=== PATIENT | male | born 1960 | race Caucasian/White ===

== ENCOUNTER 2023-10-08 21:48 | Emergency (ER) | payer OTHER, SELFPAY ==
--- NOTE | ~2023-10-08 | XR_ITS ---
Portable chest x-ray Comparison: None Clinical History: Tube placement Findings: Endotracheal tube and NG tube appear in satisfactory positions. Lungs are clear, without f ocal consolidation or pleural effusion. The costophrenic angles are partially excluded from the field -of-view. Cardiomediastinal silhouette is stable. Bones and soft tissues are unremarkable. Impression: Support tubes, as above. Visualized lungs are clear. Reviewed, dictated and finalized at location M. Impression: Support tubes, as above. Visualized lungs are clear.
--- NOTE | ~2023-10-08 | CT_ITS ---
EXAMINATION: CT BRAIN W/O DATE: 10/09/2023 01:03 INDICATION: Patient unresponsive TECHNIQUE: Computed tomography (CT) of the head was performed without intravenous contrast. The dose- length product was 681.00 mGy-cm. Automated exposure control and iterative reconstruction technique w ere employed. COMPARISON: No prior studies for comparison. FINDINGS: Normal brain parenchymal volume for age. Normal reynoso-white differentiation. No acute intrac ranial hemorrhage, infarction, mass or mass effect. No ventriculomegaly or midline shift. Midline sagittal images demonstrate a normal corpus callosum, c raniovertebral junction and sella turcica. Basilar cisterns are patent. Paranasal sinuses and mastoids are pneumatized. No depressed skull fractures. IMPRESSION: 1. No acute intracranial abnormality. Reviewed, dictated and finalized at location B.
--- NOTE | ~2023-10-08 | XR_ITS ---
Upright portable view of the abdomen Clinical history: NG tube placement Findings: NG tube in satisfactory position. Bowel gas pattern is nonspecific. No evidence for obstruc tion or free air. No abnormal mass lesion or calcification is seen. Osseous structures are intact. Impression: NG tube in satisfactory position. Reviewed, dictated and finalized at location . Impression: NG tube in satisfactory position.
[2023-10-08] MEDS: LORazepam INJ (*CRX) 2 MG/ML VIAL 1 MG IV PUSH ×4 (21:52→23:35)
--- NOTE | 2023-10-08 21:53 | ECG_ITS ---
SEE SCANNED COPY FOR CONFIRMED REPORT MTDD
[2023-10-08 22:00] VITALS: BP 148/110; PULSE 122; RESP 22; RESP 28; TEMP 37.8; O2SAT 95
[2023-10-08] MEDS: HALOPERIDOL LACTATE 5 MG/ML VIAL IV PUSH (22:06)
[2023-10-08] MEDS: HALOPERIDOL LACTATE 5 MG/ML VIAL IM (22:36)
[2023-10-08 22:42] LABS: Hematocrit 37.9 % (40.0-54.0); Hemoglobin 11.6 g/dL (14.0-18.0); Mean Corpuscular HGB Conc 30.6 g/dL (32-36); Mean Corpuscular Hemoglobin 29.5 pg (27.0-31.0); Mean Corpuscular Volume 96.4 fL (78.0-102.0); Mean Platelet Volume 12.7 fl (8.7-11.0); Red Blood Count 3.93 M/mm3 (4.70-6.10); Red Cell Distribution Width 15.3 % (11.6-14.4); White Blood Count 2.2 K/mm3 (4.8-10.8)
[2023-10-08 22:47] LABS: Platelet Count Result 35 K/mm3 (150-420)
[2023-10-08 22:57] LABS: Band Neutrophils Percent 0 % (0-6); Basophils Percent Manual 0 % (0-1); Eosinophils Absolute Manual 0.02 K/mm3 (0.02-0.50); Eosinophils Percent Manual 1 % (1-6); Lymphocytes Absolute Manual 1.14 K/mm3 (1.1-4.5); Lymphocytes Percent Manual 52 % (18-44); Monocytes Absolute Manual 0.26 K/mm3 (0.1-0.90); Monocytes Percent Manual 12 % (3-9); Neutrophils Absolute Manual 0.77 K/mm3 (1.3-6.7); Neutrophils Percent Manual 35 % (46-73); Platelet Clumps Present; Platelet Estimate Decreased (Adequate)
[2023-10-08 23:04] LABS: Alanine Aminotransferase 24 U/L (16-63); Albumin Level 3.2 g/dL (3.4-5.0); Alkaline Phosphatase 89 U/L (46-116); Anion Gap 15 mmol/L (4-12); Bilirubin,Total 0.3 mg/dL (0.00-1.00); Blood Urea Nitrogen 11 mg/dL (7-18); Calcium 7.9 mg/dL (8.5-10.1); Carbon Dioxide 20 mmol/L (21-32); Chloride 108 mmol/L (98-108); Estimated Glomerular Filt Rate > 60; Ethanol 178 mg/dL (0-6); Glucose 86 mg/dL (70-99); Osmolality Calculated 294 mOsm/kg (285-295); Salicylate 3.7 mg/dL (2.8-20.0); Sodium 143 mmol/L (136-145); Thyroid Stimulating Hormone 0.81 uIU/mL (0.36-3.74); Total Protein 7.7 g/dL (6.4-8.2)
[2023-10-08] MEDS: SODIUM CHLORIDE 0.9% IV 1,000 ML 999 ML IV CONT ×2 (23:10→23:47)
[2023-10-08 23:15] VITALS: BP 180/76; PULSE 108; RESP 22; O2SAT 95
[2023-10-08 23:16] LABS: Acetaminophen < 2 ug/mL (10-30); Ammonia 47 umol/L (11-32); Creatine Kinase 381 U/L (39-308); Potassium 6.4 mmol/L (3.5-5.1)
[2023-10-08 23:17] LABS: Aspartate Amino Transferase 63 U/L (15-37)
[2023-10-08 23:19] LABS: Appearance Urine Clear (Clear); Bilirubin Urine Negative (Negative); Blood Urine Negative (Negative); Color Urine Light Yellow (Yellow); Glucose Urine UA Negative (Negative); Ketones Urine Negative (Negative); Leukocyte Esterase Ur Negative LEU/UL (Negative); Nitrate Urine Negative (Negative); Protein Urine Negative (Negative); Urobilinogen Urine 0.2 mg/dL (0.2-1.0)
[2023-10-08 23:20] LABS: Add Urine Microscopic? NO
[2023-10-08 23:23] LABS: SARS-CoV-2 RNA PCR Negative (Negative)
[2023-10-08 23:23] LABS: Amphetamine Screen Urine Negative (Negative); Barbiturate Screen Urine Negative (Negative); Benzodiazepines Screen Urine Negative (Negative); Cannabinoid Screen Urine Positive (Negative); Cocaine Screen Urine Negative (Negative); Methadone Screen Urine Positive (Negative); Opiate Screen Urine Negative (Negative); Phencyclidine Screen Urine Negative (Negative)
--- NOTE | 2023-10-08 23:27 | PC.NURSE ---
Have attempted to medicate pt numerous times c Ativan as per order and pt is unable to relax, he still remains in restraints and is flaitling arms and attempting to kick and get out of restraints. Pt is on monitor showing Stach, he is unable to be redirected. Resp oncall notified to come for intubation setup. Pt is under close obs of nursing staff and he continues to be uncooperative c care and unable to relax, he is grinding his teeth, attempting to use calming therapy, but pt isn't able to comprehend.
[2023-10-08 23:54] VITALS: BP 136/61; PULSE 107; RESP 20; O2SAT 99
[2023-10-09] VITALS (19 sets, daily range): BP systolic 106–142; BP diastolic 70–88; PULSE 74–108; RESP 15–18; TEMP 36.6–37.8; O2SAT 95–100
[2023-10-09] MEDS: ETOMIDATE 20 MG/10 ML AMPUL IV PUSH (00:05)
[2023-10-09] MEDS: SUCCINYLCHOLINE CHLORIDE 20 MG/ML 10 ML VIAL 100 MG IV PUSH (00:07)
--- NOTE | 2023-10-09 00:11 | PC.NURSE ---
Pt intubated per ERP c 7.5 ETT and placed on vent per resp.
[2023-10-09] MEDS: CALCIUM GLUC 1,000 MG/NS 50 ML 1,000 MG/50 ML BAG 100 MG IVPB (00:14)
--- NOTE | 2023-10-09 00:16 | ED.OVERDOSE ---
HPI - Overdose General Chief Complaint: Overdose Stated Complaint: overdose Time Seen by Provider: 10/08/23 21:53 Source: patient and EMS Mode of arrival: EMS Limitations: altered mental status, physical limitation and intoxication History of Present Illness HPI Narrative: This is a 63-year-old male with no known medical history with tobacco abuse and chronic marijuana user apparently this evening smoked marijuana with possibility of it being laced with some some known drug. Spouse called EMS patient was given a dose of Narcan patient did not respond to the Narcan. The patient was agitated and combative with some heart rate initially 122 blood pressure 148/110. The patient had a low-grade fever with no nausea or vomiting. complaint: accidental overdose Onset (ago): hour(s) Timing confirmed by: spouse Intent: unknown How Overdose Was Discovered: called family/friend and called 911 Treatments Prior to Arrival: narcan and IV fluids Related Data Home Medications Medication Instructions Recorded Confirmed Unable to Obtain Home Medications 10/08/23 10/08/23 Allergies Allergy/AdvReac Type Severity Reaction Status Date / Time Unable to Assess Allergy Verified 10/08/23 22:27 Review of Systems Review of Systems: All systems reviewed & are unremarkable except as noted in HPI and below PMFSH Past Medical History Medical History Patient denies medical problems Social History Social History Substance use type: marijuana, amphetamines and methamphetamine Exam Const: General: confusion and ill appearing Nutritional Appearance: thin Limitations: altered mental status Eyes: Pupils: Equal, round and reactive pupils present Neck: Neck: normal visual inspection and no lymphadenopathy Chest: Chest palpation & inspection: normal inspection of the chest Resp: Effort & Inspection: normal respiratory effort Auscultation: clear to auscultation bilaterally Cardio: Rate: tachycardic Rhythm: regular rhythm GI: GI Palp: Yes Soft to palpation Auscultation: normal bowel sounds Skin: General skin exam: normal color Neuro: General: no focal motor deficits Cranial nerves: Yes Nystagmus not present Extrem: General: normal to inspection, no clubbing, cyanosis or edema and no pedal edema Other: right below-knee amputation Course Course Emergency Course: patient brought in by EMS with acute agitation and combative did receive IV Ativan and Haldol patient continued to be combative and was placed in restraints patient did have some relief of his agitation but was unresponsive and nonverbal and patient was prepped for intubation with RSI with succinylcholine and etomidate. Patient received IV fluids with 2L of normal saline boluses, potassium level increased at 6.4 and was given a dose of IV calcium gluconate. Spoke to kiln pusher stay at [facility] which accepted patient for transfer. Repeat a potassium level Vital Signs Vital signs: Vital Signs Temperature 37.8 C H 10/08/23 22:00 Pulse Rate 122 H 10/08/23 22:00 Respiratory Rate 28 H 10/08/23 22:00 Blood Pressure 148/110 H 10/08/23 22:00 Pulse Oximetry 95 10/08/23 22:00 Oxygen Delivery Room Air 10/08/23 22:00 Temperature 37.8 C H 10/08/23 22:00 Pulse Rate 107 H 10/08/23 23:54 Respiratory Rate 20 10/08/23 23:54 Blood Pressure 136/61 10/08/23 23:54 Pulse Oximetry 99 10/08/23 23:54 Oxygen Delivery Non-Rebreather Mask 10/08/23 23:54 Oxygen Flow Rate 15 10/08/23 23:54 Procedures Intubation Intubation #1: Intubation Date: 10/09/23 Intubation Time: 00:25 Time out performed: Yes sedative: Etomidate Mg Given: 20 paralytic: Succinylcholine Mg Given: 100 Laryngoscope: fiber optic video scope Tube Size (cm): 7.5 Method of Intubation:
[2023-10-09] MEDS: PROPOFOL IV EMULSION 100 ML 2.28 MG IV CONT (00:20)
[2023-10-09] MEDS: SODIUM CHLORIDE 0.9% IV 1,000 ML 120 ML IV CONT (00:30)
--- NOTE | 2023-10-09 00:40 | PC.NURSE ---
Pt being monitored, on propofol gtt and rate increased and co-signed c 2 RNs to sedate pt fully. Monitor shows NSR, IVF infusing as per order. Pt taken to CT for CT of head per order.
[2023-10-09 01:06] LABS: Base Excess ABG -5.3 mmol/L (0-2); HCO3 ABG 20.5 mmol/L (23-29); Oxygen Content ABG 16.1 %vol (16.0-22.0); Oxygen Saturation ABG 96.5 % (95-97); Oxyhemoglobin 94.9 % (94-100); PCO2 ABG 40.8 mmHg (35-45); PO2 ABG 101.1 mmHg (80-90); pH ABG 7.32 (7.35-7.45)
[2023-10-09 01:07] LABS: Device VENTILATOR; Modified Allen's Test Pass; Site Drawn RIGHT RADIAL
--- NOTE | 2023-10-09 01:11 | PC.NURSE ---
Pt remains sedated on propofol gtt per protocol. VSS, awaiting callback from appeals reviewer veteran at [facility]. Continuing to monitor.
[2023-10-09 01:49] LABS: Anion Gap 12 mmol/L (4-12); Blood Urea Nitrogen 9 mg/dL (7-18); Calcium 7.7 mg/dL (8.5-10.1); Carbon Dioxide 24 mmol/L (21-32); Chloride 112 mmol/L (98-108); Estimated CRCL calculation 77 ml/min; Estimated Glomerular Filt Rate > 60; Glucose 88 mg/dL (70-99); Osmolality Calculated 303 mOsm/kg (285-295); Potassium 4.1 mmol/L (3.5-5.1); Sodium 148 mmol/L (136-145)
--- NOTE | 2023-10-09 02:31 | PC.NURSE ---
Call back from Bonnie,, pt will go to ICU 5, # for report given.
--- NOTE | 2023-10-09 02:31 | PC.NURSE ---
Pt remains sedated on propofol gtt, VSS, continuing to monitor.
--- NOTE | 2023-10-09 02:41 | PC.NURSE ---
Report given to [facility] at [place], call placed to [facility] for transfer.
--- NOTE | 2023-10-09 03:28 | PC.NURSE ---
Pt transfered to EMS cot for transfer. New propofol hung for transfer as 1st vial is complete and empty. Report given to EMS.
== END 2023-10-09 03:45 | disposition short-term general hospital (02) ==
PROVIDERS: Emergency Provider Emergency Medicine
DX: E87.5 Hyperkalemia (principal); T50.904A Poisoning by unspecified drugs, medicaments and biological substances, undetermined, initial encounter; Z20.822 Contact with and (suspected) exposure to COVID-19
CPT/HCPCS: 31500; 36415; 36600; 51702; 70450; 80048; 80053; 80307; 81003; 82140; 82550; 82805; 84443; 85025; 85055; 87635; 93005; 96361; 96365; 96366; 96367; 96372; 96374; 96375; 96376; 99285; J0330; J0612; J1630; J2060; J2704; J7030

== ENCOUNTER 2023-10-09 04:13 | Inpatient (IN) | payer OTHER, SELFPAY ==
[2023-10-09] VITALS (32 sets, daily range): BP systolic 104–150; BP diastolic 50–79; PULSE 53–84; RESP 16–23; TEMP 36.2–38.5; O2SAT 95–100; BMI 23.0
--- NOTE | ~2023-10-09 | XR_ITS ---
XR chest 1V portable DATE: 10/10/2023 05:40 INDICATION: Intubation TECHNIQUE: Portable AP chest on October 10, 2023 at 0 x 12 hours COMPARISON: Portable AP chest on October 09, 2023 at 0543 hours FINDINGS: ET tube tip is 5.6 cm above calixto. NG tube in stomach. No central lines. The lungs are hyperinflated. Minimal discoid atelectasis or scarring in the left lower lobe. No pulmo nary consolidation or pleural effusion, pulmonary vascular congestion or pneumothorax is detected. Normal heart size. No hilar or mediastinal enlargement. IMPRESSION: Minimal discoid atelectasis or scarring, left lower lobe Moderate hyperinflation Reviewed, dictated and finalized at location A.
--- NOTE | ~2023-10-09 | XR_ITS ---
XR chest 1V portable DATE: 10/11/2023 05:59 INDICATION: Extubation TECHNIQUE: Portable upright AP views October 11, 2023 at 0524 hours COMPARISON: October 10, 2023 portable AP chest FINDINGS: Removal of ET and NG tubes since October 10, 2023. Bilateral hyperinflation consistent with obstructive airways disease. No pulmonary infiltrate or consolidation, pleural effusion or pulmonary vascular congestion or pneumo thorax is evident. No normal heart size. No hilar or mediastinal enlargement. IMPRESSION: Removal of ET and NG tubes Bilateral hyperinflation suggesting COPD; no active cardiopulmonary disease Reviewed, dictated and finalized at location A.
--- NOTE | ~2023-10-09 | XR_ITS ---
XR chest 1V portable 10/09/2023 05:47 Indication: Respiratory distress. Intubation. Procedure: AP portable chest Comparison: 10/09/2023 Findings: Heart size normal. Endotracheal tube tip 6.1 cm above the calixto. Subtle right basilar infi ltrates may represent atelectasis or developing pneumonia. No pleural effusion, edema or pneumothorax .. Impression: 1: Subtle developing right basilar infiltrates may represent atelectasis or developing pneumonia. Reviewed, dictated and finalized at location B. Impression: 1: Subtle developing right basilar infiltrates may represent atelectasis or dev eloping pneumonia.
--- NOTE | 2023-10-09 04:38 | ADMIMU ---
This patient, Mirza Hidalgo, was admitted to IMU status, and placed in Intensive Care Unit-5 from [facility] on a ventilator. Patient/family oriented to hospital policies and general routines including ID bracelet, bed and alarms, visiting hours, pain management, procedures, bathroom and other care routines, personal items, smoking policy, room service/diet, and visiting hours. Valuables list has been completed. Information on how to activate the Rapid Response Team has been discussed. Patient/Family are encouraged to report perceived risks to care and to ask questions if they do not understand what they are told or what they should do.
[2023-10-09] MEDS: PROPOFOL IV EMULSION 100 ML 19.75 MG IV CONT (04:40)
[2023-10-09 05:23] LABS: Alveolar/Arterial O2 Gradient 79.9 mmHg; Base Excess ABG -5.6 mEq/l (+/-2.0); Fractional Inspired Oxygen 30 %; HCO3 ABG 19.7 mEq/l (22.0-26.0); Methemoglobin ABG 0.1 %THb (0-1.5); Oxygen Content ABG 16.3 %vol (16.0-22.0); Oxygen Saturation ABG 96.4 % (95.0-100.0); Oxyhemoglobin 95.3 % THb (90.0-100.0); PCO2 ABG 37.8 mmHg (35.0-45.0); PO2 ABG 89.6 mmHg (80.0-100.0); PO2 FiO2 Ratio Arterial Blood 2.99 %; Reduced Hemoglobin 4.6 %THb (0-5.0); Total Hemoglobin 12.1 g/dL (12.0-18.0); pH ABG 7.334 (7.350-7.450)
[2023-10-09 05:24] LABS: Device VENTILATOR; Modified Allen's Test Pass; Site Drawn LEFT RADIAL
[2023-10-09 05:25] LABS: Arterial Blood Gas PEEP 5 cmH2O; Arterial Blood Gas Tidal Volume 450 ml; Arterial Blood Gas Vent Mode CMV; Arterial Blood Gas Ventilator rate 16 /MIN
--- NOTE | 2023-10-09 06:47 | ADMGEN ---
This patient, Mirza Hidalgo, was admitted to Intensive Care Unit-5. Patient/family oriented to hospital policies and general routines including ID bracelet, bed and alarms, visiting hours, pain management, procedures, bathroom and other care routines, personal items, smoking policy, room service/diet, and visiting hours. Information on how to activate the Rapid Response Team has been discussed. Patient/Family are encouraged to report perceived risks to care and to ask questions if they do not understand what they are told or what they should do. Received from [facility] via EMS on ventilator and Propofol at 0411.
[2023-10-09] MEDS: PROPOFOL IV EMULSION 100 ML 17.95 MG IV CONT ×2 (07:15→19:31)
[2023-10-09 07:33] LABS: MRSA (PCR) NOT DETECTED (NOT DETECTE)
--- NOTE | 2023-10-09 07:35 | PM.IMHP ---
H&P: HPI History of Present Illness Date/Time: 10/09/23 07:35 Chief Complaint: Drug overdose Narrative: patient is intubated, history taken from ER note 63 years old gentleman with history of tobacco use, marijuana use, was brought to ED by EMS because of possible overdose of unknown drugs. patient was found confused, agitated, combative. EMS gave the patient Narcan, patient did not respond. And patient was found have tachycardia heart rate about 122, elevated blood pressure 148/110. And patient was brought to ED for further evaluation treatment. Upon arrival in the ED, patient was afebrile, tachycardia, tachypnea, patient was intubated, labs showed leukopenia 2200, hemoglobin 11.6, platelets 35, hyperkalemia 6.4, metabolic acidosis bicarbonate 20, ethyl alcohol 178, positive marijuana and methadone on drug screening Review of Systems Review of Systems: patient is in the [facility] Past Medical History Medical History Patient denies medical problems Family History Family History Other Unknown family medical history Social History Social History Smoking status: Current every day smoker Alcohol intake: current Substance use: current Substance use type: marijuana Spiritual care concerns: No Meds Home Medications and Allergies Home Medications Medication Instructions Recorded Confirmed Type Unable to Obtain Home Medications 10/08/23 10/09/23 History Allergies Allergy/AdvReac Type Severity Reaction Status Date / Time Unable to Assess Allergy Verified 10/08/23 22:27 Vital Signs Vital Signs - 24 hr 10/09/23 04:36 10/09/23 05:00 10/09/23 04:30 Temperature Pulse Rate 60 62 Respiratory Rate 16 Blood Pressure Pulse Oximetry 99 100 Oxygen Delivery Mechanical Ventilation Mechanical Ventilation Mechanical Ventilation Fraction of Inspired Oxygen 30 30 10/09/23 06:00 10/09/23 06:00 10/09/23 04:40 Temperature 97.7 F Pulse Rate 66 66 60 Respiratory Rate 16 16 Blood Pressure 107/67 Pulse Oximetry 98 Oxygen Delivery Fraction of Inspired Oxygen 10/09/23 06:00 Temperature Pulse Rate 64 Respiratory Rate 16 Blood Pressure Pulse Oximetry Oxygen Delivery Fraction of Inspired Oxygen Exam Narrative: GENERAL: intubated, in no acute distress. Well-nourished. - EYES: EOMI. Anicteric. - HENT: Moist mucous membranes. - LUNGS: Clear to auscultation bilaterally, no wheezing, rhonchi, or rales. - CARDIOVASCULAR: Regular rate and rhythm. No murmur. No JVD. - ABDOMEN: Soft, non-tender and non-distended. No palpable masses. - EXTREMITIES: No edema. Peripheral pulses 2+. Non-tender. - NEUROLOGIC: No focal neurological deficits. CN II-XII grossly intact. - PSYCHIATRIC: on sedation, not oriented x 3. - SKIN: No rashes or lesions. Warm. - LYMPH: No cervical lymphadenopathy. Assessment and Plan Assessment and plan (1) Drug overdose: Qualifiers: Encounter type: initial encounter Injury intent: undetermined intent Qualified Code(s): T50.904A - Poisoning by unspecified drugs, medicaments and biological substances, undetermined, initial encounter Code(s): T50.901A - Poisoning by unspecified drugs, medicaments and biological substances, accidental (unintentional), initial encounter Status: Acute (2) Acute hyperkalemia: Code(s): E87.5 - Hyperkalemia Status: Acute (3) Alcohol intoxication: Code(s): F10.929 - Alcohol use, unspecified with intoxication, unspecified Status: Acute (4) Acute encephalopathy: Code(s): G93.40 - Encephalopathy, unspecified Status: Acute (5) Metabolic acidosis: Code(s): E87.20 - Acidosis, unspecified Status: Acute (6) Pancytopenia: Code(s): D61.818 - Other pancytopenia Statu
--- NOTE | 2023-10-09 08:18 | WPDCNINT ---
Assessment and Plan Assessment and plan (1) Acute respiratory failure: Code(s): J96.00 - Acute respiratory failure, unspecified whether with hypoxia or hypercapnia Status: Acute Assessment and Plan: Acute Respiratory failure secondary to encephalopathy Patient now intubated and on mechanical ventilation. Ventilator settings reviewed Continue full mechanical ventilation support to prevent hypoxemia/hypercarbia and end organ damage. ABG and PCXR reviewed and will repeat in am. Low tidal volume ventilation strategy to prevent volutrauma Will attempt SBT after 24 hours once the effect of drugs have worn off Start Bronchodilators (2) Acute encephalopathy: Code(s): G93.40 - Encephalopathy, unspecified Status: Acute Assessment and Plan: Likely secondary to drug abuse and alcohol intoxication Head CT negative Ammonia is mildly elevated and will be started on lactulose. Level with monitor Check TSH (3) Alcohol intoxication: Code(s): F10.929 - Alcohol use, unspecified with intoxication, unspecified Status: Acute Assessment and Plan: IV fluids Thiamine folic acid Supportive care (4) Acute hyperkalemia: Code(s): E87.5 - Hyperkalemia Status: Acute Assessment and Plan: Patient's potassium was 6.4 on presentation could be secondary to acidosis. Repeat potassium has normalized and his renal function is normal Monitor (5) Drug overdose: Qualifiers: Encounter type: initial encounter Injury intent: undetermined intent Qualified Code(s): T50.904A - Poisoning by unspecified drugs, medicaments and biological substances, undetermined, initial encounter Code(s): T50.901A - Poisoning by unspecified drugs, medicaments and biological substances, accidental (unintentional), initial encounter Status: Acute Assessment and Plan: Supportive care Alcohol intoxication on presentation UDS also positive for methadone and cannabinoids Patient appears to be smoking marijuana which was laced with some sort of drug (6) COPD (chronic obstructive pulmonary disease): Code(s): J44.9 - Chronic obstructive pulmonary disease, unspecified Status: Acute Assessment and Plan: Hyperinflated lungs on chest x-ray suggestive of COPD No official diagnosis and does not appear in exacerbation from exam Bronchodilators ordered (7) Rhabdomyolysis: Code(s): M62.82 - Rhabdomyolysis Status: Acute Assessment and Plan: CK elevated Continue IV fluids and monitor CK level Plan DVT prophylaxis -Lovenox Stress ulcer prophylaxis -PPI Nutrition -start Tube Feeds Code Status - Full Code Total Critical Care Time - 35 minutes Due to a high probability of clinically significant, life threatening deterioration, the patient required my highest level of preparedness to intervene emergently and I personally spent this critical care time directly and personally managing the patient. This critical care time included obtaining a history; examining the patient; pulse oximetry; ordering and review of studies; arranging urgent treatment with development of a management plan; evaluation of patient's response to treatment; frequent reassessment; and discussions with other providers. It was exclusive of separately billable procedures and treating other patients and teaching time. Please see Assessment and Plan section and the rest of the note for further information on patient assessment and treatment Curriculum Developer Consult Note Consult date: 10/09/23 Reason for consult: Acute respiratory failure HPI: Mirza Hidalgo is a 63 year old male with a known medical history except tobacco abuse marijuana abuse was brought to [place] ER due to agitation by EMS after his called EMS as she suspected the patient was smoking marijuana laced with some unknown drug. Patient was given Narcan without any response. In ER patient was agitated combative tachycardic and hypert
[2023-10-09] MEDS: IPRATROPIUM 0.5 MG/ALBUTEROL SULFATE 2.5 MG AMPUL.NEB 3 ML INHALATION ×3 (08:25→20:31)
[2023-10-09 08:42] LABS: Hepatitis B Surface Antigen Negative (Negative)
[2023-10-09] MEDS: PIPERACILLIN/TAZ 4.5G/NS 100ML 4.5 GM/100 ML BAG IVPB (08:55)
[2023-10-09] MEDS: SODIUM CHLORIDE 0.45% 1,000 ML 125 ML IV CONT ×2 (08:55→17:27)
[2023-10-09 08:59] LABS: HIV 1/2 Ab P24 Ag Result Negative (Negative); Hepatitis C Virus Antibody Negative (Negative)
[2023-10-09] MEDS: ENOXAPARIN 40 MG/0.4 ML SYRINGE SUB-Q (09:00)
[2023-10-09] MEDS: THIAMINE HCL 100 MG TABLET FEED TUBE (09:00)
[2023-10-09] MEDS: PANTOPRAZOLE SODIUM IV 40 MG VIAL IV PUSH (09:01)
[2023-10-09] MEDS: LACTULOSE 20 GM/30 ML UDC PO (09:01)
[2023-10-09] MEDS: FOLIC ACID 1 MG TABLET FEED TUBE (09:01)
[2023-10-09] MEDS: MINERAL OIL/WHITE PETROLATUM OINTMENT 1 APPLIC EACH EYE ×2 (09:02→20:13)
[2023-10-09] MEDS: THIAMINE HCL 200 MG/2 ML VIAL 100 MG IV PUSH (09:04)
[2023-10-09 09:24] LABS: Hematocrit 36.4 % (42.0-52.0); Hemoglobin 11.3 g/dL (14.0-18.0); Immature Reticulocyte Fraction 11.1 % (3.0-15.9); Mean Corpuscular Hemoglobin 30.2 pg (26-34); Mean Corpuscular Volume 97.3 fl (80-100); Mean Platelet Volume 10.7 fl (7.4-10.4); Platelet Count Result 155 k/mm3 (150-375); Red Blood Count 3.74 M/mm3 (4.6-6.20); Red Cell Distribution Width 15.8 % (11.5-14.5); Reticulocyte Hemoglobin Conten 32.8 pg (28.2-36.6); Reticulocyte Percent 1.25 % (0.7-4.3); Reticulocytes Absolute 0.05 10^6/uL (0.02-0.10); White Blood Count 4.1 K/mm3 (4.5-10.0)
[2023-10-09 09:47] LABS: Iron 54 ug/dL (49-181)
[2023-10-09 09:50] LABS: Alanine Aminotransferase 22 U/L (6-50); Albumin Level 3.4 g/dL (3.5-5.1); Alkaline Phosphatase 83 U/L (38-126); Anion Gap 4 mmol/L (4-12); Aspartate Amino Transferase 44 U/L (17-59); Bilirubin,Total 0.3 mg/dL (0.2-1.3); Blood Urea Nitrogen 11 mg/dL (9-20); Calcium 8.5 mg/dL (8.4-10.2); Carbon Dioxide 23 mmol/L (22-30); Chloride 116 mmol/L (98-107); Estimated CRCL calculation 100 ml/min; Estimated Glomerular Filt Rate > 60; Glucose 79 mg/dL (65-110); Magnesium 1.7 mg/dL (1.6-2.3); Sodium 143 mmol/L (137-145)
[2023-10-09 09:52] LABS: NT Pro B Type Natriuretic Pept 39 pg/mL (19.9-100)
[2023-10-09 09:56] LABS: Percent Iron Saturation 20 % (20-50)
[2023-10-09 10:05] LABS: Procalcitonin 0.1 ng/mL
[2023-10-09 10:13] LABS: Thyroid Stimulating Hormone Reflex 0.686 uIU/mL (0.465-4.68)
[2023-10-09 11:25] LABS: Lactic Acid Reflex 0.9 mmol/L (0.7-2.0)
[2023-10-09 11:34] LABS: Glucose Point of Care 82 mg/dl (65-105)
[2023-10-09] MEDS: PROPOFOL IV EMULSION 100 ML 15.71 MG IV CONT (13:34)
[2023-10-09 18:12] LABS: Appearance Urine Turbid (Clear); Bacteria Urine None Seen /hpf; Bilirubin Urine Negative (Negative); Blood Urine 2+ (Negative); Color Urine Yellow (Yellow); Glucose Urine UA Negative (Negative); Ketones Urine 1+ mg/dL (Negative); Leukocyte Esterase Ur 1+ LEU/UL (Negative); Nitrate Urine Negative (Negative); Non Pathogenic Casts 0-2; Protein Urine Trace mg/dL (Negative); RBC Urine 21-50 /hpf (0-2); Specific Grav Ur 1.027 (1.001-1.035); Squamous Epithelial Cell Urine Occasional /hpf (Few); pH Urine 5.5 (5.0-9.0)
[2023-10-09 18:19] LABS: Add Urine Microscopic? YES
[2023-10-09 18:46] LABS: Glucose Point of Care 80 mg/dl (65-105)
[2023-10-09] MEDS: ACETAMINOPHEN ELIXIR 325 MG/10.15 ML UDC 650 MG PO (23:41)
[2023-10-10] VITALS (47 sets, daily range): BP systolic 84–133; BP diastolic 49–79; PULSE 43–87; RESP 13–28; TEMP 37–38.5; O2SAT 95–100
[2023-10-10 00:01] LABS: Glucose Point of Care 84 mg/dl (65-105)
[2023-10-10] MEDS: PROPOFOL IV EMULSION 100 ML 22.44 MG IV CONT ×2 (01:00→04:25)
[2023-10-10] MEDS: SODIUM CHLORIDE 0.45% 1,000 ML 125 ML IV CONT (01:27)
[2023-10-10] MEDS: IPRATROPIUM 0.5 MG/ALBUTEROL SULFATE 2.5 MG AMPUL.NEB 3 ML INHALATION ×4 (02:54→20:02)
[2023-10-10 04:18] LABS: Hematocrit 34.9 % (42.0-52.0); Hemoglobin 11.2 g/dL (14.0-18.0); Mean Corpuscular HGB Conc 32.1 g/dl (32-36); Mean Corpuscular Hemoglobin 30.2 pg (26-34); Mean Corpuscular Volume 94.1 fl (80-100); Mean Platelet Volume 10.1 fl (7.4-10.4); Platelet Count Result 159 k/mm3 (150-375); Red Blood Count 3.71 M/mm3 (4.6-6.20); Red Cell Distribution Width 15.6 % (11.5-14.5); White Blood Count 4.2 K/mm3 (4.5-10.0)
[2023-10-10 04:28] LABS: Ammonia 21 umol/L (9-30); Creatine Kinase 636 U/L (55-170)
[2023-10-10 04:35] LABS: Alanine Aminotransferase 18 U/L (6-50); Albumin Level 3.1 g/dL (3.5-5.1); Alkaline Phosphatase 80 U/L (38-126); Anion Gap 3 mmol/L (4-12); Aspartate Amino Transferase 38 U/L (17-59); Bilirubin,Total 0.3 mg/dL (0.2-1.3); Blood Urea Nitrogen 9 mg/dL (9-20); Calcium 8.4 mg/dL (8.4-10.2); Carbon Dioxide 25 mmol/L (22-30); Chloride 111 mmol/L (98-107); Estimated CRCL calculation 100 ml/min; Estimated Glomerular Filt Rate > 60; Glucose 114 mg/dL (65-110); Magnesium 1.8 mg/dL (1.6-2.3); Potassium 3.2 mmol/L (3.4-5.0); Sodium 139 mmol/L (137-145)
[2023-10-10] MEDS: dexmedeTOMIDine 400 MCG/100 ML 400 MCG/100 ML BAG IV CONT (04:50)
[2023-10-10 05:54] LABS: Alveolar/Arterial O2 Gradient 85.1 mmHg; Base Excess ABG 1.4 mEq/l (+/-2.0); Carboxyhemoglobin 0.3 % THb (0-2.0); Fractional Inspired Oxygen 30 %; HCO3 ABG 25.9 mEq/l (22.0-26.0); Methemoglobin ABG 0.2 %THb (0-1.5); Oxygen Content ABG 16.5 %vol (16.0-22.0); Oxygen Saturation ABG 96.2 % (95.0-100.0); Oxyhemoglobin 95.1 % THb (90.0-100.0); PCO2 ABG 40.6 mmHg (35.0-45.0); PO2 ABG 81.1 mmHg (80.0-100.0); Reduced Hemoglobin 4.4 %THb (0-5.0); Total Hemoglobin 12.3 g/dL (12.0-18.0); pH ABG 7.423 (7.350-7.450)
[2023-10-10 05:57] LABS: Device VENTILATOR; Modified Allen's Test Pass; Site Drawn RIGHT RADIAL
[2023-10-10 05:58] LABS: Arterial Blood Gas PEEP 5 cmH2O; Arterial Blood Gas Tidal Volume 450 ml; Arterial Blood Gas Vent Mode CMV; Arterial Blood Gas Ventilator rate 16 /MIN
[2023-10-10 06:09] LABS: Glucose Point of Care 99 mg/dl (65-105)
--- NOTE | 2023-10-10 08:08 | WPDINTPN ---
Progress Note: A&P Assessment and Plan (1) Acute respiratory failure: Code(s): J96.00 - Acute respiratory failure, unspecified whether with hypoxia or hypercapnia Status: Acute Assessment and Plan: Acute Respiratory failure secondary to encephalopathy Patient now intubated and on mechanical ventilation. Ventilator settings reviewed Continue full mechanical ventilation support to prevent hypoxemia/hypercarbia and end organ damage. ABG and PCXR reviewed. Advance ET tube to 27 cm.. Low tidal volume ventilation strategy to prevent volutrauma Patient placed on sedation holiday and will try weaning trial and evaluate for extubation Continue Bronchodilators (2) Acute encephalopathy: Code(s): G93.40 - Encephalopathy, unspecified Status: Acute Assessment and Plan: Likely secondary to drug abuse and alcohol intoxication Head CT negative Ammonia is mildly elevated and patient was started on lactulose. Level now normal Normal TSH (3) Alcohol intoxication: Code(s): F10.929 - Alcohol use, unspecified with intoxication, unspecified Status: Acute Assessment and Plan: IV fluids Thiamine folic acid Supportive care (4) Acute hyperkalemia: Code(s): E87.5 - Hyperkalemia Status: Inactive Assessment and Plan: Patient's potassium was 6.4 on presentation could be secondary to acidosis. Repeat potassium has normalized and his renal function is normal Monitor (5) Drug overdose: Qualifiers: Encounter type: initial encounter Injury intent: undetermined intent Qualified Code(s): T50.904A - Poisoning by unspecified drugs, medicaments and biological substances, undetermined, initial encounter Code(s): T50.901A - Poisoning by unspecified drugs, medicaments and biological substances, accidental (unintentional), initial encounter Status: Inactive Assessment and Plan: Supportive care Alcohol intoxication on presentation UDS also positive for methadone and cannabinoids Patient appears to be smoking marijuana which was laced with some sort of drug (6) COPD (chronic obstructive pulmonary disease): Code(s): J44.9 - Chronic obstructive pulmonary disease, unspecified Status: Acute Assessment and Plan: Hyperinflated lungs on chest x-ray suggestive of COPD No official diagnosis and does not appear in exacerbation from exam Bronchodilators ordered (7) Rhabdomyolysis: Code(s): M62.82 - Rhabdomyolysis Status: Acute Assessment and Plan: CK elevated Continue IV fluids and monitor CK level (8) UTI (urinary tract infection): Code(s): N39.0 - Urinary tract infection, site not specified Status: Acute Assessment and Plan: UA suggestive of UTI. WBC normal but patient appears to be pancytopenic could be secondary to chronic alcohol abuse. Low-grade fever Urine blood and sputum cultures are sent and pending Start Rocephin Plan DVT prophylaxis -Lovenox Stress ulcer prophylaxis -PPI Nutrition -on Tube Feeds Code Status - Full Code Total Critical Care Time - 30 minutes Due to a high probability of clinically significant, life threatening deterioration, the patient required my highest level of preparedness to intervene emergently and I personally spent this critical care time directly and personally managing the patient. This critical care time included obtaining a history; examining the patient; pulse oximetry; ordering and review of studies; arranging urgent treatment with development of a management plan; evaluation of patient's response to treatment; frequent reassessment; and discussions with other providers. It was exclusive of separately billable procedures and treating other patients and teaching time. Please see Assessment and Plan section and the rest of the note for further information on patient assessment and treatment Subjective Date/time seen: 10/10/23 Overnight events reviewed. Low-grad
[2023-10-10] MEDS: POTASSIUM CHLORIDE 20 MEQ PACKET (FOR LIQUID) 40 MEQ FEED TUBE ×2 (08:15→13:38)
[2023-10-10] MEDS: LACTULOSE 20 GM/30 ML UDC PO (08:16)
[2023-10-10] MEDS: FOLIC ACID 1 MG TABLET FEED TUBE (08:16)
[2023-10-10] MEDS: PANTOPRAZOLE SODIUM IV 40 MG VIAL IV PUSH (08:17)
[2023-10-10] MEDS: KCL 20 MEQ/0.45% NS 1,000 ML 100 ML IV CONT ×2 (08:20→18:25)
[2023-10-10] MEDS: MINERAL OIL/WHITE PETROLATUM OINTMENT 1 APPLIC EACH EYE (08:21)
[2023-10-10] MEDS: ENOXAPARIN 40 MG/0.4 ML SYRINGE SUB-Q (08:21)
[2023-10-10] MEDS: MAGNESIUM SULF 2 GM/WATER 50ML 2 GM/50 ML BAG IVPB (08:21)
[2023-10-10] MEDS: THIAMINE HCL 100 MG TABLET FEED TUBE (08:30)
[2023-10-10 08:39] LABS: Alveolar/Arterial O2 Gradient 101.4 mmHg; Base Excess ABG -3.5 mEq/l (+/-2.0); Carboxyhemoglobin 0.3 % THb (0-2.0); Fractional Inspired Oxygen 30 %; HCO3 ABG 20.5 mEq/l (22.0-26.0); Methemoglobin ABG 0.2 %THb (0-1.5); Oxygen Content ABG 16.5 %vol (16.0-22.0); Oxyhemoglobin 93.6 % THb (90.0-100.0); PCO2 ABG 33.4 mmHg (35.0-45.0); PO2 ABG 73.3 mmHg (80.0-100.0); PO2 FiO2 Ratio Arterial Blood 2.44 %; Reduced Hemoglobin 5.9 %THb (0-5.0); Total Hemoglobin 12.5 g/dL (12.0-18.0); pH ABG 7.405 (7.350-7.450)
[2023-10-10 08:40] LABS: Device VENTILATOR; Site Drawn LEFT BRACHIAL
[2023-10-10 08:41] LABS: Arterial Blood Gas PEEP 5 cmH2O; Arterial Blood Gas Pressure Support 5 cmH2O; Arterial Blood Gas Vent Mode SPONTANEOUS
--- NOTE | 2023-10-10 08:42 | PC.NURSE ---
Dr. Napier to bedside. ABG drawn, patient able to follow simple command on Precedex gtt only.
--- NOTE | 2023-10-10 08:46 | PM.IMPN ---
Progress Note: A&P Assessment and Plan (1) UTI (urinary tract infection): Code(s): N39.0 - Urinary tract infection, site not specified Status: Acute (2) Rhabdomyolysis: Code(s): M62.82 - Rhabdomyolysis Status: Acute (3) COPD (chronic obstructive pulmonary disease): Code(s): J44.9 - Chronic obstructive pulmonary disease, unspecified Status: Acute (4) Acute respiratory failure: Code(s): J96.00 - Acute respiratory failure, unspecified whether with hypoxia or hypercapnia Status: Acute (5) Acute encephalopathy: Code(s): G93.40 - Encephalopathy, unspecified Status: Acute (6) Alcohol intoxication: Code(s): F10.929 - Alcohol use, unspecified with intoxication, unspecified Status: Acute (7) Pancytopenia: Code(s): D61.818 - Other pancytopenia Status: Acute Plan (1) Acute respiratory failure, possible COPD exacerbation ?Code(s): J96.00 - Acute respiratory failure, unspecified whether with hypoxia or hypercapnia ?Status:?Acute ?Assessment and Plan: Acute Respiratory failure secondary to encephalopathy Patient now intubated and on mechanical ventilation.? Ventilator settings reviewed Continue full mechanical ventilation support to prevent hypoxemia/hypercarbia and end organ damage. ABG and PCXR reviewed. Advance ET tube to 27 cm.. Low tidal volume ventilation strategy to prevent volutrauma Patient placed on sedation holiday and will try weaning trial and evaluate for extubation Continue Bronchodilators (2) Acute encephalopathy: ?Code(s): G93.40 - Encephalopathy, unspecified ?Status:?Acute ?Assessment and Plan: Likely secondary to drug abuse and alcohol intoxication Head CT negative Ammonia is mildly elevated and patient was started on lactulose.? Level now normal Normal TSH (3) Alcohol intoxication: ?Code(s): F10.929 - Alcohol use, unspecified with intoxication, unspecified ?Status:?Acute ?Assessment and Plan: IV fluids continue Thiamine folic acid Supportive care (4) Acute hyperkalemia: ?Code(s): E87.5 - Hyperkalemia ?Status:?Inactive ?Assessment and Plan: Patient's potassium was 6.4 on presentation could be secondary to acidosis. Repeat potassium has normalized and his renal function is normal Monitor resolved patient has mild hypokalemia, replete potassium chloride p.o. p.r.n. (5) Drug overdose: ?Qualifiers: ?Encounter type:?initial encounter??Injury intent:?undetermined intent? Qualified Code(s):?T50.904A - Poisoning by unspecified drugs, medicaments and biological substances, undetermined, initial encounter ?Code(s): T50.901A - Poisoning by unspecified drugs, medicaments and biological substances, accidental (unintentional), initial encounter ?Status:?Inactive ?Assessment and Plan: Supportive care Alcohol intoxication on presentation UDS also positive for methadone and cannabinoids Patient appears to be smoking marijuana which was laced with some sort of drug (6) COPD (chronic obstructive pulmonary disease): ?Code(s): J44.9 - Chronic obstructive pulmonary disease, unspecified ?Status:?Acute ?Assessment and Plan: Hyperinflated lungs on chest x-ray suggestive of COPD No official diagnosis and does not appear in exacerbation from exam Bronchodilators ordered (7) Rhabdomyolysis: ?Code(s): M62.82 - Rhabdomyolysis ?Status:?Acute ?Assessment and Plan: CK elevated Continue IV fluids and monitor CK level (8) UTI (urinary tract infection): ?Code(s): N39.0 - Urinary tract infection, site not specified ?Status:?Acute ?Assessment and Plan: UA suggestive of UTI.? Low-grade fever Urine culture pending,blood and sputum cultures no growth so far Start Rocephin pancytopenia neutropenia and thrombocytopenia has resolved, hemoglobin stable, likely secondary to alcohol intoxication Subject
--- NOTE | 2023-10-10 08:55 | PC.NURSE ---
Patient extubated to 2L NC without issue. Patient updated on plan of care and safety precautions post extubation. Patient verbalized understanding.
--- NOTE | 2023-10-10 10:49 | PC.NURSE ---
Updated spouse Génesis via telephone on patient condition and plan of care for the shift. Spouse verbalized understanding.
[2023-10-10 11:34] LABS: Glucose Point of Care 103 mg/dl (65-105)
[2023-10-10 17:02] LABS: Glucose Point of Care 100 mg/dl (65-105)
[2023-10-10 21:17] LABS: Glucose Point of Care 115 mg/dl (65-105)
[2023-10-11] VITALS (8 sets, daily range): BP systolic 119–146; BP diastolic 55–73; PULSE 44–69; RESP 16–21; TEMP 37–37.4; O2SAT 95–98
[2023-10-11 04:38] LABS: Ammonia 28 umol/L (9-30)
[2023-10-11] MEDS: KCL 20 MEQ/0.45% NS 1,000 ML 100 ML IV CONT (04:38)
[2023-10-11 05:31] LABS: Hematocrit 40.8 % (42.0-52.0); Hemoglobin 11.7 g/dL (14.0-18.0); Mean Corpuscular HGB Conc 28.7 g/dl (32-36); Mean Corpuscular Hemoglobin 29.8 pg (26-34); Mean Corpuscular Volume 103.8 fl (80-100); Mean Platelet Volume 11.1 fl (7.4-10.4); Platelet Count Result 167 k/mm3 (150-375); Red Blood Count 3.93 M/mm3 (4.6-6.20); Red Cell Distribution Width 15.7 % (11.5-14.5); White Blood Count 3.9 K/mm3 (4.5-10.0)
[2023-10-11 05:49] LABS: Alanine Aminotransferase 19 U/L (6-50); Albumin Level 3.4 g/dL (3.5-5.1); Alkaline Phosphatase 71 U/L (38-126); Anion Gap 4 mmol/L (4-12); Aspartate Amino Transferase 46 U/L (17-59); Bilirubin,Total 0.8 mg/dL (0.2-1.3); Blood Urea Nitrogen 4 mg/dL (9-20); Calcium 8.5 mg/dL (8.4-10.2); Carbon Dioxide 19 mmol/L (22-30); Chloride 116 mmol/L (98-107); Creatine Kinase 616 U/L (55-170); Estimated CRCL calculation 98 ml/min; Estimated Glomerular Filt Rate > 60; Glucose 103 mg/dL (65-110); Magnesium 1.7 mg/dL (1.6-2.3); Potassium 3.9 mmol/L (3.4-5.0); Sodium 139 mmol/L (137-145); Triglycerides 80 mg/dL (<150)
--- NOTE | 2023-10-11 07:49 | WPDINTPN ---
Progress Note: A&P Assessment and Plan (1) Acute respiratory failure: Code(s): J96.00 - Acute respiratory failure, unspecified whether with hypoxia or hypercapnia Status: Acute Assessment and Plan: Acute Respiratory failure secondary to encephalopathy 10/10 extubated yesterday after a successful weaning trial. Now on room air Will order incentive spirometry Bronchodilators (2) Acute encephalopathy: Code(s): G93.40 - Encephalopathy, unspecified Status: Acute Assessment and Plan: Likely secondary to drug abuse and alcohol intoxication Head CT negative Ammonia is mildly elevated and patient was started on lactulose. Level now normal Normal TSH Now alert oriented x3 and asymptomatic (3) Alcohol intoxication: Code(s): F10.929 - Alcohol use, unspecified with intoxication, unspecified Status: Acute Assessment and Plan: Has received IV fluids Thiamine folic acid Supportive care (4) Acute hyperkalemia: Code(s): E87.5 - Hyperkalemia Status: Inactive Assessment and Plan: Patient's potassium was 6.4 on presentation could be secondary to acidosis. Repeat potassium has normalized and his renal function is normal Monitor (5) Drug overdose: Qualifiers: Encounter type: initial encounter Injury intent: undetermined intent Qualified Code(s): T50.904A - Poisoning by unspecified drugs, medicaments and biological substances, undetermined, initial encounter Code(s): T50.901A - Poisoning by unspecified drugs, medicaments and biological substances, accidental (unintentional), initial encounter Status: Inactive Assessment and Plan: Supportive care Alcohol intoxication on presentation UDS also positive for methadone and cannabinoids Patient appears to be smoking marijuana which was laced with some sort of drug Patient counseled and encouraged to quit smoking (6) COPD (chronic obstructive pulmonary disease): Code(s): J44.9 - Chronic obstructive pulmonary disease, unspecified Status: Acute Assessment and Plan: Hyperinflated lungs on chest x-ray suggestive of COPD No official diagnosis and does not appear in exacerbation from exam Bronchodilators ordered (7) Rhabdomyolysis: Code(s): M62.82 - Rhabdomyolysis Status: Acute Assessment and Plan: CK mildly elevated DC further IV fluids has p.o. intake has improved monitor CK level (8) UTI (urinary tract infection): Code(s): N39.0 - Urinary tract infection, site not specified Status: Acute Assessment and Plan: UA suggestive of UTI. WBC normal but patient appears to be pancytopenic could be secondary to chronic alcohol abuse. Low-grade fever Urine blood and sputum cultures are sent and pending Continue Esequiel (9) Electrolyte abnormality: Code(s): E87.8 - Other disorders of electrolyte and fluid balance, not elsewhere classified Status: Acute Assessment and Plan: Magnesium replacement ordered Plan DVT prophylaxis -Lovenox Stress ulcer prophylaxis -PPI Nutrition -diet or Code Status - Full Code Incentive spirometry Transfer out of ICU today Subjective Date/time seen: 10/11/23 Overnight events reviewed. Afebrile Patient was extubated after a successful weaning trial This morning he states he is feeling good and would like to go home. He denies any complaints. He admits that he was smoking marijuana that was laced with different drug. Patient denies fever, chest pain, shortness of breath, cough, nausea vomiting, abdominal pain,, diarrhea, headache or constipation. All other systems were reviewed and were negative Good urine output Tolerating p.o. diet Other Vitals acceptable Review of Systems Review of Systems: All systems reviewed & are unremarkable except as noted in HPI and below (Subjective) Exam Narrative: General: Pt is alert awake and in NAD Lungs/Chest: Trachea central Clear BS B/L, No crack
[2023-10-11] MEDS: THIAMINE HCL 100 MG TABLET PO (08:02)
[2023-10-11] MEDS: FOLIC ACID 1 MG TABLET PO (08:02)
[2023-10-11] MEDS: MAGNESIUM OXIDE 400 MG TABLET PO (08:02)
[2023-10-11] MEDS: ENOXAPARIN 40 MG/0.4 ML SYRINGE SUB-Q (08:04)
[2023-10-11] MEDS: IPRATROPIUM 0.5 MG/ALBUTEROL SULFATE 2.5 MG AMPUL.NEB 3 ML INHALATION (09:14)
--- NOTE | 2023-10-11 10:34 | PM.IMPN ---
Progress Note: A&P Assessment and Plan (1) Electrolyte abnormality: Code(s): E87.8 - Other disorders of electrolyte and fluid balance, not elsewhere classified Status: Acute (2) UTI (urinary tract infection): Code(s): N39.0 - Urinary tract infection, site not specified Status: Acute (3) Rhabdomyolysis: Code(s): M62.82 - Rhabdomyolysis Status: Acute (4) COPD (chronic obstructive pulmonary disease): Code(s): J44.9 - Chronic obstructive pulmonary disease, unspecified Status: Acute (5) Acute respiratory failure: Code(s): J96.00 - Acute respiratory failure, unspecified whether with hypoxia or hypercapnia Status: Acute (6) Pancytopenia: Code(s): D61.818 - Other pancytopenia Status: Acute (7) Metabolic acidosis: Code(s): E87.20 - Acidosis, unspecified Status: Acute (8) Acute encephalopathy: Code(s): G93.40 - Encephalopathy, unspecified Status: Acute (9) Acute metabolic encephalopathy: Code(s): G93.41 - Metabolic encephalopathy Status: Acute (10) Alcohol intoxication: Code(s): F10.929 - Alcohol use, unspecified with intoxication, unspecified Status: Acute Plan (1) Acute respiratory failure, possible COPD exacerbation ?Code(s): J96.00 - Acute respiratory failure, unspecified whether with hypoxia or hypercapnia ?Status:?Acute ?Assessment and Plan: Acute Respiratory failure secondary to encephalopathy Patient was intubated initially, started low tidal volume ventilation strategy to prevent volutrauma Continue Bronchodilators Patient is extubated yesterday, tolerated extubation well, denies shortness of of breath, no O2 desaturation on room air now (2) Acute encephalopathy: ?Code(s): G93.40 - Encephalopathy, unspecified ?Status:?Acute ?Assessment and Plan: Likely secondary to drug abuse and alcohol intoxication Head CT negative Ammonia is mildly elevated and patient was started on lactulose.? Level now normal Normal TSH 10/10 patient is alert oriented x3 (3) Alcohol intoxication: ?Code(s): F10.929 - Alcohol use, unspecified with intoxication, unspecified ?Status:?Acute ?Assessment and Plan: Received IV fluids ?continue Thiamine folic acid p.o. at discharge Supportive care (4) Acute hyperkalemia: ?Code(s): E87.5 - Hyperkalemia ?Status:?Inactive ?Assessment and Plan: Patient's potassium was 6.4 on presentation could be secondary to acidosis. Repeat potassium has normalized and his renal function is normal Monitor ?resolved ?patient has mild? hypokalemia, ? replete potassium chloride p.o. p.r.n. Corrected (5) Drug overdose: ?Qualifiers: ?Encounter type:?initial encounter??Injury intent:?undetermined intent? Qualified Code(s):?T50.904A - Poisoning by unspecified drugs, medicaments and biological substances, undetermined, initial encounter ?Code(s): T50.901A - Poisoning by unspecified drugs, medicaments and biological substances, accidental (unintentional), initial encounter ?Status:?Inactive ?Assessment and Plan: Supportive care Alcohol intoxication on presentation UDS also positive for methadone and cannabinoids Patient appears to be smoking marijuana which was laced with some sort of drug Patient has no sign of alcohol withdrawal or opiate withdrawal syndrome (6) COPD (chronic obstructive pulmonary disease): ?Code(s): J44.9 - Chronic obstructive pulmonary disease, unspecified ?Status:?Acute ?Assessment and Plan: Hyperinflated lungs on chest x-ray suggestive of COPD No official diagnosis and does not appear in exacerbation from exam Bronchodilators ordered Now patient has no shortness of breath COPD has resolved (7) Rhabdomyolysis: ?Code(s): M62.82 - Rhabdomyolysis ?Status:?Acute ?Assessment and Plan: CK elevated upon arrival Continue IV fluids and monitor CK level [facility]
--- NOTE | 2023-10-11 10:38 | PM.DS ---
DS: Admitting Diagnosis Discharge Date 10/10 Admitting Diagnosis (1) Electrolyte abnormality: ?Code(s): E87.8 - Other disorders of electrolyte and fluid balance, not elsewhere classified ?Status:?Acute (2) UTI (urinary tract infection): ?Code(s): N39.0 - Urinary tract infection, site not specified ?Status:?Acute (3) Rhabdomyolysis: ?Code(s): M62.82 - Rhabdomyolysis ?Status:?Acute (4) COPD (chronic obstructive pulmonary disease): ?Code(s): J44.9 - Chronic obstructive pulmonary disease, unspecified ?Status:?Acute (5) Acute respiratory failure: ?Code(s): J96.00 - Acute respiratory failure, unspecified whether with hypoxia or hypercapnia ?Status:?Acute (6) Pancytopenia: ?Code(s): D61.818 - Other pancytopenia ?Status:?Acute (7) Metabolic acidosis: ?Code(s): E87.20 - Acidosis, unspecified ?Status:?Acute (8) Acute encephalopathy: ?Code(s): G93.40 - Encephalopathy, unspecified ?Status:?Acute (9) Acute metabolic encephalopathy: ?Code(s): G93.41 - Metabolic encephalopathy ?Status:?Acute (10) Alcohol intoxication: ?Code(s): F10.929 - Alcohol use, unspecified with intoxication, unspecified ?Status:?Acute DS: Discharge Diagnosis Discharge Diagnosis (1) Electrolyte abnormality: Code(s): E87.8 - Other disorders of electrolyte and fluid balance, not elsewhere classified Status: Acute (2) UTI (urinary tract infection): Code(s): N39.0 - Urinary tract infection, site not specified Status: Acute (3) Rhabdomyolysis: Code(s): M62.82 - Rhabdomyolysis Status: Acute (4) COPD (chronic obstructive pulmonary disease): Code(s): J44.9 - Chronic obstructive pulmonary disease, unspecified Status: Acute (5) Acute respiratory failure: Code(s): J96.00 - Acute respiratory failure, unspecified whether with hypoxia or hypercapnia Status: Acute (6) Pancytopenia: Code(s): D61.818 - Other pancytopenia Status: Acute (7) Metabolic acidosis: Code(s): E87.20 - Acidosis, unspecified Status: Acute (8) Acute encephalopathy: Code(s): G93.40 - Encephalopathy, unspecified Status: Acute (9) Acute metabolic encephalopathy: Code(s): G93.41 - Metabolic encephalopathy Status: Acute (10) Alcohol intoxication: Code(s): F10.929 - Alcohol use, unspecified with intoxication, unspecified Status: Acute DS: Summary Hospital Course Hospital Course: 63 years old gentleman with history of tobacco use, marijuana use, was brought to ED? by EMS because of possible overdose of? unknown drugs. ? patient was found? confused, agitated, combative. ? EMS gave the patient Narcan, patient did not respond.? And patient was found have? tachycardia heart rate about 122, elevated blood pressure 148/110.? And patient was brought to ED for further evaluation treatment.? Upon arrival in the ED, patient was afebrile, tachycardia, tachypnea, patient was intubated, labs showed leukopenia 2200, hemoglobin 11.6,? platelets 35, hyperkalemia 6.4, metabolic acidosis bicarbonate 20, ethyl alcohol 178, positive marijuana and methadone on drug screening The the following med issues have been addressed during hospitalization (1) Acute respiratory failure, possible COPD exacerbation ?Code(s): J96.00 - Acute respiratory failure, unspecified whether with hypoxia or hypercapnia ?Status:?Acute ?Assessment and Plan: Acute Respiratory failure secondary to encephalopathy Patient was intubated initially, started low tidal volume ventilation strategy to prevent volutrauma Continue Bronchodilators Patient is extubated yesterday, tolerated extubation well, denies shortness of of breath, no O2 desaturation on room air now (2) Acute encephalopathy: ?Code(s): G93.40 - Encephalopathy, unspecified ?Status:?Acute ?Assessment and Plan: Likely secondary to drug
== END 2023-10-11 12:31 | disposition home or self-care (01) | DRG 812 ==
PROVIDERS: Internal Medicine; Admitting Provider Internal Medicine; Visit Provider Hospitalist
DX: T50.904A Poisoning by unspecified drugs, medicaments and biological substances, undetermined, initial encounter (principal); J96.00 Acute respiratory failure, unspecified whether with hypoxia or hypercapnia; A41.9 Sepsis, unspecified organism; M62.82 Rhabdomyolysis; G92.8 Other toxic encephalopathy; D61.818 Other pancytopenia; E87.20 Acidosis, unspecified; N39.0 Urinary tract infection, site not specified; E87.5 Hyperkalemia; F10.929 Alcohol use, unspecified with intoxication, unspecified; Z72.0 Tobacco use
CPT/HCPCS: 36415; 36600; 71045; 80053; 81001; 82140; 82375; 82550; 82728; 82805; 82948; 83050; 83540; 83550; 83605; 83735; 83880; 84145; 84443; 84478; 85027; 85046; 86703; 86803; 87040; 87070; 87077; 87086; 87186; 87205; 87340; 87641; 94002; 94003; 94640; A9270; C9113; G0378; G0379; G0432; J0696; J1650; J2543; J2704; J3411; J3475

== ENCOUNTER 2024-05-31 00:19 | Emergency (ER) | payer SELFPAY ==
--- NOTE | 2024-05-31 00:29 | ED_ITS ---
HPI - Psych General Chief Complaint: Psychiatric Symptoms Stated Complaint: psychiatric eval Time Seen by Provider: 05/31/24 00:26 Source: patient Mode of arrival: ambulatory Limitations: no limitations History of Present Illness HPI Narrative: Patient is 63-year-old male with a significant past medical history presents today with psychiatric symptoms. Patient says he is seeing a little double lead is following him around his home around for last 5 days. Is on Onfi just today any illegal substances drug abuse or if he is drunk. He says he lives with his ex- and she is at home sick. He does not know if he takes any medications or anything. He says he does not take any medications if he is prescribed. He says the little toe has been following him around for 5 days so he is having visual and auditory hallucinations. MD complaint: altered mental status Onset (ago): day(s) Duration: constant History of same: Yes Relieving factors: medication Exacerbating factors: none Associated psychiatric symptoms: racing thoughts, auditory hallucinations, visual hallucinations and delusions Related Data Allergies Allergy/AdvReac Type Severity Reaction Status Date / Time No Known Allergies Allergy Verified 05/31/24 01:30 Review of Systems 2 Review of Systems: All systems reviewed & are unremarkable except as noted in HPI and below Constitutional: Constitutional: Reports as per HPI Eyes: Eyes: Reports no additional eye complaints ENT: Reports system reviewed and no additional complaints, except as documented Cardiovascular: Cardiovascular: Reports no additional cardiovascular complaints Respiratory: Respiratory: Reports no additional respiratory complaints Gastrointestinal: Gastrointestinal: Reports no additional gastrointestinal complaints Genitourinary: Genitourinary: Reports no additional male genitourinary complaints Musculoskeletal: Musculoskeletal: Reports no additional musculoskeletal complaints Integumentary/Breasts: Skin/Breast: Reports system reviewed and no additional complaints, except as docu Neurologic: Reports as per HPI Psychiatric: Psychiatric: Reports as per HPI Endocrine: Endocrine: Reports no additional endocrine complaints Hematologic/Lymphatic: Hematologic/Lymphatic: Reports no additional hematologic/lymphatic complaints Allergic/Immunologic: Allergic/Immunologic: Reports no additional allergic/immunologic complaints [facility] Past Medical History Medical History Chronic low back pain Amputated right leg COPD (chronic obstructive pulmonary disease) Family History Family History Other Unknown family medical history Social History Social History Smoking status: Current every day smoker Alcohol intake: current Substance use: current Substance use type: marijuana Spiritual care concerns: No Exam 2 Const: General: healthy appearing Nutritional Appearance: well nourished Orientation/consciousness: patient oriented x3 Limitations: no limitations HENMT: Head: normal to inspection Ears: external ears normal F meet/Nose/Sinus: Normal external nose present Face and sinus: normal facial exam Mouth: Yes Normal oral and palatal mucosa present Teeth and gingiva: dentition normal Throat: posterior oropharynx normal Eyes: Conjunctivae: conjunctivae normal Pupils: Equal, round and reactive pupils present EOM: EOMs intact bilaterally Direct Ophthalmoscopy: no photophobia Neck: Neck: normal visual inspection Chest: Chest palpation & inspection: normal inspection of the chest Resp: Effort & Inspection: normal respiratory effort Auscultation: clear to auscultation bilaterally Cardio: Rate: regular rate Rhythm: regular rhythm Heart sounds: Murmur heart sound present GI: GI Palp: Yes Soft to palpation Back/Spine/Pelvis: Back: no CVA tenderness Skin: General skin exam: normal color Rashes: no rashes Wounds: no wounds Neuro: General: moves all extremities, no meningeal signs, no focal motor deficits and CN's II-XI intact bilaterally Cranial nerves: Yes Nystagmus not present Speech: Abnormal speech present Gait exam (Neuro): Normal gait present Extrem: General: normal to inspection and no clubbing, cyanosis or edema Psych: Other: Abnormal affect, auditory and visual hallucinations. not very cooperative bad historian Course Vital Signs Vital signs: Vital Signs Temperature 99.4 F 05/31/24 00:56 Pulse Rate 74 05/31/24 00:56 Respiratory Rate 16 05/31/24 00:56 Blood Pressure 115/67 05/31/24 00:56 Pulse Oximetry 94 05/31/24 00:56 Oxygen Delivery Room Air 05/31/24 00:56 Temperature 99.3 F 05/31/24 06:30 Pulse Rate 80 05/31/24 06:30 Respiratory Rate 16 05/31/24 06:30 Blood Pressure 102/62 05/31/24 06:30 Pulse Oximetry 93 05/31/24 06:30 Oxygen Delivery Room Air 05/31/24 06:30 Transfer Transfered to: Other (Jesse prary) Transportation: BLS MDM - Psych MDM Narrative Medical decision making narrative: patient's medical history unknown, most likely schizoaffective or schizophrenic unknown what medications he takes or if he has been drinking or doing drugs. Will do a UA and drug screen and blood alcohol and full blood panel. Will do medical clearance for psychiatric evaluation as well. Once medically cleared will contact psych and have them come back to PACU a.m.. Differential Diagnosis Differential diagnosis: Likely chronic schizophrenia and drug-induced psychotic disorder Medical Records Attestation: I reviewed the patient's medical records. Lab Data Attestation: I reviewed the patient's lab results. 05/31/24 00:58 05/31/24 00:58 Labs: Lab Results 05/31/24 05/31/24 Range/Units 00:58 03:29 WBC 3.2 L (4.8-10.8) K/mm3 RBC 4.43 L (4.70-6.10) M/mm3 Hgb 13.3 L (14.0-18.0) g/dL Hct 39.9 L (40.0-54.0) % MCV 90.1 (78.0-102.0) fL MCH 30.0 (27.0-31.0) pg MCHC 33.3 (32-36) g/dL RDW 15.0 H (11.6-14.4) % Plt Count 296 (150-420) K/mm3 MPV 9.8 (8.7-11.0) fl Immature Gran % (Auto) Not Reportable Neut % (Auto) Not Reportable Lymph % (Auto) Not Reportable [place] % (Auto) Not Reportable Eos % (Auto) Not Reportable Baso % (Auto) Not Reportable Lymph # (Auto) Not Reportable [place] # (Auto) Not Reportable Eos # (Auto) Not Reportable Baso # (Auto) Not Reportable Abs Immat Gran (auto) Not Reportable Absolute Neuts (auto) Not Reportable Absolute Nucleated RBC Not Reportable Neutrophils % (Manual) 53 (46-73) % Band Neutrophils % 0 (0-6) % Lymphocytes % (Manual) 37 (18-44) % Monocytes % (Manual) 7 (3-9) % Eosinophils % (Manual) 3 (1-6) % Basophils % (Manual) 0 (0-1) % Nucleated RBC % Not Reportable Abs Neuts (Manual) 1.69 (1.3-6.7) K/mm3 Abs Lymphs (Manual) 1.18 (1.1-4.5) K/mm3 Abs Monocytes (Manual) 0.22 (0.1-0.90) K/mm3 Absolute Eos (Manual) 0.09 (0.02-0.50) K/mm3 Abs Basophils (Manual) 0.00 (0-0.1) K/mm3 Platelet Estimate Adequate (Adequate) Schistocytes Not Reportable Sodium 142 (136-145) mmol/L Potassium 4.0 (3.5-5.1) mmol/L Chloride 108 (98-108) mmol/L Carbon Dioxide 23 (21-32) mmol/L Anion Gap 11 (4-12) mmol/L BUN 9 (7-18) mg/dL Creatinine 0.92 (0.70-1.30) mg/dL Estim Creat Clear Calc Not Reportable Estimated GFR > 60 (59 - ) Glucose 92 (70-99) mg/dL Calculated Osmolality 292 (285-295) mOsm/kg Calcium 8.9 (8.5-10.1) mg/dL Total Bilirubin 0.2 (0.00-1.00) mg/dL AST 15 (15-37) U/L ALT 27 (16-63) U/L Alkaline Phosphatase 112 (46-116) U/L Total Protein 8.0 (6.4-8.2) g/dL Albumin 3.1 L (3.4-5.0) g/dL TSH 2.41 (0.36-3.74) uIU/mL Salicylates 4.4 (2.8-20.0) mg/dL Acetaminophen < 2 L (10-30) ug/mL Ethyl Alcohol 230 H* (0-6) mg/dL Influenza A (RT-PCR) Negative (Negative) Influenza B (RT-PCR) Negative (Negative) RSV (RT-PCR) Negative (Negative) SARS-CoV-2 RNA (RT-PCR) Negative (Negative) Discharge Plan Discharge Clinical Impression: Depression, Suicide attempt Patient Disposition: Psychiatric Hosp Condition: Stable Instructions: Help Prevent Suicide in Older Adults (ED) Patient Language: Armenian Prescriptions: No Action quetiapine [Seroquel] 50 mg tablet 50 mg PO QHS Qty: 30 1RF thiamine HCl (vitamin B1) [Vitamin B-1] 100 mg Tablet 100 mg PO QAM Qty: 30 0RF folic acid 1 mg Tablet 1 mg PO DAILY Qty: 3 0RF Follow-up/Referrals: UNKNOWN,DOCTOR [Primary Care Provider] - Time of Disposition: 06:49
--- NOTE | 2024-05-31 00:41 | PC.NURSE ---
patient awake, ambulatory to bathroom at this time, RN in another patient room, unable to stop patient before he urinated to get specimen. When RN knocked on door of bathroom patient shouted I'm [email or web address] . patient ambulatory back to ED 5.
--- NOTE | 2024-05-31 00:54 | PC.NURSE ---
assembly hand at bedside at this time for blood draw. RN monitoring. patient cooperative at this time.
[2024-05-31 00:56] VITALS: BP 115/67; PULSE 74; RESP 16; TEMP 37.4; O2SAT 94
--- NOTE | 2024-05-31 01:17 | PC.NURSE ---
patient up from bed in ED 5, shut lights off to room then closed door and laid back down on bed. RN monitoring.
[2024-05-31 01:35] LABS: Hematocrit 39.9 % (40.0-54.0); Hemoglobin 13.3 g/dL (14.0-18.0); Mean Corpuscular HGB Conc 33.3 g/dL (32-36); Mean Corpuscular Volume 90.1 fL (78.0-102.0); Mean Platelet Volume 9.8 fl (8.7-11.0); Platelet Count Result 296 K/mm3 (150-420); Red Blood Count 4.43 M/mm3 (4.70-6.10); White Blood Count 3.2 K/mm3 (4.8-10.8)
[2024-05-31 02:06] LABS: Band Neutrophils Percent 0 % (0-6); Basophils Percent Manual 0 % (0-1); Eosinophils Absolute Manual 0.09 K/mm3 (0.02-0.50); Eosinophils Percent Manual 3 % (1-6); Lymphocytes Absolute Manual 1.18 K/mm3 (1.1-4.5); Lymphocytes Percent Manual 37 % (18-44); Monocytes Absolute Manual 0.22 K/mm3 (0.1-0.90); Monocytes Percent Manual 7 % (3-9); Neutrophils Absolute Manual 1.69 K/mm3 (1.3-6.7); Neutrophils Percent Manual 53 % (46-73); Platelet Estimate Adequate (Adequate)
[2024-05-31 02:07] LABS: Acetaminophen < 2 ug/mL (10-30); Alanine Aminotransferase 27 U/L (16-63); Albumin Level 3.1 g/dL (3.4-5.0); Alkaline Phosphatase 112 U/L (46-116); Anion Gap 11 mmol/L (4-12); Aspartate Amino Transferase 15 U/L (15-37); Bilirubin,Total 0.2 mg/dL (0.00-1.00); Blood Urea Nitrogen 9 mg/dL (7-18); Calcium 8.9 mg/dL (8.5-10.1); Carbon Dioxide 23 mmol/L (21-32); Chloride 108 mmol/L (98-108); Estimated Glomerular Filt Rate > 60; Glucose 92 mg/dL (70-99); Osmolality Calculated 292 mOsm/kg (285-295); Salicylate 4.4 mg/dL (2.8-20.0); Sodium 142 mmol/L (136-145); Thyroid Stimulating Hormone 2.41 uIU/mL (0.36-3.74)
[2024-05-31 02:08] LABS: Ethanol 230 mg/dL (0-6)
--- NOTE | 2024-05-31 02:20 | PC.NURSE ---
patient resting on bed in ED 5 with lights off, RN monitoring. Patient awaiting ethanol level to be into a normal range before further psychosocial assessments.
[2024-05-31 03:15] VITALS: BP 99/60; PULSE 69; RESP 16; TEMP 36.9; O2SAT 93
--- NOTE | 2024-05-31 03:15 | PC.NURSE ---
patient given warm blankets, calm and cooperative with VSS. RN monitoring. patient offered food/drink. refused anything at this time. urinal provided and nasal swab sent to lab for analysis.
--- NOTE | 2024-05-31 04:21 | PC.NURSE ---
patient resting on bed in ED 5, RN monitoring.
[2024-05-31 05:24] LABS: Influenza A QL RT-PCR Negative (Negative); Influenza B QL RT-PCR Negative (Negative); RSV RNA, RT-PCR Negative (Negative); SARS-CoV-2 RNA PCR Negative (Negative)
--- NOTE | 2024-05-31 05:34 | PC.NURSE ---
patient resting on bed in ED 5, RN monitoring. awaiting EtOH levels to decrease.
[2024-05-31 06:30] VITALS: BP 102/62; PULSE 80; RESP 16; TEMP 37.4; O2SAT 93
--- NOTE | 2024-05-31 06:30 | PC.NURSE ---
Patient awake and resting on bed in ED 5. Patient calm, cooperative with ED staff at this time. VSS. patient updated on plan of care, aware of his critical EtOH level upon arrival by RN at this time. patient states he has been under increased stress lately, adding his (ex?) is sick and he has been trying to take care of her but also take care of himself with his prosthesis and he has been unable to get out as he has been so busy. Patient reports pmh of inpatient hospitalization for mental health he states around 15-20 years ago, states he wishes to get help for his mental health.
--- NOTE | 2024-05-31 07:07 | PC.NURSE ---
patient report given to CHRISTIN Mathew for continuation of care on day shift. power equipment mechanics instructor at bedside for repeat blood EtOH level.
[2024-05-31 07:19] LABS: Ethanol 88 mg/dL (0-6)
--- NOTE | 2024-05-31 07:36 | PC.NURSE ---
PT IS RESTING ON STRETCHER IN EXAM ROOM WITH LIGHTS OFF. BREAKFAST TRAY WAS ORDERED. REPORT WAS OBTAINED FROM CHRISTIN HOLGUIN. WILL CONTINUE TO MONITOR.
--- NOTE | 2024-05-31 08:06 | PC.NURSE ---
PT IS SITTING UP ON STRETCHER EATING BREAKFAST AT THIS TIME. DENIES ANY OTHER NEEDS OR COMPLAINTS. WILL CONTINUE TO MONITOR.
--- NOTE | 2024-05-31 08:51 | PC.NURSE ---
PT HAS EATEN HIS BREAKFAST, STATES HE IS FEELING BETTER, HOWEVER WOULD LIKE TO TALK WITH SOMEONE ABOUT HAVING SUICIDAL THOUGHTS WITH VARIOUS UNDEFINED PLANS, SUCH WALKING OUT IN FRONT OF A CAR. PT DENIES ANY SUICIDAL IDEATIONS AT THIS TIME. PT IS CALM AND COOPERATIVE. ERP IS AWARE, ALLY BECKER HAS BEEN NOTIFIED FOR NEED OF EVALUATION. PT IS AWARE OF PLAN OF CARE. PT HAS SPOKE WITH ON PHONE AND RETURNS TO ROOM WITHOUT INCIDENT. NAD NOTED. PT DENIES ANY OTHER NEEDS OR CONCERNS. WILL CONTINUE TO MONITOR.
--- NOTE | 2024-05-31 09:43 | PC.NURSE ---
ALLY MAO HAS ARRIVED TO EVALUATE PT AT THIS TIME.
--- NOTE | 2024-05-31 10:14 | PC.NURSE ---
PT IS LAUGHING AND COOPERATIVE. PT IS TO BE DC HOME AND TO FOLLOW UP WITH ALLY HALEY. PT IS AGREEABLE TO THIS PLAN OF CARE. ERP IS AWARE AND AGREEABLE. PT DENIES ANY SI OR HI AT THIS TIME. DENIES ANY VISUAL OR AUDITORY HALLUCINATIONS AT PRESENT. BELONGINGS ARE RETURNED TO PT.
[2024-05-31 10:16] VITALS: BP 118/60; PULSE 66; RESP 16; TEMP 36.8; O2SAT 98
== END 2024-05-31 10:45 | disposition home or self-care (01) ==
PROVIDERS: Family Medicine; Emergency Provider Emergency Medicine
DX: F32.A Depression, unspecified (principal); T14.91XA Suicide attempt, initial encounter; J44.9 Chronic obstructive pulmonary disease, unspecified; F17.200 Nicotine dependence, unspecified, uncomplicated; Z20.822 Contact with and (suspected) exposure to COVID-19; X83.8XXA Intentional self-harm by other specified means, initial encounter
CPT/HCPCS: 36415; 80053; 80143; 80179; 82077; 84443; 85025; 87637; 99284

== ENCOUNTER 2024-06-09 06:26 | Emergency (ER) | payer BC, SELFPAY ==
[2024-06-09] VITALS (21 sets, daily range): BP systolic 115–134; BP diastolic 66–84; PULSE 68–75; RESP 12–17; TEMP 37.1–37.2; O2SAT 90–98
--- NOTE | ~2024-06-09 | CT_ITS ---
CTA chest PE protocol Ordering provider: Bj Borja MD History: 63 years Male with . mid-sternal chest pain, Hx of positive D-dimer/blood clot . Comparison: Technique: CT angiogram chest was performed following timed intravenous injection of contrast. Thin s lice axial images and reformatted coronal images were obtained. Three dimensional reformatted images of the chest were also obtained using a [employer] workstation. . Automated exposure control and iterati ve reconstruction technique were employed. The dose-length product was 220.54 mGy-cm. 100 mL Omnipaqu e 350 was given IV. Findings: PULMONARY ARTERIES: No pulmonary embolus. VISUALIZED THORACIC INLET: Normal. MEDIASTINUM: Aorta/coronary arteries: Mild atheromatous disease. Heart/other: The heart is not enlarged. Lymph nodes: Right hilar lymph node is seen measuring 2.4 cm. Small lymph nodes seen anterior to the left pulmonary artery. LUNGS: Bibasilar atelectasis versus pneumonia more on the right side is seen. Clinical correlation advised. Underlying emphysematous changes. No pulmonary nodules or masses. No effusions. No pneumothorax. VISUALIZED UPPER ABDOMEN: the visualized upper abdomen is normal. MUSCULOSKELETAL: Soft tissues: The superficial soft tissues are normal. Bones: Normal spine. IMPRESSION: 1. No pulmonary embolism. 2. Right lower lobe atelectasis versus pneumonia. 3. Right hilar lymph node measuring 2.4 cm. Reviewed, dictated and finalized at location A. E LIAISON
--- NOTE | ~2024-06-09 | XR_ITS ---
EXAMINATION: XR chest 1V portable DATE: 06/09/2024 07:36 INDICATION: Chest pain. TECHNIQUE: A single frontal view of the chest was obtained. COMPARISON: Chest single view 10/11/2023 FINDINGS: There is no pneumonia, pleural effusion, or pneumothorax. The heart size is normal. IMPRESSION: 1. No acute cardiopulmonary disease. Reviewed, dictated and finalized at location A. DYNAMIC CONSULTANT
--- NOTE | 2024-06-09 06:34 | ED_ITS ---
HPI - General Adult General Chief complaint: Chest Pain Stated complaint: chest pain Time Seen by Provider: 06/09/24 06:33 Source: patient and EMS Mode of arrival: ambulatory Limitations: no limitations History of Present Illness HPI narrative: 63-year-old white male brought in by EMS is complains of chest pain for last 4 days. EMS admitted to the house for other unrelated episodes they picked him up today for chest pain is alert oriented been drinking all night his blood pressure is 122/66 complaining anterior chest pain heart rate was 82 respirations were 2693-96% on O2 he was given 2 nitros 4 baby aspirins complaining of history of clots has no known drug allergies patient reluctant answered questions. Poor historian. Denies any other compl Related Data Allergies Allergy/AdvReac Type Severity Reaction Status Date / Time No Known Allergies Allergy Verified 05/31/24 01:30 Review of Systems Review of Systems: All systems reviewed & are unremarkable except as noted in HPI and below PMFSH Past Medical History Medical History Chronic low back pain Amputated right leg COPD (chronic obstructive pulmonary disease) Family History Family History Other Unknown family medical history Social History Social History Smoking status: Current every day smoker Alcohol intake: current Substance use: current Substance use type: does not use Spiritual care concerns: No Exam Narrative: White male patient with no apparent distress eyes close complains of chest pain.? Head normocephalic, atraumatic.? Eyes conjunctiva pink sclera nonicteric.? Extraocular movements are intact.? Ears externally normal.? O ropharynx is clear with moist mucous membranes without exudates.? Neck is supple nontender no lymphadenopathy.? Back is nontender.? Lungs are clear.? Heart is regular rate and rhythm without murmurs gallops or rubs.? Chest wall nontender. Abdomen is soft and nontender no hepatosplenomegaly or masses no CVA tenderness no abdominal bruits.? Extremities right [id number] amputation? Skin is warm and dry without rashes or lesions.? Neurological patient is alert and oriented x4.? Motor and sensory grossly intact.? Gait is normal. Medical Decision Making MDM Narrative Medical decision making narrative: pt discussed with Dr. Del Castillo at change of shift will assume care of pt. Discharge Plan Discharge Patient Language: Sierra Leonean Prescriptions: No Action quetiapine [Seroquel] 50 mg tablet 50 mg PO QHS Qty: 30 1RF thiamine HCl (vitamin B1) [Vitamin B-1] 100 mg Tablet 100 mg PO QAM Qty: 30 0RF folic acid 1 mg Tablet 1 mg PO DAILY Qty: 3 0RF Follow-up/Referrals: UNKNOWN,DOCTOR [Non-Staff] -
--- NOTE | 2024-06-09 07:05 | ECG_ITS ---
Test Date: 2024-06-09 06:28:19 Measurements Intervals [place] Rate: 82 P: 146 [place]: 131 QRS: 38 QRSD: 90 T: 132 QT: 376 QTc: 441 Interpretive Statements ECTOPIC ATRIAL RHYTHM LEFT ATRIAL ENLARGEMENT [-0.15mV P-WAVE IN V1/V2] SEPTAL MYOCARDIAL INFARCTION , OF INDETERMINATE AGE [40+ ms Q WAVE IN V1/V2] ABNORMAL ECG Electronically Signed On 06-09-2024 12:09:04 WELDING MACHINE OPERATOR/TENDER by Bj Fry M.D.
--- NOTE | 2024-06-09 07:35 | PC.NURSE ---
REPORT TO CHRISTIN BURNS.
[2024-06-09 07:36] LABS: Hematocrit 39.1 % (40.0-54.0); Hemoglobin 12.9 g/dL (14.0-18.0); Mean Corpuscular Hemoglobin 28.9 pg (27.0-31.0); Mean Corpuscular Volume 87.7 fL (78.0-102.0); Mean Platelet Volume 9.3 fl (8.7-11.0); Platelet Count Result 240 K/mm3 (150-420); Red Blood Count 4.46 M/mm3 (4.70-6.10); Red Cell Distribution Width 15.3 % (11.6-14.4); White Blood Count 3.9 K/mm3 (4.8-10.8)
[2024-06-09 07:50] LABS: Band Neutrophils Percent 0 % (0-6); Basophils Absolute Manual 0.03 K/mm3 (0-0.1); Basophils Percent Manual 1 % (0-1); Eosinophils Absolute Manual 0.11 K/mm3 (0.02-0.50); Eosinophils Percent Manual 3 % (1-6); Lymphocytes Absolute Manual 1.56 K/mm3 (1.1-4.5); Lymphocytes Percent Manual 40 % (18-44); Monocytes Absolute Manual 0.19 K/mm3 (0.1-0.90); Monocytes Percent Manual 5 % (3-9); Neutrophils Absolute Manual 1.98 K/mm3 (1.3-6.7); Neutrophils Percent Manual 51 % (46-73); Total Cells Counted 100
[2024-06-09 07:51] LABS: Platelet Estimate Adequate (Adequate)
[2024-06-09 07:52] LABS: INR 0.9; Partial Thromboplastin Time 27.5 Sec (23.9-30.70); Prothrombin Time 10.4 Seconds (9.50-12.1)
[2024-06-09 07:54] LABS: D Dimer 1.53 mg/L (0.19-0.50)
[2024-06-09 07:58] LABS: Alanine Aminotransferase 15 U/L (16-63); Albumin Level 3.1 g/dL (3.4-5.0); Alkaline Phosphatase 106 U/L (46-116); Anion Gap 13 mmol/L (4-12); Aspartate Amino Transferase 16 U/L (15-37); Bilirubin,Total 0.1 mg/dL (0.00-1.00); Blood Urea Nitrogen 17 mg/dL (7-18); Calcium 8.5 mg/dL (8.5-10.1); Carbon Dioxide 26 mmol/L (21-32); Chloride 106 mmol/L (98-108); Estimated CRCL calculation 44 ml/min; Estimated Glomerular Filt Rate 56; Glucose 98 mg/dL (70-99); NT Pro B Type Natriuretic Pept 101 pg/mL (0-125); Osmolality Calculated 301 mOsm/kg (285-295); Sodium 145 mmol/L (136-145); Total Protein 7.4 g/dL (6.4-8.2); Troponin I 6.7 ng/L (0.00-60.4)
[2024-06-09 07:59] LABS: Ethanol 253 mg/dL (0-6)
--- NOTE | 2024-06-09 08:04 | PC.NURSE ---
covid swab sent to lab
[2024-06-09 08:43] LABS: SARS-CoV-2 RNA PCR Negative (Negative)
[2024-06-09 08:44] LABS: Influenza A QL RT-PCR Negative (Negative); Influenza B QL RT-PCR Negative (Negative); RSV RNA, RT-PCR Negative (Negative)
--- NOTE | 2024-06-09 09:00 | ED_ITS ---
HPI - Chest Pain General Chief Complaint: Chest Pain Stated Complaint: chest pain Time Seen by Provider: 06/09/24 06:33 Source: patient and EMS Mode of arrival: ambulatory Limitations: no limitations History of Present Illness HPI narrative: this is a 63-year-old male with history of pulmonary embolism has been off any anticoagulation because of medical noncompliance presents with chest tightness with inspiration with some currently not complaining of shortness of breath but is diaphoretic with no nausea vomiting no fever chills. complaint: chest discomfort Quality: aching Exacerbating factors: inspiration Related Data Allergies Allergy/AdvReac Type Severity Reaction Status Date / Time No Known Allergies Allergy Verified 06/09/24 08:21 Review of Systems 2 Review of Systems: All systems reviewed & are unremarkable except as noted in HPI and below PMFSH Past Medical History Medical History Chronic low back pain Amputated right leg COPD (chronic obstructive pulmonary disease) Family History Family History Other Unknown family medical history Social History Social History Smoking status: Current every day smoker Alcohol intake: current Substance use: current Substance use type: does not use Spiritual care concerns: No Exam 2 Const: General: cooperative, comfortable, no acute distress and well developed HENMT: Head: normal to inspection Face and sinus: normal facial exam Eyes: General: appearance normal, both eyes and all related structures V isual Haywood: normal visual haywood by confrontation Neck: Neck: normal visual inspection Chest: Chest palpation & inspection: normal inspection of the chest and normal palpation of entire chest wall Resp: Effort & Inspection: normal respiratory effort and able to speak in complete sentences Cardio: Jugular venous distension: no JVD Palpation: normal PMI Rate: r egular rate Rhythm: regular rhythm Heart sounds: S1 normal heart sound present and S2 normal heart sound present : General: Yes bimanual renal exam normal bilaterally Skin: General skin exam: normal color and no rashes or lesions noted Neuro: General: oriented to person, oriented to place, oriented to time and patient oriented x3 Extrem: General: normal to inspection, full ROM and capillary refill normal Right lower extremity: normal to inspection and full ROM Course Course Emergency Course: Patient presents with a chest discomfort with deep inspiration chest x-ray and CTA performed patient had an elevated D-dimer CTA shows no pulmonary embolism, there was consistent with pneumonia and white count of 3.9 the rest of his vitals are stable and patient is afebrile. Patient had a elevated alcohol level. . Vital Signs Vital signs: Vital Signs Pulse Oximetry 93 06/09/24 06:30 Oxygen Delivery Room Air 06/09/24 06:30 Temperature 37.2 C 06/09/24 06:39 Pulse Rate 74 06/09/24 07:45 Respiratory Rate 12 06/09/24 08:01 Blood Pressure 124/66 06/09/24 08:01 Pulse Oximetry 98 06/09/24 08:37 Oxygen Delivery Nasal Cannula 06/09/24 07:00 Oxygen Flow Rate 3 06/09/24 07:00 MDM - Chest Pain Lab Data 06/09/24 07:31 06/09/24 07:31 Labs: Lab Results 06/09/24 06/09/24 Range/Units 07:31 08:00 WBC 3.9 L (4.8-10.8) K/mm3 RBC 4.46 L (4.70-6.10) M/mm3 Hgb 12.9 L (14.0-18.0) g/dL Hct 39.1 L (40.0-54.0) % MCV 87.7 (78.0-102.0) fL MCH 28.9 (27.0-31.0) pg MCHC 33.0 (32-36) g/dL RDW 15.3 H (11.6-14.4) % Plt Count 240 (150-420) K/mm3 MPV 9.3 (8.7-11.0) fl Immature Gran % (Auto) Not Reportable Neut % (Auto) Not Reportable Lymph % (Auto) Not Reportable [place] % (Auto) Not Reportable Eos % (Auto) Not Reportable Baso % (Auto) Not Reportable Lymph # (Auto) Not Reportable [place] # (Auto) Not Reportable Eos # (Auto) Not Reportable Baso # (Auto) Not Reportable Abs Immat Gran (auto) Not Reportable Absolute Neuts (auto) Not Reportable Absolute Nucleated RBC Not Reportable Total Counted 100 Neutrophils % (Manual) 51 (46-73) % Band Neutrophils % 0 (0-6) % Lymphocytes % (Manual) 40 (18-44) % Monocytes % (Manual) 5 (3-9) % Eosinophils % (Manual) 3 (1-6) % Basophils % (Manual) 1 (0-1) % Nucleated RBC % Not Reportable Abs Neuts (Manual) 1.98 (1.3-6.7) K/mm3 Abs Lymphs (Manual) 1.56 (1.1-4.5) K/mm3 Abs Monocytes (Manual) 0.19 (0.1-0.90) K/mm3 Absolute Eos (Manual) 0.11 (0.02-0.50) K/mm3 Abs Basophils (Manual) 0.03 (0-0.1) K/mm3 Platelet Estimate Adequate (Adequate) Schistocytes Not Reportable PT 10.4 (9.50-12.1) Seconds INR 0.9 APTT 27.5 (23.9-30.70) Sec D-Dimer 1.53 H* (0.19-0.50) mg/L Sodium 145 (136-145) mmol/L Potassium 4.0 (3.5-5.1) mmol/L Chloride 106 (98-108) mmol/L Carbon Dioxide 26 (21-32) mmol/L Anion Gap 13 H (4-12) mmol/L BUN 17 (7-18) mg/dL Creatinine 1.29 (0.70-1.30) mg/dL Estim Creat Clear Calc 44 ml/min Estimated GFR 56 L (59 - ) Glucose 98 (70-99) mg/dL Calculated Osmolality 301 H (285-295) mOsm/kg Calcium 8.5 (8.5-10.1) mg/dL Total Bilirubin 0.1 (0.00-1.00) mg/dL AST 16 (15-37) U/L ALT 15 L (16-63) U/L Alkaline Phosphatase 106 (46-116) U/L Troponin I 6.7 (0.00-60.4) ng/L NT-Pro-B Natriuret Pep 101 (0-125) pg/mL Total Protein 7.4 (6.4-8.2) g/dL Albumin 3.1 L (3.4-5.0) g/dL Ethyl Alcohol 253 H* (0-6) mg/dL Influenza A (RT-PCR) Negative (Negative) Influenza B (RT-PCR) Negative (Negative) RSV (RT-PCR) Negative (Negative) SARS-CoV-2 RNA (RT-PCR) Negative (Negative) Critical Care Time Critical Care Time Critical Care Time: No Discharge Plan Discharge Clinical Impression: COPD (chronic obstructive pulmonary disease) Qualifiers: COPD type: unspecified COPD Qualified Code(s): J44.9 - Chronic obstructive pulmonary disease, unspecified Alcohol intoxication Qualifiers: Complication of substance-induced condition: uncomplicated Qualified Code(s): F 10920 - Alcohol use, unspecified with intoxication, uncomplicated Pneumonia Qualifiers: Pneumonia type: due to unspecified organism Laterality: left Lung location: l ower lobe of lung Qualified Code(s): J18.9 - Pneumonia, unspecified organism Patient Disposition: Home, Self-Care Condition: Stable Instructions: Antibiotic Form, Community Acquired Pneumonia (ED) Additional Instructions: advised patient to take medication as prescribed and follow with primary within 1 week for further evaluation treatment. Patient Language: Burmese Prescriptions: New levofloxacin 500 mg tablet 500 mg PO DAILY 6 Days Qty: 6 0RF No Action quetiapine [Seroquel] 50 mg tablet 50 mg PO QHS Qty: 30 1RF thiamine HCl (vitamin B1) [Vitamin B-1] 100 mg Tablet 100 mg PO QAM Qty: 30 0RF Follow-up/Referrals: UNKNOWN,DOCTOR [Non-Staff] - Time of Disposition: 09:20
[2024-06-09] MEDS: levoFLOXacin 500 MG TABLET PO (09:06)
--- OUTSIDE RECORDS SUMMARY | 2024-06-16 06:45 | XMS_ITS | Encounter Summary ---
Author Organization [facility] Address [facility]. 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 No / Unsure 10/28/2022 3:53 PM CDT documented as of this encounter Plan of Treatment Not on file documented as of this encounter Visit Diagnoses Not on filedocumented in this encounter Care Teams Belt Operator Relationship Specialty Start Date End Date None, Provider, PCP - General UNKNOWN PHYSICIAN SPECIALTY 10/28/22 1 07/01/23 documented as of this encounter
--- OUTSIDE RECORDS SUMMARY | 2024-06-16 06:45 | XMS_ITS | Encounter Summary ---
Author Organization [facility] Address [facility]. 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
--- OUTSIDE RECORDS SUMMARY | 2024-06-16 06:45 | XMS_ITS | Encounter Summary ---
Author Organization [facility] Address [address] [place] [address]. 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
--- OUTSIDE RECORDS SUMMARY | 2024-06-16 06:45 | XMS_ITS | Encounter Summary ---
Author Organization [facility] Address [address] [place] [address]. 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 Role Phone None, Provider MD Primary Care Provider Unavaila ble Reason for Referral * Imaging (Urgent) - New Request Specialty Diagnoses / Procedures Referred By Contac t Referred To Contact RADIOLOGY Procedures CT CHEST WO CON Cj Maxwell DO [address] [place] [address] Phone: tel: fax: Referral ID Status Reason Start Date Expiration Date V isits Requested Visits Authorized [id number] New Request 02/26/2024 02/25/2025 1 1 * Imaging (Emergency) - New Request Specialty Diagnoses / Procedures Referred By Contac t Referred To Contact RADIOLOGY Procedures CT CERV SPINE WO CON Cj Maxwell DO [address] [place] [address] Phone: tel: fax: Referral ID Status Reason Start Date Expiration Date V isits Requested Visits Authorized [id number] New Request 02/26/2024 02/25/2025 1 1 * Imaging (Emergency) - New Request Specialty Diagnoses / Procedures Referred By Contac t Referred To Contact RADIOLOGY Procedures CT HEAD WO CON Cj Maxwell DO [address] [place] [address] Phone: tel: fax: Referral ID Status Reason Start Date Expiration Date V isits Requested Visits Authorized [id number] New Request 02/26/2024 02/25/2025 1 1 Reason for Visit * Reason Comments Fall Encounter Details Date Type Department Care Team (Late st Contact Info) Description 02/26/2024 5:08 AM CDT - 02/26/2024 6:47 AM CDT Emergency 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 Gender Identity Not on file Sexual Orientation Not on file documented as of this encounter Last Filed Vital Signs Vital Sign Reading Time Taken Comments Blood Pressure 102/61 02/26/2024 6:20 AM CDT Pulse 79 02/26/2024 5:14 AM CDT Temperature 37.6 ??C (99.7 ??F) 02/26/2024 5:14 AM CD T Respiratory Rate 17 02/26/2024 5:14 AM CDT Oxygen Saturation 93% 02/26/2024 6:20 AM CDT Inhaled Oxygen Concentration - - Weight 54.4 kg (120 lb) 02/26/2024 5:14 AM CDT Height 175.3 cm (5' 9 ) 02/26/2024 5:14 AM CDT Body Mass Index 17.72 02/26/2024 5:14 AM CDT documented in this encounter Discharge Instructions * Discharge Instructions* Cj Maxwell DO - 02/26/2024 5:49 AM CDT PLEASE FOLLOW UP WITH YOUR PRIMARY CARE PHYSICIAN IN THE NEXT 2-3 DAYS You were examined and treated today on an emergency basis only. This emergency medical screening examination does not substitute for complete medical care. Please remember that medicine is an art as well as a science and not everything can be addressed during your emergency visit. We try very hard to rule out life- threatening problems here. As such, you may need to address additional problems with a primary care physician. Your visit here is not complete without an examination and follow-up by your primary care physician. It is your responsibility to contact your primary doctor for a follow-up visit as soon as possible. You may also have been given the name of a specialist to contact. It isyour responsibility to contact and make an appointment with the specialist as well. We have not made any appointments for you. Failure to see your doctor or the referring specialist as soon as possible may worsen your medical condition and cause terminal operations supervisor disabilities. Make the appointment today sothere is no delay! Please follow your discharge instructions from today in the meantime. You have been prescribed a muscle relaxant and nausea medication. Please use as directed. It can cause drowsiness. Do NOT operate heavy machinery or drive a car. Please no mental, physical, or emotional activity for the next 36 hours. Please use 800 mg of ibuprofen (Motrin, Advil) every 6 hours as needed for pain control. You may use qolc-gsj-euwxewa naproxen(Aleve) as directed instead of ibuprofen, but be aware that ibuprofen products are taken every 6 hours as needed, and naproxen products are taken every 12 hours as needed. You also may want to consider taking an pvoj-rse-sukbsve stomach medication while taking the ibuprofen or naproxen products, as they can be hard on your stomach. Examples of the stomach medications include ranitidine(Zantac), famotidine(Pepcid), omeprazole(Prilosec) or lansoprazole(Prevacid). If you develop any increased abdominal pain, or notice blood in your stools or start vomiting blood, stop the ibuprofen or naproxen and return to the ER for re-evaluation. You may also use 650 mg of acetaminophen (Tylenol) every 6 hours as needed for pain control. If you decide to take both medications forpain, please alternate them. Please make sure that if you are also taking other medications that contain acetaminophen (Tylenol), that your total acetaminophen dose does not exceed 3000 mg in 24 hours. RESPOND TO WARNING SIGNS If your symptoms do not improve within the timeline we discussed, or they become worse, either contact your primary care physician immediately or come back to the emergency department. In the event of an emergency, dial 9-1-1 for an ambulance. Medical emergencies include but are not limited to: sudden headache, fever, bleeding, dizziness, paralysis, chest pain, stomach pain, nausea and vomiting, worsening pain, unable to keep fluids down or any other symptoms that worry you. Remember that the emergency department is open 24 hours a day, every day, and we will be happy to see you at any time. You MUST follow up for further evaluation of all incidental abnormal radiographic and laboratory findings, Have your physician obtain records from this visit and address all the incidental abnormal findings. This may include final results of lab testing, cultures, final x-ray reports which may not have been available during the time of the visit. * Attachments The following attachments cannot be sent through Care Everywhere. * Concussion Discharge Instructions, Adult (Eritrean) * Head injury in adults (Eritrean) * Neck pain (Eritrean) documented in this encounter Medications at Time of Discharge methadone (DOLOPHINE) 10 MG tablet Take 1 tablet (10 mg total) by mouth every 6 (six) hours as needed for Pain. ondansetron (ZOFRAN) 4 MG tablet Take 1 tablet (4 mg total) by mouth every 8 (eight) hours as needed for Nausea. 10 tablet 02/26/2024 cyclobenzaprine (FLEXERIL) 10 MG tablet Take 1 tablet (10 mg total) by mouth 3 (three) times daily as needed for Muscle Spasms. 21 tablet 02/26/2024 03/04/2024 documented as of this encounter ED Notes * Cj Maxwell DO - 02/26/2024 5:21 AM CDT Emergency Department Note 02/26/24 6:40 AM Chief Complaint : Fall Patient presents to the ER with [facility] after falling off of an eight foot ladder at 1500 yesterday. The patient fell backwards off the ladder and hit the air conditioner. He is currently complaining of 10 out of 10 neck and back pain. The patient was given 30 mg of Toradol and 4 mg of Zofran ODT. HPI : Mirza Hidalgo is a 63-year-old male who presents for Fall. States that he fell off the ladderyesterday. He was power washing the siding and his right foot slipped and he fell backwards onto anair conditioning unit. He states he hit his head and he is unsure if he lost consciousness. He was dizzy at the time. This happened at 1500hrs yesterday. He has had nausea and vomited x 3, no blood. No diarrhea. No chest pain, SOB. Pain in the neck is constant and is steady pain. Worse with movement and bumps. Tried methadone at home and did not help. Tried some arthritis medicine and did not help. The EMS gave zofran and toradol and has not helped. Tried ice and has not helped. Headache is pain behind the eyes. Constant. Does not radiate. Nothing makes it worse or better. He also has back pain that is the top of the shoulders and up. He has chronic low back pain. His pain is more neck and shoulders. History Chief Complaint Patient presents with Fall HPI Past Medical History: Diagnosis Date Amputee (HHS/HCC) Back pain Low blood pressure Past Surgical History: Procedure Laterality Date AMPUTATION LOW LEG THRU TIB/FIB Right No family history on file. Social History Tobacco Use Smoking status: Every Day Current packs/day: 0.50 Types: Cigarettes, Cigars Smokeless tobacco: Never Substance Use Topics Alcohol use: Yes Comment: social Drug use: Yes Types: Marijuana Review of Systems Review of systems completed. Abnormals are noted above in HPI. Physical Exam Vital Signs: Filed Vitals: 02/26/24 0514 BP: (!) 157/89 Pulse: 79 Resp: 17 Temp: 99.7 ??F (37.6 ??C) TempSrc: Temporal SpO2: 93% Weight: 54.4 kg (120 lb) Height: 1.753 m (5' 9 ) GENERAL: Patient is conscious alert and oriented x3 and in no acute distress. HEENT: Head is normocephalic and atraumatic. Extraocular muscles are intact. Oral mucosa are moist and without lesion. NECK: Trachea is midline. No meningeal signs. C collar in place. tender around T2 and up. Unable topalpate his neck completely due to the C-collar. Will see what CT scan shows and re-eval. LUNGS: Lungs are clear to auscultation bilaterally. There is good respiratory effort. HEART: Regular rate and rhythm, no murmur. There is no gallop or rub. No pitting edema. ABDOMEN: Soft and nontender to palpation. MUSCULOSKELETAL: Moves all extremities x4. There is no obvious deformity. Distal pulses are intact.Right leg prosthesis is in place. SKIN: Exposed skin shows no obvious erythema. Skin is warm and dry. There is no rash. NEUROLOGIC: Patient is conscious, alert and oriented x3. No focal neurologic defect is noted. PSYCH: Normal affect No results found for this visit on 02/26/24. Labs Reviewed - No data to display CT HEAD WO CON Final Result by User, [id number] (02/25 617) [address] [place] [address] CT OF THE BRAIN WITHOUT CONTRAST INDICATION: fall off ladder with n/v and KENNEDY TECHNIQUE: CT of the brain was performed without contrast. A dose lowering technique was used for this procedure, which may include, but is not limited to, dose reduction techniques, automated exposure control, the use of a iterative reconstruction, and ALARA (as low as reasonably achievable)/image gently techniques. . COMPARISON: Noncontrast CT brain from 12/24/2022. FINDINGS: No evidence of an acute ischemic infarct or intracranial hemorrhage. There are no extra-axial fluid collections or midline shift. The ventricles and sulci are normal in configuration. The visualized orbits are unremarkable. The paranasal air sinuses are unremarkable. The osseous structures are unremarkable. IMPRESSION: NO ACUTE INTRACRANIAL ABNORMALITY. Referred By: Interpreted By: Konstantin Peña MD, 02/26/2024 6:[address] CERV SPINE WO CON Final Result by User, [id number] (02/25 622) [address] [place] [address] EXAMINATION: CT CERVICAL SPINE WITHOUT CONTRAST EXAM DATE/TIME:02/26/2024 6:04 AM HISTORY:fall off ladder with n/v and KENNEDY COMPARISON:None. TECHNIQUE: Axial noncontrast CT images of the cervical spine were obtained. Coronal and sagittal reformatted images were created and reviewed. A dose lowering technique was used for this procedure, which may include, but is not limited to, dose reduction techniques, automated exposure control, the use of a iterative reconstruction, and ALARA (as low as reasonably achievable)/image gently techniques. FINDINGS:There is positional straightening of cervical lordosis. Alignment is otherwise unremarkable. Age-appropriate spondylosis. No evidence of an acute traumatic cervical spine fracture, subluxation or dislocation. The lateral mass, facet atlantoodontoid relationships are normal. There is no prevertebral soft tissue swelling. The visualized skull base and lung apices are unremarkable. IMPRESSION: UNREMARKABLE CERVICAL SPINE WITH NO EVIDENCE OF ACUTE TRAUMATIC INJURY. MILD PROBABLE POSITIONAL OR SPASM RELATED STRAIGHTENING OF CERVICAL CURVATURE AND AGE-APPROPRIATE SPONDYLOSIS. Referred By: Interpreted By: Konstantin Peña MD, 02/26/2024 6:[address] CHEST WO CON Final Result by User, [id number] (02/26 636) [address] [place] [address] EXAM: CT CHEST WO CON INDICATION: Patient fell off an 8 foot ladder yesterday. Upper shoulder and back pain. TECHNIQUE: Axial noncontrast CT of the chest, from thoracic inlet to the upper abdomen, was performed multiplanar reformatted and MIPS image data sets were generated and reviewed. A radiation dose lowering technique was used for this procedure, which may include, but is not limited to, dose reduction technique, automated exposure control, the use of iterative reconstruction, ALARA (As Low As Reasonably Achievable) techniques, and Image Gently techniques. COMPARISON EXAM: CT chest from 10/28/2012. FINDINGS: There is chronic atelectatic and/or fibrotic change in lung bases. A few granulomatous calcifications. No pulmonary contusion, pneumothorax, consolidation or pleural fluid. Noncontrast right vascular and mediastinal structures are grossly intact. Borderline mediastinal lymph nodes. No pericardial effusion. The generalized upper abdominal structures are unremarkable. Skeletal structures. Are intact. IMPRESSION: NO TRAUMATIC, ACUTE OR ACTIVE PROCESSES CONTRAST CT OF THE CHEST. Referred By: Interpreted By: Konstantin Peña MD, 02/26/2024 6:23 AM ED Course Medical Decision Making Discussed results with patient. He is to f/u with PCP. No acute fracture at this time. He will be sore for the next few days. He states understanding and agrees. -Patient seen and evaluated, available studies reviewed -Prior available records reviewed, triage notes reviewed. Medications metoclopramide (REGLAN) injection 10 mg (10 mg Intravenous Given 02/26/24 0543) diazePAM (VALIUM) tablet 5 mg (5 mg Oral Given 02/26/24 0538) New Prescriptions CYCLOBENZAPRINE (FLEXERIL) 10 MG TABLET Take 1 tablet (10 mg total) by mouth 3 (three) times daily as needed for Muscle Spasms. ONDANSETRON (ZOFRAN) 4 MG TABLET Take 1 tablet (4 mg total) by mouth every 8 (eight) hours as needed for Nausea. Clinical impression: SNOMED CT(R) 1. Fall, initial encounter FALL 2. Injury of head, initial encounter INJURY OF HEAD 3. Concussion with unknown loss of consciousness status, initial encounter CONCUSSION INJURY OF BRAIN 4. 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 In an effort to expedite patient care, this report has not been adjusted for typographical, grammatical, and syntax by a trained territory sales manager medical. CJ MAXWELL DO 02/26/2024 Cj Maxwell DO 02/27/24 0241 * Cheyenne Mohr RN - 02/26/2024 5:15 AM CDT Patient presents to the ER with [facility] after falling off of an eight foot ladder at 1500 yesterday. The patient fell backwards off the ladder and hit the air conditioner. He is currently complaining of 10 out of 10 neck and back pain. The patient was given 30 mg of Toradol and 4 mg of Zofran ODT. documented in this encounter Plan of Treatment Not on file documented as of this encounter Procedures Procedure Name Priority Date/Time Associated Diagnosis Comments CT CHEST WO CON STAT 02/26/2024 6:[address] HEAD WO CON STAT 02/26/2024 6:[address] CERV SPINE WO CON STAT 02/26/2024 6:04 AM CDT documented in this encounter Results * CT CHEST WO CON (02/26/2024 6:04 AM CDT) Anatomical Region Laterality Modality Chest Computed Tomogra phy 02/26/2024 6:23 AM CDT Impressions 02/26/2024 6:35 AM CDT IMPRESSION: NO TRAUMATIC, ACUTE OR ACTIVE PROCESSES CONTRAST CT OF THE CHEST. Referred By: ?? Interpreted By: Konstantin Peña MD, 02/26/2024 6:23 AM Narrative 02/26/2024 6:35 AM CDT [address] [place] [address] EXAM: CT CHEST WO CON INDICATION: Patient fell off an 8 foot ladder yesterday. ??Upper shoulder and back pain. TECHNIQUE: Axial noncontrast CT of the chest, from thoracic inlet to the upper abdomen, was performed multiplanar reformatted and MIPS image data sets were generated and reviewed. A radiation dose lowering technique was used for this procedure, which may include, but is not limited to, dose reduction technique, automated exposure control, the use of iterative reconstruction, ALARA (As Low As Reasonably Achievable) techniques, and Image Gently techniques. COMPARISON EXAM: CT chest from 10/28/2012. FINDINGS: There is chronic atelectatic and/or fibrotic change in lung bases. ??A few granulomatous calcifications. ??No pulmonary contusion, pneumothorax, consolidation or pleural fluid. ??Noncontrast right vascular and mediastinal structures are grossly intact. ??Borderline mediastinal lymph nodes. ??No pericardial effusion. ??The generalized upper abdominal structures are unremarkable. ??Skeletal structures. ??Are intact. Procedure Note Konstantin Peña MD - 02/26/2024 [place] [id number] [facility] [place] [address] EXAM: CT CHEST WO CON INDICATION: Patient fell off an 8 foot ladder yesterday. Upper shoulderand back pain. TECHNIQUE: Axial noncontrast CT of the chest, from thoracic inlet to theupper abdomen, was performed multiplanar reformatted and MIPS image datasets were generated and reviewed. A radiation dose lowering technique was used for this procedure, which mayinclude, but is not limited to, dose reduction technique, automatedexposure control, the use of iterative reconstruction, ALARA (As Low AsReasonably Achievable) techniques, and Image Gently techniques. COMPARISON EXAM: CT chest from 10/28/2012. FINDINGS: There is chronic atelectatic and/or fibrotic change in lungbases. A few granulomatous calcifications. No pulmonary contusion,pneumothorax, consolidation or pleural fluid. Noncontrast right vascularand mediastinal structures are grossly intact. Borderline mediastinallymph nodes. No pericardial effusion. The generalized upper abdominalstructures are unremarkable. Skeletal structures. Are intact. IMPRESSION: NO TRAUMATIC, ACUTE OR ACTIVE PROCESSES CONTRAST CT OF THECHEST. Referred By: Interpreted By: Konstantin Peña MD, 02/26/2024 6:23 AM Cj Maxwell DO CT Final Result * CT CERV SPINE WO CON (02/26/2024 6:04 AM CDT) Anatomical Region Laterality Modality Spine Computed Tomogra phy 02/26/2024 6:17 AM CDT Impressions 02/26/2024 6:21 AM CDT IMPRESSION: UNREMARKABLE CERVICAL SPINE WITH NO EVIDENCE OF ACUTE TRAUMATIC INJURY. ??MILD PROBABLE POSITIONAL OR SPASM RELATED STRAIGHTENING OF CERVICAL CURVATURE AND AGE-APPROPRIATE SPONDYLOSIS. Referred By: ?? Interpreted By: Konstantin Peña MD, 02/26/2024 6:17 AM Narrative 02/26/2024 6:21 AM CDT [address] [place] [address] EXAMINATION: CT CERVICAL SPINE WITHOUT CONTRAST EXAM DATE/TIME:02/26/2024 6:04 AM HISTORY:fall off ladder with n/v and KENNEDY COMPARISON:None. TECHNIQUE: Axial noncontrast CT images of the cervical spine were obtained. ??Coronal and sagittal reformatted images were created and reviewed. A dose lowering technique was used for this procedure, which may include, but is not limited to, dose reduction techniques, automated exposure control, the use of a iterative reconstruction, and ALARA (as low as reasonably achievable)/image gently techniques. FINDINGS:There is positional straightening of cervical lordosis. ??Alignment is otherwise unremarkable. ??Age-appropriate spondylosis. ??No evidence of an acute traumatic cervical spine fracture, subluxation or dislocation. ??The lateral mass, facet atlantoodontoid relationships are normal. ??There is no prevertebral soft tissue swelling. ??The visualized skull base and lung apices are unremarkable. Procedure Note Konstantin Peña MD - 02/26/[address] [place] [address] EXAMINATION: CT CERVICAL SPINE WITHOUT CONTRAST EXAM DATE/TIME:02/26/2024 6:04 AM HISTORY:fall off ladder with n/v and KENNEDY COMPARISON:None. TECHNIQUE: Axial noncontrast CT images of the cervical spine wereobtained. Coronal and sagittal reformatted images were created andreviewed. A dose lowering technique was used for this procedure, which may include,but is not limited to, dose reduction techniques, automated exposurecontrol, the use of a iterative reconstruction, and ALARA (as low asreasonably achievable)/image gently techniques. FINDINGS:There is positional straightening of cervical lordosis.Alignment is otherwise unremarkable. Age-appropriate spondylosis. Noevidence of an acute traumatic cervical spine fracture, subluxation ordislocation. The lateral mass, facet atlantoodontoid relationships arenormal. There is no prevertebral soft tissue swelling. The visualizedskull base and lung apices are unremarkable. IMPRESSION: UNREMARKABLE CERVICAL SPINE WITH NO EVIDENCE OF ACUTETRAUMATIC INJURY. MILD PROBABLE POSITIONAL OR SPASM RELATED STRAIGHTENINGOF CERVICAL CURVATURE AND AGE-APPROPRIATE SPONDYLOSIS. Referred By: Interpreted By: Konstantin Peña MD, 02/26/2024 6:17 AM Cj Maxwell DO CT Final Result * CT HEAD WO CON (02/26/2024 6:04 AM CDT) Anatomical Region Laterality Modality Head Computed Tomogra phy 02/26/2024 6:13 AM CDT Impressions 02/26/2024 6:16 AM CDT IMPRESSION: NO ACUTE INTRACRANIAL ABNORMALITY. Referred By: ?? Interpreted By: Konstantin Peña MD, 02/26/2024 6:13 AM Narrative 02/26/2024 6:16 AM CDT [address] [place] [address] CT OF THE BRAIN WITHOUT CONTRAST INDICATION: fall off ladder with n/v and KENNEDY TECHNIQUE: CT of the brain was performed without contrast. ??A dose lowering technique was used for this procedure, which may include, but is not limited to, dose reduction techniques, automated exposure control, the use of a iterative reconstruction, and ALARA (as low as reasonably achievable)/image gently techniques. . COMPARISON: Noncontrast CT brain from 12/24/2022. FINDINGS: No evidence of an acute ischemic infarct or intracranial hemorrhage. ??There are no extra-axial fluid collections or midline shift. The ventricles and sulci are normal in configuration. The visualized orbits are unremarkable. The paranasal air sinuses are unremarkable. The osseous structures are unremarkable. Procedure Note Konstantin Peña MD - 02/26/[address] [place] [address] CT OF THE BRAIN WITHOUT CONTRAST INDICATION: fall off ladder with n/v and KENNEDY TECHNIQUE: CT of the brain was performed without contrast. A doselowering technique was used for this procedure, which may include, but isnot limited to, dose reduction techniques, automated exposure control, theuse of a iterative reconstruction, and ALARA (as low as reasonablyachievable)/image gently techniques. . COMPARISON: Noncontrast CT brain from 12/24/2022. FINDINGS: No evidence of an acute ischemic infarct or intracranial hemorrhage.There are no extra-axial fluid collections or midline shift. Theventricles and sulci are normal in configuration. The visualized orbits are unremarkable. The paranasal air sinuses areunremarkable. The osseous structures are unremarkable. IMPRESSION: NO ACUTE INTRACRANIAL ABNORMALITY. Referred By: Interpreted By: Konstantin Peña MD, 02/26/2024 6:[address] Final Result documented in this encounter Visit Diagnoses Diagnosis Fall, initial encounter- Primary Injury of head, initial encounter Concussion with unknown loss of consciousness status, initial encounter Neck pain, acute Cervicalgia documented in this encounter Administered Medications Inactive Administered Medications - up to 3 most recent administrations Medication Order MAR Action Action Date Dose Rate Site diazePAM (VALIUM) tablet 5 mg 5 mg, Oral, Once, 1 dose, On Thu02/26/24 at 0545 Given 02/26/2024 5:38 AM CDT 5 mg metoclopramide (REGLAN) injection 10 mg 10 mg, Intravenous, Once, 1 dose, On Thu02/26/24 at 0545, Administer IV over 1-2 minutes Given 02/26/2024 5:43 AM CDT 10 mg documented in this encounter Active and Recently Administered Medications Times are shown in CDT. Scheduled Medication Order 02/24/2024 02/25/2024 02/26/2024 diazePAM (VALIUM) tablet 5 mg (COMPLETED) 5 mg, Oral, Once, 1 dose, On Thu02/26/24 at 0545 0538 (Given - Provid er: Collette Reed RN) metoclopramide (REGLAN) injection 10 mg (COMPLETED) 10 mg, Intravenous, Once, 1 dose, On Thu02/26/24 at 0545, Administer IV over 1-2 minutes 0543 (Given - Provid er: Collette Reed RN) documented in this encounter Care Teams Polystyrene Bead Molder Relationship Specialty Start Date End Date None, Provider, PCP - General UNKNOWN PHYSICIAN SPECIALTY 5/16/23 1 07/01/23 documented as of this encounter
--- OUTSIDE RECORDS SUMMARY | 2024-06-16 06:45 | XMS_ITS | Encounter Summary ---
Author Organization [facility] Address [address] [place] [address]. [place], [place] [address] [place] [address] Care Team Providers Care Web Design Specialist Name Role Phone None, Provider MD Primary Care Provider Unavaila ble Reason for Visit * Reason Comments Ankle Pain Encounter Details Date Type Department Care Team (Late st Contact Info) Description 03/31/2023 12:05 AM CDT - 03/31/2023 12:42 AM CDT Emergency [facility] [address] [place] [address] Oscar Blank MD [address] [place] [address] [id number] Ankle Pain Discharge Disposition: Home or Self Care (Routine Discharge) Social History Tobacco Use Types Packs/Day Years Used Date Smoking Tobacco: Every Day Cigarettes Smokeless Tobacco: Never Tobacco Cessation:Ready to Q uit: Not Asked; Counseling Given: Not Answered Sex and Gender Information Value Date Recorded Sex Assigned at Not on file 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 Gender Identity Not on file Sexual Orientation Not on file documented as of this encounter Last Filed Vital Signs Vital Sign Reading Time Taken Comments Blood Pressure 156/93 03/31/2023 12:15 AM CDT Pulse 80 03/31/2023 12:13 AM CDT Temperature 36.7 ??C (98.1 ??F) 03/31/2023 12:13 AM C DT Respiratory Rate 19 03/31/2023 12:13 AM CDT Oxygen Saturation 99% 03/31/2023 12:30 AM CDT Inhaled Oxygen Concentration - - Weight 59 kg (130 lb) 03/31/2023 12:13 AM CDT Height 176.5 cm (5' 9.5 ) 03/31/2023 12:13 AM CD T Body Mass Index 18.92 03/31/2023 12:13 AM CDT documented in this encounter Discharge Instructions * Discharge Instructions* Oscar Blank MD - 03/31/2023 12:31 AM CDT Recommend trying to stay off your foot is much as possible for the next several days. * Attachments The following attachments cannot be sent through Care Everywhere. * Achilles Tendon Rupture Discharge Instructions (Sami) documented in this encounter Medications at Time of Discharge methadone (DOLOPHINE) 10 MG tablet Take 1 tablet (10 mg total) by mouth every 6 (six) hours as needed for Pain. HYDROcodone-acetamin ophen (NORCO) 5-325 MG tabletIndications:Ac salma Pain < 3 Day Supply Take 1-2 tablets by mouth every 6 (six) hours as needed. Indications: Acute Pain < 3 Day Supply 12 tablet 03/31/2023 4 ondansetron (ZOFRAN-ODT) 4 MG disintegrating tablet Take 1 tablet (4 mg total) by mouth every 8 (eight) hours as needed for Nausea. 20 tablet 12/24/2022 4 documented as of this encounter ED Notes * Collette Reed RN - 03/31/2023 12:15 AM CDT Pt in by POV with c/o left ankle pain. Pt states he was bent down looking for something under the bed and had sharp pain on the backside of the left ankle. Pt has a hx of blood clots and is worried that's what this is. Pt soaked ankle in warm water and epsom salt for 30 minutes with no relief. Pain8/10 upon arrival. 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 * Oscar Blank MD - 03/30/2023 11:56 PM CDT eMERGENCY dEPARTMENT eNCOUnter CHIEF COMPLAINT Chief Complaint Patient presents with Ankle Pain HPI HPI Rosita White is a 62-year-old male who presents to the ER with a complaint of left ankle injury. 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 He complains of severe pain. 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 He states the pain is over his Achilles tendon. No other injuries or complaints. ALLERGIES Review of patient's allergies indicates: No Known Allergies CURRENT MEDICATIONS Current Outpatient Medications Medication Sig HYDROcodone-acetaminophen (NORCO) 5-325 MG tablet Take 1-2 tablets by mouth every 6 (six) hours as needed. Indications: Acute Pain < 3 Day Supply methadone (DOLOPHINE) 10 MG tablet Take 1 tablet (10 mg total) by mouth every 6 (six) hours as needed for Pain. ondansetron (ZOFRAN-ODT) 4 MG disintegrating tablet Take 1 tablet (4 mg total) by mouth every 8 (eight) hours as needed for Nausea. PAST MEDICAL HISTORY History reviewed. No pertinent past medical history. SURGICAL HISTORY History reviewed. No pertinent surgical history. SOCIAL HISTORY Social History Socioeconomic History Marital status: Single Tobacco Use Smoking status: Every Day Packs/day: 0.50 Types: Cigarettes Smokeless tobacco: Never FAMILY HISTORY No family history on file. REVIEW OF SYSTEMS Review of Systems All other ROS negative unless noted above in HPI. PHYSICAL EXAM Physical Exam Filed Vitals: 03/31/23 0013 BP: (!) 156/93 Pulse: 80 Resp: 19 Temp: 98.1 ??F (36.7 ??C) TempSrc: Oral SpO2: 97% Weight: 59 kg (130 lb) Height: 1.765 m (5' 9.5 ) The patient is a well developed and well nourished adult male in moderate painful distress, alert and oriented. HEENT: PERRL, EOMI Throat without lesions, mucous membranes moist NECK: Supple without adenopathy or rigidity CHEST: Respirations are easy and unlabored EXT: No clubbing, cyanosis, edema, tenderness over the left Achilles tendon but no obvious defect and he does have flexion and extension of the ankle and intact although with pain NEURO: CN II-XII intact, no focal weakness SKIN: No rash or significant lesions EKG RADIOLOGY XR ANKLE LT M3V Final Result by User, [email or web address] (03/31 31) PATIENT NAME: ROSITA WHITE EXAM: Left ankle 3 view DATE OF EXAM: 03/31/2023 COMPARISON EXAM: None INDICATION: Trauma TECHNIQUE: AP, lateral and oblique left ankle FINDINGS: No acute soft tissue abnormality. No acute fracture or dislocation. Ankle mortise relationships are normal. IMPRESSION: 1. NO EVIDENCE OF ACUTE FRACTURE OR DISLOCATION. Signed: Marshall Watts MD Referred By: Interpreted By: Marshall Watts MD, 03/31/2023 12:28 AM LABS No results found for this visit on 03/31/23. ED MEDICATIONS Medications HYDROcodone-acetaminophen (NORCO) 5-325 MG tablet 2 tablet (has no administration in time range) PROCEDURES Procedures CONSULTS: ED COURSE & MEDICAL DECISION MAKING MDM Amount and/or Complexity of Data Reviewed Tests in the radiology section of CPT??: reviewed ED Course as of 03/31/2332Mar 31, 202331 X-ray report is noted. [WM] ED Course User Index [WM] Oscar Blank MD Clinically the patient appears to have strained his Achilles tendon. We will obtain an x-ray to ensure no bony abnormality. This is a challenging situation as the patient has a right leg below-knee amputation. Normally I would place him in a short leg splint on the left for concern of the Achilles tendon injury but we cannot do this because of his disability on the right leg. He states he thinks he can stay off the leg.We will put him in a bulky Mayito bandage recommend minimal to no weightbearing on the left leg until he can follow-up with her orthopedist I will start him on pain medication in the meantime. FINAL IMPRESSION SNOMED CT(R) 1. Strain of left Achilles tendon STRAIN OF LEFT ACHILLES TENDON Haresh Brandt MD [address] [place] [id number] Schedule an appointment as soon as possible for a visit New Prescriptions HYDROCODONE-ACETAMINOPHEN (NORCO) 5-325 MG TABLET Take 1-2 tablets by mouth every 6 (six) hours as needed. Indications: Acute Pain < 3 Day Supply Oscar Blank MD 03/31/2332 documented in this encounter Plan of Treatment Not on file documented as of this encounter Procedures Procedure Name Priority Date/Time Associated Diagnosis Comments XR ANKLE LT M3V STAT 03/31/2023 12:26 AM CDT documented in this encounter Results * XR ANKLE LT M3V (03/31/2023 12:26 AM CDT) Anatomical Region Laterality Modality Ankle Radiographic Corinna ging 03/31/2023 12:2 8 AM CDT Impressions 03/31/2023 12:29 AM CDT IMPRESSION: 1. ??NO EVIDENCE OF ACUTE FRACTURE OR DISLOCATION. Signed: Marshall Watts MD Referred By: ?? Interpreted By: Marshall Watts MD, 03/31/2023 12:28 AM Narrative 03/31/2023 12:29 AM CDT PATIENT NAME: ROSITA WHITE EXAM: Left ankle 3 view DATE OF EXAM: 03/31/2023 COMPARISON EXAM: None INDICATION: Trauma TECHNIQUE: AP, lateral and oblique left ankle FINDINGS: No acute soft tissue abnormality. ??No acute fracture or dislocation. ??Ankle mortise relationships are normal. Procedure Note Marshall Watts MD - 03/31/2023 PATIENT NAME: ROSITA WHITE EXAM: Left ankle 3 view DATE OF EXAM: 03/31/2023 COMPARISON EXAM: None INDICATION: Trauma TECHNIQUE: AP, lateral and oblique left ankle FINDINGS: No acute soft tissue abnormality. No acute fracture ordislocation. Ankle mortise relationships are normal. IMPRESSION: 1. NO EVIDENCE OF ACUTE FRACTURE OR DISLOCATION. Signed: Marshall Watts MD Referred By: Interpreted By: Marshall Watts MD, 03/31/2023 12:28 AM Oscar Blank MD GENERAL IMAGING Final Result documented in this encounter Visit Diagnoses Diagnosis Strain of left Achilles tendon- Primary Other ankle sprain and strain documented in this encounter Administered Medications Inactive Administered Medications - up to 3 most recent administrations Medication Order MAR Action Action Date Dose Rate Site HYDROcodone-acetaminophen (NORCO) 5-325 MG tablet 2 tablet 2 tablet, Oral, Once, 1 dose, On Thu03/31/23 at 0030, Maximum dose of acetaminophen is 4000 mg from all sources in 24 hours. Given 03/31/2023 12:36 AM CDT 2 tablets documented in this encounter Active and Recently Administered Medications Times are shown in CDT. Scheduled Medication Order 03/29/2023 03/30/2023 03/31/2023 HYDROcodone-acetaminophen (NORCO) 5-325 MG tablet 2 tablet (COMPLETED) 2 tablet, Oral, Once, 1 dose, On Thu03/31/23 at 0030, Maximum dose of acetaminophen is 4000 mg from all sources in 24 hours. 0036 (Given - Provid er: Collette Reed RN - Comment: Given to pt to take home per Dr. Blank.) documented in this encounter Care Teams Web Design Specialist Relationship Specialty Start Date End Date None, Provider, PCP - General UNKNOWN PHYSICIAN SPECIALTY 10/28/22 1 07/01/23 documented as of this encounter
--- OUTSIDE RECORDS SUMMARY | 2024-06-16 06:45 | XMS_ITS | Encounter Summary ---
Author Organization [facility] Address [address] [place] [address]. 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 Gender Identity Not on file Sexual Orientation Not on file documented as of this encounter Plan of Treatment Not on file documented as of this encounter Visit Diagnoses Not on filedocumented in this encounter Additional Health Concerns Infection Onset Date Last Indicated Resolved Time COVID-19 Rule Out 05/05/2024 05/05/2024 05/05/2024 4:51 PM 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
--- OUTSIDE RECORDS SUMMARY | 2024-06-16 06:45 | XMS_ITS | Encounter Summary ---
Author Organization [facility] Address [facility]. 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
--- OUTSIDE RECORDS SUMMARY | 2024-06-16 06:45 | XMS_ITS | Encounter Summary ---
Author Organization [facility] Address [address] [place] [address]. [place], [place] [id number] [place] [id number] Care Team Providers Care Power Engineer Name Role Phone None, Provider Primary Care Provider Unavaila ble Reason for Referral * Imaging (Emergency) - Closed Specialty Diagnoses / Procedures Referred By Romina martinez Referred To Contact RADIOLOGY Procedures CT ABD+PEL W IV CON ONLY Benny Hoyos DO Phone: tel: fax: Referral ID Status Reason Start Date Expiration Date Visits Re quested Visits Authorized [id number] Closed 12/24/2022 12/25/2023 1 1 * Imaging (Emergency) - Closed Specialty Diagnoses / Procedures Referred By Romina martinez Referred To Contact RADIOLOGY Procedures CT HEAD WO CON Benny Hoyos DO Phone: tel: fax: Referral ID Status Reason Start Date Expiration Date Visits Re quested Visits Authorized [id number] Closed 12/24/2022 12/25/2023 1 1 Reason for Visit * Reason Comments Medical Problem Encounter Details Date Type Department Care Team (Late st Contact Info) Description 12/24/2022 3:41 AM CDT - 12/24/2022 9:00 AM CDT Emergency [facility] [address] [place] [address] [place] [address] Benny Hoyos DO [address] [place] [address] [id number] Medical Problem Discharge Disposition: Home or Self Care (Routine Discharge) Social History Tobacco Use Types Packs/Day Years Used Date Smoking Tobacco: Never Assessed Sex and Gender Information Value Date Recorded Sex Assigned at Not on file 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 Gender Identity Not on file Sexual Orientation Not on file documented as of this encounter Last Filed Vital Signs Vital Sign Reading Time Taken Comments Blood Pressure 136/81 12/24/2022 3:45 AM CDT Pulse 74 12/24/2022 3:45 AM CDT Temperature 37.2 ??C (99 ??F) 12/24/2022 3:45 AM CDT Respiratory Rate 16 12/24/2022 3:45 AM CDT Oxygen Saturation 97% 12/24/2022 3:45 AM CDT Inhaled Oxygen Concentration - - Weight 59 kg (130 lb) 12/24/2022 3:54 AM CDT Height 170.2 cm (5' 7 ) 12/24/2022 3:54 AM CDT Body Mass Index 20.36 12/24/2022 3:54 AM CDT documented in this encounter Discharge Instructions * Discharge Instructions* Benny Hoyos DO - 12/24/2022 6:18 AM CDT Please refer to the attached discharge instructions regarding your diagnosis and treatment recommendations. Please consider reducing your daily alcohol use in order to help improve you nausea and abdominal discomfort. You have been prescribed zofran for nausea today Please take all your home medications as directed. Please follow up with your primary doctor regarding your ED visit today Please return to the emergency department if: Unable to tolerate anything by mouth due to nausea/vomiting Blood in your vomit or stool Lightheadedness or fainting New worsening chest pain or pressure Fevers (greater than 100.4 F) that are not controlled with over the counter fever medications You know yourself better than anyone. If you become concerned about your progress or believe your condition is worsening please return to the emergency department or call the nurses hotline at for further recommendations. * Attachments The following attachments cannot be sent through Care Everywhere. * Chronic Pancreatitis Discharge Instructions ([place]) * Alcohol Use Disorder Discharge Instructions ([place]) documented in this encounter Medications at Time of Discharge ondansetron (ZOFRAN-ODT) 4 MG disintegrating tablet Take 1 tablet (4 mg total) by mouth every 8 (eight) hours as needed for Nausea. 20 tablet 12/24/2022 4 documented as of this encounter ED Notes * Adrienne Ferro RN - 12/24/2022 8:55 AM CDT Pt ambulates to waiting room and meets his ride. * Adrienne Ferro RN - 12/24/2022 8:35 AM CDT Pt remians in room, waiting for ride home. Discharge instructions were given by prior shift. * Adrienne Ferro RN - 12/24/2022 7:38 AM CDT Pt's calls to check condition and states she britta be here to pick him up around 0830. * Adrienne Ferro RN - 12/24/2022 7:08 AM CDT Report rec'd from CHRISTIN Quinn. Pt has been discharged and is waiting for transportation home. * Benny Hoyos DO - 12/24/2022 3:52 AM CDT Chief Complaint Chief Complaint Patient presents with Medical Problem History of Present Illness 62 year old male with a history of alcohol and opiate abuse on methadone presenting via EMS for slurred speech, nausea and vomiting x2 days. Per EMS called due to 2 days of slurred speech. Was found on arrival to have some left sided facial droop so was declared a possible stroke. On arrival here has no slurred speech or facial droop. According the the patient he has been passing out, having nausea and headaches for 2mths. Unclear last known well. Per EMS patient does at admit to etoh use tonight which patient confirms was about half a pint. He has no acute complaints. He feels he is being evaluated for multiple episodes of passing out. Other than headaches which he states is the same headache he has had for some time due to sinus issues he denies any other pain. Does have associated nausea but no vomiting today. Has had some recent fevers and chills though cannot remember when. No chest pain, abdominal pain or shortness of breath Medical History ALLERGIES: Review of patient's allergies indicates: No Known Allergies MEDICATIONS: Prior to Admission medications Medication Sig Start Date End Date Taking? Authorizing Provider ondansetron (ZOFRAN-ODT) 4 MG disintegrating tablet Take 1 tablet (4 mg total) by mouth every 8 (eight) hours as needed for Nausea. 12/24/22 Yes Benny Hoyos, PAST MEDICAL HISTORY: History reviewed. No pertinent past medical history. PAST SURGICAL HISTORY: History reviewed. No pertinent surgical history. FAMILY HISTORY: No family history on file. SOCIAL HISTORY: Review of Systems Review of Systems Constitutional: Positive for chills and fever. HENT: Negative for congestion, rhinorrhea and sore throat. Eyes: Negative for redness, itching and visual disturbance. Respiratory: Negative for shortness of breath. Cardiovascular: Negative for chest pain and palpitations. Gastrointestinal: Positive for nausea. Negative for abdominal pain, constipation, diarrhea and vomiting. Genitourinary: Negative for dysuria and hematuria. Musculoskeletal: Negative for arthralgias and back pain. Skin: Negative for color change and rash. Neurological: Positive for dizziness, speech difficulty and headaches. Negative for numbness. Physical Exam Filed Vitals: 12/24/22 0345 12/24/22 0354 BP: 136/81 Pulse: 74 Resp: 16 Temp: 99 ??F (37.2 ??C) TempSrc: Temporal SpO2: 97% Weight: 59 kg (130 lb) Height: 5' 7 (1.702 m) Physical Exam Vitals and nursing note reviewed. Constitutional: General: He is not in acute distress. Appearance: He is not toxic-appearing. HENT: Head: Normocephalic and atraumatic. Nose: Nose normal. Mouth/Throat: Mouth: Mucous membranes are dry. Pharynx: No posterior oropharyngeal erythema. Eyes: Extraocular Movements: Extraocular movements intact. Conjunctiva/sclera: Conjunctivae normal. Pupils: Pupils are equal, round, and reactive to light. Cardiovascular: Rate and Rhythm: Normal rate. Pulses: Normal pulses. Pulmonary: Effort: Pulmonary effort is normal. Breath sounds: No wheezing. Abdominal: General: Abdomen is flat. Palpations: Abdomen is soft. Tenderness: There is no abdominal tenderness. There is no guarding. Musculoskeletal: Cervical back: Normal range of motion and neck supple. No tenderness. Comments: Right AKA Neurological: Mental Status: He is alert. Motor: No weakness. Comments: Oriented to person and place only. No facial droop. Subjective differences in sensation on left side of face and arm and right leg compared to opposite side, patient states this is not new and has been this way for months. No focal weakness. Equal strength in bilateral upper and lower extremities. Diagnostic Studies / Procedures ELECTROCARDIOGRAMS: Results for orders placed or performed during the hospital encounter of 12/24/22 ECG 12 lead Narrative [address] [place] [address] Test Date: 2022-12-24 Pat Name: ROSITA WHITE Department: 3 Room: [place] [address] Gender: Male Electronic Communications Technician: EDSFL : 1960 Requested By: BENNY HOYOS Order Number: [id number] Reading MD: Measurements Intervals [place] Rate: 67 P: 75 MT: 132 QRS: 41 QRSD: 91 T: 71 QT: 418 QTc: 442 Interpretive Statements SINUS RHYTHM SEPTAL MYOCARDIAL INFARCTION , PROBABLY OLD LABORATORY STUDIES: Results for orders placed or performed during the hospital encounter of 12/24/22 CBC W/DIFF AUTOMATED Result Value Ref Range WBC 3.34 (L) 4.00 - 10.80 x10'3/uL RBC 4.81 4.50 - 6.10 x10'6/uL HGB 13.7 13.0 - 18.0 G/DL HCT 42.1 37.0 - 52.0 % MCV 87.5 78.0 - 100.0 FL MCH 28.5 27.0 - 31.0 PG MCHC 32.5 (L) 33.0 - 36.0 G/DL RDW 15.4 (H) 11.5 - 14.5 % PLT 229 150 - 350 x10'3/uL MPV 9.6 7.4 - 10.4 FL CBC COMMENT NORMAL REFERENCE RANGE NOT ESTABLISHED FOR THE PROPORTIONAL LEUKOCYTE DIFFERENTIAL. NEUTROPHILS 37.4 % LYMPHOCYTES 47.9 % MONOCYTES 12.3 % EOSINOPHILS 1.5 % BASOPHILS 0.9 % IMMATURE GRANS 0.0 % NRBC 0.0 % ABS. NEUTROPHILS 1.25 (L) 1.60 - 8.30 x10'3/uL ABS. LYMPHOCYTES 1.60 0.80 - 4.70 x10'3/uL ABS. MONOCYTES 0.41 0.00 - 1.50 x10'3/uL ABS. EOSINOPHILS 0.05 0.00 - 0.40 x10'3/uL ABS. BASOPHILS 0.03 0.00 - 0.20 x10'3/uL ABS. IMMATURE GRANULOCYTES 0.00 0.00 - 0.03 x10'3/uL ABS. NUCLEATED RBC'S 0.00 0.00 x10'3/uL COMPREHENSIVE METABOLIC PANEL Result Value Ref Range SODIUM S/P/B 146 (H) 136 - 145 MMOL/L POTASSIUM S/P/B 3.7 3.5 - 5.1 MMOL/L CHLORIDE S/P/B 109 (H) 98 - 107 MMOL/L CO2 28.2 21.0 - 32.0 MMOL/L GLUCOSE 95 70 - 99 MG/DL BUN 9 6 - 24 MG/DL CREATININE S/P/B 0.85 0.70 - 1.30 MG/DL CALCIUM S/P/B 8.6 8.4 - 10.5 MG/DL BILIRUBIN TOTAL S/P/B 0.3 0.2 - 1.0 MG/DL ALKALINE PHOSPHATASE S/P/B 124 (H) 45 - 115 U/L AST 22 15 - 37 U/L ALT 19 16 - 63 U/L TOTAL PROTEIN S/P/B 8.6 (H) 6.4 - 8.2 G/DL ALBUMIN S/P/B 3.6 3.4 - 5.0 G/DL ANION GAP 8.8 5.0 - 15.0 MMOL/L OSMOLALITY (CALC) 300 MOSM/KG GFR ESTIMATE >90 >89 ML/MIN/1.73 M2 GFR NOTES GFR REFERENCES: TROPONIN, QUANT Result Value Ref Range TROPONIN I HIGH SENSITIVITY 7 0 - 76 ng/L LIPASE Result Value Ref Range LIPASE 429 (H) 16 - 77 UNITS/L ETHANOL Result Value Ref Range ALCOHOL S/P/B 0.245 (H) <0.003 G/DL URINALYSIS Result Value Ref Range COLOR (U) YELLOW TRANSPARENCY CLEAR SPECIFIC GRAVITY (U) 1.010 1.000 - 1.025 U PH 5.5 5.0 - 8.0 LEUKOCYTES (U) NEGATIVE NEGATIVE NITRITES NEGATIVE NEGATIVE PROTEIN (U) NEGATIVE NEGATIVE GLUCOSE (U) NEGATIVE NEGATIVE KETONES (U) NEGATIVE NEGATIVE UROBILINOGEN 0.2 <1.0 EU/DL BILIRUBIN (U) NEGATIVE NEGATIVE BLOOD (U) NEGATIVE NEGATIVE WBC/HPF NONE SEEN (A) 0 - 5 /HPF RBC/HPF NONE SEEN (A) 0 - 5 /HPF EPI/LPF NONE SEEN /LPF BACTERIA (U) TRACE /HPF REFLEX URINE CULTURE: NOT INDICATED LACTIC ACID Result Value Ref Range LACTIC ACID 1.3 0.4 - 2.0 MMOL/L IMAGING STUDIES CT ABD+PEL W IV CON ONLY Final Result by User, [id number] (12/24 516) HISTORY: Nausea and vomiting. Acute pancreatitis suspected. COMPARISON: 10/28/2022 TECHNIQUE: CT abdomen and pelvis performed utilizing thin-slice axial technique following IV administration of contrast. A dose-lowering technique was used for this procedure, which may include, but is not limited to, dose-reduction technique, automated exposure control, the use of iterative reconstruction, and ALARA (As Low As Reasonably Achievable) / Image Gently techniques. FINDINGS: Liver, gallbladder, biliary tracts, spleen, kidneys, adrenal glands unremarkable. No inflammatory changes are seen about or involving the pancreas. Pancreatic duct caliber is upper limits normal. Bladder demonstrates smooth wall thickening out of proportion to degree of distention but similar to prior study of 10/28/2022. No inflammatory fat changes about the bladder. Prostate unremarkable. GI tract shows no obstruction or other acute or significant pathology. Appendix is normal. No abdominal or pelvic lymphadenopathy. There is diffuse irregular atheromatous plaque throughout the abdominal aorta with mild narrowing noted in the infrarenal abdominal aorta. This extends into the common iliac arteries which show no clinically significant stenosis. Abdominal wall and inguinal regions unremarkable. Included lung bases show posterior medial lower lobe linear scarring. Visible bones reveal no suspicious lytic or blastic lesions. IMPRESSION: 1. Mild diffuse bladder wall thickening that is out of proportion to degree of bladder distention. Doubt this represents cystitis unless there is a positive UA. This may represent bladder wall hypertrophy though prostate is not especially enlarged. 2. No evidence of acute pancreatitis. 3. Similar-appearing diffuse atherosclerotic disease of the abdominal aorta with mild associated narrowing in the infrarenal abdominal aorta. PQRS ABDOMINAL: [id number] Referred By: Interpreted By: Karlos Lawson, 12/24/2022 5:10 AM XR CHEST PORTABLE Final Result by User, [id number] (12/24 0270) CLINICAL HISTORY: Syncope COMPARISON: 02/14/2012 TECHNIQUE: AP Portable View, 2 images submitted FINDINGS: Lungs are clear. No pneumothorax or pleural effusions evident. The cardiac silhouette, mediastinal contours, and pulmonary vessels appear within normal limits. No acute osseous abnormality. IMPRESSION: No acute findings. Referred By: Interpreted By: Karlos Lawson, 12/24/2022 4:[address] HEAD WO CON Final Result by User, [id number] (12/24 8005) CLINICAL HISTORY: Syncope, altered mental status of unknown cause COMPARISON: 02/14/2012 DOSE OPTIMIZATION: This facility uses dose optimization techniques as appropriate to perform exams, including at least one of the following techniques: 1. Automated exposure control. 2. Adjustment of the mA and/or kV according to patient size (this includes techniques or standardized protocols for targeted exams where dose is matched to the indication/reason for exam, i.e. extremities or head). 3. Use of iterative reconstructive technique. FINDINGS: There is no evidence of acute intracranial hemorrhage, abnormal extraaxial collections, intracranial mass effect, or midline shift. Ventricles, sulci, and subarachnoid cisterns are of normal size and configuration for patient's age. There is mild periventricular and deep white matter hypoattenuation most compatible with chronic small vessel disease. There is no definite CT evidence to suggest acute territorial infarction. Atherosclerotic calcifications of the intracranial arterial vasculature are evident. The calvaria and orbits are unremarkable. The paranasal sinuses and mastoid air cells are clear. IMPRESSION: 1. No definite CT evidence of acute intracranial abnormality. 2. Mild chronic small vessel disease. Referred By: Interpreted By: Karlos Lawson, 12/24/2022 4:28 AM ED Course / Medical Decision Making Medical Decision Making 62-year-old male presenting with 2 days of slurred speech and left sided weakness per EMS - multiple episodes of passing out, headaches, and nausea per patient. Unremarkable vitals. Temp 99. Oriented to person and place only. No facial droop. Subjective differences in sensation on left side of face and arm and right leg compared to opposite sides - patient states this is not new and has been this way for months. No focal weakness, equal strength in bilateral upper and lower extremities. AKA on the right with an otherwise unremarkable physical exam. Ddx including but not limited to: ACS, infection, TIA/stroke, intoxication Orders: cbc, cmp, lipase, etoh, troponin, ecg, lactic, CXR, CT head, zofran, tylenol Workup as above discussed with the patient who is agreeable with this plan. ED Course as of 12/24/22 0656 ThuDec 24, 2022 0420 WBC(!): 3.34 [RT] 0420 HGB: 13.7 [RT] 0420 PLT: 229 [RT] 0428 ECG 12 lead Rate 67. MT 132. QRS 91. QTc 433. Normal sinus rhythm. [RT] 0430 URINALYSIS(!) Negative UA [RT] 0431 CT HEAD WO CON IMPRESSION: 1. No definite CT evidence of acute intracranial abnormality. 2. Mild chronic small vessel disease [RT] 0435 XR CHEST PORTABLE IMPRESSION: No acute findings. [RT] 0438 LACTIC ACID: 1.3 [RT] 0443 TROPONIN I HIGH SENSITIVITY: 7 [RT] 0444 LIPASE(!): 429 Elevated lipase - was 15 back in October. [RT] 0444 AST: 22 [RT] 0444 ALT: 19 Normal LFTs [RT] 0444 SODIUM S/P/B(!): 146 Mild hypernatremia [RT] 0444 CREATININE S/P/B: 0.85 [RT] 0445 ALCOHOL S/P/B(!): 0.245 Acute alcohol intoxication [RT] 0504 Nursing staff was able to get a hold of his who states that - 2 days of vomiting. Passed out twice before she called EMS. [RT] 0549 CT ABD+PEL W IV CON ONLY IMPRESSION: 1. Mild diffuse bladder wall thickening that is out of proportion to degree of bladder distention. Doubt this represents cystitis unless there is a positive UA. This may represent bladder wall hypertrophy though prostate is not especially enlarged. 2. No evidence of acute pancreatitis. 3. Similar-appearing diffuse atherosclerotic disease of the abdominal aorta with mild associated narrowing in the infrarenal abdominal aorta [RT] 0550 Resting comfortably - given elevated lipase without CT evidence of pancreatitis likely has a component of chronic alcoholic pancreatitis. Will PO challenge and if tolerating PO and pain controlled will plan for discharge home. [RT] 0614 Resting comfortably in bed. Tolerated PO without issue. Discussed elevated lipase with no CT evidence of pancreatitis and likely relation of his nausea and lipase elevation with his ongoing alcohol use. He does not feel these are related but is willing to try zofran for home as needed. Red flag symptoms and return precautions provided. Comfortable with discharge home [RT] ED Course User Index [RT] Benny Hoyos DO Clinical Impression Nausea Elevated lipase Alcohol intoxication (CMS/HCC) (Primary) Headache Disposition: Discharge Benny Hoyos DO 12/24/22 0656 * Cheyenne Mohr RN - 12/24/2022 3:51 AM CDT Patient presents to the ER via [facility] with complaints of generalized weakness, dizziness, nausea, vomiting, and syncopal episodes. The patient states that these issues have been going on for at least two months. The patient is ANOx3. The patient states that he has drank a half pint of Vodka. documented in this encounter Plan of Treatment Not on file documented as of this encounter Procedures Procedure Name Priority Date/Time Associated Diagnosis Comments CT ABD+PEL W CON STAT 12/24/2022 5:06 AM CDT ECG 12-LEAD Routine 12/24/2022 4:26 AM CDT XR CHEST PORTABLE STAT 12/24/2022 4:[address] HEAD WO CON STAT 12/24/2022 4:25 AM CDT COMPREHENSIVE METABOLIC PANEL STAT 12/24/2022 4:10 AM CDT LACTIC ACID STAT 12/24/2022 4:10 AM CDT CBC W/DIFF AUTOMATED STAT 12/24/2022 4:10 AM CDT TROPONIN, QUANT STAT 12/24/2022 4:10 AM CDT LIPASE STAT 12/24/2022 4:10 AM CDT ETHANOL STAT 12/24/2022 4:10 AM CDT HC URINALYSIS AUTO W/MICRO STAT 12/24/2022 3:54 AM CDT documented in this encounter Results * CT ABD+PEL W IV CON ONLY (12/24/2022 5:06 AM CDT) Anatomical Region Laterality Modality Abdomen Computed Tomogra phy 12/24/2022 5:10 AM CDT Impressions 12/24/2022 5:16 AM CDT IMPRESSION: 1. ??Mild diffuse bladder wall thickening that is out of proportion to degree of bladder distention. ??Doubt this represents cystitis unless there is a positive UA. ??This may represent bladder wall hypertrophy though prostate is not especially enlarged. 2. ??No evidence of acute pancreatitis. 3. ??Similar-appearing diffuse atherosclerotic disease of the abdominal aorta with mild associated narrowing in the infrarenal abdominal aorta. PQRS ABDOMINAL: [id number] Referred By: ?? Interpreted By: Karlos Lawson, 12/24/2022 5:10 AM Narrative 12/24/2022 5:16 AM CDT HISTORY: Nausea and vomiting. ??Acute pancreatitis suspected. COMPARISON: 10/28/2022 TECHNIQUE: CT abdomen and pelvis performed utilizing thin-slice axial technique following IV administration of contrast. A dose-lowering technique was used for this procedure, which may include, but is not limited to, dose-reduction technique, automated exposure control, the use of iterative reconstruction, and ALARA (As Low As Reasonably Achievable) / Image Gently techniques. FINDINGS: Liver, gallbladder, biliary tracts, spleen, kidneys, adrenal glands unremarkable. ??No inflammatory changes are seen about or involving the pancreas. ??Pancreatic duct caliber is upper limits normal. ??Bladder demonstrates smooth wall thickening out of proportion to degree of distention but similar to prior study of 10/28/2022. ??No inflammatory fat changes about the bladder. ??Prostate unremarkable. GI tract shows no obstruction or other acute or significant pathology. ??Appendix is normal. No abdominal or pelvic lymphadenopathy. ??There is diffuse irregular atheromatous plaque throughout the abdominal aorta with mild narrowing noted in the infrarenal abdominal aorta. ??This extends into the common iliac arteries which show no clinically significant stenosis. ??Abdominal wall and inguinal regions unremarkable. Included lung bases show posterior medial lower lobe linear scarring. ??Visible bones reveal no suspicious lytic or blastic lesions. Procedure Note Karlos Lawson MD - 12/24/2022 HISTORY: Nausea and vomiting. Acute pancreatitis suspected. COMPARISON: 10/28/2022 TECHNIQUE: CT abdomen and pelvis performed utilizing thin-slice axialtechnique following IV administration of contrast. A dose-loweringtechnique was used for this procedure, which may include, but is notlimited to, dose-reduction technique, automated exposure control, the useof iterative reconstruction, and ALARA (As Low As Reasonably Achievable) /Image Gently techniques. FINDINGS: Liver, gallbladder, biliary tracts, spleen, kidneys, adrenal glandsunremarkable. No inflammatory changes are seen about or involving thepancreas. Pancreatic duct caliber is upper limits normal. Bladderdemonstrates smooth wall thickening out of proportion to degree ofdistention but similar to prior study of 10/28/2022. No inflammatory fatchanges about the bladder. Prostate unremarkable. GI tract shows no obstruction or other acute or significant pathology.Appendix is normal. No abdominal or pelvic lymphadenopathy. There is diffuse irregularatheromatous plaque throughout the abdominal aorta with mild narrowingnoted in the infrarenal abdominal aorta. This extends into the commoniliac arteries which show no clinically significant stenosis. Abdominalwall and inguinal regions unremarkable. Included lung bases show posterior medial lower lobe linear scarring.Visible bones reveal no suspicious lytic or blastic lesions. IMPRESSION: 1. Mild diffuse bladder wall thickening that is out of proportion todegree of bladder distention. Doubt this represents cystitis unless thereis a positive UA. This may represent bladder wall hypertrophy thoughprostate is not especially enlarged. 2. No evidence of acute pancreatitis. 3. Similar-appearing diffuse atherosclerotic disease of the abdominalaorta with mild associated narrowing in the infrarenal abdominal aorta. PQRS ABDOMINAL: [id number] Referred By: Interpreted By: Karlos Lawson, 12/24/2022 5:10 AM us Benny Hoyos DO CT Final Re sult * ECG 12 lead (12/24/2022 4:26 AM CDT) 12/24/2022 4:26 AM CDT Narrative [facility] - 12/24/2022 11:46 AM CDT ? [facility] ?[address] [place] ? Test Date: ?2022-12-24 Pat Name: ? ROSITA WHITE ?Department: ?? 3 ? Room: ? EXAM 505 Gender: ? Male ? Electronic Communications Technician: ?? EDSFL : ?1960 ? Requested By: BENNY HOYOS Order Number: [id number] ? Reading : ?? Flavio Howard ? Measurements Intervals ?[place] ? Rate: ? 67 ? P: ?75 MT: ? 132 ?QRS: ?41 QRSD: ? 91 ? T: ?71 QT: ? 418 ? QTc: ?442 ? Interpretive Statements SINUS RHYTHM SEPTAL MYOCARDIAL INFARCTION , PROBABLY OLD Procedure Note Flavio Howard MD - 12/24/2022 [facility] [address] [place] [address] Test Date: 2022-12-24 Pat Name: ROSITA WHITE Department: 3 Room: EXAM 505 Gender: Male Electronic Communications Technician: EDSFL : 1960 Requested By: BENNY HOYOS Order Number: [id number] Reading MD: Flavio Howard Measurements Intervals [place] Rate: 67 P: 75 MT: 132 QRS: 41 QRSD: 91 T: 71 QT: 418 QTc: 442 Interpretive Statements SINUS RHYTHM SEPTAL MYOCARDIAL INFARCTION , PROBABLY OLD us Benny Hoyos DO ECG ORDERABLES Final Re sult [facility] RAD * XR CHEST PORTABLE (12/24/2022 4:26 AM CDT) Anatomical Region Laterality Modality Chest Radiographic Corinna ging 12/24/2022 4:33 AM CDT Impressions 12/24/2022 4:34 AM CDT IMPRESSION: No acute findings. Referred By: ?? Interpreted By: Karlos Lawson, 12/24/2022 4:33 AM Narrative 12/24/2022 4:34 AM CDT CLINICAL HISTORY: Syncope COMPARISON: 02/14/2012 TECHNIQUE: AP Portable View, 2 images submitted FINDINGS: Lungs are clear. No pneumothorax or pleural effusions evident. The cardiac silhouette, mediastinal contours, and pulmonary vessels appear within normal limits. No acute osseous abnormality. Procedure Note Karlos Lawson MD - 12/24/2022 CLINICAL HISTORY: Syncope COMPARISON: 02/14/2012 TECHNIQUE: AP Portable View, 2 images submitted FINDINGS: Lungs are clear. No pneumothorax or pleural effusions evident. The cardiacsilhouette, mediastinal contours, and pulmonary vessels appear withinnormal limits. No acute osseous abnormality. IMPRESSION: No acute findings. Referred By: Interpreted By: Karlos Lawson, 12/24/2022 4:33 AM us Benny Hoyos DO GENERAL IMAGING Final Re sult * CT HEAD WO CON (12/24/2022 4:25 AM CDT) Anatomical Region Laterality Modality Head Computed Tomogra phy 12/24/2022 4:28 AM CDT Impressions 12/24/2022 4:29 AM CDT IMPRESSION: 1. No definite CT evidence of acute intracranial abnormality. 2. Mild chronic small vessel disease. Referred By: ?? Interpreted By: Karlos Lawson, 12/24/2022 4:28 AM Narrative 12/24/2022 4:29 AM CDT CLINICAL HISTORY: Syncope, altered mental status of unknown cause COMPARISON: 02/14/2012 DOSE OPTIMIZATION: This facility uses dose optimization techniques as appropriate to perform exams, including at least one of the following techniques: 1. Automated exposure control. 2. Adjustment of the mA and/or kV according to patient size (this includes techniques or standardized protocols for targeted exams where dose is matched to the indication/reason for exam, i.e. extremities or head). 3. Use of iterative reconstructive technique. FINDINGS: There is no evidence of acute intracranial hemorrhage, abnormal extraaxial collections, intracranial mass effect, or midline shift. ??Ventricles, sulci, and subarachnoid cisterns are of normal size and configuration for patient's age. There is mild ??periventricular and deep white matter hypoattenuation most compatible with chronic small vessel disease. There is no definite CT evidence to suggest acute territorial infarction. Atherosclerotic calcifications of the intracranial arterial vasculature are evident. The calvaria and orbits are unremarkable. The paranasal sinuses and mastoid air cells are clear. Procedure Note Karlos Lawson MD - 12/24/2022 CLINICAL HISTORY: Syncope, altered mental status of unknown cause COMPARISON: 02/14/2012 DOSE OPTIMIZATION: This facility uses dose optimization techniques asappropriate to perform exams, including at least one of the followingtechniques: 1. Automated exposure control. 2. Adjustment of the mA and/or kV according to patient size (this includestechniques or standardized protocols for targeted exams where dose ismatched to the indication/reason for exam, i.e. extremities or head). 3. Use of iterative reconstructive technique. FINDINGS: There is no evidence of acute intracranial hemorrhage, abnormal extraaxialcollections, intracranial mass effect, or midline shift. Ventricles,sulci, and subarachnoid cisterns are of normal size and configuration forpatient's age. There is mild periventricular and deep white matterhypoattenuation most compatible with chronic small vessel disease. Thereis no definite CT evidence to suggest acute territorial infarction. Atherosclerotic calcifications of the intracranial arterial vasculatureare evident. The calvaria and orbits are unremarkable. The paranasalsinuses and mastoid air cells are clear. IMPRESSION: 1. No definite CT evidence of acute intracranial abnormality. 2. Mild chronic small vessel disease. Referred By: Interpreted By: Karlos Lawson, 12/24/2022 4:28 AM us Bennykb Hoyos DO CT Final Re sult * LACTIC ACID (12/24/2022 4:10 AM CDT) LACTIC ACID VENOUS 1.3 0.4 - 2.0 MMOL/L 12/24/2022 4:37 AM CDT [facility] 12/24/2022 4:10 AM CDT us Bennykb Hoyos DO LABORATORY Final Re sult [facility] [address] [place] [address], * (ABNORMAL) ETHANOL (12/24/2022 4:10 AM CDT) ALCOHOL S/P/B 0.245(H) <0.003 G/DL 12/24/2022 4:41 AM CDT [facility] 12/24/2022 4:10 AM CDT Benny Hoyos DO LABORATORY Final Re sult Performing Organization Address [facility] Co de Phone Number [facility] [address] [place] [address], [place] [phone] * (ABNORMAL) LIPASE (12/24/2022 4:10 AM CDT) LIPASE 429(H) 16 - 77 UNITS/L 12/24/2022 4:41 AM CDT [facility] 12/24/2022 4:10 AM CDT Benny Hoyos DO LABORATORY Final Re sult Performing Organization Address [facility] Co de Phone Number [facility] [address] [place] [address], [place] [phone] * TROPONIN, QUANT (12/24/2022 4:10 AM CDT) TROPONIN I HIGH SENSITIVITY 7 0 - 76 ng/L 12/24/2022 4:41 AM CDT [facility] 12/24/2022 4:10 AM CDT Benny Yasmine Hoyos DO LABORATORY Final Re sult Performing Organization Address [facility] Co de Phone Number [facility] [address] [place] [address], [place] [phone] * (ABNORMAL) COMPREHENSIVE METABOLIC PANEL (12/24/2022 4:10 AM CDT) SODIUM S/P/B 146(H) 136 - 145 MMOL/L 12/24/2022 4:41 AM CDT [facility] POTASSIUM S/P/B 3.7 3.5 - 5.1 MMOL/L 12/24/2022 4:41 AM CDT [facility] CHLORIDE S/P/B 109(H) 98 - 107 MMOL/L 12/24/2022 4:41 AM [facility] CO2 28.2 21.0 - 32.0 MMOL/L 12/24/2022 4:41 AM [facility] GLUCOSE 95 70 - 99 MG/DL 12/24/2022 4:41 AM [facility] Comment: MILD LIPEMIA. RESULT MAY BE AFFECTED. FASTING GLUCOSE 100 TO 125 MG/DL IS CONSISTENT WITH IMPAIRED FASTING GLUCOSE. FASTING GLUCOSE >125 MG/DL IS CONSISTENT WITH DIABETES. RANDOM GLUCOSE >200 MG/DL WITH HYPERGLYCEMIC SYMPTOMS IS CONSISTENT WITH DIABETES. PER ADA GUIDELINES BUN 9 6 - 24 MG/DL 12/24/2022 4:41 AM [facility] CREATININE S/P/B 0.85 0.70 - 1.30 MG/DL 12/24/2022 4:41 AM [facility] CALCIUM S/P/B 8.6 8.4 - 10.5 MG/DL 12/24/2022 4:41 AM [facility] BILIRUBIN TOTAL S/P/B 0.3 0.2 - 1.0 MG/DL 12/24/2022 4:41 AM [facility] Comment: THIS ASSAY IS NOT RECOMMENDED FOR PATIENTS UNDERGOING TREATMENT WITH ELTROMBOPAG DUE TO THE POTENTIAL FOR FALSELY ELEVATED RESULTS. ALKALINE PHOSPHATASE S/P/B 124(H) 45 - 115 U/L 12/24/2022 4:41 AM [facility] AST 22 15 - 37 U/L 12/24/2022 4:41 AM [facility] ALT 19 16 - 63 U/L 12/24/2022 4:41 AM [facility] TOTAL PROTEIN S/P/B 8.6(H) 6.4 - 8.2 G/DL 12/24/2022 4:41 AM [facility] ALBUMIN S/P/B 3.6 3.4 - 5.0 G/DL 12/24/2022 4:41 AM [facility] ANION GAP 8.8 5.0 - 15.0 MMOL/L 12/24/2022 4:41 AM CDT [facility] OSMOLALITY (CALC) 300 MOSM/KG 023 4:41 AM CDT [facility] Comment:REFERENCE RANGE NOT ESTABLISHED GFR ESTIMATE >90 >89 ML/MIN/1. 73 M2 12/24/2022 4:41 AM CDT [facility] GFR NOTES GFR REFERENCE S: 12/24/2022 4:41 AM CDT [facility] Comment: THE ESTIMATED GFR IS CALCULATED USING THE 2020 CKD-EPI EQUATION. THE FOLLOWING CATEGORIES FOR GRADING RENAL FUNCTION ARE RECOMMENDED BY THE INTERNATIONAL SOCIETY OF NEPHROLOGY (KDIGO 2012 CLINICAL PRACTICE GUIDELINE). G1,NORMAL OR HIGH: >89 ml/min/1.73 m2 G2,MILDLY DECREASED: 60-89 ml/min/1.73 m2 G3A,MILDLY TO MODERATELY DECREASED: 45-59 ml/min/1.73 m2 G3B,MODERATELY TO SEVERELY DECREASED: 30-44 ml/min/1.73 m2 G4,SEVERELY DECREASED: 15-29 ml/min/1.73 m2 G5,KIDNEY FAILURE: <15 ml/min/1.73 m2 12/24/2022 4:10 AM CDT us Benny Hoyos DO LABORATORY Final Re sult [facility] [address] [place] [address], * (ABNORMAL) CBC W/DIFF AUTOMATED (12/24/2022 4:10 AM CDT) WBC 3.34(L) 4.00 - 10.80 x10'3/uL 12/24/2022 4:18 AM CDT [facility] RBC 4.81 4.50 - 6.10 x10'6/uL 12/24/2022 4:18 AM CDT [facility] HGB 13.7 13.0 - 18.0 G/DL 12/24/2022 4:18 AM CDT [facility] HCT 42.1 37.0 - 52.0 % 12/24/2022 4:18 AM CDT [facility] MCV 87.5 78.0 - 100.0 FL 12/24/2022 4:18 AM CDT [facility] MCH 28.5 27.0 - 31.0 PG 12/24/2022 4:18 AM CDT [facility] MCHC 32.5(L) 33.0 - 36.0 G/DL 12/24/2022 4:18 AM CDT [facility] RDW 15.4(H) 11.5 - 14.5 % 12/24/2022 4:18 AM CDT [facility] PLT 229 150 - 350 x10'3/uL 12/24/2022 4:18 AM CDT [facility] MPV 9.6 7.4 - 10.4 FL 12/24/2022 4:18 AM CDT [facility] CBC COMMENT NORMAL REFERENCE RANGE NOT ESTABLISHED FOR THE PROPORTIONAL LEUKOCYTE DIFFERENTIAL. 12/24/2022 4:18 AM CDT [facility] NEUTROPHILS % 37.4 % 12/24/2022 4:18 AM CDT [facility] LYMPHOCYTES % 47.9 % 12/24/2022 4:18 AM CDT [facility] MONOCYTES % 12.3 % 12/24/2022 4:18 AM CDT [facility] EOSINOPHILS % 1.5 % 12/24/2022 4:18 AM CDT [facility] BASOPHILS % 0.9 % 12/24/2022 4:18 AM CDT [facility] IMMATURE GRANS % 0.0 % 12/25/19 4:18 AM CDT [facility] NRBC 0.0 % 12/24/2022 4:18 AM CDT [facility] ABS. NEUTROPHILS 1.25(L) 1.60 - 8.30 x10'3/uL 12/24/2022 4:18 AM CDT [facility] ABS. LYMPHOCYTES 1.60 0.80 - 4.70 x10'3/uL 12/24/2022 4:18 AM CDT [facility] ABS. MONOCYTES 0.41 0.00 - 1.50 x10'3/uL 12/24/2022 4:18 AM CDT [facility] ABS. EOSINOPHILS 0.05 0.00 - 0.40 x10'3/uL 12/24/2022 4:18 AM CDT [facility] ABS. BASOPHILS 0.03 0.00 - 0.20 x10'3/uL 12/24/2022 4:18 AM CDT [facility] ABS. IMMATURE GRANULOCYTES 0.00 0.00 - 0.03 x10'3/uL 12/24/2022 4:18 AM CDT [facility] ABS. NUCLEATED RBC'S 0.00 0.00 x10'3/uL 12/24/2022 4:18 AM CDT [facility] 12/24/2022 4:10 AM CDT us Benny Hoyos DO LABORATORY Final Re sult [facility] [address] [place] [address], * (ABNORMAL) URINALYSIS (12/24/2022 3:54 AM CDT) COLOR (U) YELLOW 12/24/2022 4:28 AM CDT [facility] TRANSPARENCY CLEAR 12/24/2022 4:28 AM CDT [facility] SPECIFIC GRAVITY (U) 1.010 1.000 - 1.025 12/24/2022 4:28 AM CDT [facility] U PH 5.5 5.0 - 8.0 12/24/2022 4:28 AM CDT [facility] LEUKOCYTES (U) NEGATIVE NEGATIVE 12/24/2022 4:28 AM CDT [facility] NITRITES NEGATIVE NEGATIVE 12/24/2022 4:28 AM CDT [facility] PROTEIN (U) NEGATIVE NEGATIVE 12/24/2022 4:28 AM CDT [facility] GLUCOSE (U) NEGATIVE NEGATIVE 12/24/2022 4:28 AM CDT [facility] KETONES MG/DL (U) NEGATIVE NEGATIVE 12/24/2022 4:28 AM CDT [facility] UROBILINOGEN 0.2 <1.0 EU/DL 12/24/2022 4:28 AM CDT [facility] BILIRUBIN (U) NEGATIVE NEGATIVE 12/24/2022 4:28 AM CDT [facility] BLOOD (U) NEGATIVE NEGATIVE 12/24/2022 4:28 AM CDT [facility] WBC/HPF NONE SEEN(A) 0 - 5 /HPF 12/24/2022 4:28 AM CDT [facility] RBC/HPF NONE SEEN(A) 0 - 5 /HPF 12/24/2022 4:28 AM CDT [facility] EPI/LPF NONE SEEN /LPF 12/24/2022 4:28 AM CDT [facility] BACTERIA (U) TRACE /HPF 12/24/2022 4:28 AM CDT [facility] REFLEX URINE CULTURE: NOT INDICATED 12/24/2022 4:28 AM CDT [facility] URINE SPECIMEN OBTAINED BY CLEAN CATCH PROCEDURE / Unknown 12/24/2022 3:54 AM CDT us Benny Hoyos DO URINE ORDERABLES Final R esult [facility] [address] [place] [address], documented in this encounter Visit Diagnoses Diagnosis Alcohol intoxication (CMS/HCC)- Primary Alcohol abuse, unspecified Nausea Nausea alone Elevated lipase Other nonspecific abnormal serum enzyme levels Headache documented in this encounter Administered Medications Inactive Administered Medications - up to 3 most recent administrations Medication Order MAR Action Action Date Dose Rate Site acetaminophen (TYLENOL) tablet 650 mg 650 mg, Oral, Once, 1 dose, On Thu12/24/22 at 0400, Maximum dose of acetaminophen is 4000 mg from all sources in 24 hours. Given 12/24/2022 4:42 AM CDT 650 mg iopamidol (ISOVUE-370) 76 % injection 93 mL 93 mL, Intravenous, IMG once as needed, Contrast, 1 dose, Starting on Thu12/24/22 at 0506, Until Thu12/24/22 at 0506 Given 12/24/2022 5:06 AM CDT 93 mLs lactated ringers bolus infusion 1,000 mL 1,000 mL, Intravenous, Administer over 15 Minutes, Once, 1 dose, On Thu12/24/22 at 0500 New Bag 12/24/2022 5:30 AM CDT 1,000 mLs ondansetron (ZOFRAN) injection 4 mg 4 mg, Intravenous, Once, 1 dose, On Thu12/24/22 at 0445, IV push over 2-5 minutes. Given 12/24/2022 4:43 AM CDT 4 mg documented in this encounter Active and Recently Administered Medications Times are shown in CDT. Scheduled Medication Order 12/22/2022 12/23/2022 12/24/2022 acetaminophen (TYLENOL) tablet 650 mg (COMPLETED) 650 mg, Oral, Once, 1 dose, On Thu12/24/22 at 0400, Maximum dose of acetaminophen is 4000 mg from all sources in 24 hours. 0442 (Given - Provid er: Cheyenne Mohr RN) lactated ringers bolus infusion 1,000 mL (COMPLETED) 1,000 mL, Intravenous, Administer over 15 Minutes, Once, 1 dose, On Thu12/24/22 at 0500 0530 (New Bag - Prov ider: Cheyenne Mohr RN)0630 (Infusion Stop Time - Provider: Cheyenne Mohr RN) ondansetron (ZOFRAN) injection 4 mg (COMPLETED) 4 mg, Intravenous, Once, 1 dose, On Thu12/24/22 at 0445, IV push over 2-5 minutes. 0443 (Given - Provid er: Cheyenne Mohr RN) PRN Medication Order 12/22/2022 12/23/2022 12/24/2022 iopamidol (ISOVUE-370) 76 % injection 93 mL (COMPLETED) 93 mL, Intravenous, IMG once as needed, Contrast, 1 dose, Starting on Thu12/24/22 at 0506, Until Thu12/24/22 at 0506 0506 (Given - Provid er: Jenna M Toni, RTR) documented in this encounter Care Teams Power Engineer Relationship Specialty Start Date End Date None, Provider, PCP - General UNKNOWN PHYSICIAN SPECIALTY 10/28/22 1 07/01/23 documented as of this encounter
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
--- OUTSIDE RECORDS SUMMARY | 2024-06-16 06:45 | XMS_ITS | Clinical Summary ---
Author Organization [facility] Address [address] [place] [address]. [place] [address] [place] [address] Care Team Providers Care Insurance Claims Specialist Name Role Phone Audrey Flowers MD Primary Care Provider [phone] Allergies No known active allergies Medications methadone (DOLOPHINE) 10 MG tablet Take 1 tablet (10 mg total) by mouth every 6 (six) hours as needed for Pain. Active ondansetron (ZOFRAN) 4 MG tablet Take 1 tablet (4 mg total) by mouth every 8 (eight) hours as needed for Nausea. 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 Gender Identity Not on file Sexual Orientation Not on file Last Filed Vital Signs Vital Sign Reading Time Taken Comments Blood Pressure 155/89 05/05/2024 4:08 PM RECEIVER/LABORER Pulse 76 05/05/2024 4:08 PM RECEIVER/LABORER Temperature 36.6 ??C (97.8 ??F) 05/05/2024 4:08 PM CS T Respiratory Rate 18 05/05/2024 4:08 PM RECEIVER/LABORER Oxygen Saturation 90% 05/05/2024 4:30 PM RECEIVER/LABORER Inhaled Oxygen Concentration - - Weight 65.4 kg (144 lb 4 oz) 05/05/2024 4:08 PM RECEIVER/LABORER Height 175.3 cm (5' 9 ) 05/05/2024 4:08 PM RECEIVER/LABORER Body Mass Index 21.3 05/05/2024 4:08 PM RECEIVER/LABORER Plan of Treatment Health Maintenance Due Date Last Done Comments Colorectal Cancer Screening Colonoscopy (10 Years) 1961 Annual Physical 1964 Pneumococcal Vaccine: Pediat rics (0 to 5 Years) and At-Risk Patients (6 to 64 Years) (1 of 2 - PCV) 08/17/1967 Hepatitis C 08/17/1979 Zoster Vaccines (1 of 2) 08/17/2011 DTaP, Tdap and Td Vaccines ( 2 - Td or Tdap) 02/13/2022 02/14/2012 COVID-19 Vaccine ( - 2023-2 5 season) 2024 Influenza Adult (#1) 2024 03/29/2014 RSV Immunization or 60+ Years (1 - 1-dose 75+ series) 2036 Meningococcal Vaccine Aged Out No brooke jeanne eligible based on patient's age to complete this topic RSV Immunizations Under 20 Months Aged Out No longer eligible based on patient's age to complete this topic Procedures Procedure Name Priority Date/Time Associated Diagnosis Comments CORONAVIRUS (COVID-19) ANTIGEN STAT 05/05/2024 4:26 PM RECEIVER/LABORER from Last 3 Months Results * CORONAVIRUS (COVID-19) ANTIGEN (05/05/2024 4:26 PM RECEIVER/LABORER) CORONAVIRUS ANTIGEN IA NEGATIVE NEGATIVE 05/05/2024 4:51 PM RECEIVER/LABORER [facility] Comment: NEGATIVE RESULTS DO NOT RULE OUT SARS-COV-2 INFECTION AND SHOULD NOT BE USED THE SOLE BASIS FOR TREATMENT OR PATIENT MANAGEMENT DECISIONS, INCLUDING INFECTION CONTROL DECISIONS. NEGATIVE RESULTS SHOULD BE CONSIDERED IN THE CONTEXT OF A PATIENT'S RECENT EXPOSURES, HISTORY AND THE PRESENCE OF CLINICAL SIGNS AND SYMPTOMS CONSISTENT WITH COVID 19. THIS TEST HAS BEEN AUTHORIZED BY THE FDA UNDER AN EMERGENCY USE AUTHORIZATION (EUA) FOR USE BY AUTHORIZED LABORATORIES. SPECIMEN TYPE NASAL 05/05/2024 4:26 PM RECEIVER/LABORER [facility] NASAL NASAL STRUCTURE / Unknown 05/05/2024 4:26 PM RECEIVER/LABORER us Raissa Pacheco MD MICROBIOLOGY - GENERAL TANG HOFF Final Result [facility] [address] [place] [address], from Last [address] [place] [address] [address] C/O PROVIDER SERVICES DAMIAN CHÁVEZ [id number] Care Teams Insurance Claims Specialist Relationship Specialty Start Date End Date Audrey Flowers MD [address] [place] [phone] PCP - General FAMILY PRACTICE 05/02/24
--- OUTSIDE RECORDS SUMMARY | 2024-06-16 06:45 | XMS_ITS | Encounter Summary ---
Author Organization [facility] Address [address] [place] [address]. [place], [place] [id number] [place] [id number] Care Team Providers Care Lap Winding Machine Operator Name Role Phone Audrey Flowers MD Primary Care Provider [phone] Reason for Visit * Reason Comments Flu Like Symptoms Covid positive Encounter Details Date Type Department Care Team (Late st Contact Info) Description 05/05/2024 4:05 PM KITCHEN HELP HANDYMAN - 05/05/2024 5:02 PM KITCHEN HELP HANDYMAN Emergency [facility], [id number] [facility] [place] [address] Raissa Pacheco MD [address] [place] [id number] Flu Like Symptoms (Covid positive ) Discharge [...] on file Legal Sex Male 5:46 PM KITCHEN HELP HANDYMAN Gender Identity Not on file Sexual Orientation Not on file documented as of this encounter Last Filed Vital Signs Vital Sign Reading Time Taken Comments Blood Pressure 155/89 05/05/2024 4:08 PM KITCHEN HELP HANDYMAN Pulse 76 05/05/2024 4:08 PM KITCHEN HELP HANDYMAN Temperature 36.6 ??C (97.8 ??F) 05/05/2024 4:08 PM CS T Respiratory Rate 18 05/05/2024 4:08 PM KITCHEN HELP HANDYMAN Oxygen Saturation 90% 05/05/2024 4:30 PM KITCHEN HELP HANDYMAN Inhaled Oxygen Concentration - - Weight 65.4 kg (144 lb 4 oz) 05/05/2024 4:08 PM KITCHEN HELP HANDYMAN Height 175.3 cm (5' 9 ) 05/05/2024 4:08 PM KITCHEN HELP HANDYMAN Body Mass Index 21.3 05/05/2024 4:08 PM KITCHEN HELP HANDYMAN documented in this encounter Discharge Instructions * Discharge Instructions* Raissa Pacheco MD - 05/05/2024 4:58 PM KITCHEN HELP HANDYMAN Upper respiratory infection, viral syndrome Take medications as previously prescribed for you today Tylenol or ibuprofen for fever Return to emergency room for worsening cough, difficulty breathing, uncontrolled fever, vomiting orother concerns. HEN HELP HANDYMAN * Attachments The following attachments cannot be sent through Care Everywhere. * Viral Upper Respiratory Infection Discharge Instructions, Adult (Pashto) documented in this encounter Medications at Time of Discharge methadone (DOLOPHINE) 10 MG tablet Take 1 tablet (10 mg total) by mouth every 6 (six) hours as needed for Pain. ondansetron (ZOFRAN) 4 MG tablet Take 1 tablet (4 mg total) by mouth every 8 (eight) hours as needed for Nausea. 10 tablet 02/26/2024 documented as of this encounter ED Notes * Talon Qureshi RN - 05/05/2024 5:00 PM CST P.t's covid test came back negative. MD speaking to P.t. stating that with just having taken a testand getting a positive result at the doctor's office, P.t. should treat it as they have the virus. P.t. verbalized understanding and denied any questions or concerns at this time. HEN HELP HANDYMAN * Raissa Pacheco MD - 05/05/2024 4:38 PM CST Chief Complaint Chief Complaint Patient presents with ??? Flu Like Symptoms Covid positive History of Present Illness History obtained from patient and medical records Patient is a 63-year-old male who presents to the emergency room with wanting confirmation of having COVID. Patient states that 6 days ago he started with a sore throat and runny nose followed by cough. Patient states that his then became sick with similar. Patient denies any significant fevers. No difficulty breathing. He states he used his inhaler last night. Patient went to another physician's office and tested positive for COVID today. He is here stating that he wants to verify that he has COVID. Patient appears to have been prescribed prednisone and Paxlovid today by his primary care physician. Medical History ALLERGIES: Review of patient's allergies indicates: No Known Allergies MEDICATIONS: Prior to Admission medications Medication Sig Start Date End Date Taking? Authorizing Provider methadone (DOLOPHINE) 10 MG tablet Take 1 tablet (10 mg total) by mouth every 6 (six) hours as needed for Pain. Default History Genericprovider ondansetron (ZOFRAN) 4 MG tablet Take 1 tablet (4 mg total) by mouth every 8 (eight) hours as needed for Nausea. 02/26/24 Karon Barker, DO PAST MEDICAL HISTORY: Past Medical History: Diagnosis Date ??? Amputee ([facility]) ??? Back pain ??? Low blood pressure PAST SURGICAL HISTORY: Past Surgical History: Procedure Laterality Date ??? AMPUTATION LOW LEG THRU TIB/FIB Right FAMILY HISTORY: No family history on file. SOCIAL HISTORY: Social History Tobacco Use ??? Smoking status: Every Day Current packs/day: 0.50 Types: Cigarettes, Cigars ??? Smokeless tobacco: Never Substance Use Topics ??? Alcohol use: Yes Comment: social ??? Drug use: Yes Types: Marijuana Review of Systems Review of Systems Constitutional: Positive for fatigue. HENT: Positive for congestion, rhinorrhea and sore throat. Eyes: Negative. Respiratory: Positive for cough and wheezing. Cardiovascular: Negative. Gastrointestinal: Negative. Endocrine: Negative. Genitourinary: Negative. Musculoskeletal: Negative. Skin: Negative. Allergic/Immunologic: Negative. Neurological: Negative. Hematological: Negative. Psychiatric/Behavioral: Negative. Physical Exam Filed Vitals: 05/05/24 1608 BP: (!) 155/89 Pulse: 76 Resp: 18 Temp: 97.8 ??F (36.6 ??C) TempSrc: Temporal SpO2: 94% Weight: 65.4 kg (144 lb 4 oz) Height: 1.753 m (5' 9 ) Vss except for slightly elevated bp Physical Exam Vitals and nursing note reviewed. Constitutional: General: He is not in acute distress. Appearance: Normal appearance. He is not ill-appearing. HENT: Head: Normocephalic and atraumatic. Cardiovascular: Rate and Rhythm: Normal rate and regular rhythm. Pulses: Normal pulses. Heart sounds: Normal heart sounds. No murmur heard. Pulmonary: Effort: Pulmonary effort is normal. No respiratory distress. Breath sounds: Normal breath sounds. No wheezing or rales. Chest: Chest wall: No tenderness. Abdominal: General: Bowel sounds are normal. There is no distension. Palpations: Abdomen is soft. Tenderness: There is no abdominal tenderness. There is no guarding or rebound. Musculoskeletal: General: No swelling or tenderness. Normal range of motion. Cervical back: Normal range of motion and neck supple. No rigidity or tenderness. Skin: General: Skin is warm and dry. Capillary Refill: Capillary refill takes less than 2 seconds. Neurological: General: No focal deficit present. Mental Status: He is alert and oriented to person, place, and time. Psychiatric: Mood and Affect: Mood normal. Behavior: Behavior normal. Diagnostic Studies / Procedures ELECTROCARDIOGRAMS: No results found for this visit on 05/05/24. LABORATORY STUDIES: No results found for this visit on 05/05/24. IMAGING STUDIES No orders to display ED Course / Medical Decision Making Medical Decision Making ED Course as of 05/05/24 1657 [place] May 05, 2024 1639 Differential diagnosis of acute viral syndrome, bronchitis, COPD exacerbation. Patient is clear to auscultation bilaterally right now. Vital signs are stable. Patient would like to have a COVID antigen resent after discussion. This has been resent. [facility] and previous ER visits have been reviewed. [MA] 1655 Covid antigen is negative here. Discussed with patient at length that he should still considerhimself positive since he had a positive test prior to arrival. Patient is in no distress here. He was already prescribed Paxlovid and prednisone. Will discharge patient home with supportive management and close follow-up with primary care physician. Return instructions discussed with patient. Patient agrees with plan. [MA] ED Course User Index [MA] Raissa Pacheco MD Clinical Impression None Disposition: Data Unavailable Raissa Pacheco MD 05/05/24 1641 HEN HELP HANDYMAN documented in this encounter Plan of Treatment Not on file documented as of this encounter Procedures Procedure Name Priority Date/Time Associated Diagnosis Comments CORONAVIRUS (COVID-19) ANTIGEN STAT 05/05/2024 4:26 PM KITCHEN HELP HANDYMAN documented in this encounter Results * CORONAVIRUS (COVID-19) ANTIGEN (05/05/2024 4:26 PM KITCHEN HELP HANDYMAN) CORONAVIRUS ANTIGEN IA NEGATIVE NEGATIVE 05/05/2024 4:51 PM KITCHEN HELP HANDYMAN [facility] Comment: NEGATIVE RESULTS DO NOT RULE [...] LABORATORIES. SPECIMEN TYPE NASAL 05/05/2024 4:26 PM KITCHEN HELP HANDYMAN [facility] NASAL NASAL STRUCTURE / Unknown 05/05/2024 4:26 PM KITCHEN HELP HANDYMAN Raissa Pacheco MD MICROBIOLOGY - [facility] Final Result [facility] Formerly [facility], [id number] [place] [address], documented in this encounter Visit Diagnoses Diagnosis Upper respiratory infection- Primary Acute upper respiratory infections of unspecified site Viral syndrome Unspecified viral infection, in conditions classified elsewhere and of unspecified site documented in this encounter Additional Health Concerns Infection Onset Date Last Indicated Resolved Time COVID-19 Rule Out 05/05/2024 05/05/2024 05/05/2024 4:51 PM KITCHEN HELP HANDYMAN documented as of this encounter Care Teams Lap Winding Machine Operator Relationship Specialty Start Date End Date Audrey Flowers MD [address] [place], [place] [id number] PCP - General FAMILY PRACTICE 05/02/24 documented as of this encounter
--- OUTSIDE RECORDS SUMMARY | 2024-06-16 06:45 | XMS_ITS | Encounter Summary ---
Author Organization [facility] Address [address] [place] [address]. 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
--- OUTSIDE RECORDS SUMMARY | 2024-06-16 06:46 | XMS_ITS | Encounter Summary ---
Author Organization [facility] Address [address] [place] [address]. [place] [address] [place] [address] Care Team Providers Care Nutrition Club Ambassador Name Role Phone Radha Reyes [facility] Primary Care Provider + -[phone] Encounter Details Date Type Department Care Team (Latest Contact Info) Description 12/24/2018 2:55 PM CDT - 12/24/2018 11:59 PM CDT Hospital Encounter [facility] [address] [place] [address] Radha [facility]yes [facility] [address] [place] [address] Discharge Disposition: Home or Self Care (Routine Discharge) Social History Tobacco Use Types Packs/Day Years Used Date Smoking Tobacco: Never Assessed Sex and Gender Information Value Date Recorded Sex Assigned at Not on file 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 Sex 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 Gender Identity Not on file Sexual Orientation Not on file documented as of this encounter Plan of Treatment Not on file documented as of this encounter Procedures Procedure Name Priority Date/Time Associated Diagnosis Comments COMPREHENSIVE METABOLIC PANEL Routine 12/24/2018 3:10 PM CDT Abdominal pain, right upper quadrant Stomach ache Nausea LIPID PANEL Routine 12/24/2018 3:10 PM CDT Abdominal pain, right upper quadrant Stomach ache Nausea CBC W/DIFF AUTOMATED Routine 12/24/2018 3:10 PM CDT Abdominal pain, right upper quadrant Stomach ache Nausea AMYLASE Routine 12/24/2018 3:10 PM CDT Abdominal pain, right upper quadrant Stomach ache Nausea LIPASE Routine 12/24/2018 3:10 PM CDT Abdominal pain, right upper quadrant Stomach ache Nausea documented in this encounter Results * (ABNORMAL) LIPID PANEL (12/24/2018 3:10 PM CDT) CHOLESTEROL 175 <200 MG/DL 12/24/2018 3:43 PM CDT [facility] Comment: THE NATIONAL LIPID ASSOCIATION AND THE NATIONAL CHOLESTEROL EDUCATION PROGRAM (NCEP) HAVE SET THE FOLLOWING GUIDELINES FOR TOTAL CHOLESTEROL IN ADULTS AGES 18 AND UP. DESIRABLE: <200 BORDERLINE HIGH: 200-239 HIGH: > OR = 240 TRIGLYCERIDES 64 <150 MG/DL 12/24/2018 3:43 PM CDT [facility] Comment: THE NATIONAL LIPID ASSOCIATION AND THE NATIONAL CHOLESTEROL EDUCATION PROGAM (NCEP) HAVE SET THE FOLLOWING GUIDELINES FOR TRIGLYCERIDES IN ADULTS AGES 18 AND UP. NORMAL: <150 BORDERLINE HIGH: 150 TO 199 HIGH: 200 TO 499 VERY HIGH: >499 HDL 34(L) >39 MG/DL 12/24/2018 3:43 PM CDT [facility] Comment: THE NATIONAL LIPID ASSOCIATION AND THE NATIONAL CHOLESTEROL EDUCATION PROGAM (NCEP) HAVE SET THE FOLLOWING GUIDELINES FOR HDL CHOLESTEROL IN ADULTS AGES 18 AND UP. MALES: >39 FEMALES: >49 LDL (CALCULATED) 128(H) <100 MG/DL 12/25/19 19 3:43 PM CDT [facility] Comment: THE NATIONAL LIPID ASSOCIATION AND THE NATIONAL CHOLESTEROL EDUCATION PROGAM (NCEP) HAVE SET THE FOLLOWING GUIDELINES FOR LDL CHOLESTEROL IN ADULTS AGES 18 AND UP. DESIRABLE: <100 ABOVE DESIRABLE: 100 TO 129 BORDERLINE HIGH: 130 TO 159 HIGH: 160 TO 189 VERY HIGH: >189 VLDL CALCULATION 13 MG/DL 12/25/19 19 3:43 PM CDT [facility] Comment:REFERENCE RANGE NOT ESTABLISHED CHOL/HDL RATIO 5.1 12/24/2018 3:43 PM T [facility] Comment:REFERENCE RANGE NOT ESTABLISHED LDL/HDL 3.8 12/24/2018 3:43 PM CDT [facility] Comment:REFERENCE RANGE NOT ESTABLISHED NON HDL CHOLESTEROL 141 MG/DL 12/24/2018 3:43 PM CDT [facility] Comment:REFERENCE RANGE NOT ESTABLISHED 12/24/2018 3:10 PM CDT [facility] Final Res ult Performing Organization Address City/[facility]/ZIP Co de Phone Number [facility] [address] [place] [address], * LIPASE (12/24/2018 3:10 PM CDT) LIPASE 87 73 - 393 UNITS/L 12/24/2018 3:43 PM CDT [facility] 12/24/2018 3:10 PM CDT [facility] Final Res ult Performing Organization Address [facility] Co de Phone Number [facility] [address] [place] [address], * (ABNORMAL) COMPREHENSIVE METABOLIC PANEL (12/24/2018 3:10 PM CDT) SODIUM S/P/B 138 136 - 145 MMOL/L 12/24/2018 3:43 PM CDT [facility] POTASSIUM S/P/B 4.2 3.5 - 5.1 MMOL/L 12/24/2018 3:43 PM CDT [facility] CHLORIDE S/P/B 100 98 - 107 MMOL/L 12/24/2018 3:43 PM CDT [facility] CO2 26.4 21.0 - 32.0 MMOL/L 12/24/2018 3:43 PM CDT [facility] GLUCOSE 80 70 - 140 MG/DL 12/24/2018 3:43 PM CDT [facility] BUN 12 6 - 24 MG/DL 12/24/2018 3:43 PM CDT [facility] CREATININE S/P/B 1.23 0.70 - 1.30 MG/DL 12/24/2018 3:43 PM CDT [facility] CALCIUM S/P/B 9.5 8.4 - 10.5 MG/DL 12/24/2018 3:43 PM T [facility] BILIRUBIN TOTAL S/P/B 0.3 0.2 - 1.0 MG/DL 12/24/2018 3:[address] [facility] ALKALINE PHOSPHATASE S/P/B 113 45 - 115 U/L 12/24/2018 3:[address] [facility] AST 16 15 - 37 U/L 12/24/2018 3:[address] [facility] ALT 19 16 - 63 U/L 12/24/2018 3:[address] [facility] TOTAL PROTEIN S/P/B 8.9(H) 6.4 - 8.2 G/DL 12/24/2018 3:[address] [facility] ALBUMIN S/P/B 3.8 3.4 - 5.0 G/DL 12/24/2018 3:[address] [facility] ANION GAP 11.6 5.0 - 15.0 MMOL/L 12/24/2018 3:[address] [facility] OSMOLALITY (CALC) 285 MOSM/KG 12/24/2018 3:[address] [facility] Comment:REFERENCE RANGE NOT ESTABLISHED EGFR NON-AFR. AMER. 65(L) >89 ML/MIN/1 .73 M2 12/24/2018 3:[address] [facility] EGFR AFR. AMER. 75(L) >89 ML/MIN/1 .73 M2 12/24/2018 3:[address] [facility] GFR NOTES THE ESTIMATED GFR IS CALCULATED USING THE 2009 CKD-EPI EQUATION. THE FOLLOWING CATEGORIES FOR GRADING RENAL FUNCTION ARE RECOMMENDED BY THE INTERNATIONAL SOCIETY OF NEPHROLOGY (KDIGO 2012 CLINICAL PRACTICE GUIDELINE). 12/24/2018 3:[address] [facility] Comment: G1,NORMAL OR HIGH: >89 ml/min/1.73 m2 G2,MILDLY DECREASED: 60-89 ml/min/1.73 m2 G3A,MILDLY TO MODERATELY DECREASED: 45-59 ml/min/1.73 m2 G3B,MODERATELY TO SEVERELY DECREASED: 30-44 ml/min/1.73 m2 G4,SEVERELY DECREASED: 15-29 ml/min/1.73 m2 G5,KIDNEY FAILURE: <15 ml/min/1.73 m2 12/24/2018 3:10 PM CDT Radha Reyes [facility]ORAT[facility] Final Res ult [facility] [address] [place] [address], * (ABNORMAL) CBC W/DIFF AUTOMATED (12/24/2018 3:10 PM CDT) WBC 4.3(L) 4.5 - 10.8 x10'3/uL 12/24/2018 3:27 PM CDT [facility] RBC 4.97 4.50 - 6.10 x10'6/uL 12/24/2018 3:27 PM CDT [facility] HGB 14.0 13.0 - 18.0 G/DL 12/24/2018 3:27 PM CDT [facility] HCT 43.7 37.0 - 52.0 % 12/24/2018 3:27 PM CDT [facility] MCV 87.9 78.0 - 100.0 FL 12/24/2018 3:27 PM CDT [facility] MCH 28.2 27.0 - 31.0 PG 12/24/2018 3:27 PM CDT [facility] MCHC 32.0(L) 33.0 - 36.0 G/DL 12/24/2018 3:27 PM CDT [facility] RDW 13.9 11.5 - 14.5 % 12/24/2018 3:27 PM CDT [facility] PLT 224 150 - 350 x10'3/uL 12/24/2018 3:27 PM CDT [facility] MPV 10.1 7.4 - 10.4 FL 12/24/2018 3:27 PM CDT [facility] DIFFERENTIAL COMMENT NORMAL REFERENCE RANGE NOT ESTABLISHED FOR THE PROPORTIONAL LEUKOCYTE DIFFERENTIAL. 12/24/2018 3:27 PM CDT [facility] SEG NEUTROPHILS 53.6 % 9 3:27 PM CDT [facility] LYMPHOCYTES 30.6 % 12/24/2018 3:27 PM CDT [facility] MONOCYTES 12.5 % 12/24/2018 3:27 PM CDT [facility] EOSINOPHILS 2.6 % 12/24/2018 3:27 PM CDT [facility] BASOPHILS 0.7 % 12/24/2018 3:27 PM CDT [facility] IMMATURE GRANS % 0.0 % 12/25/19 19 3:27 PM CDT [facility] NRBC 0.0 % 12/24/2018 3:27 PM CDT [facility] ABS. NEUTROPHILS 2.31 1.60 - 8.30 x10'3/uL 12/24/2018 3:27 PM CDT [facility] ABS. LYMPHOCYTES 1.32 0.80 - 4.70 x10'3/uL 12/24/2018 3:27 PM CDT [facility] ABS. MONOCYTES 0.54 0.00 - 1.50 x10'3/uL 12/24/2018 3:27 PM CDT [facility] ABS. EOSINOPHILS 0.11 0.00 - 0.40 x10'3/uL 12/24/2018 3:27 PM CDT [facility] ABS. BASOPHILS 0.03 0.00 - 0.20 x10'3/uL 12/24/2018 3:27 PM CDT [facility] ABS. IMMATURE GRANULOCYTES 0.00 0.00 - 0.03 x10'3/uL 12/24/2018 3:27 PM CDT [facility] ABS. NUCLEATED RBC'S 0.00 0.00 x10'3/uL 12/24/2018 3:27 PM CDT [facility] 12/24/2018 3:10 PM CDT Radha Reyes [facility]- LAB[facility]ATORY Final Res ult [facility] [address] [place] [address], * AMYLASE (12/24/2018 3:10 PM CDT) AMYLASE S/P/B 67 25 - 115 UNITS/L 12/24/2018 3:43 PM CDT [facility] 12/24/2018 3:10 PM CDT us Radha Reyes [facility] Final Res ult Performing Organization Address [facility] Co de Phone Number [facility] [place] [address], documented in this encounter Visit Diagnoses Diagnosis Abdominal pain, right upper quadrant Stomach ache Dyspepsia and other specified disorders of function of stomach Nausea Nausea alone documented in this encounter Care Teams Nutrition Club Ambassador Relationship Specialty Start Date End Date [facility] [address] [place] [address] PCP - General NURSE PRACTITIONER 12/24/18 10/27/22 documented as of this encounter
--- OUTSIDE RECORDS SUMMARY | 2024-06-16 06:46 | XMS_ITS | Encounter Summary ---
Author Organization [facility] Address [address] [place] [address]. 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
--- OUTSIDE RECORDS SUMMARY | 2024-06-16 06:46 | XMS_ITS | Encounter Summary ---
Author Organization [facility] Address [address] [place] [address]. 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 DESIRABLE: <200 BORDERLINE HIGH: 200-239 HIGH: > OR = 240 TRIGLYCERIDES 64 <150 MG/DL 12/24/2018 3:43 PM CDT [facility] Comment: THE NATIONAL LIPID ASSOCIATION AND THE NATIONAL CHOLESTEROL EDUCATION PROGAM (NCEP) HAVE SET THE FOLLOWING GUIDELINES FOR TRIGLYCERIDES IN ADULTS AGES 18 AND UP. NORMAL: <150 BORDERLINE HIGH: 150 TO 199 HIGH: 200 TO 499 VERY HIGH: >499 HDL 34(L) >39 MG/DL 12/24/2018 3:43 PM CDT [facility] Comment: THE NATIONAL LIPID ASSOCIATION AND THE NATIONAL CHOLESTEROL EDUCATION PROGAM (NCEP) HAVE SET THE FOLLOWING GUIDELINES FOR HDL CHOLESTEROL IN ADULTS AGES 18 AND UP. MALES: >39 FEMALES: >49 LDL (CALCULATED) 128(H) <100 MG/DL 12/25/19 3:43 PM CDT [facility] Comment: THE NATIONAL LIPID ASSOCIATION AND THE NATIONAL CHOLESTEROL EDUCATION PROGAM (NCEP) HAVE SET THE FOLLOWING GUIDELINES FOR LDL CHOLESTEROL IN ADULTS AGES 18 AND UP. DESIRABLE: <100 ABOVE DESIRABLE: 100 TO 129 BORDERLINE HIGH: 130 TO 159 HIGH: 160 TO 189 VERY HIGH: >189 VLDL CALCULATION 13 MG/DL 12/25/19 3:43 PM CDT [facility] Comment:REFERENCE RANGE NOT ESTABLISHED CHOL/HDL RATIO 5.1 12/24/2018 3:43 PM CDT [facility] Comment:REFERENCE RANGE NOT ESTABLISHED LDL/HDL 3.8 12/24/2018 3:43 PM CDT [facility] Comment:REFERENCE RANGE NOT ESTABLISHED NON HDL CHOLESTEROL 141 MG/DL 12/24/2018 3:43 PM CDT [facility] Comment:REFERENCE RANGE NOT ESTABLISHED 12/24/2018 3:10 PM CDT Radha Reyes [facility] Final Res ult Performing Organization Address City/[facility]/ZIP Co de Phone Number [facility] [address] [place] [address] * LIPASE (12/24/2018 3:10 PM CDT) LIPASE 87 73 - 393 UNITS/L 12/24/2018 3:43 PM CDT [facility] 12/24/2018 3:10 PM CDT [facility] Final Res ult [facility] [address] [id number], * (ABNORMAL) COMPREHENSIVE METABOLIC PANEL (12/24/2018 3:10 PM CDT) SODIUM S/P/B 138 136 - 145 MMOL/L 12/24/2018 3:43 PM CDT [facility] POTASSIUM S/P/B 4.2 3.5 - 5.1 MMOL/L 12/24/2018 3:43 PM CDT [facility] CHLORIDE S/P/B 100 98 - 107 MMOL/L 12/24/2018 3:43 PM CDT [facility] CO2 26.4 21.0 - 32.0 MMOL/L 12/24/2018 3:43 PM CDT [facility] GLUCOSE 80 70 - 140 MG/DL 12/24/2018 3:43 PM CDT [facility] BUN 12 6 - 24 MG/DL 12/24/2018 3:43 PM CDT [facility] CREATININE S/P/B 1.23 0.70 - 1.30 MG/DL 12/24/2018 3:43 PM CDT [facility] CALCIUM S/P/B 9.5 8.4 - 10.5 MG/DL 12/24/2018 3:43 PM CDT [facility] BILIRUBIN TOTAL S/P/B 0.3 0.2 - 1.0 MG/DL 12/24/2018 3:43 PM CDT [facility] ALKALINE PHOSPHATASE S/P/B 113 45 - 115 U/L 12/24/2018 3:43 PM CDT [facility] AST 16 15 - 37 U/L 12/24/2018 3:43 PM CDT [facility] ALT 19 16 - 63 U/L 12/24/2018 3:43 PM CDT [facility] TOTAL PROTEIN S/P/B 8.9(H) 6.4 - 8.2 G/DL 12/24/2018 3:43 PM CDT [facility] ALBUMIN S/P/B 3.8 3.4 - 5.0 G/DL 12/24/2018 3:43 PM CDT [facility] ANION GAP 11.6 5.0 - 15.0 MMOL/L 12/24/2018 3:43 PM CDT [facility] OSMOLALITY (CALC) 285 MOSM/KG 12/24/2018 3:43 PM CDT [facility] Comment:REFERENCE RANGE NOT ESTABLISHED EGFR NON-AFR. AMER. 65(L) >89 ML/MIN/1 .73 M2 12/24/2018 3:43 PM CDT [facility] EGFR AFR. AMER. 75(L) >89 ML/MIN/1 .73 M2 12/24/2018 3:43 PM CDT [facility] GFR NOTES THE ESTIMATED GFR IS CALCULATED USING THE 2009 CKD-EPI EQUATION. THE FOLLOWING CATEGORIES FOR GRADING RENAL FUNCTION ARE RECOMMENDED BY THE INTERNATIONAL SOCIETY OF NEPHROLOGY (KDIGO 2012 CLINICAL PRACTICE GUIDELINE). 12/24/2018 3:43 PM CDT [facility] Comment: G1,NORMAL OR HIGH: >89 ml/min/1.73 m2 G2,MILDLY DECREASED: 60-89 ml/min/1.73 m2 G3A,MILDLY TO MODERATELY DECREASED: 45-59 ml/min/1.73 m2 G3B,MODERATELY TO SEVERELY DECREASED: 30-44 ml/min/1.73 m2 G4,SEVERELY DECREASED: 15-29 ml/min/1.73 m2 G5,KIDNEY FAILURE: <15 ml/min/1.73 m2 12/24/2018 3:10 PM CDT Radha Reyes [facility] Final Res ult [facility] [address] [place] [address], * (ABNORMAL) CBC W/DIFF AUTOMATED (12/24/2018 3:10 PM CDT) WBC 4.3(L) 4.5 - 10.8 x10'3/uL 12/24/2018 3:27 PM CDT [facility] RBC 4.97 4.50 - 6.10 x10'6/uL 12/24/2018 3:27 PM CDT [facility] HGB 14.0 13.0 - 18.0 G/DL 12/24/2018 3:27 PM CDT [facility] HCT 43.7 37.0 - 52.0 % 12/24/2018 3:27 PM CDT [facility] MCV 87.9 78.0 - 100.0 FL 12/24/2018 3:27 PM CDT [facility] MCH 28.2 27.0 - 31.0 PG 12/24/2018 3:27 PM CDT [facility] MCHC 32.0(L) 33.0 - 36.0 G/DL 12/24/2018 3:27 PM CDT [facility] RDW 13.9 11.5 - 14.5 % 12/24/2018 3:27 PM CDT [facility] PLT 224 150 - 350 x10'3/uL 12/24/2018 3:27 PM CDT [facility] MPV 10.1 7.4 - 10.4 FL 12/24/2018 3:27 PM CDT [facility] DIFFERENTIAL COMMENT NORMAL REFERENCE RANGE NOT ESTABLISHED FOR THE PROPORTIONAL LEUKOCYTE DIFFERENTIAL. 12/24/2018 3:27 PM CDT [facility] SEG NEUTROPHILS 53.6 % 9 3:27 PM CDT [facility] LYMPHOCYTES 30.6 % 12/24/2018 3:27 PM CDT [facility] MONOCYTES 12.5 % 12/24/2018 3:27 PM CDT [facility] EOSINOPHILS 2.6 % 12/24/2018 3:27 PM CDT [facility] BASOPHILS 0.7 % 12/24/2018 3:27 PM CDT [facility] IMMATURE GRANS % 0.0 % 12/25/19 19 3:27 PM CDT [facility] NRBC 0.0 % 12/24/2018 3:27 PM CDT [facility] ABS. NEUTROPHILS 2.31 1.60 - 8.30 x10'3/uL 12/24/2018 3:27 PM CDT [facility] ABS. LYMPHOCYTES 1.32 0.80 - 4.70 x10'3/uL 12/24/2018 3:27 PM CDT [facility] ABS. MONOCYTES 0.54 0.00 - 1.50 x10'3/uL 12/24/2018 3:27 PM CDT [facility] ABS. EOSINOPHILS 0.11 0.00 - 0.40 x10'3/uL 12/24/2018 3:27 PM CDT [facility] ABS. BASOPHILS 0.03 0.00 - 0.20 x10'3/uL 12/24/2018 3:27 PM CDT [facility] ABS. IMMATURE GRANULOCYTES 0.00 0.00 - 0.03 x10'3/uL 12/24/2018 3:27 PM CDT [facility] ABS. NUCLEATED RBC'S 0.00 0.00 x10'3/uL 12/24/2018 3:27 PM CDT [facility] 12/24/2018 3:10 PM CDT Radha Reyes [facility] Final Res ult Performing Organization Address City/[facility]/[place] [address], * AMYLASE (12/24/2018 3:10 PM CDT) AMYLASE S/P/B 67 25 - 115 UNITS/L 12/24/2018 3:43 PM CDT [facility] 12/24/2018 3:10 PM CDT Radha Reyes [facility] Final Res ult Performing Organization Address City/[facility]/[place] [address], [place] [phone] documented in this encounter Visit Diagnoses Diagnosis Abdominal pain, right upper quadrant- Primary Stomach ache Dyspepsia and other specified disorders of function of stomach Nausea Nausea alone documented in this encounter Care Teams Solution Manager Relationship Specialty Start Date End Date Radha Reyes FNP- [address] [place] [address] PCP - General NURSE PRACTITIONER 12/24/18 10/27/22 documented as of this encounter
--- OUTSIDE RECORDS SUMMARY | 2024-06-16 06:46 | XMS_ITS | Encounter Summary ---
Author Organization [facility] Address [address] [place] [address]. [place] [address] [place] [address] Care Team Providers Care Sales Representative Wire Rope Name Role Phone Unavailable Primary Care Provider Unavailabl e Encounter Details Date Type Department Care Team (Late st Contact Info) Description 06/02/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
--- OUTSIDE RECORDS SUMMARY | 2024-06-16 06:46 | XMS_ITS | Encounter Summary ---
Author Organization [facility] Address [address] [place] [address]. [place] [address] [place] [address] Care Team Providers Care Grades 7 And 8 Teacher Name Role Phone Unavailable Primary Care Provider Unavailabl e Encounter Details Date Type Department Care Team (Late st Contact Info) Description 04/13/[address] 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
--- OUTSIDE RECORDS SUMMARY | 2024-06-16 06:46 | XMS_ITS | Encounter Summary ---
Author Organization [facility] Address [address] [place] [address]. 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 Name Role Phone None, Provider MD Primary Care Provider Unavaila ble Reason for Referral * Imaging (Urgent) - Closed Specialty Diagnoses / Procedures Referred By Romina martinez Referred To Contact RADIOLOGY Procedures CT CHEST+ABD+PEL W CON CTA CHEST+ABD+PEL Raissa Pacheco MD Phone: tel: fax: Referral ID Status Reason Start Date Expiration Date Visits Re quested Visits Authorized [id number] Closed 10/28/2022 10/29/2023 1 1 Reason for Visit * Reason Comments Weakness Encounter Details Date Type Department Care Team (Late st Contact Info) Description 10/28/2022 3:54 PM CDT - 10/28/2022 7:45 PM CDT Emergency [facility] [address] [place] [address] [place] [address] Raissa Pacheco MD [address] [place], [place] [id number] Weakness Discharge Disposition: Home or Self Care (Routine Discharge) Social History Tobacco Use Types Packs/Day Years Used Date Smoking Tobacco: Never Assessed Sex and Gender Information Value Date Recorded Sex Assigned at Not on file 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 No / Unsure 10/28/2022 3:53 PM CDT documented as of this encounter Last Filed Vital Signs Vital Sign Reading Time Taken Comments Blood Pressure 132/72 10/28/2022 7:00 PM CDT Pulse 56 10/28/2022 4:32 PM CDT Temperature 36.3 ??C (97.4 ??F) 10/28/2022 4:32 PM CD T Respiratory Rate 14 10/28/2022 4:32 PM CDT Oxygen Saturation 96% 10/28/2022 7:00 PM CDT Inhaled Oxygen Concentration - - Weight 61.7 kg (136 lb) 10/28/2022 4:32 PM CDT Height 172.7 cm (5' 8 ) 10/28/2022 4:32 PM CDT Body Mass Index 20.68 10/28/2022 4:32 PM CDT documented in this encounter Discharge Instructions * Discharge Instructions* Raissa Pacheco MD - 10/28/2022 6:50 PM CDT Vomiting, generalized weakness, pancreatic calcifications Take medications as prescribed Rest and drink plenty of fluids Follow up with Dr. Galan or [facility]. Call tomorrow to schedule appointment. Need follow-up for pancreatic calcifications seen on CT. Please let them know that you are an ER follow-up appointment. Return to emergency room for worsening pain, vomiting, dizziness, fever or other concerns. * Attachments The following attachments cannot be sent through Care Everywhere. * Generalized Weakness (Niuean) documented in this encounter ED Notes * Raissa Pacheco MD - 10/28/2022 4:23 PM CDT Chief Complaint Chief Complaint Patient presents with Weakness History of Present Illness Patient is a 62-year-old male who presents to the ER by EMS for generalized weakness, weight loss and vomiting. Patient states that his symptoms started 3 to 6 months ago. Patient states that he has increased phlegm production which then gags him and he vomits. Patient states that this has continued and has worsened over the past 1 month. Patient states he has significantly increased phlegm production and is vomiting regularly. Patient has had a 25 pound weight loss in the past 3 months withouttrying. No fevers. No dysuria or hematuria. No difficulty breathing. No known history of cancer. Patient has had a decreased appetite. Patient does take methadone and he states he has not missed any doses. Patient is a former alcoholic but has not drank in over 5 years. Medical History ALLERGIES: Review of patient's allergies indicates: No Known Allergies MEDICATIONS: Prior to Admission medications Not on File PAST MEDICAL HISTORY: No past medical history on file. Back pain, methadone use PAST SURGICAL HISTORY: No past surgical history on file. FAMILY HISTORY: No family history on file. SOCIAL HISTORY: 1/2 pack/day smoker, former alcohol, former drug use, patient is on methadone Review of Systems Review of Systems Constitutional: Positive for activity change, appetite change and fatigue. Negative for chills and fever. HENT: Negative. Eyes: Negative. Respiratory: Negative for cough, chest tightness and shortness of breath. Increased Phlegm production Cardiovascular: Negative. Gastrointestinal: Positive for nausea and vomiting. Negative for abdominal pain. Endocrine: Negative. Genitourinary: Negative. Negative for decreased urine volume, dysuria and hematuria. Musculoskeletal: Positive for myalgias. Skin: Negative. Allergic/Immunologic: Negative. Neurological: Positive for weakness (generalized). Hematological: Negative. Psychiatric/Behavioral: Negative. Physical Exam Filed Vitals: 10/28/22 1632 10/28/22 1720 BP: (!) 144/76 115/54 Pulse: (!) 56 Resp: 14 Temp: 97.4 ??F (36.3 ??C) TempSrc: Skin SpO2: 94% 93% Weight: 61.7 kg (136 lb) Height: 5' 8 (1.727 m) Vital signs are stable Physical Exam Vitals and nursing note reviewed. Constitutional: General: He is not in acute distress. Appearance: He is not ill-appearing. HENT: Head: Normocephalic and atraumatic. Mouth/Throat: Mouth: Mucous membranes are dry. Cardiovascular: Rate and Rhythm: Normal rate and regular rhythm. Pulses: Normal pulses. Heart sounds: Normal heart sounds. No murmur heard. Pulmonary: Effort: Pulmonary effort is normal. Breath sounds: Wheezing (coarse expiratory right only) present. Abdominal: General: Bowel sounds are normal. There [...] No results found for this visit on 10/28/22. LABORATORY STUDIES: Results for orders placed or performed during the hospital encounter of 10/28/22 CBC W/DIFF AUTOMATED Result Value Ref Range WBC 3.47 (L) 4.00 - 10.80 x10'3/uL RBC 4.91 4.50 - 6.10 x10'6/uL HGB 14.0 13.0 - 18.0 G/DL HCT 43.0 37.0 - 52.0 % MCV 87.6 78.0 - 100.0 FL MCH 28.5 27.0 - 31.0 PG MCHC 32.6 (L) 33.0 - 36.0 G/DL RDW 14.3 11.5 - 14.5 % PLT 275 150 - 350 x10'3/uL MPV 10.9 (H) 7.4 - 10.4 FL CBC COMMENT NORMAL REFERENCE RANGE NOT ESTABLISHED FOR THE PROPORTIONAL LEUKOCYTE DIFFERENTIAL. NEUTROPHILS 64.8 % LYMPHOCYTES 23.3 % MONOCYTES 9.8 % EOSINOPHILS 1.2 % BASOPHILS 0.6 % IMMATURE GRANS 0.3 % NRBC 0.0 % ABS. NEUTROPHILS 2.25 1.60 - 8.30 x10'3/uL ABS. LYMPHOCYTES 0.81 0.80 - 4.70 x10'3/uL ABS. MONOCYTES 0.34 0.00 - 1.50 x10'3/uL ABS. EOSINOPHILS 0.04 0.00 - 0.40 x10'3/uL ABS. BASOPHILS 0.02 0.00 - 0.20 x10'3/uL ABS. IMMATURE GRANULOCYTES 0.01 0.00 - 0.03 x10'3/uL ABS. NUCLEATED RBC'S 0.00 0.00 x10'3/uL COMPREHENSIVE METABOLIC PANEL Result Value Ref Range SODIUM S/P/B 138 136 - 145 MMOL/L POTASSIUM S/P/B 4.0 3.5 - 5.1 MMOL/L CHLORIDE S/P/B 103 98 - 107 MMOL/L CO2 28.8 21.0 - 32.0 MMOL/L GLUCOSE 96 70 - 99 MG/DL BUN 10 6 - 24 MG/DL CREATININE S/P/B 1.00 0.70 - 1.30 MG/DL CALCIUM 9.3 8.4 - 10.5 MG/DL BILIRUBIN TOTAL S/P/B 0.4 0.2 - 1.0 MG/DL ALKALINE PHOSPHATASE S/P/B 128 (H) 45 - 115 U/L AST 18 15 - 37 U/L ALT 21 16 - 63 U/L TOTAL PROTEIN S/P/B 8.3 (H) 6.4 - 8.2 G/DL ALBUMIN S/P/B 3.6 3.4 - 5.0 G/DL ANION GAP 6.2 5.0 - 15.0 MMOL/L OSMOLALITY (CALC) 285 MOSM/KG GFR ESTIMATE 86 (L) >89 ML/MIN/1.73 M2 GFR NOTES GFR REFERENCES: LIPASE Result Value Ref Range LIPASE 15 (L) 16 - 77 UNITS/L MAGNESIUM Result Value Ref Range MAGNESIUM 1.7 (L) 1.8 - 2.4 MG/DL URINALYSIS Result Value Ref Range COLOR (U) YELLOW TRANSPARENCY CLEAR SPECIFIC GRAVITY (U) 1.010 1.000 - 1.025 U PH 6.5 5.0 - 8.0 LEUKOCYTES (U) NEGATIVE NEGATIVE NITRITES NEGATIVE NEGATIVE PROTEIN (U) NEGATIVE NEGATIVE URINE GLUCOSE NEGATIVE NEGATIVE KETONES (U) NEGATIVE NEGATIVE UROBILINOGEN 0.2 <1.0 EU/DL BILIRUBIN (U) NEGATIVE NEGATIVE BLOOD (U) NEGATIVE NEGATIVE WBC/HPF 0-5 0 - 5 /HPF RBC/HPF 0-5 0 - 5 /HPF EPI/LPF RARE /LPF BACTERIA (U) TRACE /HPF IMAGING STUDIES CT CHEST+ABD+PEL W CON Final Result by User, [id number] (10/28 1801) EXAMINATION: CT Chest, Abdomen and Pelvis with contrast CLINICAL HISTORY: Nausea, vomiting, and weight loss. COMPARISON: None TECHNIQUE: Computed tomography of the chest, abdomen, and pelvis was performed after the administration of 95 mL Isovue-370 contrast according to routine protocol without immediate complication. A dose lowering technique was used for this procedure, which may include, but is not limited to, dose reduction technique, automated exposure control, the use of iterative reconstruction, and ALARA (As Low As Reasonably Achievable) / Image Gently techniques. FINDINGS: CHEST: Normal heart size. Aortic atherosclerosis. Coronary artery calcifications. No pleural or pericardial effusions. Mildly prominent mediastinal and right hilar lymph nodes measuring up to 1 cm in short axis. No axillary lymphadenopathy. Trachea and proximal airways patent. Emphysema. Central is bronchial wall thickening. Bibasilar subsegmental atelectasis and/or linear scarring. Dependent atelectasis. Granulomatous calcifications. No suspicious lung mass. No pneumothorax. ABDOMEN/PELVIS: Liver, gallbladder, spleen, adrenal glands, and kidneys appear unremarkable. Mildly prominent main pancreatic duct. Indeterminate ovoid hypodensity in the pancreatic head. Atheromatous plaque and calcification seen along the abdominal aorta. Infrarenal abdominal aortic aneurysm measuring up to 3.2 cm. No bulky mesenteric or retroperitoneal lymphadenopathy. Circumferential wall thickening involving the distal stomach. Stomach and small bowel loops are nondilated. Normal appendix. Scattered solid feces in the colon. No findings of bowel obstruction. No free fluid or free air in the abdomen. Moderate solid feces in the sigmoid colon and rectum. Sigmoid diverticulosis. Prostatomegaly. Circumferential bladder wall thickening. No pelvic ascites. No bulky pelvic or inguinal lymphadenopathy. BONES: Osseous structures reveal degenerative changes in the spine. IMPRESSION: 1. Mildly prominent mediastinal and right hilar lymph nodes measuring up to 1 cm in short axis, nonspecific. 2. Emphysema. 3. Atherosclerosis. Coronary artery calcifications. Abdominal aortic aneurysm, 3.2 cm. 4. Indeterminate ovoid hypodensity within the pancreatic head with mild prominence of the main pancreatic duct. Advise further characterization with pancreatic protocol MRI/MRCP. 5. Circumferential wall thickening involving the distal stomach. Could correlate for gastritis or peptic ulcer disease. 6. Circumferential bladder wall thickening. Could correlate with urinalysis for possibility of superimposed cystitis. 7. Please see above for additional chronic and nonemergent findings elsewhere. Referred By: Interpreted By: Chad Higuera MD, 10/28/2022 5:54 PM ED Course / Medical Decision Making Medical Decision Making ED Course as of 10/28/22 1850 Tue October 28, 2022 1634 Patient will be given IV fluids and Zofran. Concern for undiagnosed cancer with patient's history. We will also check electrolytes. Differential diagnosis of dehydration, undiagnosed cancer, electrolyte abnormality, urinary tract infection, pancreatitis, pneumonia [MA] 1719 CBC is normal. [MA] 1732 Chemistry is unremarkable. LFTs are normal. Lipase is normal. Magnesium is mildly decreased. [MA] 1806 Ct noted with pancreatitic findings and bladder findings. Awaiting ua. [MA] 1847 Urinalysis is unremarkable. Discussed with patient CT findings. He is resting comfortably at this time. Will discharge patient with Zofran and [facility] with [facility] his pancreas and further evaluation. Patient understands plan at this time. [MA] ED Course User Index [MA] Raissa Pacheco MD Clinical Impression Vomiting (Primary) Generalized weakness Pancreatic calcification Disposition: Discharge Raissa Pacheco MD 10/28/221849 * Betty Stone RN - 10/28/2022 3:52 PM CDT Patient BIBEMS for weakness over the last week. Patient has been nauseated for last 6-7 months and has lost over 25 lbs unintentionally. documented in this encounter Plan of Treatment Not on file documented as of this encounter Procedures Procedure Name Priority Date/Time Associated Diagnosis Comments CT CHEST+ABD+PEL W CON STAT 3 5:39 PM CDT HC URINALYSIS AUTO W/MICRO STAT 10/28/2022 5:19 PM CDT URINE BACTERIA CULTURE STAT 3 5:19 PM CDT COMPREHENSIVE METABOLIC PANEL STAT 10/28/2022 4:39 PM CDT CBC W/DIFF AUTOMATED STAT 10/28/2022 4:39 PM CDT MAGNESIUM STAT 10/28/2022 4:39 PM CDT LIPASE STAT 10/28/2022 4:39 PM CDT documented in this encounter Results * CT CHEST+ABD+PEL W CON (10/28/2022 5:39 PM CDT) Anatomical Region Laterality Modality Chest, Abdomen, Pelvis Computed Tomography 10/28/2022 5:54 PM CDT Impressions 10/28/2022 6:00 PM CDT IMPRESSION: 1. Mildly prominent mediastinal and right hilar lymph nodes measuring up to 1 cm in short axis, nonspecific. 2. Emphysema. 3. Atherosclerosis. Coronary artery calcifications. Abdominal aortic aneurysm, 3.2 cm. 4. Indeterminate ovoid hypodensity within the pancreatic head with mild prominence of the main pancreatic duct. Advise further characterization with pancreatic protocol MRI/MRCP. 5. Circumferential wall thickening involving the distal stomach. Could correlate for gastritis or peptic ulcer disease. 6. Circumferential bladder wall thickening. Could correlate with urinalysis for possibility of superimposed cystitis. 7. Please see above for additional chronic and nonemergent findings elsewhere. Referred By: ?? Interpreted By: Chad Higuera MD, 10/28/2022 5:54 PM Narrative 10/28/2022 6:00 PM CDT EXAMINATION: CT Chest, Abdomen and Pelvis with contrast CLINICAL HISTORY: Nausea, vomiting, and weight loss. COMPARISON: None TECHNIQUE: Computed tomography of the chest, abdomen, and pelvis was performed after the administration of 95 mL Isovue-370 contrast according to routine protocol without immediate complication. A dose lowering technique was used for this procedure, which may include, but is not limited to, dose reduction technique, automated exposure control, the use of iterative reconstruction, and ALARA (As Low As Reasonably Achievable) / Image Gently techniques. FINDINGS: CHEST: Normal heart size. Aortic atherosclerosis. Coronary artery calcifications. No pleural or pericardial effusions. Mildly prominent mediastinal and right hilar lymph nodes measuring up to 1 cm in short axis. No axillary lymphadenopathy. Trachea and proximal airways patent. Emphysema. Central is bronchial wall thickening. Bibasilar subsegmental atelectasis and/or linear scarring. Dependent atelectasis. Granulomatous calcifications. No suspicious lung mass. No pneumothorax. ABDOMEN/PELVIS: Liver, gallbladder, spleen, adrenal glands, and kidneys appear unremarkable. Mildly prominent main pancreatic duct. Indeterminate ovoid hypodensity in the pancreatic head. Atheromatous plaque and calcification seen along the abdominal aorta. Infrarenal abdominal aortic aneurysm measuring up to 3.2 cm. No bulky mesenteric or retroperitoneal lymphadenopathy. Circumferential wall thickening involving the distal stomach. Stomach and small bowel loops are nondilated. Normal appendix. Scattered solid feces in the colon. No findings of bowel obstruction. No free fluid or free air in the abdomen. Moderate solid feces in the sigmoid colon and rectum. Sigmoid diverticulosis. Prostatomegaly. Circumferential bladder wall thickening. No pelvic ascites. No bulky pelvic or inguinal lymphadenopathy. BONES: Osseous structures reveal degenerative changes in the spine. Procedure Note Chad Higuera MD - 10/28/2022 EXAMINATION: CT Chest, Abdomen and Pelvis with contrast CLINICAL HISTORY: Nausea, vomiting, and weight loss. COMPARISON: None TECHNIQUE: Computed tomography of the chest, abdomen, and pelvis wasperformed after the administration of 95 mL Isovue-370 contrast accordingto routine protocol without immediate complication. A dose lowering technique was used for this procedure, which may include,but is not limited to, dose reduction technique, automated exposurecontrol, the use of iterative reconstruction, and ALARA (As Low AsReasonably Achievable) / Image Gently techniques. FINDINGS: CHEST: Normal heart size. Aortic atherosclerosis. Coronary artery calcifications.No pleural or pericardial effusions. Mildly prominent mediastinal andright hilar lymph nodes measuring up to 1 cm in short axis. No axillarylymphadenopathy. Trachea and proximal airways patent. Emphysema. Centralis bronchial wall thickening. Bibasilar subsegmental atelectasis and/orlinear scarring. Dependent atelectasis. Granulomatous calcifications. Nosuspicious lung mass. No pneumothorax. ABDOMEN/PELVIS: Liver, gallbladder, spleen, adrenal glands, and kidneys appearunremarkable. Mildly prominent main pancreatic duct. Indeterminate ovoidhypodensity in the pancreatic head. Atheromatous plaque and calcificationseen along the abdominal aorta. Infrarenal abdominal aortic aneurysmmeasuring up to 3.2 cm. No bulky mesenteric or retroperitoneallymphadenopathy. Circumferential wall thickening involving the distal stomach. Stomach andsmall bowel loops are nondilated. Normal appendix. Scattered solid fecesin the colon. No findings of bowel obstruction. No free fluid or free airin the abdomen. Moderate solid feces in the sigmoid colon and rectum. Sigmoiddiverticulosis. Prostatomegaly. Circumferential bladder wall thickening.No pelvic ascites. No bulky pelvic or inguinal lymphadenopathy. BONES: Osseous structures reveal degenerative changes in the spine. IMPRESSION: 1. Mildly prominent mediastinal and right hilar lymph nodes measuring upto 1 cm in short axis, nonspecific. 2. Emphysema. 3. Atherosclerosis. Coronary artery calcifications. Abdominal aorticaneurysm, 3.2 cm. 4. Indeterminate ovoid hypodensity within the pancreatic head with mildprominence of the main pancreatic duct. Advise further characterizationwith pancreatic protocol MRI/MRCP. 5. Circumferential wall thickening involving the distal stomach. Couldcorrelate for gastritis or peptic ulcer disease. 6. Circumferential bladder wall thickening. Could correlate withurinalysis for possibility of superimposed cystitis. 7. Please see above for additional chronic and nonemergent findingselsewhere. Referred By: Interpreted By: Chad Higuera MD, 10/28/2022 5:54 PM Raissa Pacheco MD CT Final Resul t * CULTURE URINE (10/28/2022 5:19 PM CDT) SPEC DESCRIPTION URINE CLEAN CATCH 10/28/2022 5:23 PM CDT [facility] SPECIAL REQUESTS NO SPECIAL REQUEST 10/28/2022 5:23 PM CDT [facility] CULTURE RESULT NO GROWTH (< OR = 1,000 CFU/ML) 10/30/2022 9:35 AM CDT [facility] URINE SPECIMEN OBTAINED BY CLEAN CATCH PROCEDURE / Unknown 10/28/2022 5:19 PM CDT 10/28/2022 5:27 PM CDT Raissa Pacheco MD MICROBIOLOGY - GENERAL TANG HOFF Final Result [facility] [address] [place] [address], [place] [phone] [phone] [facility] [address] [place] [address], [place] [phone] * URINALYSIS (10/28/2022 5:19 PM CDT) COLOR (U) YELLOW 10/28/2022 6:30 PM CDT [facility] TRANSPARENCY CLEAR 10/28/2022 6:30 PM CDT [facility] SPECIFIC GRAVITY (U) 1.010 1.000 - 1.025 10/28/2022 6:30 PM CDT [facility] U PH 6.5 5.0 - 8.0 10/28/2022 6:30 PM CDT [facility] LEUKOCYTES (U) NEGATIVE NEGATIVE 10/28/2022 6:30 PM CDT [facility] NITRITES NEGATIVE NEGATIVE 10/28/2022 6:30 PM CDT [facility] PROTEIN (U) NEGATIVE NEGATIVE 10/28/2022 6:30 PM CDT [facility] URINE GLUCOSE NEGATIVE NEGATIVE 10/28/2022 6:30 PM CDT [facility] KETONES MG/DL (U) NEGATIVE NEGATIVE 10/28/2022 6:30 PM CDT [facility] UROBILINOGEN 0.2 <1.0 EU/DL 10/28/2022 6:30 PM CDT [facility] BILIRUBIN (U) NEGATIVE NEGATIVE 10/28/2022 6:30 PM CDT [facility] BLOOD (U) NEGATIVE NEGATIVE 10/28/2022 6:30 PM CDT [facility] WBC/HPF 0-5 0 - 5 /HPF 10/28/2022 6:30 PM CDT [facility] RBC/HPF 0-5 0 - 5 /HPF 10/28/2022 6:30 PM CDT [facility] EPI/LPF RARE /LPF 10/28/2022 6:30 PM CDT [facility] BACTERIA (U) TRACE /HPF 10/28/2022 6:30 PM CDT [facility] URINE SPECIMEN OBTAINED BY CLEAN CATCH PROCEDURE / Unknown 10/28/2022 5:19 PM CDT us Raissa Pacheco MD URINE ORDERABLES Final Resu lt Performing Organization Address [facility]/ZIP Co de Phone Number [facility] [address] [place] [address], * (ABNORMAL) MAGNESIUM (10/28/2022 4:39 PM CDT) MAGNESIUM 1.7(L) 1.8 - 2.4 MG/DL 10/28/2022 5:27 PM CDT [facility] 10/28/2022 4:39 PM CDT us Raissa Pacheco MD LABORATORY Final Resul t Performing Organization Address [facility] de Phone Number [facility] [address] [place] [address], * (ABNORMAL) LIPASE (10/28/2022 4:39 PM CDT) LIPASE 15(L) 16 - 77 UNITS/L 10/28/2022 5:27 PM CDT [facility] 10/28/2022 4:39 PM CDT us Raissa Pacheco MD LABORATORY Final Resul t Performing Organization Address [facility] de Phone Number [facility] [address] [place] [address], * (ABNORMAL) COMPREHENSIVE METABOLIC PANEL (10/28/2022 4:39 PM CDT) SODIUM S/P/B 138 136 - 145 MMOL/L 10/28/2022 5:27 PM CDT [facility] POTASSIUM S/P/B 4.0 3.5 - 5.1 MMOL/L 10/28/2022 5:27 PM CDT [facility] CHLORIDE S/P/B 103 98 - 107 MMOL/L 10/28/2022 5:27 PM CDT [facility] CO2 28.8 21.0 - 32.0 MMOL/L 10/28/2022 5:27 PM CDT [facility] GLUCOSE 96 70 - 99 MG/DL 10/28/2022 5:27 PM CDT [facility] Comment: MILD LIPEMIA. RESULT MAY BE AFFECTED. FASTING GLUCOSE 100 TO 125 MG/DL IS CONSISTENT WITH IMPAIRED FASTING GLUCOSE. FASTING GLUCOSE >125 MG/DL IS CONSISTENT WITH DIABETES. RANDOM GLUCOSE >200 MG/DL WITH HYPERGLYCEMIC SYMPTOMS IS CONSISTENT WITH DIABETES. PER ADA GUIDELINES BUN 10 6 - 24 MG/DL 10/28/2022 5:27 PM CDT [facility] CREATININE S/P/B 1.00 0.70 - 1.30 MG/DL 10/28/2022 5:27 PM CDT [facility] CALCIUM S/P/B 9.3 8.4 - 10.5 MG/DL 10/28/2022 5:27 PM CDT [facility] BILIRUBIN TOTAL S/P/B 0.4 0.2 - 1.0 MG/DL 10/28/2022 5:27 PM CDT [facility] Comment: THIS ASSAY IS NOT RECOMMENDED FOR PATIENTS UNDERGOING TREATMENT WITH ELTROMBOPAG DUE TO THE POTENTIAL FOR FALSELY ELEVATED RESULTS. ALKALINE PHOSPHATASE S/P/B 128(H) 45 - 115 U/L 10/28/2022 5:27 PM CDT [facility] AST 18 15 - 37 U/L 10/28/2022 5:27 PM CDT [facility] ALT 21 16 - 63 U/L 10/28/2022 5:27 PM CDT [facility] TOTAL PROTEIN S/P/B 8.3(H) 6.4 - 8.2 G/DL 10/28/2022 5:27 PM CDT [facility] ALBUMIN S/P/B 3.6 3.4 - 5.0 G/DL 10/28/2022 5:27 PM CDT [facility] ANION GAP 6.2 5.0 - 15.0 MMOL/L 10/28/2022 5:27 PM CDT [facility] OSMOLALITY (CALC) 285 MOSM/KG 023 5:27 PM CDT [facility] Comment:REFERENCE RANGE NOT ESTABLISHED GFR ESTIMATE 86(L) >89 ML/MIN/1. 73 M2 10/28/2022 5:27 PM CDT [facility] GFR NOTES GFR REFERENCE S: 10/28/2022 5:27 PM CDT [facility] Comment: THE ESTIMATED GFR IS CALCULATED [...] ml/min/1.73 m2 G5,KIDNEY FAILURE: <15 ml/min/1.73 m2 10/28/2022 4:39 PM CDT Raissa Pacheco MD LABORATORY Final Resul t [facility] [address] [email or web address] [address], * (ABNORMAL) CBC W/DIFF AUTOMATED (10/28/2022 4:39 PM CDT) WBC 3.47(L) 4.00 - 10.80 x10'3/uL 10/28/2022 4:50 PM CDT [facility] RBC 4.91 4.50 - 6.10 x10'6/uL 10/28/2022 4:50 PM CDT [facility] HGB 14.0 13.0 - 18.0 G/DL 10/28/2022 4:50 PM CDT [facility] HCT 43.0 37.0 - 52.0 % 10/28/2022 4:50 PM CDT [facility] MCV 87.6 78.0 - 100.0 FL 10/28/2022 4:50 PM CDT [facility] MCH 28.5 27.0 - 31.0 PG 10/28/2022 4:50 PM CDT [facility] MCHC 32.6(L) 33.0 - 36.0 G/DL 10/28/2022 4:50 PM CDT [facility] RDW 14.3 11.5 - 14.5 % 10/28/2022 4:50 PM CDT [facility] PLT 275 150 - 350 x10'3/uL 10/28/2022 4:50 PM CDT [facility] MPV 10.9(H) 7.4 - 10.4 FL 10/28/2022 4:50 PM CDT [facility] CBC COMMENT NORMAL REFERENCE RANGE NOT ESTABLISHED FOR THE PROPORTIONAL LEUKOCYTE DIFFERENTIAL. 10/28/2022 4:50 PM CDT [facility] NEUTROPHILS % 64.8 % 10/28/2022 4:50 PM CDT [facility] LYMPHOCYTES % 23.3 % 10/28/2022 4:50 PM CDT [facility] MONOCYTES % 9.8 % 10/28/2022 4:50 PM CDT [facility] EOSINOPHILS % 1.2 % 10/28/2022 4:50 PM CDT [facility] BASOPHILS % 0.6 % 10/28/2022 4:50 PM CDT [facility] IMMATURE GRANS % 0.3 % 10/29/19 4:50 PM CDT [facility] NRBC 0.0 % 10/28/2022 4:50 PM CDT [facility] ABS. NEUTROPHILS 2.25 1.60 - 8.30 x10'3/uL 10/28/2022 4:50 PM CDT [facility] ABS. LYMPHOCYTES 0.81 0.80 - 4.70 x10'3/uL 10/28/2022 4:50 PM CDT [facility] ABS. MONOCYTES 0.34 0.00 - 1.50 x10'3/uL 10/28/2022 4:50 PM CDT [facility] ABS. EOSINOPHILS 0.04 0.00 - 0.40 x10'3/uL 10/28/2022 4:50 PM CDT [facility] ABS. BASOPHILS 0.02 0.00 - 0.20 x10'3/uL 10/28/2022 4:50 PM CDT [facility] ABS. IMMATURE GRANULOCYTES 0.01 0.00 - 0.03 x10'3/uL 10/28/2022 4:50 PM CDT [facility] ABS. NUCLEATED RBC'S 0.00 0.00 x10'3/uL 10/28/2022 4:50 PM CDT [facility] 10/28/2022 4:39 PM CDT us Raissa Pacheco MD LABORATORY Final Resul t [facility] [email or web address] [place] [id number], documented in this encounter Visit Diagnoses Diagnosis Vomiting- Primary Vomiting alone Generalized weakness Other malaise and fatigue Pancreatic calcification (HHS/HCC) Other specified disease of pancreas documented in this encounter Administered Medications Inactive Administered Medications - up to 3 most recent administrations Medication Order MAR Action Action Date Dose Rate Site iopamidol (ISOVUE-370) 76 % injection 95 mL 95 mL, Intravenous, IMG once as needed, Contrast, 1 dose, Starting on Thu10/28/22 at 1730, Until Thu10/28/22 at 1730 Given 10/28/2022 5:30 PM CDT 95 mLs ondansetron (ZOFRAN) injection 4 mg 4 mg, Intravenous, Once, 1 dose, On Thu10/28/22 at 1615, IV push over 2-5 minutes. Given 10/28/2022 5:09 PM CDT 4 mg sodium chloride 0.9% bolus infusion 1,000 mL 1,000 mL, Intravenous, Administer over 60 Minutes, Once, 1 dose, On 10/28/22 at 1615 New Bag 10/28/2022 5:08 PM CDT 1,000 mLs documented in this encounter Active and Recently Administered Medications Times are shown in CDT. Scheduled Medication Order 10/26/2022 10/27/2022 10/28/2022 ondansetron (ZOFRAN) injection 4 mg (COMPLETED) 4 mg, Intravenous, Once, 1 dose, On e 10/28/22 at 1615, IV push over 2-5 minutes. 1709 (Given - Provid er: Alejandra Waldron RN) sodium chloride 0.9% bolus infusion 1,000 mL (COMPLETED) 1,000 mL, Intravenous, Administer over 60 Minutes, Once, 1 dose, On Thu10/28/22 at 1615 1708 (New Bag - Prov ider: Alejandra Waldron RN)1855 (Infusion Stop Time - Provider: Alejandra Waldron RN) PRN Medication Order 10/26/2022 10/27/2022 10/28/2022 iopamidol (ISOVUE-370) 76 % injection 95 mL (COMPLETED) 95 mL, Intravenous, IMG once as needed, Contrast, 1 dose, Starting on e 10/28/22 at 1730, Until e 10/28/22 at 1730 1730 (Given - Provid er: Titus Mendez RTR) documented in this encounter Care Teams Linux Programmer Relationship Specialty Start Date End Date None, Provider, PCP - General UNKNOWN PHYSICIAN SPECIALTY 10/28/22 1 07/01/23 documented as of this encounter
--- OUTSIDE RECORDS SUMMARY | 2024-06-16 06:46 | XMS_ITS | Encounter Summary ---
Author Organization [facility] Address [address] [place] [address]. [place] [address] [place] [address] Care Team Providers Care Field Reporter Name Role Phone Unavailable Primary Care Provider Unavailabl e Encounter Details Date Type Department Care Team (Late st Contact Info) Description 07/29/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
--- OUTSIDE RECORDS SUMMARY | 2024-06-16 06:46 | XMS_ITS | Encounter Summary ---
Author Organization [facility] Address [address] [place] [address]. 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
--- OUTSIDE RECORDS SUMMARY | 2024-06-16 06:46 | XMS_ITS | Encounter Summary ---
Author Organization [facility] Address [address] [place] [address]. 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
--- OUTSIDE RECORDS SUMMARY | 2024-06-16 06:46 | XMS_ITS | Encounter Summary ---
Author Organization [facility] Address [address] [place] [address]. 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
--- OUTSIDE RECORDS SUMMARY | 2024-06-16 06:46 | XMS_ITS | Encounter Summary ---
Author Organization [facility] Address [address] [place] [address]. [place] [address] [place] [address] Care Team Providers Care Transit Planning Manager Name Role Phone Unavailable Primary Care Provider Unavailabl e Encounter Details Date Type Department Care Team (Late st Contact Info) Description 02/14/2012 Abstract [facility] [address] 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
--- OUTSIDE RECORDS SUMMARY | 2024-06-16 07:39 | XMS_ITS | Encounter Summary ---
Author Organization [facility] Address [address] [place] [address]. [place], [place] [address] [place] [address] Care Team Providers Care Speech Correction Assistant Name Role Phone None, Provider MD Primary Care Provider Unavaila ble Reason for Referral * Imaging (Urgent) - New Request Specialty Diagnoses / Procedures Referred By Contac t Referred To Contact RADIOLOGY Procedures CT CHEST WO CON Cj Maxwell DO [address] [place] [address] Phone: tel: fax: Referral ID Status Reason Start Date Expiration Date V isits Requested Visits Authorized [id number] New Request 02/26/2024 02/25/2025 1 1 * Imaging (Emergency) - New Request Specialty Diagnoses / Procedures Referred By Contac t Referred To Contact RADIOLOGY Procedures CT CERV SPINE WO CON Cj Maxwell DO [address] [place] [address] Phone: tel: fax: Referral ID Status Reason Start Date Expiration Date V isits Requested Visits Authorized [id number] New Request 02/26/2024 02/25/2025 1 1 * Imaging (Emergency) - New Request Specialty Diagnoses / Procedures Referred By Contac t Referred To Contact RADIOLOGY Procedures CT HEAD WO CON Cj Maxwell DO [address] [place] [address] Phone: tel: fax: Referral ID Status Reason Start Date Expiration Date V isits Requested Visits Authorized [id number] New Request 02/26/2024 02/25/2025 1 1 Reason for Visit * Reason Comments Fall Encounter Details Date Type Department Care Team (Late st Contact Info) Description 02/26/2024 5:08 AM CDT - 02/26/2024 6:47 AM CDT Emergency [place] [facility] [place] [address] Cj Maxwell DO [address] [place], [place] [id number] Fall Discharge Disposition: Home or Self Care [...] on file 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 Make the appointment today sothere is [...] needed for pain control. You may use zrdb-ksv-mtyyiqv naproxen(Aleve) as directed instead of ibuprofen, but be aware that ibuprofen products are taken every 6 hours as needed, and naproxen products are taken every 12 hours as needed. You also may want to consider taking an mpie-wve-pzjfyhi stomach medication while taking the ibuprofen or [...] Care Everywhere. * Concussion Discharge Instructions, Adult (Canadian) * Head injury in adults (Canadian) * Neck pain (Canadian) documented in this encounter Medications at Time [...] HEAD WO CON Final Result by User, [id number] (02/25 617) [address] [place] [id number] CT OF THE BRAIN WITHOUT CONTRAST INDICATION: [...] SPINE WO CON Final Result by User, [email or web address] (02/25 622) [address] [place] [id number] EXAMINATION: CT CERVICAL SPINE WITHOUT CONTRAST EXAM [...] CHEST WO CON Final Result by User, [id number] (02/26 636) [address] [place] [id number] EXAM: CT CHEST WO CON INDICATION: Patient [...] Neck pain, acute NECK PAIN Disposition: Discharge SEAMAN This examination was transcribed using the computerized voice recognition system without human methods engineer. In an effort to expedite patient care, this report has not been adjusted for typographical, grammatical, and syntax by a trained medical clinic manager. CJ MAXWELL DO 02/26/2024 Cj Maxwell DO [...] 6:23 AM Narrative 02/26/2024 6:35 AM CDT [address] [place] [address] EXAM: CT CHEST WO CON INDICATION: Patient [...] Procedure Note Konstantin Peña MD - 02/26/2024 [place] [id number] [facility] [place] [id number] EXAM: CT CHEST WO CON INDICATION: Patient [...] OF THECHEST. Referred By: Interpreted By: Konstantin Peañ MD, 02/26/2024 6:23 AM Cj Maxwell DO [...] 6:17 AM Narrative 02/26/2024 6:21 AM CDT [address] [place] [id number] EXAMINATION: CT CERVICAL SPINE WITHOUT CONTRAST EXAM [...] Procedure Note Konstantin Peña MD - 02/26/[address] [place] [id number] EXAMINATION: CT CERVICAL SPINE WITHOUT CONTRAST EXAM [...] 6:13 AM Narrative 02/26/2024 6:16 AM CDT [address] [place] [address] CT OF THE BRAIN WITHOUT CONTRAST INDICATION: [...] Procedure Note Konstantin Peña MD - 02/26/[address] [place] [address] CT OF THE BRAIN WITHOUT CONTRAST INDICATION: [...] RN) documented in this encounter Care Teams Speech Correction Assistant Relationship Specialty Start Date End Date None, Provider, PCP - General UNKNOWN PHYSICIAN SPECIALTY 5/16/23 1 07/01/23 documented as of this encounter
--- OUTSIDE RECORDS SUMMARY | 2024-06-16 07:39 | XMS_ITS | Clinical Summary ---
Author Organization [facility] Address [address] [place] [address]. [place] [address] [place] [address] Care Team Providers Care Insurance Solicitor Name Role Phone Audrey Flowers MD Primary Care Provider +1- [phone] Allergies No known active allergies Medications methadone (DOLOPHINE) 10 MG tablet Take 1 tablet (10 mg total) by mouth every 6 (six) hours as needed for Pain. Active ondansetron (ZOFRAN) 4 MG tablet Take 1 tablet (4 mg total) by mouth every 8 (eight) hours as needed for Nausea. 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 FOREMAN Gender Identity Not on file Sexual Orientation Not on file Last Filed Vital Signs Vital Sign Reading Time Taken Comments Blood Pressure 155/89 05/05/2024 4:08 PM DRYWALL FOREMAN Pulse 76 05/05/2024 4:08 PM DRYWALL FOREMAN Temperature 36.6 ??C (97.8 ??F) 05/05/2024 4:08 PM CS T Respiratory Rate 18 05/05/2024 4:08 PM DRYWALL FOREMAN Oxygen Saturation 90% 05/05/2024 4:30 PM DRYWALL FOREMAN Inhaled Oxygen Concentration - - Weight 65.4 kg (144 lb 4 oz) 05/05/2024 4:08 PM DRYWALL FOREMAN Height 175.3 cm (5' 9 ) 05/05/2024 4:08 PM DRYWALL FOREMAN Body Mass Index 21.3 05/05/2024 4:08 PM DRYWALL FOREMAN Plan of Treatment Health Maintenance Due Date [...] CORONAVIRUS (COVID-19) ANTIGEN STAT 05/05/2024 4:26 PM DRYWALL FOREMAN from Last 3 Months Results * CORONAVIRUS (COVID-19) ANTIGEN (05/05/2024 4:26 PM DRYWALL FOREMAN) CORONAVIRUS ANTIGEN IA NEGATIVE NEGATIVE 05/05/2024 4:51 PM DRYWALL FOREMAN [facility] Comment: NEGATIVE RESULTS DO NOT RULE [...] LABORATORIES. SPECIMEN TYPE NASAL 05/05/2024 4:26 PM DRYWALL FOREMAN [facility] NASAL NASAL STRUCTURE / Unknown 05/05/2024 4:26 PM DRYWALL FOREMAN us Raissa Pacheco MD MICROBIOLOGY - GENERAL TANG HOFF Final Result [facility] [address] [place] [address], from Last [address] [place] [address] [place] [address] C/O PROVIDER SERVICES DAMIAN CHÁVEZ [id number] Care Teams Insurance Solicitor Relationship Specialty Start Date End Date Audrey Flowers MD [address] [place] [phone] PCP - General FAMILY PRACTICE 05/02/24
--- OUTSIDE RECORDS SUMMARY | 2024-06-16 07:39 | XMS_ITS | Encounter Summary ---
Author Organization [facility] Address [address] [place] [address]. [place], [place] [address] [place] [address] Care Team Providers Care Forming Process Worker Name Role Phone Audrey Flowers MD Primary Care Provider +1- [phone] Reason for Visit * Reason Comments Flu Like Symptoms Covid positive Encounter Details Date Type Department Care Team (Late st Contact Info) Description 05/05/2024 4:05 PM COMPANY MANAGER - 05/05/2024 5:02 PM COMPANY MANAGER Emergency [place] [facility] [facility] [place] [address] Raissa Pacheco MD [address] [place] [id number] Flu Like Symptoms (Covid positive ) Discharge [...] on file Legal Sex Male 5:46 PM COMPANY MANAGER Gender Identity Not on file Sexual Orientation Not on file documented as of this encounter Last Filed Vital Signs Vital Sign Reading Time Taken Comments Blood Pressure 155/89 05/05/2024 4:08 PM COMPANY MANAGER Pulse 76 05/05/2024 4:08 PM COMPANY MANAGER Temperature 36.6 ??C (97.8 ??F) 05/05/2024 4:08 PM CS T Respiratory Rate 18 05/05/2024 4:08 PM COMPANY MANAGER Oxygen Saturation 90% 05/05/2024 4:30 PM COMPANY MANAGER Inhaled Oxygen Concentration - - Weight 65.4 kg (144 lb 4 oz) 05/05/2024 4:08 PM COMPANY MANAGER Height 175.3 cm (5' 9 ) 05/05/2024 4:08 PM COMPANY MANAGER Body Mass Index 21.3 05/05/2024 4:08 PM COMPANY MANAGER documented in this encounter Discharge Instructions * Discharge Instructions* Raissa Pacheco MD - 05/05/2024 4:58 PM COMPANY MANAGER Upper respiratory infection, viral syndrome Take medications as previously prescribed for you today Tylenol or ibuprofen for fever Return to emergency room for worsening cough, difficulty breathing, uncontrolled fever, vomiting orother concerns. ANY MANAGER * Attachments The following attachments cannot be sent through Care Everywhere. * Viral Upper Respiratory Infection Discharge Instructions, Adult (Romanian) documented in this encounter Medications at Time [...] any questions or concerns at this time. ANY MANAGER * Raissa Pacheco MD - 05/05/2024 4:38 [...] Past Medical History: Diagnosis Date ??? 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 Back pain ??? Low blood pressure [...] resent after discussion. This has been resent. [facility] and previous ER visits have been reviewed. [...] Data Unavailable Raissa Pacheco MD 05/05/24 1641 ANY MANAGER documented in this encounter Plan of Treatment Not on file documented as of this encounter Procedures Procedure Name Priority Date/Time Associated Diagnosis Comments CORONAVIRUS (COVID-19) ANTIGEN STAT 05/05/2024 4:26 PM COMPANY MANAGER documented in this encounter Results * CORONAVIRUS (COVID-19) ANTIGEN (05/05/2024 4:26 PM COMPANY MANAGER) CORONAVIRUS ANTIGEN IA NEGATIVE NEGATIVE 05/05/2024 4:51 PM COMPANY MANAGER [facility] Comment: NEGATIVE RESULTS DO [...] LABORATORIES. SPECIMEN TYPE NASAL 05/05/2024 4:26 PM COMPANY MANAGER [facility] NASAL NASAL STRUCTURE / Unknown 05/05/2024 4:26 PM COMPANY MANAGER Raissa Pacheco MD MICROBIOLOGY - [facility] Final Result [facility] [place] [address], documented in this encounter Visit Diagnoses Diagnosis Upper respiratory infection- Primary Acute upper respiratory infections of unspecified site Viral syndrome Unspecified viral infection, in conditions classified elsewhere and of unspecified site documented in this encounter Additional Health Concerns Infection Onset Date Last Indicated Resolved Time COVID-19 Rule Out 05/05/2024 05/05/2024 05/05/2024 4:51 PM COMPANY MANAGER documented as of this encounter Care Teams Forming Process Worker Relationship Specialty Start Date End Date Adurey Flowers MD [address] [place], [place] [phone] PCP - General FAMILY PRACTICE 05/02/24 documented as of this encounter
--- OUTSIDE RECORDS SUMMARY | 2024-06-16 07:39 | XMS_ITS | Encounter Summary ---
Author Organization [facility] Address [address] [place] [address]. 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
--- OUTSIDE RECORDS SUMMARY | 2024-06-16 07:39 | XMS_ITS | Encounter Summary ---
Author Organization [facility] Address [address] [place] [address]. 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 Gender Identity Not on file Sexual Orientation Not on file documented as of this encounter Plan of Treatment Not on file documented as of this encounter Visit Diagnoses Not on filedocumented in this encounter Additional Health Concerns Infection Onset Date Last Indicated Resolved Time COVID-19 Rule Out 05/05/2024 05/05/2024 05/05/2024 4:51 PM YARN WRAPPER documented as of this encounter Care Teams Oil Prospecting Observer Relationship Specialty Start Date End Date Audrey Flowers MD [address] [place] [phone] PCP - General FAMILY PRACTICE 05/02/24 documented as of this encounter
--- OUTSIDE RECORDS SUMMARY | 2024-06-16 07:40 | XMS_ITS | Encounter Summary ---
Author Organization [facility] Address [address] [place] [address]. [place], [place] [address] [place] [address] Care Team Providers Care Supervisor Hardboard Name Role Phone None, Provider Primary Care Provider Unavaila ble Reason for Referral * Imaging (Emergency) - Closed Specialty Diagnoses / Procedures Referred By Romina martinez Referred To Contact RADIOLOGY Procedures CT ABD+PEL W IV CON ONLY Benny Hoyos DO Phone: tel: fax: Referral ID Status Reason Start Date Expiration Date Visits Re quested Visits Authorized [id number] Closed 12/24/2022 12/25/2023 1 1 * Imaging (Emergency) - Closed Specialty Diagnoses / Procedures Referred By Romina martinez Referred To Contact RADIOLOGY Procedures CT HEAD WO CON Benny Hoyos DO Phone: tel: fax: Referral ID Status Reason Start Date Expiration Date Visits Re quested Visits Authorized [id number] Closed 12/24/2022 12/25/2023 1 1 Reason for Visit * Reason Comments Medical Problem Encounter Details Date Type Department Care Team (Late st Contact Info) Description 12/24/2022 3:41 AM CDT - 12/24/2022 9:00 AM CDT [facility] [address] [place] [address] [place] [address] Benny Hoyos DO [address] [place] [id number] Medical Problem Discharge Disposition: Home or Self Care (Routine Discharge) Social History Tobacco Use Types Packs/Day Years Used Date Smoking Tobacco: Never Assessed Sex and Gender Information Value Date Recorded Sex Assigned at Not on file 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 * Chronic Pancreatitis Discharge Instructions (Cymro) * Alcohol Use Disorder Discharge Instructions (Cymro) documented in this encounter Medications at Time [...] encounter of 12/24/22 ECG 12 lead Narrative [address] [place] [address] Test Date: 2022-12-24 Pat Name: ROSITA WHITE Department: 3 Room: [place] [address] Gender: Male Label Folder: EDSFL : 1960 Requested By: BENNY HOYOS Order Number: [id number] Reading MD: Measurements Intervals [place] Rate: 67 P: 75 AR: 132 QRS: 41 QRSD: 91 T: 71 [...] IV CON ONLY Final Result by User, [email or web address] (12/24 516) HISTORY: Nausea and vomiting. Acute [...] XR CHEST PORTABLE Final Result by User, [id number] (12/24 7220) CLINICAL HISTORY: Syncope COMPARISON: 02/14/2012 TECHNIQUE: AP Portable View, 2 images submitted FINDINGS: Lungs are clear. No pneumothorax or pleural effusions evident. The cardiac silhouette, mediastinal contours, and pulmonary vessels appear within normal limits. No acute osseous abnormality. IMPRESSION: No acute findings. Referred By: Interpreted By: Karlos Lawson, 12/24/2022 4:[address] HEAD WO CON Final Result by User, [email or web address] (12/24 8747) CLINICAL HISTORY: Syncope, altered mental status of [...] [RT] 0428 ECG 12 lead Rate 67. AR 132. QRS 91. QTc 433. Normal sinus [...] CDT Patient presents to the ER via [facility] with complaints of generalized weakness, [...] AM CDT) 12/24/2022 4:26 AM CDT Narrative [facility] - 12/24/2022 11:46 AM CDT ? [facility] ?[address] [place], [place] ??[address] ? Test Date: ?2022-12-24 Pat Name: ? ROSITA WHITE ?Department: ?? 3 ? Room: ? EXAM 505 Gender: ? Male ? Label Folder: ?? EDSFL : ?1960 ? Requested By: BENNY HOYOS Order Number: [id number] ? Reading : ?? Flavio Howard ? Measurements Intervals ?[place] ? Rate: ? 67 ? P: ?75 AR: ? 132 ?QRS: ?41 QRSD: ? 91 ? T: ?71 QT: ? 418 ? QTc: ?442 ? Interpretive Statements SINUS RHYTHM SEPTAL MYOCARDIAL INFARCTION , PROBABLY OLD Procedure Note Flavio Howard MD - 12/24/2022 [facility] [address] [place] [address] Test Date: 2022-12-24 Pat Name: ROSITA WHITE Department: 3 Room: EXAM 505 Gender: Male Label Folder: EDSFL : 1960 Requested By: BENNY HOYOS Order Number: [id number] Reading MD: Flavio Howard Measurements Intervals [place] Rate: 67 P: 75 AR: 132 QRS: 41 QRSD: 91 T: 71 QT: 418 QTc: 442 Interpretive Statements SINUS RHYTHM SEPTAL MYOCARDIAL INFARCTION , PROBABLY OLD us Benny Hoyos DO ECG ORDERABLES Final Re sult [facility] * XR CHEST PORTABLE [...] acute findings. Referred By: Interpreted By: Karlos Laswon, 12/24/2022 4:33 AM us Benny Hoyos DO [...] - 2.0 MMOL/L 12/24/2022 4:37 AM CDT [facility] 12/24/2022 4:10 AM CDT us Bennykb Hoyos DO LABORATORY Final Re sult [facility] [address] [place] [address], * (ABNORMAL) ETHANOL (12/24/2022 4:10 AM CDT) ALCOHOL S/P/B 0.245(H) <0.003 G/DL 12/24/2022 4:41 AM CDT [facility] 12/24/2022 4:10 AM CDT Benny Hoyos DO LABORATORY Final Re sult Performing Organization Address [facility] Co de Phone Number [facility] [address] [place] [address], [place] [phone] * (ABNORMAL) LIPASE (12/24/2022 4:10 AM CDT) LIPASE 429(H) 16 - 77 UNITS/L 12/24/2022 4:41 AM CDT [facility] 12/24/2022 4:10 AM CDT Benny Hoyos DO LABORATORY Final Re sult Performing Organization Address [facility] Co de Phone Number [facility] [address] [place] [address], [place] [phone] * TROPONIN, QUANT (12/24/2022 4:10 AM CDT) TROPONIN I HIGH SENSITIVITY 7 0 - 76 ng/L 12/24/2022 4:41 AM CDT [facility] 12/24/2022 4:10 AM CDT Benny Yasmine Hoyos DO LABORATORY Final Re sult Performing Organization Address [facility] Co de Phone Number [facility] [address] [place] [address], [place] [phone] * (ABNORMAL) COMPREHENSIVE METABOLIC PANEL (12/24/2022 4:10 AM CDT) SODIUM S/P/B 146(H) 136 - 145 MMOL/L 12/24/2022 4:41 AM CDT [facility] POTASSIUM S/P/B 3.7 3.5 - 5.1 MMOL/L 12/24/2022 4:41 AM CDT [facility] CHLORIDE S/P/B 109(H) 98 - 107 MMOL/L 12/24/2022 4:41 AM [facility] CO2 28.2 21.0 - 32.0 MMOL/L 12/24/2022 4:41 AM [facility] GLUCOSE 95 70 - 99 MG/DL 12/24/2022 4:41 AM [facility] Comment: MILD LIPEMIA. RESULT MAY BE AFFECTED. FASTING GLUCOSE 100 TO 125 MG/DL IS CONSISTENT WITH IMPAIRED FASTING GLUCOSE. FASTING GLUCOSE >125 MG/DL IS CONSISTENT WITH DIABETES. RANDOM GLUCOSE >200 MG/DL WITH HYPERGLYCEMIC SYMPTOMS IS CONSISTENT WITH DIABETES. PER ADA GUIDELINES BUN 9 6 - 24 MG/DL 12/24/2022 4:41 AM [facility] CREATININE S/P/B 0.85 0.70 - 1.30 MG/DL 12/24/2022 4:41 AM [facility] CALCIUM S/P/B 8.6 8.4 - 10.5 MG/DL 12/24/2022 4:41 AM [facility] BILIRUBIN TOTAL S/P/B 0.3 0.2 - 1.0 MG/DL 12/24/2022 4:41 AM [facility] Comment: THIS ASSAY IS NOT RECOMMENDED FOR PATIENTS UNDERGOING TREATMENT WITH ELTROMBOPAG DUE TO THE POTENTIAL FOR FALSELY ELEVATED RESULTS. ALKALINE PHOSPHATASE S/P/B 124(H) 45 - 115 U/L 12/24/2022 4:41 AM [facility] AST 22 15 - 37 U/L 12/24/2022 4:41 AM [facility] ALT 19 16 - 63 U/L 12/24/2022 4:41 AM [facility] TOTAL PROTEIN S/P/B 8.6(H) 6.4 - 8.2 G/DL 12/24/2022 4:41 AM [facility] ALBUMIN S/P/B 3.6 3.4 - 5.0 G/DL 12/24/2022 4:41 AM [facility] ANION GAP 8.8 5.0 - 15.0 MMOL/L 12/24/2022 4:41 AM CDT [facility] OSMOLALITY (CALC) 300 MOSM/KG 023 4:41 AM CDT [facility] Comment:REFERENCE RANGE NOT ESTABLISHED GFR ESTIMATE >90 >89 ML/MIN/1. 73 M2 12/24/2022 4:41 AM CDT [facility] GFR NOTES GFR REFERENCE S: 12/24/2022 4:41 AM CDT [facility] Comment: THE ESTIMATED GFR IS CALCULATED [...] Benny Hoyos DO LABORATORY Final Re sult [facility] [address] [place] [address], * (ABNORMAL) CBC W/DIFF AUTOMATED (12/24/2022 4:10 AM CDT) WBC 3.34(L) 4.00 - 10.80 x10'3/uL 12/24/2022 4:18 AM CDT [facility] RBC 4.81 4.50 - 6.10 x10'6/uL 12/24/2022 4:18 AM CDT [facility] HGB 13.7 13.0 - 18.0 G/DL 12/24/2022 4:18 AM CDT [facility] HCT 42.1 37.0 - 52.0 % 12/24/2022 4:18 AM CDT [facility] MCV 87.5 78.0 - 100.0 FL 12/24/2022 4:18 AM CDT [facility] MCH 28.5 27.0 - 31.0 PG 12/24/2022 4:18 AM CDT [facility] MCHC 32.5(L) 33.0 - 36.0 G/DL 12/24/2022 4:18 AM CDT [facility] RDW 15.4(H) 11.5 - 14.5 % 12/24/2022 4:18 AM CDT [facility] PLT 229 150 - 350 x10'3/uL 12/24/2022 4:18 AM CDT [facility] MPV 9.6 7.4 - 10.4 FL 12/24/2022 4:18 AM CDT [facility] CBC COMMENT NORMAL REFERENCE RANGE NOT ESTABLISHED FOR THE PROPORTIONAL LEUKOCYTE DIFFERENTIAL. 12/24/2022 4:18 AM CDT [facility] NEUTROPHILS % 37.4 % 12/24/2022 4:18 AM CDT [facility] LYMPHOCYTES % 47.9 % 12/24/2022 4:18 AM CDT [facility] MONOCYTES % 12.3 % 12/24/2022 4:18 AM CDT [facility] EOSINOPHILS % 1.5 % 12/24/2022 4:18 AM CDT [facility] BASOPHILS % 0.9 % 12/24/2022 4:18 AM CDT [facility] IMMATURE GRANS % 0.0 % 12/25/19 4:18 AM CDT [facility] NRBC 0.0 % 12/24/2022 4:18 AM CDT [facility] ABS. NEUTROPHILS 1.25(L) 1.60 - 8.30 x10'3/uL 12/24/2022 4:18 AM CDT [facility] ABS. LYMPHOCYTES 1.60 0.80 - 4.70 x10'3/uL 12/24/2022 4:18 AM CDT [facility] ABS. MONOCYTES 0.41 0.00 - 1.50 x10'3/uL 12/24/2022 4:18 AM CDT [facility] ABS. EOSINOPHILS 0.05 0.00 - 0.40 x10'3/uL 12/24/2022 4:18 AM CDT [facility] ABS. BASOPHILS 0.03 0.00 - 0.20 x10'3/uL 12/24/2022 4:18 AM CDT [facility] ABS. IMMATURE GRANULOCYTES 0.00 0.00 - 0.03 x10'3/uL 12/24/2022 4:18 AM CDT [facility] ABS. NUCLEATED RBC'S 0.00 0.00 x10'3/uL 12/24/2022 4:18 AM CDT [facility] 12/24/2022 4:10 AM CDT us Benny Hoyos DO LABORATORY Final Re sult [facility] [address] [place] [address], * (ABNORMAL) URINALYSIS (12/24/2022 3:54 AM CDT) COLOR (U) YELLOW 12/24/2022 4:28 AM CDT [facility] TRANSPARENCY CLEAR 12/24/2022 4:28 AM CDT [facility] SPECIFIC GRAVITY (U) 1.010 1.000 - 1.025 12/24/2022 4:28 AM CDT [facility] U PH 5.5 5.0 - 8.0 12/24/2022 4:28 AM CDT [facility] LEUKOCYTES (U) NEGATIVE NEGATIVE 12/24/2022 4:28 AM CDT [facility] NITRITES NEGATIVE NEGATIVE 12/24/2022 4:28 AM CDT [facility] PROTEIN (U) NEGATIVE NEGATIVE 12/24/2022 4:28 AM CDT [facility] GLUCOSE (U) NEGATIVE NEGATIVE 12/24/2022 4:28 AM CDT [facility] KETONES MG/DL (U) NEGATIVE NEGATIVE 12/24/2022 4:28 AM CDT [facility] UROBILINOGEN 0.2 <1.0 EU/DL 12/24/2022 4:28 AM CDT [facility] BILIRUBIN (U) NEGATIVE NEGATIVE 12/24/2022 4:28 AM CDT [facility] BLOOD (U) NEGATIVE NEGATIVE 12/24/2022 4:28 AM CDT [facility] WBC/HPF NONE SEEN(A) 0 - 5 /HPF 12/24/2022 4:28 AM CDT [facility] RBC/HPF NONE SEEN(A) 0 - 5 /HPF 12/24/2022 4:28 AM CDT [facility] EPI/LPF NONE SEEN /LPF 12/24/2022 4:28 AM CDT [facility] BACTERIA (U) TRACE /HPF 12/24/2022 4:28 AM CDT [facility] REFLEX URINE CULTURE: NOT INDICATED 12/24/2022 4:28 AM CDT [facility] URINE SPECIMEN OBTAINED BY CLEAN CATCH PROCEDURE / Unknown 12/24/2022 3:54 AM CDT us Benny Hoyos DO URINE ORDERABLES Final R esult [facility] [address] [place] [address], documented in this encounter Visit Diagnoses Diagnosis [...] RTR) documented in this encounter Care Teams Supervisor Hardboard Relationship Specialty Start Date End Date None, Provider, PCP - General UNKNOWN PHYSICIAN SPECIALTY 10/28/22 1 07/01/23 documented as of this encounter
--- OUTSIDE RECORDS SUMMARY | 2024-06-16 07:40 | XMS_ITS | Encounter Summary ---
Author Organization [facility] Address [address] [place] [address]. 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 * Alcohol Use Disorder ED (Moroccan) documented in this encounter Medications at Time [...] of Diagnoses or Management Options Alcohol intoxication ([facility]): new and requires workup Personality disorder ([facility]): new and requires workup Polysubstance abuse ([facility]): new and requires workup Diagnosis management comments: [...] to display SNOMED CT(R) 1. Polysubstance abuse ([facility] HHS/[facility]) POLYSUBSTANCE ABUSE 2. Alcohol intoxication ([facility]) ALCOHOL INTOXICATION 3. Personality disorder ([facility]) PERSONALITY DISORDER Current Discharge Medication List START taking these medications Details diphenhydrAMINE (BENADRYL) 25 MG tablet Take 2 tablets (50 mg total) by mouth nightly as needed forItching. Qty: 15 tablet, Refills: 0 Class: Eprescribe Pharmacy: [id number] - [facility] [address] [facility] [address] (Ph #: [phone]) Disposition: Discharge Follow-Up: [facility] [address] [facility] [address] [place] [address] If symptoms worsen Dodie Ferris MD 10/16/2023 [...] neighbor, he states he was seen at [facility] where he was kicked out due [...] (U) NEGATIVE NEGATIVE 10/16/2023 12:17 AM CDT [facility] PHENCYCLIDINE PCP (U) NEGATIVE NEGATIVE 10/16/2023 12:17 AM CDT [facility] COCAINE METABOLITES (U) NEGATIVE NEGATIVE 10/16/2023 12:17 AM CDT [facility] METHAMPHETAMINE SCREEN (U) NEGATIVE NEGATIVE 10/16/2023 12:17 AM CDT [facility] OPIATE SCREEN (U) POSITIVE(A) NEGATIVE 2023 12:17 AM CDT [facility] AMPHETAMINE SCREEN (U) NEGATIVE NEGATIVE 10/16/2023 12:17 AM CDT [facility] BENZODIAZEPINES SCREEN (U) NEGATIVE NEGATIVE 10/16/2023 12:17 AM CDT [facility] TRICYCLIC ANTIDEPRESSANT SCREEN (U) NEGATIVE NEGATIVE 10/16/2023 12:17 AM CDT [facility] METHADONE (U) POSITIVE(A) NEGATIVE 10/16/2023 12:17 AM CDT [facility] BARBITURATES SCREEN (U) NEGATIVE NEGATIVE 10/16/2023 12:17 AM CDT [facility] OXYCODONE SCREEN (U) NEGATIVE NEGATIVE 10/16/2023 12:17 AM CDT [facility] URINE TOX COMMENT THIS TEST METHODOLOGY IS DESIGNED AND OFFERED A RAPID TURNAROUND, QUALITATIVE SCREENING PROCEDURE TO AID IN THE IMMEDIATE MEDICAL ASSESSMENT OF PATIENTS SUSPECTED OF SUBSTANCE ABUSE. 10/15/2023 11:53 PM CDT [facility] Comment: CLINICAL CONSIDERATION AND PROFESSIONAL JUDGMENT MUST BE APPLIED TO ANY DRUG OF ABUSE TEST RESULT, BOTH POSITIVE AND NEGATIVE. CONFIRMATORY QUANTITATIVE RESULTS ARE AVAILABLE THROUGH OUR [facility]. URINE SPECIMEN / Unknown 10/15/2023 11:00 PM CDT us Dodie Ferris MD URINE ORDERABLES Final Result [facility] [address] [place] [address], documented in this encounter Visit Diagnoses Diagnosis Polysubstance abuse ([facility])- Primary Other, mixed, or unspecified nondependent drug abuse, unspecified Alcohol intoxication ([facility]) Alcohol abuse, unspecified Personality disorder ([facility]) Unspecified personality disorder documented in this encounter Care Teams Utilization Management Manager Relationship Specialty Start Date End Date None, Provider, PCP - General UNKNOWN PHYSICIAN SPECIALTY 10/28/22 1 07/01/23 documented as of this encounter
--- OUTSIDE RECORDS SUMMARY | 2024-06-16 07:40 | XMS_ITS | Encounter Summary ---
Author Organization [facility] Address [facility] 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
--- OUTSIDE RECORDS SUMMARY | 2024-06-16 07:40 | XMS_ITS | Encounter Summary ---
Author Organization [facility] Address [address] [place] [address]. 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
--- OUTSIDE RECORDS SUMMARY | 2024-06-16 07:40 | XMS_ITS | Encounter Summary ---
Author Organization [facility] Address [address] [place] [address]. [place] [address] [place] [address] Care Team Providers Care Master Cook Name Role Phone Unavailable Primary Care Provider Unavailabl e Encounter Details Date Type Department Care Team (Late st Contact Info) Description 07/29/[address] 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
--- OUTSIDE RECORDS SUMMARY | 2024-06-16 07:40 | XMS_ITS | Encounter Summary ---
Author Organization [facility] Address [address] [place] [address]. [place] [address] [place] [address] Care Team Providers Care Supervisor Of Instruction Name Role Phone Unavailable Primary Care Provider Unavailabl e Encounter Details Date Type Department Care Team (Late st Contact Info) Description 04/13/[address] 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
--- OUTSIDE RECORDS SUMMARY | 2024-06-16 07:40 | XMS_ITS | Encounter Summary ---
Author Organization [facility] Address [address] [place] [address]. 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
--- OUTSIDE RECORDS SUMMARY | 2024-06-16 07:40 | XMS_ITS | Encounter Summary ---
Author Organization [facility] Address [address] [place] [address]. 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
--- OUTSIDE RECORDS SUMMARY | 2024-06-16 07:40 | XMS_ITS | Encounter Summary ---
Author Organization [facility] Address [address] [place] [address]. 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
--- OUTSIDE RECORDS SUMMARY | 2024-06-16 07:40 | XMS_ITS | Encounter Summary ---
Author Organization [facility] Address [address] [place] [address]. [place] [address] [place] [address] Care Team Providers Care Housekeeper Child Care Name Role Phone None, Provider MD Primary Care Provider Unavaila ble Reason for Referral * Imaging (Urgent) - Closed Specialty Diagnoses / Procedures Referred By Romina martinez Referred To Contact RADIOLOGY Procedures CT CHEST+ABD+PEL W CON CTA CHEST+ABD+PEL Raissa Pacheco MD Phone: tel: fax: Referral ID Status Reason Start Date Expiration Date Visits Re quested Visits Authorized [id number] Closed 10/28/2022 10/29/2023 1 1 Reason for Visit * Reason Comments Weakness Encounter Details Date Type Department Care Team (Late st Contact Info) Description 10/28/2022 3:54 PM CDT - 10/28/2022 7:45 PM CDT Emergency [facility] [address] [place] [address] [place] [address] Raissa Pacheco MD [address] [place], [place] [id number] Weakness Discharge Disposition: Home or Self Care (Routine Discharge) Social History Tobacco Use Types Packs/Day Years Used Date Smoking Tobacco: Never Assessed Sex and Gender Information Value Date Recorded Sex Assigned at Not on file 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 Galan or [facility]. Call tomorrow to schedule appointment. Need follow-up for pancreatic calcifications seen on CT. Please let them know that you are an ER follow-up appointment. Return to emergency room for worsening pain, vomiting, dizziness, fever or other concerns. * Attachments The following attachments cannot be sent through Care Everywhere. * Generalized Weakness (Belarusian) documented in this encounter ED Notes * [...] CHEST+ABD+PEL W CON Final Result by User, [id number] (10/28 1801) EXAMINATION: CT Chest, Abdomen and [...] discussed with him [facility] his [...] URINE CLEAN CATCH 10/28/2022 5:23 PM CDT [facility] SPECIAL REQUESTS NO SPECIAL REQUEST 10/28/2022 5:23 PM CDT [facility] CULTURE RESULT NO GROWTH (< OR = 1,000 CFU/ML) 10/30/2022 9:35 AM CDT [facility] URINE SPECIMEN OBTAINED BY CLEAN CATCH PROCEDURE / Unknown 10/28/2022 5:19 PM CDT 10/28/2022 5:27 PM CDT Raissa Pacheco MD MICROBIOLOGY - GENERAL TANG OHFF Final Result [facility] [address] [place] [address], [place] [phone] [id number] [facility] [address] [place] [address], [place] [phone] * URINALYSIS (10/28/2022 5:19 PM CDT) COLOR (U) YELLOW 10/28/2022 6:30 PM CDT [facility] TRANSPARENCY CLEAR 10/28/2022 6:30 PM CDT [facility] SPECIFIC GRAVITY (U) 1.010 1.000 - 1.025 10/28/2022 6:30 PM CDT [facility] U PH 6.5 5.0 - 8.0 10/28/2022 6:30 PM CDT [facility] LEUKOCYTES (U) NEGATIVE NEGATIVE 10/28/2022 6:30 PM CDT [facility] NITRITES NEGATIVE NEGATIVE 10/28/2022 6:30 PM CDT [facility] PROTEIN (U) NEGATIVE NEGATIVE 10/28/2022 6:30 PM CDT [facility] URINE GLUCOSE NEGATIVE NEGATIVE 10/28/2022 6:30 PM CDT [facility] KETONES MG/DL (U) NEGATIVE NEGATIVE 10/28/2022 6:30 PM CDT [facility] UROBILINOGEN 0.2 <1.0 EU/DL 10/28/2022 6:30 PM CDT [facility] BILIRUBIN (U) NEGATIVE NEGATIVE 10/28/2022 6:30 PM CDT [facility] BLOOD (U) NEGATIVE NEGATIVE 10/28/2022 6:30 PM CDT [facility] WBC/HPF 0-5 0 - 5 /HPF 10/28/2022 6:30 PM CDT [facility] RBC/HPF 0-5 0 - 5 /HPF 10/28/2022 6:30 PM CDT [facility] EPI/LPF RARE /LPF 10/28/2022 6:30 PM CDT [facility] BACTERIA (U) TRACE /HPF 10/28/2022 6:30 PM CDT [facility] URINE SPECIMEN OBTAINED BY CLEAN CATCH PROCEDURE / Unknown 10/28/2022 5:19 PM CDT us Raissa Pacheco MD URINE ORDERABLES Final Resu lt Performing Organization Address [facility]/ZIP Co de Phone Number [facility] [address] [place] [address], * (ABNORMAL) MAGNESIUM (10/28/2022 4:39 PM CDT) MAGNESIUM 1.7(L) 1.8 - 2.4 MG/DL 10/28/2022 5:27 PM CDT [facility] 10/28/2022 4:39 PM CDT us Raisas Pacheco MD LABORATORY Final Resul t Performing Organization Address [facility] de Phone Number [facility] [address] [place] [address], * (ABNORMAL) LIPASE (10/28/2022 4:39 PM CDT) LIPASE 15(L) 16 - 77 UNITS/L 10/28/2022 5:27 PM CDT [facility] 10/28/2022 4:39 PM CDT us Raissa Pacheco MD LABORATORY Final Resul t Performing Organization Address [facility] de Phone Number [facility] [address] [place] [place] [address], * (ABNORMAL) COMPREHENSIVE METABOLIC PANEL (10/28/2022 4:39 PM CDT) SODIUM S/P/B 138 136 - 145 MMOL/L 10/28/2022 5:27 PM CDT [facility] POTASSIUM S/P/B 4.0 3.5 - 5.1 MMOL/L 10/28/2022 5:27 PM CDT [facility] CHLORIDE S/P/B 103 98 - 107 MMOL/L 10/28/2022 5:27 PM CDT [facility] CO2 28.8 21.0 - 32.0 MMOL/L 10/28/2022 5:27 PM CDT [facility] GLUCOSE 96 70 - 99 MG/DL 10/28/2022 5:27 PM CDT [facility] Comment: MILD LIPEMIA. RESULT MAY BE AFFECTED. FASTING GLUCOSE 100 TO 125 MG/DL IS CONSISTENT WITH IMPAIRED FASTING GLUCOSE. FASTING GLUCOSE >125 MG/DL IS CONSISTENT WITH DIABETES. RANDOM GLUCOSE >200 MG/DL WITH HYPERGLYCEMIC SYMPTOMS IS CONSISTENT WITH DIABETES. PER ADA GUIDELINES BUN 10 6 - 24 MG/DL 10/28/2022 5:27 PM CDT [facility] CREATININE S/P/B 1.00 0.70 - 1.30 MG/DL 10/28/2022 5:27 PM CDT [facility] CALCIUM S/P/B 9.3 8.4 - 10.5 MG/DL 10/28/2022 5:27 PM CDT [facility] BILIRUBIN TOTAL S/P/B 0.4 0.2 - 1.0 MG/DL 10/28/2022 5:27 PM CDT [facility] Comment: THIS ASSAY IS NOT RECOMMENDED FOR PATIENTS UNDERGOING TREATMENT WITH ELTROMBOPAG DUE TO THE POTENTIAL FOR FALSELY ELEVATED RESULTS. ALKALINE PHOSPHATASE S/P/B 128(H) 45 - 115 U/L 10/28/2022 5:27 PM CDT [facility] AST 18 15 - 37 U/L 10/28/2022 5:27 PM CDT [facility] ALT 21 16 - 63 U/L 10/28/2022 5:27 PM CDT [facility] TOTAL PROTEIN S/P/B 8.3(H) 6.4 - 8.2 G/DL 10/28/2022 5:27 PM CDT [facility] ALBUMIN S/P/B 3.6 3.4 - 5.0 G/DL 10/28/2022 5:27 PM CDT [facility] ANION GAP 6.2 5.0 - 15.0 MMOL/L 10/28/2022 5:27 PM CDT [facility] OSMOLALITY (CALC) 285 MOSM/KG 023 5:27 PM CDT [facility] Comment:REFERENCE RANGE NOT ESTABLISHED GFR ESTIMATE 86(L) >89 ML/MIN/1. 73 M2 10/28/2022 5:27 PM CDT [facility] GFR NOTES GFR REFERENCE S: 10/28/2022 5:27 PM CDT [facility] Comment: THE ESTIMATED GFR [...] Raissa Pacheco MD LABORATORY Final Resul t [facility] [address] [address], * (ABNORMAL) CBC W/DIFF AUTOMATED (10/28/2022 4:39 PM CDT) WBC 3.47(L) 4.00 - 10.80 x10'3/uL 10/28/2022 4:50 PM CDT [facility] RBC 4.91 4.50 - 6.10 x10'6/uL 10/28/2022 4:50 PM CDT [facility] HGB 14.0 13.0 - 18.0 G/DL 10/28/2022 4:50 PM CDT [facility] HCT 43.0 37.0 - 52.0 % 10/28/2022 4:50 PM CDT [facility] MCV 87.6 78.0 - 100.0 FL 10/28/2022 4:50 PM CDT [facility] MCH 28.5 27.0 - 31.0 PG 10/28/2022 4:50 PM CDT [facility] MCHC 32.6(L) 33.0 - 36.0 G/DL 10/28/2022 4:50 PM CDT [facility] RDW 14.3 11.5 - 14.5 % 10/28/2022 4:50 PM CDT [facility] PLT 275 150 - 350 x10'3/uL 10/28/2022 4:50 PM CDT [facility] MPV 10.9(H) 7.4 - 10.4 FL 10/28/2022 4:50 PM CDT [facility] CBC COMMENT NORMAL REFERENCE RANGE NOT ESTABLISHED FOR THE PROPORTIONAL LEUKOCYTE DIFFERENTIAL. 10/28/2022 4:50 PM CDT [facility] NEUTROPHILS % 64.8 % 10/28/2022 4:50 PM CDT [facility] LYMPHOCYTES % 23.3 % 10/28/2022 4:50 PM CDT [facility] MONOCYTES % 9.8 % 10/28/2022 4:50 PM CDT [facility] EOSINOPHILS % 1.2 % 10/28/2022 4:50 PM CDT [facility] BASOPHILS % 0.6 % 10/28/2022 4:50 PM CDT [facility] IMMATURE GRANS % 0.3 % 10/29/19 4:50 PM CDT [facility] NRBC 0.0 % 10/28/2022 4:50 PM CDT [facility] ABS. NEUTROPHILS 2.25 1.60 - 8.30 x10'3/uL 10/28/2022 4:50 PM CDT [facility] ABS. LYMPHOCYTES 0.81 0.80 - 4.70 x10'3/uL 10/28/2022 4:50 PM CDT [facility] ABS. MONOCYTES 0.34 0.00 - 1.50 x10'3/uL 10/28/2022 4:50 PM CDT [facility] ABS. EOSINOPHILS 0.04 0.00 - 0.40 x10'3/uL 10/28/2022 4:50 PM CDT [facility] ABS. BASOPHILS 0.02 0.00 - 0.20 x10'3/uL 10/28/2022 4:50 PM CDT [facility] ABS. IMMATURE GRANULOCYTES 0.01 0.00 - 0.03 x10'3/uL 10/28/2022 4:50 PM CDT [facility] ABS. NUCLEATED RBC'S 0.00 0.00 x10'3/uL 10/28/2022 4:50 PM CDT [facility] 10/28/2022 4:39 PM CDT us Raissa Pacheco MD LABORATORY Final Resul t [facility] [address] [place] [id number], documented in this encounter Visit Diagnoses Diagnosis [...] RTR) documented in this encounter Care Teams Housekeeper Child Care Relationship Specialty Start Date End Date None, Provider, PCP - General UNKNOWN PHYSICIAN SPECIALTY 10/28/22 1 07/01/23 documented as of this encounter
--- OUTSIDE RECORDS SUMMARY | 2024-06-16 07:40 | XMS_ITS | Encounter Summary ---
Author Organization [facility] Address [facility]. 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
--- OUTSIDE RECORDS SUMMARY | 2024-06-16 07:40 | XMS_ITS | Encounter Summary ---
Author Organization [facility] Address [facility]. 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
--- OUTSIDE RECORDS SUMMARY | 2024-06-16 07:40 | XMS_ITS | Encounter Summary ---
Author Organization [facility] Address [address] [place] [address]. 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 DESIRABLE: <200 BORDERLINE HIGH: 200-239 HIGH: > OR = 240 TRIGLYCERIDES 64 <150 MG/DL 12/24/2018 3:43 PM CDT [facility] Comment: THE NATIONAL LIPID ASSOCIATION AND THE NATIONAL CHOLESTEROL EDUCATION PROGAM (NCEP) HAVE SET THE FOLLOWING GUIDELINES FOR TRIGLYCERIDES IN ADULTS AGES 18 AND UP. NORMAL: <150 BORDERLINE HIGH: 150 TO 199 HIGH: 200 TO 499 VERY HIGH: >499 HDL 34(L) >39 MG/DL 12/24/2018 3:43 PM CDT [facility] Comment: THE NATIONAL LIPID ASSOCIATION AND THE NATIONAL CHOLESTEROL EDUCATION PROGAM (NCEP) HAVE SET THE FOLLOWING GUIDELINES FOR HDL CHOLESTEROL IN ADULTS AGES 18 AND UP. MALES: >39 FEMALES: >49 LDL (CALCULATED) 128(H) <100 MG/DL 12/25/19 3:43 PM CDT [facility] Comment: THE NATIONAL LIPID ASSOCIATION AND THE NATIONAL CHOLESTEROL EDUCATION PROGAM (NCEP) HAVE SET THE FOLLOWING GUIDELINES FOR LDL CHOLESTEROL IN ADULTS AGES 18 AND UP. DESIRABLE: <100 ABOVE DESIRABLE: 100 TO 129 BORDERLINE HIGH: 130 TO 159 HIGH: 160 TO 189 VERY HIGH: >189 VLDL CALCULATION 13 MG/DL 12/25/19 3:43 PM CDT [facility] Comment:REFERENCE RANGE NOT ESTABLISHED CHOL/HDL RATIO 5.1 12/24/2018 3:43 PM CDT [facility] Comment:REFERENCE RANGE NOT ESTABLISHED LDL/HDL 3.8 12/24/2018 3:43 PM CDT [facility] Comment:REFERENCE RANGE NOT ESTABLISHED NON HDL CHOLESTEROL 141 MG/DL 12/24/2018 3:43 PM CDT [facility] Comment:REFERENCE RANGE NOT ESTABLISHED 12/24/2018 3:10 PM CDT Radha Reyes [facility] Final Res ult Performing Organization Address City/[facility]/ZIP Co de Phone Number [facility] [address] [place] [address] * LIPASE (12/24/2018 3:10 PM CDT) LIPASE 87 73 - 393 UNITS/L 12/24/2018 3:43 PM CDT [facility] 12/24/2018 3:10 PM CDT [facility] Final Res ult [facility] [address] [place] [id number], * (ABNORMAL) COMPREHENSIVE METABOLIC PANEL (12/24/2018 3:10 PM CDT) SODIUM S/P/B 138 136 - 145 MMOL/L 12/24/2018 3:43 PM CDT [facility] POTASSIUM S/P/B 4.2 3.5 - 5.1 MMOL/L 12/24/2018 3:43 PM CDT [facility] CHLORIDE S/P/B 100 98 - 107 MMOL/L 12/24/2018 3:43 PM CDT [facility] CO2 26.4 21.0 - 32.0 MMOL/L 12/24/2018 3:43 PM CDT [facility] GLUCOSE 80 70 - 140 MG/DL 12/24/2018 3:43 PM CDT [facility] BUN 12 6 - 24 MG/DL 12/24/2018 3:43 PM CDT [facility] CREATININE S/P/B 1.23 0.70 - 1.30 MG/DL 12/24/2018 3:43 PM CDT [facility] CALCIUM S/P/B 9.5 8.4 - 10.5 MG/DL 12/24/2018 3:43 PM CDT [facility] BILIRUBIN TOTAL S/P/B 0.3 0.2 - 1.0 MG/DL 12/24/2018 3:43 PM CDT [facility] ALKALINE PHOSPHATASE S/P/B 113 45 - 115 U/L 12/24/2018 3:43 PM CDT [facility] AST 16 15 - 37 U/L 12/24/2018 3:43 PM CDT [facility] ALT 19 16 - 63 U/L 12/24/2018 3:43 PM CDT [facility] TOTAL PROTEIN S/P/B 8.9(H) 6.4 - 8.2 G/DL 12/24/2018 3:43 PM CDT [facility] ALBUMIN S/P/B 3.8 3.4 - 5.0 G/DL 12/24/2018 3:43 PM CDT [facility] ANION GAP 11.6 5.0 - 15.0 MMOL/L 12/24/2018 3:43 PM CDT [facility] OSMOLALITY (CALC) 285 MOSM/KG 12/24/2018 3:43 PM CDT [facility] Comment:REFERENCE RANGE NOT ESTABLISHED EGFR NON-AFR. AMER. 65(L) >89 ML/MIN/1 .73 M2 12/24/2018 3:43 PM CDT [facility] EGFR AFR. AMER. 75(L) >89 ML/MIN/1 .73 M2 12/24/2018 3:43 PM CDT [facility] GFR NOTES THE ESTIMATED GFR IS CALCULATED USING THE 2009 CKD-EPI EQUATION. THE FOLLOWING CATEGORIES FOR GRADING RENAL FUNCTION ARE RECOMMENDED BY THE INTERNATIONAL SOCIETY OF NEPHROLOGY (KDIGO 2012 CLINICAL PRACTICE GUIDELINE). 12/24/2018 3:43 PM CDT [facility] Comment: G1,NORMAL OR HIGH: >89 ml/min/1.73 m2 G2,MILDLY DECREASED: 60-89 ml/min/1.73 m2 G3A,MILDLY TO MODERATELY DECREASED: 45-59 ml/min/1.73 m2 G3B,MODERATELY TO SEVERELY DECREASED: 30-44 ml/min/1.73 m2 G4,SEVERELY DECREASED: 15-29 ml/min/1.73 m2 G5,KIDNEY FAILURE: <15 ml/min/1.73 m2 12/24/2018 3:10 PM CDT Radha Reyes [facility] Final Res ult [facility] [address] [place] [address], * (ABNORMAL) CBC W/DIFF AUTOMATED (12/24/2018 3:10 PM CDT) WBC 4.3(L) 4.5 - 10.8 x10'3/uL 12/24/2018 3:27 PM CDT [facility] RBC 4.97 4.50 - 6.10 x10'6/uL 12/24/2018 3:27 PM CDT [facility] HGB 14.0 13.0 - 18.0 G/DL 12/24/2018 3:27 PM CDT [facility] HCT 43.7 37.0 - 52.0 % 12/24/2018 3:27 PM CDT [facility] MCV 87.9 78.0 - 100.0 FL 12/24/2018 3:27 PM CDT [facility] MCH 28.2 27.0 - 31.0 PG 12/24/2018 3:27 PM CDT [facility] MCHC 32.0(L) 33.0 - 36.0 G/DL 12/24/2018 3:27 PM CDT [facility] RDW 13.9 11.5 - 14.5 % 12/24/2018 3:27 PM CDT [facility] PLT 224 150 - 350 x10'3/uL 12/24/2018 3:27 PM CDT [facility] MPV 10.1 7.4 - 10.4 FL 12/24/2018 3:27 PM CDT [facility] DIFFERENTIAL COMMENT NORMAL REFERENCE RANGE NOT ESTABLISHED FOR THE PROPORTIONAL LEUKOCYTE DIFFERENTIAL. 12/24/2018 3:27 PM CDT [facility] SEG NEUTROPHILS 53.6 % 9 3:27 PM CDT [facility] LYMPHOCYTES 30.6 % 12/24/2018 3:27 PM CDT [facility] MONOCYTES 12.5 % 12/24/2018 3:27 PM CDT [facility] EOSINOPHILS 2.6 % 12/24/2018 3:27 PM CDT [facility] BASOPHILS 0.7 % 12/24/2018 3:27 PM CDT [facility] IMMATURE GRANS % 0.0 % 12/25/19 19 3:27 PM CDT [facility] NRBC 0.0 % 12/24/2018 3:27 PM CDT [facility] ABS. NEUTROPHILS 2.31 1.60 - 8.30 x10'3/uL 12/24/2018 3:27 PM CDT [facility] ABS. LYMPHOCYTES 1.32 0.80 - 4.70 x10'3/uL 12/24/2018 3:27 PM CDT [facility] ABS. MONOCYTES 0.54 0.00 - 1.50 x10'3/uL 12/24/2018 3:27 PM CDT [facility] ABS. EOSINOPHILS 0.11 0.00 - 0.40 x10'3/uL 12/24/2018 3:27 PM CDT [facility] ABS. BASOPHILS 0.03 0.00 - 0.20 x10'3/uL 12/24/2018 3:27 PM CDT [facility] ABS. IMMATURE GRANULOCYTES 0.00 0.00 - 0.03 x10'3/uL 12/24/2018 3:27 PM CDT [facility]. NUCLEATED RBC'S 0.00 0.00 x10'3/uL 12/24/2018 3:27 PM CDT [facility] 12/24/2018 3:10 PM CDT Radha Reyes [facility] Final Res ult Performing Organization Address City/[facility]/[place] [address], * AMYLASE (12/24/2018 3:10 PM CDT) AMYLASE S/P/B 67 25 - 115 UNITS/L 12/24/2018 3:43 PM CDT [facility] 12/24/2018 3:10 PM CDT Radha Reyes [facility] Final Res ult Performing Organization Address City/[facility]/[place] [address], [place] [phone] documented in this encounter Visit Diagnoses Diagnosis Abdominal pain, right upper quadrant- Primary Stomach ache Dyspepsia and other specified disorders of function of stomach Nausea Nausea alone documented in this encounter Care Teams Television Writer Relationship Specialty Start Date End Date Radha Reyes FNP- [address] [place] [address] PCP - General NURSE PRACTITIONER 12/24/18 10/27/22 documented as of this encounter
--- OUTSIDE RECORDS SUMMARY | 2024-06-16 07:40 | XMS_ITS | Encounter Summary ---
Author Organization [facility] Address [address] [place] [address]. [place], [place] [id number] [place] [address] Care Team Providers Care Ed Case Manager Name Role Phone None, Provider MD Primary Care Provider Unavaila ble Reason for Visit * Reason Comments Ankle Pain Encounter Details Date Type Department Care Team (Late st Contact Info) Description 03/31/2023 12:05 AM CDT - 03/31/2023 12:42 AM CDT Emergency [facility] [address] [facility] [place] [address] Oscar Blank MD [address] [place] [id number] Ankle Pain Discharge Disposition: Home or Self Care (Routine Discharge) Social History Tobacco Use Types Packs/Day Years Used Date Smoking Tobacco: Every Day Cigarettes Smokeless Tobacco: Never Tobacco Cessation:Ready to Q uit: Not Asked; Counseling Given: Not Answered Sex and Gender Information Value Date Recorded Sex Assigned at Not on file 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 * Achilles Tendon Rupture Discharge Instructions (Kiswahili) documented in this encounter Medications at Time [...] relief. Pain8/10 upon arrival. 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 * Oscar Blank MD - 03/30/2023 11:56 PM CDT eMERGENCY dEPARTMENT eNCOUnter CHIEF COMPLAINT Chief Complaint Patient presents with Ankle Pain HPI HPI Rosita White is a 62-year-old male who presents to the ER with a complaint of left ankle injury. 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 Interpreted By: aMrshall Watts MD, 03/31/2023 12:28 AM Narrative 03/31/2023 [...] Blank.) documented in this encounter Care Teams Ed Case Manager Relationship Specialty Start Date End Date None, Provider, PCP - General UNKNOWN PHYSICIAN SPECIALTY 10/28/22 1 07/01/23 documented as of this encounter
--- OUTSIDE RECORDS SUMMARY | 2024-06-16 07:40 | XMS_ITS | Encounter Summary ---
Author Organization [facility] Address [address] [place] [address]. 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
--- OUTSIDE RECORDS SUMMARY | 2024-06-16 07:40 | XMS_ITS | Encounter Summary ---
Author Organization [facility] Address [address] [place] [address]. [place] [address] [place] [address] Care Team Providers Care Manager Mental Health Name Role Phone Radha Reyes [facility] Primary Care Provider + [phone] Encounter Details Date Type Department Care Team (Latest Contact Info) Description 12/24/2018 2:55 PM CDT - 12/24/2018 11:59 PM CDT Hospital Encounter [facility] [address] [facility] [place] [address] Radha Reyes INSTRUCTIONAL TECHNOLOGY IN[facility] [address] [place] [address] Discharge Disposition: Home or Self Care (Routine Discharge) Social History Tobacco Use Types Packs/Day Years Used Date Smoking Tobacco: Never Assessed Sex and Gender Information Value Date Recorded Sex Assigned at Not on file Legal Sex Male 5:46 PM SECTION HAND Gender Identity Not on file Sexual Orientation [...] 175 <200 MG/DL 12/24/2018 3:43 PM CDT [facility] Comment: THE NATIONAL LIPID ASSOCIATION AND THE NATIONAL CHOLESTEROL EDUCATION PROGRAM (NCEP) HAVE SET THE FOLLOWING GUIDELINES FOR TOTAL CHOLESTEROL IN ADULTS AGES 18 AND UP. DESIRABLE: <200 BORDERLINE HIGH: 200-239 HIGH: > OR = 240 TRIGLYCERIDES 64 <150 MG/DL 12/24/2018 3:43 PM CDT [facility] Comment: THE NATIONAL LIPID ASSOCIATION AND THE NATIONAL CHOLESTEROL EDUCATION PROGAM (NCEP) HAVE SET THE FOLLOWING GUIDELINES FOR TRIGLYCERIDES IN ADULTS AGES 18 AND UP. NORMAL: <150 BORDERLINE HIGH: 150 TO 199 HIGH: 200 TO 499 VERY HIGH: >499 HDL 34(L) >39 MG/DL 12/24/2018 3:43 PM CDT [facility] Comment: THE NATIONAL LIPID ASSOCIATION AND THE NATIONAL CHOLESTEROL EDUCATION PROGAM (NCEP) HAVE SET THE FOLLOWING GUIDELINES FOR HDL CHOLESTEROL IN ADULTS AGES 18 AND UP. MALES: >39 FEMALES: >49 LDL (CALCULATED) 128(H) <100 MG/DL 12/25/19 19 3:43 PM CDT [facility] Comment: THE NATIONAL LIPID ASSOCIATION AND THE NATIONAL CHOLESTEROL EDUCATION PROGAM (NCEP) HAVE SET THE FOLLOWING GUIDELINES FOR LDL CHOLESTEROL IN ADULTS AGES 18 AND UP. DESIRABLE: <100 ABOVE DESIRABLE: 100 TO 129 BORDERLINE HIGH: 130 TO 159 HIGH: 160 TO 189 VERY HIGH: >189 VLDL CALCULATION 13 MG/DL 12/25/19 19 3:43 PM CDT [facility] Comment:REFERENCE RANGE NOT ESTABLISHED CHOL/HDL RATIO 5.1 12/24/2018 3:43 PM T [facility] Comment:REFERENCE RANGE NOT ESTABLISHED LDL/HDL 3.8 12/24/2018 3:43 PM CDT [facility] Comment:REFERENCE RANGE NOT ESTABLISHED NON HDL CHOLESTEROL 141 MG/DL 12/24/2018 3:43 PM CDT [facility] Comment:REFERENCE RANGE NOT ESTABLISHED 12/24/2018 3:10 PM [facility] Final Res ult Performing Organization Address City/[facility]/ZIP Co de Phone Number [facility] [address] [place] [address], * LIPASE (12/24/2018 3:10 PM CDT) LIPASE 87 73 - 393 UNITS/L 12/24/2018 3:43 PM CDT [facility] 12/24/2018 3:10 PM CDT [facility] Final Res ult Performing Organization Address [facility] Co de Phone Number [facility] [address] [place] [address], * (ABNORMAL) COMPREHENSIVE METABOLIC PANEL (12/24/2018 3:10 PM CDT) SODIUM S/P/B 138 136 - 145 MMOL/L 12/24/2018 3:43 PM CDT [facility] POTASSIUM S/P/B 4.2 3.5 - 5.1 MMOL/L 12/24/2018 3:43 PM CDT [facility] CHLORIDE S/P/B 100 98 - 107 MMOL/L 12/24/2018 3:43 PM CDT [facility] CO2 26.4 21.0 - 32.0 MMOL/L 12/24/2018 3:43 PM CDT [facility] GLUCOSE 80 70 - 140 MG/DL 12/24/2018 3:43 PM CDT [facility] BUN 12 6 - 24 MG/DL 12/24/2018 3:43 PM CDT [facility] CREATININE S/P/B 1.23 0.70 - 1.30 MG/DL 12/24/2018 3:43 PM CDT [facility] CALCIUM S/P/B 9.5 8.4 - 10.5 MG/DL 12/24/2018 3:43 PM T [facility] BILIRUBIN TOTAL S/P/B 0.3 0.2 - 1.0 MG/DL 12/24/2018 3:43 PM [facility] ALKALINE PHOSPHATASE S/P/B 113 45 - 115 U/L 12/24/2018 3:43 PM [facility] AST 16 15 - 37 U/L 12/24/2018 3:43 PM [facility] ALT 19 16 - 63 U/L 12/24/2018 3:43 PM [facility] TOTAL PROTEIN S/P/B 8.9(H) 6.4 - 8.2 G/DL 12/24/2018 3:43 PM [facility] ALBUMIN S/P/B 3.8 3.4 - 5.0 G/DL 12/24/2018 3:43 PM [facility] ANION GAP 11.6 5.0 - 15.0 MMOL/L 12/24/2018 3:43 PM [facility] OSMOLALITY (CALC) 285 MOSM/KG 12/24/2018 3:43 PM [facility] Comment:REFERENCE RANGE NOT ESTABLISHED EGFR NON-AFR. AMER. 65(L) >89 ML/MIN/1 .73 M2 12/24/2018 3:43 PM [facility] EGFR AFR. AMER. 75(L) >89 ML/MIN/1 .73 M2 12/24/2018 3:43 PM [facility] GFR NOTES THE ESTIMATED GFR IS CALCULATED USING THE 2009 CKD-EPI EQUATION. THE FOLLOWING CATEGORIES FOR GRADING RENAL FUNCTION ARE RECOMMENDED BY THE INTERNATIONAL SOCIETY OF NEPHROLOGY (KDIGO 2012 CLINICAL PRACTICE GUIDELINE). 12/24/2018 3:43 PM [facility] Comment: G1,NORMAL OR HIGH: >89 ml/min/1.73 m2 G2,MILDLY DECREASED: 60-89 ml/min/1.73 m2 G3A,MILDLY TO MODERATELY DECREASED: 45-59 ml/min/1.73 m2 G3B,MODERATELY TO SEVERELY DECREASED: 30-44 ml/min/1.73 m2 G4,SEVERELY DECREASED: 15-29 ml/min/1.73 m2 G5,KIDNEY FAILURE: <15 ml/min/1.73 m2 12/24/2018 3:10 PM CDT Radha Reyes [facility] LABORATORY Final Res ult [facility] [address] [place] [address], * (ABNORMAL) CBC W/DIFF AUTOMATED (12/24/2018 3:10 PM CDT) WBC 4.3(L) 4.5 - 10.8 x10'3/uL 12/24/2018 3:27 PM CDT [facility] RBC 4.97 4.50 - 6.10 x10'6/uL 12/24/2018 3:27 PM CDT [facility] HGB 14.0 13.0 - 18.0 G/DL 12/24/2018 3:27 PM CDT [facility] HCT 43.7 37.0 - 52.0 % 12/24/2018 3:27 PM CDT [facility] MCV 87.9 78.0 - 100.0 FL 12/24/2018 3:27 PM CDT [facility] MCH 28.2 27.0 - 31.0 PG 12/24/2018 3:27 PM CDT [facility] MCHC 32.0(L) 33.0 - 36.0 G/DL 12/24/2018 3:27 PM CDT [facility] RDW 13.9 11.5 - 14.5 % 12/24/2018 3:27 PM CDT [facility] PLT 224 150 - 350 x10'3/uL 12/24/2018 3:27 PM CDT [facility] MPV 10.1 7.4 - 10.4 FL 12/24/2018 3:27 PM CDT [facility] DIFFERENTIAL COMMENT NORMAL REFERENCE RANGE NOT ESTABLISHED FOR THE PROPORTIONAL LEUKOCYTE DIFFERENTIAL. 12/24/2018 3:27 PM CDT [facility] SEG NEUTROPHILS 53.6 % 9 3:27 PM CDT [facility] LYMPHOCYTES 30.6 % 12/24/2018 3:27 PM CDT [facility] MONOCYTES 12.5 % 12/24/2018 3:27 PM CDT [facility] EOSINOPHILS 2.6 % 12/24/2018 3:27 PM CDT [facility] BASOPHILS 0.7 % 12/24/2018 3:27 PM CDT [facility] IMMATURE GRANS % 0.0 % 12/25/19 19 3:27 PM CDT [facility] NRBC 0.0 % 12/24/2018 3:27 PM CDT [facility] ABS. NEUTROPHILS 2.31 1.60 - 8.30 x10'3/uL 12/24/2018 3:27 PM CDT [facility] ABS. LYMPHOCYTES 1.32 0.80 - 4.70 x10'3/uL 12/24/2018 3:27 PM CDT [facility] ABS. MONOCYTES 0.54 0.00 - 1.50 x10'3/uL 12/24/2018 3:27 PM CDT [facility] ABS. EOSINOPHILS 0.11 0.00 - 0.40 x10'3/uL 12/24/2018 3:27 PM CDT [facility] ABS. BASOPHILS 0.03 0.00 - 0.20 x10'3/uL 12/24/2018 3:27 PM CDT [facility] ABS. IMMATURE GRANULOCYTES 0.00 0.00 - 0.03 x10'3/uL 12/24/2018 3:27 PM CDT [facility] ABS. NUCLEATED RBC'S 0.00 0.00 x10'3/uL 12/24/2018 3:27 PM CDT [facility] 12/24/2018 3:10 PM CDT Radha Reyes [facility] LABORATORY Final Res ult [facility] [address] [place] [address], * AMYLASE (12/24/2018 3:10 PM CDT) AMYLASE S/P/B 67 25 - 115 UNITS/L 12/24/2018 3:43 PM CDT [facility] 12/24/2018 3:10 PM CDT us Radha Reyes [facility] LABORATORY Final Res ult Performing Organization Address [facility] Co de Phone Number [facility] [place] [address], documented in this encounter Visit Diagnoses Diagnosis Abdominal pain, right upper quadrant Stomach ache Dyspepsia and other specified disorders of function of stomach Nausea Nausea alone documented in this encounter Care Teams Manager Mental Health Relationship Specialty Start Date End Date [facility] [address] [place] [address] PCP - General NURSE PRACTITIONER 12/24/18 10/27/22 documented as of this encounter
--- OUTSIDE RECORDS SUMMARY | 2024-06-16 07:40 | XMS_ITS | Encounter Summary ---
Author Organization [facility] Address [address] [place] [address]. 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
--- OUTSIDE RECORDS SUMMARY | 2024-06-16 07:40 | XMS_ITS | Encounter Summary ---
Author Organization [facility] Address [address] [place] [address]. [place] [address] [place] [address] Care Team Providers Care Youth Accommodation Support Worker Name Role Phone Unavailable Primary Care Provider Unavailabl e Encounter Details Date Type Department Care Team (Late st Contact Info) Description 06/02/[address] [place] [place] [address] [facility] 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
== END 2024-06-09 09:34 | disposition home or self-care (01) ==
PROVIDERS: Emergency Medicine; Emergency Provider Emergency Medicine; PCP Family Medicine
DX: J18.9 Pneumonia, unspecified organism (principal); J44.0 Chronic obstructive pulmonary disease with (acute) lower respiratory infection; R07.9 Chest pain, unspecified; F10.920 Alcohol use, unspecified with intoxication, uncomplicated; Z89.611 Acquired absence of right leg above knee; F17.200 Nicotine dependence, unspecified, uncomplicated; Z86.711 Personal history of pulmonary embolism; Z91.148 Patient's other noncompliance with medication regimen for other reason; Z20.822 Contact with and (suspected) exposure to COVID-19
CPT/HCPCS: 36415; 71045; 71275; 80053; 82077; 83880; 84484; 85025; 85380; 85610; 85730; 87637; 93005; 99284; A9270; Q9967

== ENCOUNTER 2025-01-01 15:58 | Emergency (ER) | payer OTHER, SELFPAY ==
--- NOTE | ~2025-01-01 | XR_ITS ---
EXAMINATION: XR chest 1V portable Exam Date/Time: 01/01/2025 17:35 CDT HISTORY: PSYCH EVALUATION Comparison: 06/09/2024. RESULT: Lines, tubes, and devices: None. Lungs and pleura: Clear. Cardiomediastinal silhouette: Stable. Other: No acute osseous or upper abdominal finding. IMPRESSION: No acute cardiopulmonary process. Reviewed, dictated and finalized at location K.
--- OUTSIDE RECORDS SUMMARY | 2025-01-01 16:00 | XMS_ITS | Clinical Summary ---
Author Organization [facility] Address [address] [place] [address] Care Team Providers Care Custody Officer Name Role Phone Audrey Flowers MD Primary Care Provider [phone] Allergies No known active allergies Medications methadone (DOLOPHINE) 10 MG tablet Take 1 tablet (10 mg total) by mouth every 6 (six) hours as needed for Pain. Active ondansetron (ZOFRAN) 4 MG tablet Take 1 tablet (4 mg total) by mouth every 8 (eight) hours as needed for Nausea. 10 tablet 02/26/2024 Active Encounters Date Type Department Care Team Description 10/18/2024 Telephone [address] [address] [place] [address] Mar Cobos, SHIRT TURNER- Referral (LEFT carpal tunnel syndrome, Dr Flowers) from Last 3 Months Social History Tobacco [...] on file Legal Sex Male 5:46 PM BAG PATCHER Gender Identity Not on file Sexual Orientation Not on file Last Filed Vital Signs Vital Sign Reading Time Taken Comments Blood Pressure 155/89 05/05/2024 4:08 PM BAG PATCHER Pulse 76 05/05/2024 4:08 PM BAG PATCHER Temperature 36.6 C (97.8 F) 05/05/2024 4:08 PM BAG PATCHER Respiratory Rate 18 05/05/2024 4:08 PM BAG PATCHER Oxygen Saturation 90% 05/05/2024 4:30 PM BAG PATCHER Inhaled Oxygen Concentration - - Weight 65.4 kg (144 lb 4 oz) 05/05/2024 4:08 PM BAG PATCHER Height 175.3 cm (5' 9) 05/05/2024 4:08 PM BAG PATCHER Body Mass Index 21.3 05/05/2024 4:08 PM BAG PATCHER Plan of Treatment Health Maintenance Due Date Last Done Comments Colorectal Cancer Screening Colonoscopy (10 Years) 1961 Annual Physical 1964 Hepatitis C 08/17/1979 Pneumococcal Vaccine: 50+ Ye ars (1 of 2 - PCV) 1980 Zoster Vaccines (1 of 2) 08/17/2011 DTaP, Tdap and Td Vaccines ( 2 - Td or Tdap) 02/13/2022 02/14/2012 COVID-19 Vaccine (1 - 2023-2 5 season) 2024 RSV Immunization or 60+ Years (1 - 1-dose 75+ series) 2036 Meningococcal B Vaccine Aged Out No l onger eligible based on patient's age to complete this topic Meningococcal Vaccine Aged Out No brooke jeanne eligible based on patient's age to complete this topic RSV Immunizations Under 20 Months Aged Out No longer eligible based on patient's age to complete this topic Insurance [address] [address] C/O PROVIDER SERVICES DAMIAN CHÁVEZ [id number] Care Teams Custody Officer Relationship Specialty Start Date End Date Audrey Flowers MD [address] [place] [phone] PCP - General FAMILY PRACTICE 05/02/24
--- OUTSIDE RECORDS SUMMARY | 2025-01-01 16:00 | XMS_ITS ---
Author Organization Unknown Plan of Treatment Description Planned Activity Planned Timing [facility] is a provider organization who partners directly with Health Plans and provides integrated primary care, behavioral health, and health social work professor for an attributed population Letter encounter to patientTelephone encounter Dec 08, 2024Jul 2024 Patient Care team information Name Category Status Period Participants - - Proposed period not known -
--- NOTE | 2025-01-01 16:01 | ED_ITS ---
HPI - Psych General Chief Complaint: Psychiatric Symptoms <Faby Levine MD - Last Filed: 01/01/25 18:29> Stated Complaint: altered mental status <Faby Levine MD - Last Filed: 01/01/25 18:29> Time Seen by Provider: 01/01/25 16:01 <Faby Levine MD - Last Filed: 01/01/25 18:29> Source: patient and EMS <Faby Levine MD - Last Filed: 01/01/25 18:29> Mode of arrival: EMS <Faby Levine MD - Last Filed: 01/01/25 18:29> Limitations: no limitations <Faby Levine MD - Last Filed: 01/01/25 18:29> History of Present Illness HPI Narrative: 64 years old white male came from home by ambulance because anxious and worried about his . Patient is telling me been seeing clutters at the front yd all day today which make him stressed and anxious about something bad is going to happen. 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 patient is telling me seeing clutters today probably is a sign that his is going to soon. patient wants to , does not have a specific plan, history of hospitalization for psych /suicide disorders. History depression, psych disorder, patient supposed to be on anti depression medication and Seroquel which he does not take for quite a bit of time. Patient smokes cigarette, drink alcohol daily, uses marijuana daily. Denies other drug use. patient does not remember with the last time he ate. He denies any fever, chills, nausea, vomiting, chest pain, shortness of breath, headache, back pain or abdominal pain. <Faby Levine MD - Last Filed: 01/01/25 18:29> Related Data Allergies/Adverse Reactions: Allergies Allergy/AdvReac Type Severity Reaction Status Date / Time No Known Allergies Allergy Verified 01/01/25 16:08 <Faby Levine MD - Last Filed: 01/01/25 18:29> Review of Systems 2 Review of Systems: All systems reviewed & are unremarkable except as noted in HPI and below <Faby Levine MD - Last Filed: 01/01/25 18:29> [facility] Past Medical History Medical History: Medical History Chronic low back pain Amputated right leg COPD (chronic obstructive pulmonary disease) <Faby Levine MD - Last Filed: 01/01/25 18:29> Family History Family History: Family History Other Unknown family medical history <Faby Levine MD - Last Filed: 01/01/25 18:29> Social History Social History: Social History Smoking status: Current every day smoker Alcohol intake: current Substance use: current Substance use type: marijuana and painkillers Spiritual care concerns: No <Faby Levine MD - Last Filed: 01/01/25 18:29> Exam 2 Narrative: General appearance: Well-developed, well-nourished , crying Skin: Normal color Head: Normocephalic, nontraumatic Eyes: Clear conjunctiva ENT: Oropharynx normal, ears normal, nose normal Neck: Supple, nontender Chest and respiratory: Airway patent, no respiratory distress, no accessory muscle use Heart: Regular rate/rhythm Abdomen: Soft, nontender, no organomegaly, quiet bowel sounds Vascular: Normal peripheral pulses, normal capillary refill. Musculoskeletal: right below-knee amputation Neurologic: Alert and oriented ?3, DIRECTOR OF REGULATORY AFFAIRS is normal as tested, no gross motor deficit <Faby Levine MD - Last Filed: 01/01/25 18:29> Course Vital Signs Vital signs: Vital Signs Temperature 36.9 C 01/01/25 16:02 Pulse Rate 72 01/01/25 16:02 Respiratory Rate 18 01/01/25 16:02 Blood Pressure 131/82 01/01/25 16:02 Pulse Oximetry 94 01/01/25 16:02 Oxygen Delivery Room Air 01/01/25 16:02 Temperature 36.9 C 01/01/25 16:02 Pulse Rate 72 01/01/25 16:02 Respiratory Rate 18 01/01/25 16:02 Blood Pressure 131/82 01/01/25 16:02 Pulse Oximetry 94 01/01/25 16:02 Oxygen Delivery Room Air 01/01/25 16:02 <Faby Levine MD - Last Filed: 01/01/25 18:29> Vital Signs Temperature 36.9 C 01/01/25 16:02 Pulse Rate 72 01/01/25 16:02 Respiratory Rate 18 01/01/25 16:02 Blood Pressure 131/82 01/01/25 16:02 Pulse Oximetry 94 01/01/25 16:02 Oxygen Delivery Room Air 01/01/25 16:02 Temperature 36.9 C 01/01/25 16:02 Pulse Rate 72 01/01/25 16:02 Respiratory Rate 18 01/01/25 16:02 Blood Pressure 131/82 01/01/25 16:02 Pulse Oximetry 94 01/01/25 16:02 Oxygen Delivery Room Air 01/01/25 16:02 <Julian Rojas MD - Last Filed: 01/01/25 20:16> MDM - Psych MDM Narrative Medical decision making narrative: patient presents with anxiety and visual hallucination Vital signs are stable Physical examination significant for anxiety, depression, Differential diagnosis noncompliance with medication, major depression, psych disorder Blood workup today includes CBC, CMP, alcohol level showed alcohol level of 249 otherwise within normal limit Urine drug screen positive for cannabis Urinalysis no acute abnormalities EKG normal sinus rhythm Chest x-ray no acute up Diagnosis acute psychosis secondary to major depression, noncompliance with medication Waiting for alcohol level to drop less than 80, then psych eval. Patient laying down in bed comfortable, sleeping , no distress. Patient care turned over to Dr. Sprague at shift change, disposition. Patient been resting quietly in the emergency room without any issues or problems. <Faby Levine MD - Last Filed: 01/01/25 18:29> patient presents with anxiety and visual hallucination Vital signs are stable Physical examination significant for anxiety, depression, Differential diagnosis noncompliance with medication, major depression, psych disorder Blood workup today includes CBC, CMP, alcohol level showed alcohol level of 249 otherwise within normal limit Urine drug screen positive for cannabis Urinalysis no acute abnormalities EKG normal sinus rhythm Chest x-ray no acute up Diagnosis acute psychosis secondary to major depression, noncompliance with medication Waiting for alcohol level to drop less than 80, then psych eval. Patient laying down in bed comfortable, sleeping , no distress. Patient care turned over to Dr. Sprague at shift change, disposition. Patient been resting quietly in the emergency room without any issues or problems. Patient started to complain about wanting to go home for about 30 minutes and further lab came to get his alcohol level at this time and patient said he was wanting to leave and go home. Patient was evaluated by me and the nurse and together we felt he had decision-making capacity to understand that he is signing AMA at this time. Patient was road tested for walking and he had no ataxic gait. He was able to walk a line. Patient is AAO x4. He signed the AMA form. I explained the risks and benefits of leaving at this time. Patient does not have suicide or homicide ideations at this time. Patient is not delusional. No more hallucinations. Patient has a clear plan to go back to [place] and he is not driving. He said he would walk back to [place] the next town over. I personally explained to the patient risks and benefits and leaving the facility at this time. He understands with verbal consent that he is not wanting interventions at this time. No further concerns at this time for this patient and he is not a safety risk at this time to himself or the community. <Julian Rojas MD - Last Filed: 01/01/25 20:16> Differential Diagnosis Differential diagnosis: Likely acute psychosis, suicidal ideation, depression, drug-induced psychotic disorder and acute anxiety <Faby Levine MD - Last Filed: 01/01/25 18:29> Medical Records Attestation: I reviewed the patient's medical records. <Faby Levine MD - Last Filed: 01/01/25 18:29> Lab Data Attestation: I reviewed the patient's lab results. <Faby Levine MD - Last Filed: 01/01/25 18:29> Result diagrams: 01/01/25 16:25 01/01/25 16:25 <Faby Levine MD - Last Filed: 01/01/25 18:29> Labs: Lab Results 01/01/25 Range/Units 16:25 WBC 4.2 L (4.8-10.8) K/mm3 RBC 4.59 L (4.70-6.10) M/mm3 Hgb 13.2 L (14.0-18.0) g/dL Hct 40.4 (40.0-54.0) % MCV 88.0 (78.0-102.0) fL MCH 28.8 (27.0-31.0) pg MCHC 32.7 (32-36) g/dL RDW 15.5 H (11.6-14.4) % Plt Count 191 (150-420) K/mm3 MPV 10.2 (8.7-11.0) fl Immature Gran % (Auto) 0.2 H (0.0-0.0) % Neut % (Auto) 69.3 (50.0-70.0) % Lymph % (Auto) 18.7 (18.0-42.0) % Ector % (Auto) 11.3 H (2.0-11.0) % Eos % (Auto) 0.0 L (1.0-6.0) % Baso % (Auto) 0.5 (0.0-1.0) % Lymph # (Auto) 0.78 L (1.10-4.50) K/mm3 Ector # (Auto) 0.47 (0.10-0.90) K/mm3 Eos # (Auto) 0.00 L (0.02-0.50) K/mm3 Baso # (Auto) 0.02 (0.00-0.10) K/mm3 Abs Immat Gran (auto) 0.01 H (0.00-0.00) K/mm3 Absolute Neuts (auto) 2.89 (1.70-7.20) K/mm3 Absolute Nucleated RBC 0.00 (0.00-0.00) K/mm3 Nucleated RBC % 0.0 (0-0.0) % Sodium 142 (137-145) mmol/L Potassium 3.7 (3.4-5.0) mmol/L Chloride 111 H (98-107) mmol/L Carbon Dioxide 21 L (22-30) mmol/L Anion Gap 10 (4-12) mmol/L BUN 15 D (9-20) mg/dL Creatinine 0.79 (0.7-1.3) mg/dL Estim Creat Clear Calc Not Reportable Estimated GFR > 60 (59 - ) Glucose 75 (65-110) mg/dL Calculated Osmolality 293 (285-295) mOsm/kg Calcium 8.7 (8.4-10.2) mg/dL Total Bilirubin 0.4 (0.2-1.3) mg/dL AST 41 (17-59) U/L ALT 20 (6-50) U/L Alkaline Phosphatase 103 (38-126) U/L Total Protein 7.7 (6.3-8.2) g/dL Albumin 3.9 (3.5-5.1) g/dL TSH 0.487 (0.465-4.680) uIU/mL Urine Color Light yellow (Yellow) Urine Appearance Clear (Clear) Urine pH 6.0 (5.0-8.0) Ur Specific Mccarr <= 1.005 L (1.010-1.020) Urine Protein Negative (Negative) Urine Glucose (UA) 1+ H (Negative) Urine Ketones Negative (Negative) Ur Blood (Man) Negative (Negative) Urine Nitrate Negative (Negative) Urine Bilirubin Negative (Negative) Urine Urobilinogen 0.2 (0.2-1.0) mg/dL Leukocyte Esterase Rfl Negative (Negative) ERICKA/UL Salicylates 1.9 L (2-20) mg/dL Urine Opiates Screen Negative (Negative) Urine Methadone Screen Negative (Negative) Acetaminophen < 10 L (10-30) ug/mL Ur Barbiturates Screen Negative (Negative) Ur Phencyclidine Scrn Negative (Negative) Ur Amphetamine Screen Negative (Negative) U Benzodiazepines Scrn Negative (Negative) Urine Cocaine Screen Negative (Negative) U Cannabinoids Screen Positive A (Negative) Ethyl Alcohol 249 (<10) mg/dL <Faby Levine MD - Last Filed: 01/01/25 18:29> Lab Results 01/01/25 Range/Units 16:25 WBC 4.2 L (4.8-10.8) K/mm3 RBC 4.59 L (4.70-6.10) M/mm3 Hgb 13.2 L (14.0-18.0) g/dL Hct 40.4 (40.0-54.0) % MCV 88.0 (78.0-102.0) fL MCH 28.8 (27.0-31.0) pg MCHC 32.7 (32-36) g/dL RDW 15.5 H (11.6-14.4) % Plt Count 191 (150-420) K/mm3 MPV 10.2 (8.7-11.0) fl Immature Gran % (Auto) 0.2 H (0.0-0.0) % Neut % (Auto) 69.3 (50.0-70.0) % Lymph % (Auto) 18.7 (18.0-42.0) % Ector % (Auto) 11.3 H (2.0-11.0) % Eos % (Auto) 0.0 L (1.0-6.0) % Baso % (Auto) 0.5 (0.0-1.0) % Lymph # (Auto) 0.78 L (1.10-4.50) K/mm3 Ector # (Auto) 0.47 (0.10-0.90) K/mm3 Eos # (Auto) 0.00 L (0.02-0.50) K/mm3 Baso # (Auto) 0.02 (0.00-0.10) K/mm3 Abs Immat Gran (auto) 0.01 H (0.00-0.00) K/mm3 Absolute Neuts (auto) 2.89 (1.70-7.20) K/mm3 Absolute Nucleated RBC 0.00 (0.00-0.00) K/mm3 Nucleated RBC % 0.0 (0-0.0) % Sodium 142 (137-145) mmol/L Potassium 3.7 (3.4-5.0) mmol/L Chloride 111 H (98-107) mmol/L Carbon Dioxide 21 L (22-30) mmol/L Anion Gap 10 (4-12) mmol/L BUN 15 D (9-20) mg/dL Creatinine 0.79 (0.7-1.3) mg/dL Estim Creat Clear Calc Not Reportable Estimated GFR > 60 (59 - ) Glucose 75 (65-110) mg/dL Calculated Osmolality 293 (285-295) mOsm/kg Calcium 8.7 (8.4-10.2) mg/dL Total Bilirubin 0.4 (0.2-1.3) mg/dL AST 41 (17-59) U/L ALT 20 (6-50) U/L Alkaline Phosphatase 103 (38-126) U/L Total Protein 7.7 (6.3-8.2) g/dL Albumin 3.9 (3.5-5.1) g/dL TSH 0.487 (0.465-4.680) uIU/mL Urine Color Light yellow (Yellow) Urine Appearance Clear (Clear) Urine pH 6.0 (5.0-8.0) Ur Specific Mccarr <= 1.005 L (1.010-1.020) Urine Protein Negative (Negative) Urine Glucose (UA) 1+ H (Negative) Urine Ketones Negative (Negative) Ur Blood (Man) Negative (Negative) Urine Nitrate Negative (Negative) Urine Bilirubin Negative (Negative) Urine Urobilinogen 0.2 (0.2-1.0) mg/dL Leukocyte Esterase Rfl Negative (Negative) ERICKA/UL Salicylates 1.9 L (2-20) mg/dL Urine Opiates Screen Negative (Negative) Urine Methadone Screen Negative (Negative) Acetaminophen < 10 L (10-30) ug/mL Ur Barbiturates Screen Negative (Negative) Ur Phencyclidine Scrn Negative (Negative) Ur Amphetamine Screen Negative (Negative) U Benzodiazepines Scrn Negative (Negative) Urine Cocaine Screen Negative (Negative) U Cannabinoids Screen Positive A (Negative) Ethyl Alcohol 249 (<10) mg/dL <Julian Rojas MD - Last Filed: 01/01/25 20:16> ECG Data EKG #1: Attestation: I personally reviewed and interpreted this ECG as follows: <Faby Levine MD - Last Filed: 01/01/25 18:29> ECG completion date: 01/01/25 <Faby Levine MD - Last Filed: 01/01/25 18:29> Prior ECG tracings: not available for review <Faby Levine MD - Last Filed: 01/01/25 18:29> Interpretation: Normal sinus rhythm at 64 beats per minute, left atrial enlargement, septal myocardial infarction of indeterminate age, abnormal EKG <Faby Levine MD - Last Filed: 01/01/25 18:29> Critical Care Time Critical Care Time Critical Care Time: No <Faby Levine MD - Last Filed: 01/01/25 18:29> Discharge Plan Discharge Clinical Impression: Psychosis Qualifiers: Psychosis type: brief psychotic disorder Qualified Code(s): F23 - Brief psychotic disorder Alcohol intoxication Qualifiers: Complication of substance-induced condition: uncomplicated Qualified Code(s): F 10.920 - Alcohol use, unspecified with intoxication, uncomplicated <Faby Levine MD - Last Filed: 01/01/25 18:29> Patient Disposition: Left Against Medical Advice <Faby Levine MD - Last Filed: 01/01/25 18:29> Condition: Improved <Faby Levine MD - Last Filed: 01/01/25 18:29> Patient Language: French <Faby Levine MD - Last Filed: 01/01/25 18:29> Prescriptions: No Action levofloxacin 500 mg tablet 500 mg PO DAILY 6 Days Qty: 6 0RF quetiapine [Seroquel] 50 mg tablet 50 mg PO QHS Qty: 30 1RF thiamine HCl (vitamin B1) [Vitamin B-1] 100 mg Tablet 100 mg PO QAM Qty: 30 0RF <Faby Levine MD - Last Filed: 01/01/25 18:29> Follow-up/Referrals: UNKNOWN,DOCTOR [Primary Care Provider] - <Faby Levine MD - Last Filed: 01/01/25 18:29> Time of Disposition: 20:16 <Faby Levine MD - Last Filed: 01/01/25 18:29> 20:16 <Julian Rojas MD - Last Filed: 01/01/25 20:16>
[2025-01-01 16:02] VITALS: BP 131/82; PULSE 72; RESP 18; TEMP 36.9; O2SAT 94
--- NOTE | 2025-01-01 16:02 | ECG_ITS ---
Test Date: 2025-01-01 16:37:14 Measurements Intervals Griffin Rate: 64 P: 76 ND: 144 QRS: 39 QRSD: 81 T: 77 QT: 421 QTc: 436 Interpretive Statements SINUS RHYTHM POSSIBLE LEFT ATRIAL ENLARGEMENT [-0.1mV P-WAVE IN V1/V2] LOW QRS VOLTAGE IN PRECORDIAL LEADS [QRS DEFLECTION < 1.0 mV IN CHEST LEADS] SEPTAL MYOCARDIAL INFARCTION , OF INDETERMINATE AGE [40+ ms Q WAVE IN V1/V2] Compared to ECG 06/09/2024 06:28:19 Low QRS voltage now present Ectopic atrial rhythm no longer present Myocardial infarct finding still present Electronically Signed On 01-02-2025 10:48:40 CDT by Jag Brown M.D.
[2025-01-01 16:31] LABS: Add Urine Microscopic? NO; Appearance Urine Clear (Clear); Glucose Urine UA 1+ (Negative); Hematocrit 40.4 % (40.0-54.0); Hemoglobin 13.2 g/dL (14.0-18.0); Immature Granulocyte Percent A 0.2 % (0.0-0.0); Leukocyte Esterase Ur Negative LEU/UL (Negative); Lymphocytes Absolute Auto 0.78 K/mm3 (1.10-4.50); Mean Corpuscular HGB Conc 32.7 g/dL (32-36); Mean Corpuscular Hemoglobin 28.8 pg (27.0-31.0); Mean Corpuscular Volume 88.0 fL (78.0-102.0); Nitrate Urine Negative (Negative); Nucleated Red Blood Cells Absolute Auto 0.00 K/mm3 (0.00-0.00); Nucleated Red Blood Cells Perc 0.0 % (0-0.0); Platelet Count Result 191 K/mm3 (150-420); Red Blood Count 4.59 M/mm3 (4.70-6.10); Specific Grav Ur <= 1.005 (1.010-1.020); White Blood Count 4.2 K/mm3 (4.8-10.8)
[2025-01-01 16:44] LABS: Acetaminophen < 10 ug/mL (10-30); Salicylate 1.9 mg/dL (2-20)
--- OUTSIDE RECORDS SUMMARY | 2025-01-01 16:47 | XMS_ITS | Clinical Summary ---
Author Organization [facility] Address [address] [place] [id number] Care Team Providers Care Business Excellence Manager Name Role Phone Audrye Flowers MD Primary Care Provider [phone] Allergies No known active allergies Medications methadone (DOLOPHINE) 10 MG tablet Take 1 tablet (10 mg total) by mouth every 6 (six) hours as needed for Pain. Active ondansetron (ZOFRAN) 4 MG tablet Take 1 tablet (4 mg total) by mouth every 8 (eight) hours as needed for Nausea. 10 tablet 02/26/2024 Active Encounters Date Type Department Care Team Description 10/18/2024 Telephone [id number] [place] [address] Mar Cobos, BUSINESS CONTINUITY PLANNER- Referral (LEFT carpal tunnel syndrome, Dr Flowers) [...] on file Legal Sex Male 5:46 PM GARNETTER Gender Identity Not on file Sexual Orientation Not on file Last Filed Vital Signs Vital Sign Reading Time Taken Comments Blood Pressure 155/89 05/05/2024 4:08 PM GARNETTER Pulse 76 05/05/2024 4:08 PM GARNETTER Temperature 36.6 C (97.8 F) 05/05/2024 4:08 PM GARNETTER Respiratory Rate 18 05/05/2024 4:08 PM GARNETTER Oxygen Saturation 90% 05/05/2024 4:30 PM GARNETTER Inhaled Oxygen Concentration - - Weight 65.4 kg (144 lb 4 oz) 05/05/2024 4:08 PM GARNETTER Height 175.3 cm (5' 9) 05/05/2024 4:08 PM GARNETTER Body Mass Index 21.3 05/05/2024 4:08 PM GARNETTER Plan of Treatment Health Maintenance Due Date [...] patient's age to complete this topic Insurance [address] [address] C/O PROVIDER SERVICES DAMIAN CHÁVEZ [id number] Care Teams Business Excellence Manager Relationship Specialty Start Date End Date Audrey Flowers MD [address] [place] [id number] PCP - General FAMILY PRACTICE 05/02/24
--- OUTSIDE RECORDS SUMMARY | 2025-01-01 16:47 | XMS_ITS ---
Author Organization Unknown Plan of Treatment Description Planned Activity Planned Timing [facility] is a provider organization who partners directly with Health Plans and provides integrated primary care, behavioral health, and social science teacher for an attributed population Letter encounter to patientTelephone encounter Dec 08, 2024Jul 2024 Patient Care team information Name Category Status Period Participants - - Proposed period not known -
[2025-01-01 16:49] LABS: Cannabinoid Screen Urine Positive (Negative)
[2025-01-01 16:50] LABS: Anion Gap 10 mmol/L (4-12); Aspartate Amino Transferase 41 U/L (17-59); Bilirubin,Total 0.4 mg/dL (0.2-1.3); Blood Urea Nitrogen 15 mg/dL (9-20); Calcium 8.7 mg/dL (8.4-10.2); Carbon Dioxide 21 mmol/L (22-30); Chloride 111 mmol/L (98-107); Estimated Glomerular Filt Rate > 60; Glucose 75 mg/dL (65-110); Osmolality Calculated 293 mOsm/kg (285-295); Potassium 3.7 mmol/L (3.4-5.0); Sodium 142 mmol/L (137-145)
[2025-01-01 16:51] LABS: Albumin Level 3.9 g/dL (3.5-5.1); Alkaline Phosphatase 103 U/L (38-126); Total Protein 7.7 g/dL (6.3-8.2)
[2025-01-01 16:52] LABS: Alanine Aminotransferase 20 U/L (6-50)
[2025-01-01 17:15] LABS: Thyroid Stimulating Hormone 0.487 uIU/mL (0.465-4.680)
--- NOTE | 2025-01-01 19:30 | PC.NURSE ---
Patient requesting to speak with ERP at this time. Patient doesn't understand what we are waiting on and wants to go home. Patient is currently A/Ox4, of sound mind and ambulatory independently with steady gait. States that he is not suicidal or homicidal, states that he does not have a plan to hurt himself or anyone else, does not have any access to firearms or weapons of any kind. Does not appear to be a danger to himself or others at this time. Patient stated that he is not experiencing any hallucinations at this time. Patient is able to answer questions appropriately. ERP at bedside during assessment. Patient is requesting to leave AMA and understands risks and consequences of leaving AMA. Patient states that he has a safe plan to get back home at this time.
== END 2025-01-01 20:10 | disposition left against medical advice (07) ==
PROVIDERS: Emergency Provider Emergency Medicine
DX: F23 Brief psychotic disorder (principal); F10.920 Alcohol use, unspecified with intoxication, uncomplicated; F17.210 Nicotine dependence, cigarettes, uncomplicated
CPT/HCPCS: 36415; 71045; 80053; 80143; 80179; 80307; 81003; 82077; 84443; 85025; 93005; 99283

== ENCOUNTER 2025-03-08 12:50 | Observation (INO) | payer OTHER, SELFPAY ==
[2025-03-08] VITALS (22 sets, daily range): BP systolic 112–152; BP diastolic 58–85; PULSE 62–105; RESP 18–26; TEMP 37–37.3; O2SAT 91–100; BMI 19.1
--- NOTE | ~2025-03-08 | XR_ITS ---
EXAMINATION: XR chest 1V portable 03/08/2025 13:42 INDICATION: Alcohol withdrawals PROCEDURE: AP portable chest COMPARISON: Comparison to multiple prior studies sequentially, with oldest reviewed study dated 10/10/2023. FINDINGS: The lungs are clear. The lungs are hyperinflated which is consistent with, but not diagnostic of chronic obstructive pulmonary disease. The cardiomediastinal silhouette is within normal limits. There are no pleural effusions. There is no pneumothorax suspected. IMPRESSION: 1: NO ACUTE CARDIOPULMONARY DISEASE. Reviewed, dictated and finalized at location O.
--- NOTE | ~2025-03-08 | CT_ITS ---
EXAMINATION: CT brain wo con DATE: 03/08/2025 13:42 INDICATION: Altered mental status. TECHNIQUE: Computed tomography (CT) of the head was performed without intravenous contrast. The mA was adjusted according to patient size. Iterative reconstruction technique was employed. The dose-length product was 681.00 mGy-cm. COMPARISON: Head CT 10/09/2023 FINDINGS: There are scattered areas of low attenuation in the cerebral white matter, which is within normal limits for the patient's age. There is no intracranial hemorrhage, acute infarction, or abnormal intracranial mass lesion. The ventricles are normal in size. The orbits are normal. There is mild mucosal thickening in the paranasal sinuses. The mastoid air cells are normal. IMPRESSION: 1. Normal aging brain. Reviewed, dictated and finalized at location E. IMPRESSION: 1. Normal aging brain.
--- OUTSIDE RECORDS SUMMARY | 2025-03-08 12:55 | XMS_ITS | Clinical Summary ---
Author Organization [facility] Address [address] [place] [address] Care Team Providers Care Claim Service Representative Name Role Phone Audrey Flowers MD Primary Care Provider [phone] Allergies No known active allergies Medications methadone (DOLOPHINE) 10 MG tablet Take 1 tablet (10 mg total) by mouth every 6 (six) hours as needed for Pain. Active albuterol sulfate HFA 108 (90 Base) MCG/ACT inhaler Inhale 1 puff into the lungs every 4 (four) hours as needed. 01/17/20 25 Active JARDIANCE 25 MG tablet Take 1 tablet (25 mg total) by mouth daily. 01/17/20 25 Active ezetimibe (ZETIA) 10 MG tablet Take 1 tablet (10 mg total) by mouth daily. 01/17/20 25 Active fluticasone propionate (FLONASE) 50 MCG/ACT nasal spray 1 spray by Nasal route daily. 10/06/19 25 Active gabapentin (NEURONTIN) 300 MG capsule Take 1 capsule (300 mg total) by mouth 3 (three) times daily. 01/17/20 25 Active omeprazole (PRILOSEC) 40 MG capsule Take 1 capsule (40 mg total) by mouth every morning. 01/17/20 25 Active QUEtiapine (SEROQUEL) 50 MG tablet Take 1 tablet (50 mg total) by mouth nightly at bedtime. at bedtime Active thiamine 100 MG Tab Take 1 tablet (100 mg total) by mouth every morning. Active nirmatrelvir & ritonavir 300/100 (PAXLOVID) 20 x 150 MG & 10 x 100MG tablet pack Take 3 tablets by mouth 2 (two) times daily for 5 days. Take TWO nirmatrelvir 150 mg tablet(s) along with ONE ritonavir 100 mg tablet, with all three tablets taken together, twice daily for 5 days. May take with or without food. Swallow tablets whole. Do not chew, break or crush.. 30 tablet 02/15/20 25 Active ondansetron (ZOFRAN) 4 MG tablet Take 1 tablet (4 mg total) by mouth every 8 (eight) hours as needed for Nausea. 10 tablet 02/26/20 24 025 Discontinued Active Problems No known active problems Encounters Date Type Department Care Team Description 02/14/2025 9:44 AM CDT - 02/14/2025 12:10 PM CDT [facility] [address] [place] [address] [place] [address] Renan Vaughan, Sore Throat Discharge Disposition: Home or Self Care (Routine Discharge) 02/14/2025 Travel 01/27/2025 8:07 PM CDT - 01/27/2025 9:25 PM CDT [facility] [address] [place] [address] [place] [address] Mao Luong, Fall Discharge Disposition: Home or Self Care (Routine Discharge) 01/27/2025 Travel from Last 3 Months Social History Tobacco Use Types Packs/Day Years Used Date Smoking Tobacco: Every Day Cigarettes Cigars Smokeless Tobacco: Never Tobacco Cessation:Ready to Q uit: Not Asked; Counseling Given: Not Answered Alcohol Use Standard Drinks/Week Comments Yes 0 (1 standard drink = 0.6 oz pur e alcohol) social Sex and Gender Information Value Date Recorded Sex Assigned at Male 01/27/2025 8:15 PM CDT Legal Sex Male 5:46 PM [employer] Gender Identity Male 01/27/2025 8:15 PM CDT Sexual Orientation Not on file Last Filed Vital Signs Vital Sign Reading Time Taken Comments Blood Pressure 157/93 02/14/2025 9:45 AM CDT Pulse 91 02/14/2025 9:45 AM CDT Temperature 37.9 C (100.2 F) 02/14/2025 9:45 AM CDT Respiratory Rate 18 02/14/2025 9:45 AM CDT Oxygen Saturation 93% 02/14/2025 9:45 AM CDT Inhaled Oxygen Concentration - - Weight 60.6 kg (133 lb 8 oz) 02/14/2025 9:45 AM CDT Height 175.3 cm (5' 9) 02/14/2025 9:45 AM CDT Body Mass Index 19.71 02/14/2025 9:45 AM CDT Plan of Treatment Health Maintenance Due Date Last Done Comments Colorectal Cancer Screening Colonoscopy (10 Years) 1961 Annual Physical 1964 Hepatitis C 08/17/1979 Pneumococcal Vaccine: 50+ Ye ars (1 of 2 - PCV) 1980 Zoster Vaccines (1 of 2) 08/17/2011 DTaP, Tdap and Td Vaccines ( 2 - Td or Tdap) 02/13/2022 02/14/2012 COVID-19 Vaccine (1 - 2023-2 5 season) 2025 RSV Immunization or 60+ Years (1 - [...] Procedure Name Priority Date/Time Associated Diagnosis Comments HC URINALYSIS AUTO W/MICRO STAT 02/14/2025 10:55 AM CDT XR CHEST PORTABLE STAT 02/14/2025 10: [address] CERV SPINE WO CON STAT 02/14/2025 10:37 AM CDT COMPREHENSIVE METABOLIC PANEL STAT 02/14/2025 10:14 AM CDT CBC W/DIFF AUTOMATED STAT 02/14/2025 10:14 AM CDT CORONAVIRUS (COVID-19) ANTIGEN STAT 02/14/2025 10:04 AM CDT INFLUENZA A & B STAT 02/14/2025 10:04 AM CDT STREP A RAPID STAT 02/14/2025 10:04 AM CDT XR KNEE+SUNRISE RT 3V STAT 01/27/2025 8:37 PM CDT from Last 3 Months Results * (ABNORMAL) URINALYSIS (02/14/2025 10:55 AM CDT) COLOR (U) YELLOW 02/14/2025 11:28 AM CDT [facility] TRANSPARENCY CLEAR 02/14/2025 11:28 AM CDT [facility] SPECIFIC GRAVITY (U) 1.020 1.000 - 1.025 02/14/2025 11:28 AM CDT [facility] U PH 5.5 5.0 - 8.0 02/14/2025 11:28 AM CDT [facility] LEUKOCYTES (U) NEGATIVE NEGATIVE 02/14/2025 11:28 AM CDT [facility] NITRITES NEGATIVE NEGATIVE 02/14/2025 11:28 AM CDT [facility] PROTEIN RANDOM (U) TRACE(A) NEGATIVE 02/14/2025 11:28 AM CDT [facility] GLUCOSE (U) 2+(A) NEGATIVE 02/14/2025 11:28 AM CDT [facility] KETONES MG/DL (U) NEGATIVE NEGATIVE 02/14/2025 11:28 AM CDT [facility] UROBILINOGEN 0.2 <1.0 EU/DL 02/14/2025 11:28 AM CDT [facility] BILIRUBIN (U) NEGATIVE NEGATIVE 02/14/2025 11:28 AM CDT [facility] BLOOD (U) TRACE(A) NEGATIVE 02/14/2025 11:28 AM CDT [facility] WBC/HPF 0-5 0 - 5 /HPF 02/14/2025 11:28 AM CDT [facility] RBC/HPF 0-5 0 - 5 /HPF 02/14/2025 11:28 AM CDT [facility] EPI/LPF RARE /LPF 02/14/2025 11:28 AM CDT [facility] BACTERIA (U) TRACE /HPF 02/14/2025 11:28 AM CDT [facility] URINE SPECIMEN OBTAINED BY CLEAN CATCH PROCEDURE / Unknown 02/14/2025 10:55 AM CDT us Renan Vaughan DO URINE ORDERABLES Final Resul t [facility] [address] [place] [address], * XR CHEST PORTABLE (02/14/2025 10:37 AM CDT) Anatomical Region Laterality Modality Chest Radiographic Corinna ging 02/14/2025 10:4 2 AM CDT Impressions 02/14/2025 10:45 AM CDT IMPRESSION: 1. There is bronchial wall thickening, which can seen with small airway infection/inflammation or reactive airway disease. 2. No focal consolidation or pneumothorax. 3. Severe upper lobe prominent emphysema. Ordered By: RENAN VAUGHAN Interpreted By: Shona Kirkland MD, 02/14/2025 10:42 AM Narrative 02/14/2025 10:45 AM CDT [address] [place] [address] PROCEDURE: XR CHEST PORTABLE. 02/14/2025 10:37 AM. TECHNIQUE: A single view of the chest (AP or PA) was performed. HISTORY: Fever. COMPARISON: Chest CT without contrast, 02/26/2024 FINDINGS: Support Devices: None. Cardiac Silhouette/Mediastinum/Harriet: The cardiac, mediastinal, and hilar contours are unchanged in appearance. Lungs/Pleural Spaces: Severe upper lobe predominant emphysema. There is bilateral bronchial wall thickening. No focal consolidation. The pleural spaces are clear Chest Wall/Diaphragm/Upper Abdomen: The thoracic musculoskeletal structures and the upper abdomen are unchanged in appearance. Procedure Note Shona Kirkland MD - 02/14/[address] [place] [address] PROCEDURE: XR CHEST PORTABLE. 02/14/2025 10:37 AM. TECHNIQUE: A single view of the chest (AP or PA) was performed. HISTORY: Fever. COMPARISON: Chest CT without contrast, 02/26/2024 FINDINGS: Support Devices: None. Cardiac Silhouette/Mediastinum/Harriet: The cardiac, mediastinal, and hilarcontours are unchanged in appearance. Lungs/Pleural Spaces: Severe upper lobe predominant emphysema. There isbilateral bronchial wall thickening. No focal consolidation. The pleuralspaces are clear Chest Wall/Diaphragm/Upper Abdomen: The thoracic musculoskeletalstructures and the upper abdomen are unchanged in appearance. IMPRESSION: 1. There is bronchial wall thickening, which can seen with small airwayinfection/inflammation or reactive airway disease. 2. No focal consolidation or pneumothorax. 3. Severe upper lobe prominent emphysema. Ordered By: RENAN VAUGHAN Interpreted By: Shona Kirkland MD, 02/14/2025 10:42 AM Renan Vaughan DO GENERAL IMAGING Final Result * CT CERV SPINE WO CON (02/14/2025 10:37 AM CDT) Anatomical Region Laterality Modality Spine Computed Tomogra phy 02/14/2025 10:4 5 AM CDT Impressions 02/14/2025 10:50 AM CDT IMPRESSION: 1. No acute traumatic injury identified. 2. Stable spondylosis as described. 3. Centrilobular and paraseptal emphysema. Ordered By: RENAN VAUGHAN Interpreted By: Matt Dawkins MD, 02/14/2025 10:45 AM Narrative 02/14/2025 10:50 AM CDT [address] [place] [id number] Examination: CT of the cervical spine. Exam time: 1028 hours. Clinical history: Fell three weeks ago. Pain. Smoker. Comparison: 02/26/2024. Technique: Thin section spiral axial scans were acquired from the skull base through the T2-3 level without contrast. Sagittal and coronal reconstructions were performed from the data set. A dose lowering technique was used for this procedure, which may include, but is not limited to, dose reduction techniques, automated exposure control, the use of iterative reconstruction and ALARA/Image Gently techniques. Findings: There is no fracture or dislocation. The reconstructions confirm maintenance of vertebral body height. Some loss of the normal lordosis is similar to previous and presumed physiologic for this patient. Alignment is otherwise satisfactory. There is stable disc narrowing at C3-4 and C5-6, greater at C5-6. The other intervertebral discs are maintained normally in height. Minor paravertebral osteophyte formation and generalized facet arthropathy again evident. There is osteophytic foraminal impingement bilaterally at C3-4 and C5-6. The neural foramina and central canal are otherwise patent. The spinal canal contents, as visualized, appear unremarkable. There is no paraspinal edema or hematoma. Changes of centrilobular and paraseptal emphysema again evident. Procedure Note Matt Dawkins MD - 02/14/2025 [facility] [address] [place] [address] Examination: CT of the cervical spine. Exam time: 1028 hours. Clinical history: Fell three weeks ago. Pain. Smoker. Comparison: 02/26/2024. Technique: Thin section spiral axial scans were acquired from the skullbase through the T2-3 level without contrast. Sagittal and coronalreconstructions were performed from the data set. A dose loweringtechnique was used for this procedure, which may include, but is notlimited to, dose reduction techniques, automated exposure control, the useof iterative reconstruction and ALARA/Image Gently techniques. Findings: There is no fracture or dislocation. The reconstructions confirmmaintenance of vertebral body height. Some loss of the normal lordosis issimilar to previous and presumed physiologic for this patient. Alignmentis otherwise satisfactory. There is stable disc narrowing at C3-4 andC5-6, greater at C5-6. The other intervertebral discs are maintainednormally in height. Minor paravertebral osteophyte formation andgeneralized facet arthropathy again evident. There is osteophyticforaminal impingement bilaterally at C3-4 and C5-6. The neural foraminaand central canal are otherwise patent. The spinal canal contents, asvisualized, appear unremarkable. There is no paraspinal edema or hematoma.Changes of centrilobular and paraseptal emphysema again evident. IMPRESSION: 1. No acute traumatic injury identified. 2. Stable spondylosis as described. 3. Centrilobular and paraseptal emphysema. Ordered By: RENAN VAUGHAN Interpreted By: Matt Dawkins MD, 02/14/2025 10:45 AM us Renan Vaughan DO CT Final Result * (ABNORMAL) COMPREHENSIVE METABOLIC PANEL (02/14/2025 10:14 AM CDT) SODIUM S/P/B 141 136 - 145 MMOL/L 02/14/2025 10:47 AM CDT [facility] POTASSIUM S/P/B 3.9 3.5 - 5.1 MMOL/L 02/14/2025 10:47 AM CDT [facility] CHLORIDE S/P/B 106 98 - 107 MMOL/L 02/14/2025 10:47 AM CDT [facility] CO2 23.9 21.0 - 32.0 MMOL/L 02/14/2025 10:47 AM CDT [facility] GLUCOSE 82 70 - 99 MG/DL 02/14/2025 10:47 AM CDT [facility] Comment: FASTING GLUCOSE 100 TO 125 MG/DL IS CONSISTENT WITH IMPAIRED FASTING GLUCOSE. FASTING GLUCOSE >125 MG/DL IS CONSISTENT WITH DIABETES. RANDOM GLUCOSE >200 MG/DL WITH HYPERGLYCEMIC SYMPTOMS IS CONSISTENT WITH DIABETES. PER ADA GUIDELINES BUN 16 6 - 24 MG/DL 02/14/2025 10:47 AM CDT [facility] CREATININE S/P/B 0.87 0.70 - 1.30 MG/DL 02/14/2025 10:47 AM CDT [facility] CALCIUM S/P/B 8.9 8.4 - 10.5 MG/DL 02/14/2025 10:47 AM CDT [facility] BILIRUBIN TOTAL S/P/B 0.2 0.2 - 1.0 MG/DL 02/14/2025 10:47 AM [facility] Comment: THIS ASSAY IS NOT RECOMMENDED FOR PATIENTS UNDERGOING TREATMENT WITH ELTROMBOPAG DUE TO THE POTENTIAL FOR FALSELY ELEVATED RESULTS. ALKALINE PHOSPHATASE S/P/B 114 45 - 115 U/L 02/14/2025 10:47 AM [facility] AST 46(H) 15 - 37 U/L 02/14/2025 10:47 AM [facility] ALT 40 16 - 63 U/L 02/14/2025 10:47 AM [facility] TOTAL PROTEIN S/P/B 7.6 6.4 - 8.2 G/DL 02/14/2025 10:47 AM [facility] ALBUMIN S/P/B 3.2(L) 3.4 - 5.0 G/DL 02/14/2025 10:47 AM [facility] ANION GAP 11.1 5.0 - 15.0 MMOL/L 02/14/2025 10:47 AM [facility] OSMOLALITY (CALC) 292 MOSM/KG 025 10:47 AM [facility] Comment:REFERENCE RANGE NOT ESTABLISHED GFR ESTIMATE >90 >89 ML/MIN/1. 73 M2 02/14/2025 10:47 AM [facility] GFR NOTES GFR REFERENCE S: 02/14/2025 10:47 AM [facility] Comment: THE ESTIMATED GFR [...] ml/min/1.73 m2 G5,KIDNEY FAILURE: <15 ml/min/1.73 m2 02/14/2025 10:1 4 AM CDT Renan Vaughan DO LABORATORY Final Result [facility] [address] [place] [address], * (ABNORMAL) CBC W/DIFF AUTOMATED (02/14/2025 10:14 AM CDT) WBC 3.42(L) 4.00 - 10.80 x10'3/uL 02/14/2025 10:22 AM CDT [facility] RBC 4.40(L) 4.50 - 6.10 x10'6/uL 02/14/2025 10:22 AM CDT [facility] HGB 12.8(L) 13.0 - 18.0 G/DL 02/14/2025 10:22 AM CDT [facility] HCT 38.4 37.0 - 52.0 % 02/14/2025 10:22 AM CDT [facility] MCV 87.3 78.0 - 100.0 FL 02/14/2025 10:22 AM CDT [facility] MCH 29.1 27.0 - 31.0 PG 02/14/2025 10:22 AM CDT [facility] MCHC 33.3 33.0 - 36.0 G/DL 02/14/2025 10:22 AM CDT [facility] RDW 17.8(H) 11.5 - 14.5 % 02/14/2025 10:22 AM CDT [facility] PLT 178 150 - 350 x10'3/uL 02/14/2025 10:22 AM CDT [facility] MPV 10.5(H) 7.4 - 10.4 FL 02/14/2025 10:22 AM CDT [facility] CBC COMMENT NORMAL REFERENCE RANGE NOT ESTABLISHED FOR THE PROPORTIONAL LEUKOCYTE DIFFERENTIAL. 02/14/2025 10:22 AM CDT [facility] NEUTROPHILS % 56.1 % 02/14/2025 10:22 AM CDT [facility] LYMPHOCYTES % 24.0 % 02/14/2025 10:22 AM CDT [facility] MONOCYTES % 17.5 % 02/14/2025 10:22 AM CDT [facility] EOSINOPHILS % 1.8 % 02/14/2025 10:22 AM CDT [facility] BASOPHILS % 0.6 % 02/14/2025 10:22 AM CDT [facility] IMMATURE GRANS % 0.0 % 02/15/20 10:22 AM CDT [facility] NRBC % 0.0 % 02/14/2025 10:22 AM CDT [facility] ABS. NEUTROPHILS 1.92 1.60 - 8.30 x10'3/uL 02/14/2025 10:22 AM CDT [facility] ABS. LYMPHOCYTES 0.82 0.80 - 4.70 x10'3/uL 02/14/2025 10:22 AM CDT [facility] ABS. MONOCYTES 0.60 0.00 - 1.50 x10'3/uL 02/14/2025 10:22 AM CDT [facility] ABS. EOSINOPHILS 0.06 0.00 - 0.40 x10'3/uL 02/14/2025 10:22 AM CDT [facility] ABS. BASOPHILS 0.02 0.00 - 0.20 x10'3/uL 02/14/2025 10:22 AM CDT [facility] ABS. IMMATURE GRANULOCYTES 0.00 0.00 - 0.03 x10'3/uL 02/14/2025 10:22 AM CDT [facility] ABS. NUCLEATED RBC'S 0.00 0.00 - 0.01 x10'3/uL 02/14/2025 10:22 AM CDT [facility] 02/14/2025 10:1 4 AM CDT us Renan Vaughan DO LABORATORY Final Result [facility] [address] [place] [address], * (ABNORMAL) CORONAVIRUS (COVID-19) ANTIGEN (02/14/2025 10:04 AM CDT) CORONAVIRUS ANTIGEN IA POSITIVE( AA) NEGATIVE 02/14/2025 10:44 AM CDT [facility] Comment: CRITICAL VALUE THIS TEST HAS BEEN AUTHORIZED BY THE FDA UNDER AN EMERGENCY USE AUTHORIZATION (EUA) FOR USE BY AUTHORIZED LABORATORIES. CALLED TO TO JEFERSON [facility]NTIVEROS AT 1044 BY VNG READ BACK AND VERIFIED SPECIMEN TYPE NASAL 02/14/2025 10:14 AM CDT [facility] NASAL NASAL STRUCTURE / Unknown 02/14/2025 10:04 AM CDT us Renan Vaughan DO MICROBIOLOGY - GENERAL ORDER XIOMARA Final Result [facility] [address] [place] [address], * INFLUENZA A & B (02/14/2025 10:04 AM CDT) Pathologist [facility] SPECIMEN TYPE (INFLUENZA) NASOPHARYNGEAL SWAB 02/14/2025 10:14 AM CDT [facility] INFLUENZA A NEGATIVE NEGATIVE 02/14/2025 10:25 AM CDT [facility] INFLUENZA B NEGATIVE NEGATIVE 02/14/2025 10:25 AM CDT [facility] Comment: A NEGATIVE RESULT DOES NOT EXCLUDE INFLUENZA VIRUS INFECTION. IF INFLUENZA IS CIRCULATING IN YOUR COMMUNITY, A DIAGNOSIS OF INFLUENZA SHOULD BE CONSIDERED BASED ON A PATIENT'S CLINICAL PRESENTATION AND EMPIRIC ANTIVIRAL TREATMENT SHOULD BE CONSIDERED IF INDICATED. NASAL NASOPHARYNGEAL SWAB / Unknown 02/14/2025 10:04 AM CDT us Renan Vaughan DO MICROBIOLOGY - GENERAL ORDER XIOMARA Final Result [facility] [address] [place] [address], * STREP A RAPID (02/14/2025 10:04 AM CDT) SPECIMEN SOURCE THROAT 02/14/2025 10:14 AM CDT [facility] RAPID STREP TEST NEGATIVE NEGATIVE 02/14/2025 10:25 AM CDT [facility] STRUCTURE OF ANTERIOR REGION OF NECK / Unknown 02/14/2025 10:04 AM CDT us Renan Vaughan DO MICROBIOLOGY - GENERAL ORDER XIOMARA Final Result [facility] [address] [place] [address], * XR KNEE+SUNRISE RT 3V (01/27/2025 8:37 PM CDT) Anatomical Region Laterality Modality Knee Radiographic Corinna ging 01/27/2025 8:52 PM CDT Impressions 01/27/2025 8:53 PM CDT IMPRESSION: 1. Rtnty-mtn-pstr amputation. 2. No acute osseous abnormalities. Referred By: Interpreted By: Brian Walker MD, 01/27/2025 8:52 PM Narrative 01/27/2025 8:53 PM CDT [place] [address] [email or web address] [email or web address] [address] INDICATION: fall, pain at patella and stump COMPARISON: None TECHNIQUE: * 3 views of the right knee FINDINGS: Prior ibpat-snb-otwz amputation. No acute fractures. Normal alignment. No knee joint effusion. No soft tissue abnormalities. Procedure Note Brian Walker DO - 01/27/2025 [place] [id number] [email or web address] [email or web address] [address] INDICATION: fall, pain at patella and stump COMPARISON: None TECHNIQUE: * 3 views of the right knee FINDINGS: Prior rvbzo-las-bupr amputation. No acute fractures. Normal alignment.No knee joint effusion. No soft tissue abnormalities. IMPRESSION: 1. Lnrgl-era-wilp amputation. 2. No acute osseous abnormalities. Referred By: Interpreted By: Brian Walker MD, 01/27/2025 8:52 PM us Mao Sukhdeep Markosjhonatan DO GENERAL IMAGING Final Result from Last 3 Months Insurance [employer] Care Teams Claim Service Representative Relationship Specialty Start Date End Date Audrey Flowers MD [address] [place] [id number] PCP - General FAMILY PRACTICE 05/02/24
--- NOTE | 2025-03-08 13:06 | ED_ITS ---
HPI - Alcohol General Chief Complaint: Alcohol Stated Complaint: withdrawl Time Seen by Provider: 03/08/25 13:04 Source: patient and EMS Mode of arrival: EMS Limitations: no limitations History of Present Illness HPI narrative: Patient is a 64-year-old male with known alcoholism here after being discharged from the alf this morning of a 2 day stay having shakes/tremors without delirium. No seizures. His initial CIWA score on admission is 25. We will use diazepam and not Ativan due to the shortage of Ativan. He has never been admitted for alcohol withdrawal or intoxication. His last drink was 3 days ago. He was in alf for 2 days and came out this morning with nausea vomiting and diarrhea. This is his normal alcohol withdrawal symptoms. Right lower extremity below-knee amputee. Patient was not specific but basically drinks binge alcoholism and bottles of vodka. MD complaint: alcohol withdrawal and alcohol dependence Last drink: days (ago) (Three) Chronic alcohol use: Yes Previous visits for alcohol intoxication: No Recent trauma: No Associated symptoms: nausea, vomiting, tremors and other (Diarrhea) Treatments prior to arrival: none Related Data Home Medications ?Medication ?Instructions ?Recorded ?Confirmed ?Last Taken ?Type empagliflozin 25 mg tablet 25 mg PO DAILY 03/08/25 Unknown History (Jardiance) ezetimibe 10 mg tablet 10 mg PO DAILY 03/08/2502/14 Unknown History gabapentin 300 mg capsule 300 mg PO Q8H 03/08/2503/08 Unknown History Allergies Allergy/AdvReac Type Severity Reaction Status Date / Time No Known Allergies Allergy Verified 03/08/25 12:52 Review of Systems 2 Review of Systems: All systems reviewed & are unremarkable except as noted in HPI and below Constitutional: Constitutional: Reports no additional constitutional complaints Eyes: Eyes: Reports no additional eye complaints ENT: Reports system reviewed and no additional complaints, except as documented Cardiovascular: Cardiovascular: Reports no additional cardiovascular complaints Respiratory: Respiratory: Reports no additional respiratory complaints Gastrointestinal: Gastrointestinal: Reports no additional gastrointestinal complaints Genitourinary: Genitourinary: Reports no additional male genitourinary complaints Musculoskeletal: Musculoskeletal: Reports no additional musculoskeletal complaints Integumentary/Breasts: Skin/Breast: Reports system reviewed and no additional complaints, except as docu Neurologic: Reports system reviewed and no additional complaints, except as documented Psychiatric: Psychiatric: Reports no additional psychiatric complaints Endocrine: Endocrine: Reports no additional endocrine complaints Hematologic/Lymphatic: Hematologic/Lymphatic: Reports no additional hematologic/lymphatic complaints Allergic/Immunologic: Allergic/Immunologic: Reports no additional allergic/immunologic complaints [facility] Past Medical History Medical History Chronic low back pain Amputated right leg COPD (chronic obstructive pulmonary disease) Family History Family History Other Unknown family medical history Social History Social History Smoking status: Current every day smoker Alcohol intake: current Substance use: current Substance use type: marijuana Spiritual care concerns: No Exam 2 Const: General: healthy appearing and no acute distress Nutritional Appearance: well nourished Orientation/consciousness: patient oriented x3 Limitations: no limitations Other: Patient has the shakes and tremors but his mental status is intact without confusion or mental changes HENMT: Head: normal to inspection Ears: external ears normal F meet/Nose/Sinus: Normal external nose present Eyes: Conjunctivae: conjunctivae normal Pupils: Equal, round and reactive pupils present EOM: EOMs intact bilaterally Neck: Neck: normal visual inspection Chest: Chest palpation & inspection: normal inspection of the chest Resp: Effort & Inspection: normal respiratory effort and not labored A uscultation: clear to auscultation bilaterally and no crackles Cardio: Rate: regular rate Rhythm: regular rhythm Heart sounds: no murmurs GI: Inspection: non-distended GI Palp: Yes Soft to palpation and No Tenderness to palpation present (GI) Auscultation: normal bowel sounds : General: Yes bladder normal to palpation Back/Spine/Pelvis: Back: no CVA tenderness Skin: General skin exam: normal color Rashes: no rashes Wounds: no wounds Neuro: General: patient oriented x3, moves all extremities, no meningeal signs, no focal motor deficits and CN's II-XI intact bilaterally Cranial nerves: Yes Nystagmus not present Speech: normal speech Other: NIH is 0, GCS is 15 Extrem: General: normal to inspection Psych: Mental Status: mental status grossly normal Affect: normal affect Attitude: cooperative Course Vital Signs Vital signs: Vital Signs Temperature 37.3 C 03/08/25 12:50 Pulse Rate 98 03/08/25 12:50 Respiratory Rate 20 03/08/25 12:50 Blood Pressure 152/75 H 03/08/25 12:50 Pulse Oximetry 100 03/08/25 12:50 Oxygen Delivery Room Air 03/08/25 12:50 Temperature 37.3 C 03/08/25 12:50 Pulse Rate 87 03/08/25 14:01 Respiratory Rate 21 H 03/08/25 14:01 Blood Pressure 134/83 03/08/25 14:01 Pulse Oximetry 96 03/08/25 14:01 Oxygen Delivery Room Air 03/08/25 12:50 MDM - Alcohol MDM Narrative Medical decision making narrative: Patient is a 64-year-old male alcoholic with alcohol withdrawal symptoms at day 3. CIWA was 24. Diazepam instead of Ativan due to shortage. Labs. CT head and chest x-ray. Urine. Possibly/likely admit to this facility for CIWA control. Lab Data Attestation: I reviewed the patient's lab results. 03/08/25 13:48 03/08/25 13:48 Labs: Lab Results 03/08/25 03/08/25 Range/Units 13:48 14:08 WBC 4.5 L (4.8-10.8) K/mm3 RBC 5.00 (4.70-6.10) M/mm3 Hgb 14.4 (14.0-18.0) g/dL Hct 42.7 (40.0-54.0) % MCV 85.4 (78.0-102.0) fL MCH 28.8 (27.0-31.0) pg MCHC 33.7 (32-36) g/dL RDW 17.2 H (11.6-14.4) % Plt Count 128 L (150-420) K/mm3 MPV 9.5 (8.7-11.0) fl Immature Gran % (Auto) 0.2 H (0.0-0.0) % Neut % (Auto) 88.6 H (50.0-70.0) % Lymph % (Auto) 3.5 L (18.0-42.0) % Green % (Auto) 7.3 (2.0-11.0) % Eos % (Auto) 0.2 L (1.0-6.0) % Baso % (Auto) 0.2 (0.0-1.0) % Lymph # (Auto) 0.16 L (1.10-4.50) K/mm3 Green # (Auto) 0.33 (0.10-0.90) K/mm3 Eos # (Auto) 0.01 L (0.02-0.50) K/mm3 Baso # (Auto) 0.01 (0.00-0.10) K/mm3 Abs Immat Gran (auto) 0.01 H (0.00-0.00) K/mm3 Absolute Neuts (auto) 3.99 (1.70-7.20) K/mm3 Absolute Nucleated RBC 0.00 (0.00-0.00) K/mm3 Nucleated RBC % 0.0 (0-0.0) % % Immature Plt Fraction 4.8 (1.0-7.0) % Sodium 137 (137-145) mmol/L Potassium 4.5 (3.4-5.0) mmol/L Chloride 94 L (98-107) mmol/L Carbon Dioxide 31 H (22-30) mmol/L Anion Gap 12 (4-12) mmol/L BUN 19 (9-20) mg/dL Creatinine 0.81 (0.7-1.3) mg/dL Estim Creat Clear Calc 68 ml/min Estimated GFR > 60 (59 - ) Glucose 144 H (65-110) mg/dL Calculated Osmolality 289 (285-295) mOsm/kg Lactic Acid 2.7 H (0.4-2.0) mmol/L Calcium 10.5 H (8.4-10.2) mg/dL Total Bilirubin 1.2 (0.2-1.3) mg/dL AST 120 H (17-59) U/L ALT 74 H (6-50) U/L Alkaline Phosphatase 148 H (38-126) U/L Total Creatine Kinase 593 H (55-170) U/L Troponin I 0.022 (0.000-0.034) ng/mL Total Protein > 11.0 H (6.3-8.2) g/dL Albumin 4.7 (3.5-5.1) g/dL Urine Color Yellow (Yellow) Urine Appearance Clear (Clear) Urine pH 7.0 (5.0-8.0) Ur Specific [place] 1.010 (1.010-1.020) Urine Protein 2+ H (Negative) Urine Glucose (UA) Negative (Negative) Urine Ketones 2+ H (Negative) Ur Blood (Man) Trace-intact H (Negative) Urine Nitrate Negative (Negative) Urine Bilirubin Negative (Negative) Urine Urobilinogen 0.2 (0.2-1.0) mg/dL Leukocyte Esterase Rfl Negative (Negative) ERICKA/UL Urine RBC 0-2 (0-2) /hpf Urine WBC None seen (0-3) /hpf Urine Bacteria Rare (None) /hpf Urine Opiates Screen Negative (Negative) Urine Methadone Screen Negative (Negative) Ur Barbiturates Screen Negative (Negative) Ur Phencyclidine Scrn Negative (Negative) Ur Amphetamine Screen Negative (Negative) U Benzodiazepines Scrn Negative (Negative) Urine Cocaine Screen Negative (Negative) U Cannabinoids Screen Positive A (Negative) Ethyl Alcohol < 10 (<10) mg/dL Imaging Data Attestation: I personally reviewed and interpreted this imaging study as follows: Radiologist's impression: ITS Impressions Head CT 03/08/25 13:45 IMPRESSION: 1. Normal aging brain. Chest X-Ray 03/08/25 13:54 IMPRESSION: 1: NO ACUTE CARDIOPULMONARY DISEASE. ECG Data EKG #1: Attestation: I personally reviewed and interpreted this ECG as follows: ECG completion date: 03/08/25 ECG completion time: 13:27 EKG Interpretation: normal rate, sinus rhythm, no ectopy, non-specific ST changes, normal QRS, normal QT and NL axis Discharge Plan Discharge Clinical Impression: Alcohol abuse with withdrawal, Acute dehydration Patient Disposition: Acute Care Hospital [facility] Condition: Stable Patient Language: Montserratian Prescriptions: No Action Jardiance 25 mg tablet 25 mg PO DAILY ezetimibe 10 mg tablet 10 mg PO DAILY gabapentin 300 mg capsule 300 mg PO Q8H quetiapine [Seroquel] 50 mg tablet 50 mg PO QHS Qty: 30 1RF Follow-up/Referrals: Lionel,Audrey Islas MD [Primary Care Provider, Unknown] Time of Disposition: 14:46
--- NOTE | 2025-03-08 13:14 | ECG_ITS ---
Test Date: 2025-03-08 13:25:32 Measurements Intervals [place] Rate: 97 P: 85 MO: 96 QRS: 57 QRSD: 82 T: 89 QT: 385 QTc: 491 Interpretive Statements SINUS RHYTHM CONSIDER PREVIOUSSEPTAL MYOCARDIAL INFARCTION , PROBABLY OLD [40+ ms Q WAVE IN V1/V2] ABNORMAL ECG Compared to ECG 01/01/2025 16:37:14 NO SIGNIFICANT CHANGE Electronically Signed On 03-09-2025 16:35:33 CDT by Talon Benítez M.D.
[2025-03-08] MEDS: SODIUM CHLORIDE 0.9% IV 1,000 ML 999 ML IV CONT ×2 (13:22→14:49)
[2025-03-08] MEDS: diazePAM INJ (*CRX) 10 MG/2 ML SYRINGE 5 MG IV PUSH ×2 (13:23→23:30)
[2025-03-08] MEDS: THIAMINE HCL 200 MG/2 ML VIAL 100 MG IV PUSH (13:40)
[2025-03-08 13:56] LABS: Hematocrit 42.7 % (40.0-54.0); Hemoglobin 14.4 g/dL (14.0-18.0); Immature Granulocyte Percent A 0.2 % (0.0-0.0); Immature Platelet Fraction Pct 4.8 % (1.0-7.0); Lymphocytes Absolute Auto 0.16 K/mm3 (1.10-4.50); Mean Corpuscular HGB Conc 33.7 g/dL (32-36); Mean Corpuscular Hemoglobin 28.8 pg (27.0-31.0); Mean Corpuscular Volume 85.4 fL (78.0-102.0); Nucleated Red Blood Cells Absolute Auto 0.00 K/mm3 (0.00-0.00); Nucleated Red Blood Cells Perc 0.0 % (0-0.0); Platelet Count Result 128 K/mm3 (150-420); Red Blood Count 5.00 M/mm3 (4.70-6.10); White Blood Count 4.5 K/mm3 (4.8-10.8)
[2025-03-08 14:07] LABS: Alanine Aminotransferase 74 U/L (6-50); Albumin Level 4.7 g/dL (3.5-5.1); Alkaline Phosphatase 148 U/L (38-126); Anion Gap 12 mmol/L (4-12); Aspartate Amino Transferase 120 U/L (17-59); Bilirubin,Total 1.2 mg/dL (0.2-1.3); Blood Urea Nitrogen 19 mg/dL (9-20); Calcium 10.5 mg/dL (8.4-10.2); Carbon Dioxide 31 mmol/L (22-30); Chloride 94 mmol/L (98-107); Creatine Kinase 593 U/L (55-170); Estimated CRCL calculation 68 ml/min; Estimated Glomerular Filt Rate > 60; Glucose 144 mg/dL (65-110); Osmolality Calculated 289 mOsm/kg (285-295); Potassium 4.5 mmol/L (3.4-5.0); Sodium 137 mmol/L (137-145); Total Protein > 11.0 g/dL (6.3-8.2)
[2025-03-08 14:16] LABS: Add Urine Microscopic? YES; Appearance Urine Clear (Clear); Glucose Urine UA Negative (Negative); Leukocyte Esterase Ur Negative LEU/UL (Negative); Nitrate Urine Negative (Negative); Specific Grav Ur 1.010 (1.010-1.020)
--- NOTE | 2025-03-08 14:17 | PC.NURSE ---
125cc of urine out
[2025-03-08 14:19] LABS: Troponin I 0.022 ng/mL (0.000-0.034)
[2025-03-08 14:32] LABS: Cannabinoid Screen Urine Positive (Negative)
[2025-03-08] MEDS: SODIUM CHLORIDE 0.9% IV 1,000 ML 100 ML IV CONT (15:50)
[2025-03-08 16:09] LABS: Magnesium 1.6 mg/dL (1.6-2.3)
--- NOTE | 2025-03-08 16:28 | PC.NURSE ---
Addendum entered by Jodee Montilla RN 03/08/25 16:50: Pt admitrs to drinking 2-3 gallons of Vodka 3 days ago. Pt states he normally does not drink that much normally, but drinks 1/2 pint of Vodka every other day. Original Note: 15:22- 64 y/oM to room 205 from ED via wheelchair. This RN assumed care of pt at this time. Pt ambulatory to hospital bed with steady gait. Pt states his only complaint is nausea. Pt currently denies auditory/visual hallucinations, no visible tremors, and pt does not appear to be anxious. Pt placed on tele monitor and VS updated and WNL. Pt has a prosthesis to right lower extremity. Pt admits to at least 3 episodes of diarrhea over the past 24 hours. Pt verbalized diarrhea concern in ED. This RN placed hat in toilet for stool collection and pt educated about needing sample. Pt provided with urinal and also educated about fall risk and how to use call light prior to ambulating in bed. Pt verbalized understanding. Hospital bed in low locked position, bed alarm on, and call light within pt's reach. Pt states he wears reading glasses, but does not have them with him at this time. Pt informs this RN that he currently is homeless, and requesting resources. This RN provided pt with the following resources: Food, housing, paying for utility bills, paying for medications. Pt denies any further needs/concerns at this time. Respirations even and unlabored.
[2025-03-08] MEDS: GABAPENTIN 300 MG CAPSULE PO ×2 (16:47→21:18)
[2025-03-08] MEDS: LORazepam (*CRX) 1 MG TABLET PO ×2 (17:01→21:18)
[2025-03-08 18:47] LABS: Toxigenic C. Diff NEGATIVE (NEGATIVE)
--- NOTE | 2025-03-08 19:01 | ADMGEN ---
This patient, Mirza Hidalgo, was admitted to 2nd Floor Room 205-2. Patient oriented to hospital policies and general routines including ID bracelet, bed and alarms, visiting hours, pain management, procedures, bathroom and other care routines, personal items, smoking policy, room service/diet, and visiting hours. Information on how to activate the Rapid Response Team has been discussed. Patient are encouraged to report perceived risks to care and to ask questions if they do not understand what they are told or what they should do.
[2025-03-08] MEDS: ONDANSETRON INJ 4 MG/2 ML VIAL IV PUSH (21:31)
--- NOTE | 2025-03-08 23:40 | PC.NURSE ---
Pt c/o restlessness and jerking movements. Pt had pulled the IV site out and a new IV was started to the left wrist with a #22 gauge catheter. Pt was given valium 5 mg IVP to relieve restlessness and jerking movements.
[2025-03-09] VITALS: BP 126/78; PULSE 83; PULSE 85; RESP 16; TEMP 37.7; O2SAT 93
[2025-03-09] MEDS: LORazepam (*CRX) 1 MG TABLET PO ×5 (00:55→21:21)
--- NOTE | 2025-03-09 03:30 | PC.NURSE ---
New IV site started to the right wrist with a #22 gauge catheter.
[2025-03-09 03:47] VITALS: PULSE 72
[2025-03-09] MEDS: ONDANSETRON INJ 4 MG/2 ML VIAL IV PUSH ×2 (04:40→21:25)
[2025-03-09 05:34] LABS: Hematocrit 40.6 % (40.0-54.0); Hemoglobin 13.5 g/dL (14.0-18.0); Immature Platelet Fraction Pct 5.8 % (1.0-7.0); Mean Corpuscular HGB Conc 33.3 g/dL (32-36); Mean Corpuscular Hemoglobin 28.7 pg (27.0-31.0); Mean Corpuscular Volume 86.4 fL (78.0-102.0); Platelet Count Result 86 K/mm3 (150-420); Red Blood Count 4.70 M/mm3 (4.70-6.10); White Blood Count 3.0 K/mm3 (4.8-10.8)
[2025-03-09] MEDS: GABAPENTIN 300 MG CAPSULE PO ×3 (05:40→21:21)
[2025-03-09 06:02] LABS: Band Neutrophils Percent 0 % (0-6); Lymphocytes Absolute Manual 0.84 K/mm3 (1.1-4.5); Lymphocytes Percent Manual 28 % (18-44); Monocytes Absolute Manual 0.09 K/mm3 (0.1-0.90); Monocytes Percent Manual 3 % (3-9); Neutrophils Absolute Manual 2.07 K/mm3 (1.3-6.7); Neutrophils Percent Manual 69 % (46-73); Schistocytes None Seen; Total Cells Counted 100
[2025-03-09 06:03] LABS: Anisocytosis 2+
[2025-03-09 06:04] LABS: Poikilocytosis 1+
[2025-03-09 06:14] LABS: Alanine Aminotransferase 63 U/L (6-50); Albumin Level 3.5 g/dL (3.5-5.1); Alkaline Phosphatase 124 U/L (38-126); Anion Gap 8 mmol/L (4-12); Aspartate Amino Transferase 107 U/L (17-59); Bilirubin,Total 0.8 mg/dL (0.2-1.3); Blood Urea Nitrogen 14 mg/dL (9-20); Calcium 9.6 mg/dL (8.4-10.2); Carbon Dioxide 27 mmol/L (22-30); Chloride 103 mmol/L (98-107); Estimated CRCL calculation 69 ml/min; Estimated Glomerular Filt Rate > 60; Glucose 89 mg/dL (65-110); Magnesium 1.7 mg/dL (1.6-2.3); Osmolality Calculated 285 mOsm/kg (285-295); Potassium 3.8 mmol/L (3.4-5.0); Sodium 138 mmol/L (137-145); Total Protein 7.8 g/dL (6.3-8.2)
[2025-03-09 08:00] VITALS: BP 141/68; PULSE 70; PULSE 80; RESP 15; TEMP 36.8; O2SAT 98
[2025-03-09] MEDS: SODIUM CHLORIDE 0.9% IV 1,000 ML 100 ML IV CONT ×2 (08:37→19:35)
[2025-03-09] MEDS: MULTIVITAMINS THERAPEUTIC TAB (*BKC) 1 TABLET PO (08:37)
[2025-03-09] MEDS: MAGNESIUM OXIDE 400 MG TABLET PO ×2 (08:37→17:24)
[2025-03-09] MEDS: THIAMINE HCL 100 MG TABLET PO (08:38)
[2025-03-09] MEDS: FOLIC ACID 1 MG TABLET PO (08:38)
[2025-03-09] MEDS: EZETIMIBE 10 MG TABLET PO (08:38)
[2025-03-09] MEDS: EMPAGLIFLOZIN 25 MG TABLET PO (08:38)
[2025-03-09] MEDS: LOPERAMIDE HCL 2 MG CAPSULE 4 MG PO (09:40)
--- NOTE | 2025-03-09 10:02 | P.HP_ITS ---
H&P: HPI History of Present Illness Date/Time: 03/09/25 10:02 Chief Complaint: alcohol withdrawals Narrative: Patient is a 64-year-old male who presented to the emergency department with complaints of alcohol withdrawals including tremors, diaphoresis, and nausea. patient reported he had been drinking on Thursday states he drinks close to a gal of vodka a day however had gotten in an argument with called the police and patient was placed in halfway over the weekend. Patient presented to the ER with complaints of alcohol withdrawal. per the medical chart patient met initial CIWA score of 25. 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 In the ED: per medical chart patient was CIWA 25, transaminitis, and mild rhabdomyolysis CPK at 593, tachycardia and hypertensive, CXR no acute cardiopu lmonary disease CT head with normal aging brain. patient is seen following day in no acute distress but still with mild tremors reports overnight diaphoresis but has resolved still with mild nausea but is tolerating oral intake denied any chest pain, shortness a breath, abdominal pain. Patient with some significant diarrhea C diff negative initiated on Imodium. Review of Systems Review of Systems: All systems reviewed & are unremarkable except as noted in HPI and below PMFSH Past Medical History Medical History (Updated 03/09/25 @ 10:24 by Brenda Glass APRN) Tobacco abuse Alcohol abuse with withdrawal Chronic low back pain Amputated right leg COPD (chronic obstructive pulmonary disease) Family History Family History Other Unknown family medical history Social History Social History Smoking packs per day: 0.5 Smoking cigarettes per day: 10.0 Years smoked: 47 Smoking pack-years: 23.50 Smoking status: Current every day smoker Tobacco type: cigarettes and cigars Second hand tobacco smoke exposure: Yes Alcohol intake: current Substance use: current Substance use type: marijuana Last use: 03/04/2025 Lack of Transportation: YES Lack of Food: Often True Current Housing: I Do Not Have Housing Concerned About Future Housing: YES Difficulty Paying Gas/Electric Bills: YES Difficulty Paying for Meds: YES Currently Unemployed: No Education: Grade School Difficulty w/ Childcare or Family Care: No Spiritual care concerns: Yes (Lusundar) Meds Home Medications and Allergies Home Medications ?Medication ?Instructions ?Recorded ?Confirmed ?Type quetiapine 50 mg tablet (Seroquel) 50 mg PO QHS #30 ta bs 10/15/23 03/08/25 Rx empagliflozin 25 mg tablet 25 mg PO DAILY 03/08/25 History (Jardiance) ezetimibe 10 mg tablet 10 mg PO DAILY 03/08/2502/14 History gabapentin 300 mg capsule 300 mg PO Q8H 03/08/2503/08 History Allergies Allergy/AdvReac Type Severity Reaction Status Date / Time No Known Allergies Allergy Verified 03/08/25 12:52 Vital Signs Vital Signs - 24 hr 03/08/25 12:50 03/08/25 12:50 03/08/25 13:00 Temperature 99.2 F Pulse Rate 98 91 Respiratory Rate 20 Blood Pressure 152/75 H Pulse Oximetry 100 Oxygen Delivery Room Air Room Air 03/08/25 13:18 03/08/25 13:19 03/08/25 13:40 Temperature Pulse Rate 98 101 H 94 Respiratory Rate 26 H 24 H 22 H Blood Pressure 133/58 L Pulse Oximetry 100 100 91 Oxygen Delivery 03/08/25 13:41 03/08/25 13:45 03/08/25 13:51 Temperature Pulse Rate 92 94 93 Respiratory Rate 21 H 23 H 24 H Blood Pressure 112/76 141/80 H Pulse Oximetry 94 93 94 Oxygen Delivery 03/08/25 14:00 03/08/25 14:00 03/08/25 14:01 Temperature Pulse Rate 86 85 87 Respiratory Rate 20 21 H Blood Pressure 134/83 Pulse Oximetry 96 96 Oxygen Delivery 03/08/25 14:02 03/08/25 14:15 03/08/25 14:16 Temperature Pulse Rate 83 79 81 Respiratory Rate 20 21 H 21 H Blood Pressure 142/79 H Pulse Oximetry 97 96 96 Oxygen Delivery 03/08/25 14:30 03/08/25 14:31 03/08/25 14:45 Temperature Pulse Rate 81 83 77 Respiratory Rate 23 H 18 19 Blood Pressure 148/85 H Pulse Oximetry 100 100 97 Oxygen Delivery 03/08/25 14:46 03/08/25 14:55 03/08/25 15:00 Temperature Pulse Rate 88 62 77 Respiratory Rate 22 H 19 Blood Pressure 140/80 Pulse Oximetry 94 97 Oxygen Delivery 03/08/25 15:01 03/08/25 16:00 03/08/25 20:00 Temperature 98.6 F 99 F Pulse Rate 82 105 H 83 Respiratory Rate 18 20 Blood Pressure 137/66 148/73 H Pulse Oximetry 98 96 Oxygen Delivery Room Air 03/09/25 00:00 03/09/25 00:00 03/09/25 03:47 Temperature 99.8 F H Pulse Rate 83 85 72 Respiratory Rate 16 Blood Pressure 126/78 Pulse Oximetry 93 Oxygen Delivery Room Air 03/09/25 08:00 03/09/25 08:00 Temperature 98.2 F Pulse Rate 70 80 Respiratory Rate 15 Blood Pressure 141/68 H Pulse Oximetry 98 Oxygen Delivery Room Air Exam Const: General: comfortable and no acute distress Other: Mild tremors, pleasant male HENMT: Ears: TM's normal bilaterally Face/Nose/Sinus: Normal nares present Mouth: Yes moist mucous membranes Eyes: General: appearance normal, both eyes and all related structures Sclera: sclerae normal Pupils: Equal, round and reactive pupils present Neck: Neck: supple and no JVD Resp: Effort & Inspection: normal respiratory effort Auscultation: clear to auscultation bilaterally Cardio: Rate: regular rate Rhythm: regular rhythm GI: GI Palp: Yes Soft to palpation Other: hyperactive : General: Yes bladder normal to palpation Skin: General skin exam: normal color and no rashes or lesions noted Wounds: no wounds Neuro: Speech: normal speech Motor exam (neuro): 5/5 motor strength present throughout Sensory Exam: normal sensation Extrem: Other: right BKA Psych: Mental Status: mental status grossly normal Affect: normal affect H&P: Results Labs Labs: Short CBC 03/08/25 03/09/25 Range/Units 13:48 05:25 WBC 4.5 L 3.0 L (4.8-10.8) K/mm3 Hgb 14.4 13.5 L (14.0-18.0) g/dL Hct 42.7 40.6 (40.0-54.0) % Plt Count 128 L 86 L (150-420) K/mm3 BMP 03/08/25 03/09/25 13:48 05:25 Sodium 137 138 Potassium 4.5 3.8 Chloride 94 L 103 Carbon Dioxide 31 H 27 BUN 19 14 D Creatinine 0.81 0.79 Glucose 144 H 89 Calcium 10.5 H 9.6 Cardiac Enzymes 03/08/25 Range/Units 13:48 Total Creatine Kinase 593 H (55-170) U/L Troponin I 0.022 (0.000-0.034) ng/mL Liver Function 03/08/25 03/09/25 Range/Units 13:48 05:25 Total Bilirubin 1.2 0.8 (0.2-1.3) mg/dL AST 120 H 107 H (17-59) U/L ALT 74 H 63 H (6-50) U/L Alkaline Phosphatase 148 H 124 (38-126) U/L Albumin 4.7 3.5 (3.5-5.1) g/dL Urine 03/08/25 Range/Units 14:08 Urine Color Yellow (Yellow) Urine Appearance Clear (Clear) Urine pH 7.0 (5.0-8.0) Ur Specific [place] 1.010 (1.010-1.020) Urine Protein 2+ H (Negative) Urine Glucose (UA) Negative (Negative) Assessment and Plan Assessment and plan (1) Alcohol abuse with withdrawal: Code(s): F10.139 - Alcohol abuse with withdrawal, unspecified Status: Acute Assessment and Plan: patient with history of EtOH abuse reports drinking a gal of vodka daily has previous admission to intensive care unit and intubated due to alcohol withdrawals. * IV fluids * Last drink 48hrs * Thiamine, folic acid, and multi-vitamin * PPI daily * Ativan taper * IV diazepam PRN for seizure activity * CIWA daily * Monitor and replenish electrolytes as needed * Seizure precautions if indicated * educated on the need for immediate alcohol cessation * resources provided by care coordination (2) Pancytopenia: Code(s): D61.818 - Other pancytopenia Status: Acute Assessment and Plan: likely secondary to patient's alcohol abuse platelets 87 * continue to trend * monitor for any evidence of bleeding (3) Rhabdomyolysis: Code(s): M62.82 - Rhabdomyolysis Status: Acute Assessment and Plan: patient was recently in halfway over the weekend presented with mild rhab domyolysis CPK 593 * IV fluids (4) Tobacco abuse: Code(s): Z72.0 - Tobacco use Status: Acute Assessment and Plan: * nicotine patch * remove at night * educated on smoking cessation Plan Code status: Full code per patient DVT prophylaxis: SCDs Stress ulcer prophylaxis: Protonix 40 daily PT/OT notes: PT evaluation Disposition: patient continues admission for ETOH abuse with withdrawals will continue with Ativan taper and monitor CIWA. Patient reports currently he has no where to go at discharge is unable to return home with due to new restraining order. Care coordination as provided patient with resources. Quality VTE Prophylaxis VTE prophylaxis: mechanical ordered -Patient's previous records reviewed on admission -ER notes reviewed in detail on admission -discussed all findings and current treatment plan with patient/Family/POA -Consultations reviewed for recommendations -Patient's disposition for safe discharge discussed with case consultant Dictation performed by [employer] direct speech recognition software, therefore general practitioner variants and typographical errors may occur. Hospitalist MIPS Advance Care Plan I have confirmed that the patient's Advanced Care Plan is present, code status is documented, or surrogate decision maker is listed in patient medical record.: Yes Medication Reconciliation I have utilized all available resources to obtain, update and review the patients current medications (includes all prescriptions, OTC, herbals, cannabis, and nutritional supplements).: Yes The patient is not eligible for med reconciliation; the patient is in a emergent medical situation where delaying treatment would jeopardize the patients health.: No
[2025-03-09] MEDS: LOPERAMIDE HCL 2 MG CAPSULE PO ×2 (10:52→17:24)
[2025-03-09 16:00] VITALS: BP 126/78; PULSE 74; RESP 19; TEMP 36.6; O2SAT 99
[2025-03-10] VITALS: BP 134/87; PULSE 71; RESP 19; TEMP 37; O2SAT 95
[2025-03-10] MEDS: LORazepam (*CRX) 1 MG TABLET PO ×2 (02:54→08:30)
[2025-03-10 05:37] LABS: Hematocrit 42.6 % (40.0-54.0); Hemoglobin 13.9 g/dL (14.0-18.0); Immature Platelet Fraction Pct 8.7 % (1.0-7.0); Mean Corpuscular HGB Conc 32.6 g/dL (32-36); Mean Corpuscular Hemoglobin 28.5 pg (27.0-31.0); Mean Corpuscular Volume 87.5 fL (78.0-102.0); Platelet Count Result 88 K/mm3 (150-420); Red Blood Count 4.87 M/mm3 (4.70-6.10); White Blood Count 3.0 K/mm3 (4.8-10.8)
[2025-03-10 05:47] LABS: Alanine Aminotransferase 102 U/L (6-50); Albumin Level 3.9 g/dL (3.5-5.1); Alkaline Phosphatase 126 U/L (38-126); Anion Gap 9 mmol/L (4-12); Aspartate Amino Transferase 152 U/L (17-59); Bilirubin,Total 0.8 mg/dL (0.2-1.3); Blood Urea Nitrogen 11 mg/dL (9-20); Calcium 9.9 mg/dL (8.4-10.2); Carbon Dioxide 25 mmol/L (22-30); Chloride 103 mmol/L (98-107); Estimated CRCL calculation 63 ml/min; Estimated Glomerular Filt Rate > 60; Glucose 94 mg/dL (65-110); Magnesium 1.7 mg/dL (1.6-2.3); Osmolality Calculated 283 mOsm/kg (285-295); Potassium 4.2 mmol/L (3.4-5.0); Sodium 137 mmol/L (137-145); Total Protein 9.6 g/dL (6.3-8.2)
[2025-03-10 05:51] LABS: Band Neutrophils Percent 0 % (0-6); Basophils Absolute Manual 0.00 K/mm3 (0-0.1); Basophils Percent Manual 0 % (0-1); Eosinophils Absolute Manual 0.00 K/mm3 (0.02-0.50); Eosinophils Percent Manual 0 % (1-6); Lymphocytes Absolute Manual 0.81 K/mm3 (1.1-4.5); Lymphocytes Percent Manual 27 % (18-44); Monocytes Absolute Manual 0.18 K/mm3 (0.1-0.90); Monocytes Percent Manual 6 % (3-9); Neutrophils Absolute Manual 2.01 K/mm3 (1.3-6.7); Neutrophils Percent Manual 67 % (46-73)
[2025-03-10] MEDS: GABAPENTIN 300 MG CAPSULE PO (06:33)
[2025-03-10] MEDS: SODIUM CHLORIDE 0.9% IV 1,000 ML 100 ML IV CONT (06:33)
[2025-03-10 08:00] VITALS: BP 131/82; PULSE 75; RESP 17; TEMP 36.6; O2SAT 99
[2025-03-10] MEDS: NICOTINE (*PBKC) 21 MG PATCH 1 PATCH TRANSDERM (08:28)
[2025-03-10] MEDS: MAGNESIUM OXIDE 400 MG TABLET PO (08:28)
[2025-03-10] MEDS: THIAMINE HCL 100 MG TABLET PO (08:28)
[2025-03-10] MEDS: FOLIC ACID 1 MG TABLET PO (08:28)
[2025-03-10] MEDS: MULTIVITAMINS THERAPEUTIC TAB (*BKC) 1 TABLET PO (08:28)
[2025-03-10] MEDS: EZETIMIBE 10 MG TABLET PO (08:28)
[2025-03-10] MEDS: EMPAGLIFLOZIN 25 MG TABLET PO (08:29)
[2025-03-10] MEDS: LOPERAMIDE HCL 2 MG CAPSULE PO (08:29)
--- NOTE | 2025-03-10 10:24 | P.DS_ITS ---
DS: Admitting Diagnosis Discharge Date 03/10/2025 Admitting Diagnosis Alcohol abuse with withdrawal DS: Discharge Diagnosis Discharge Diagnosis (1) Alcohol abuse with withdrawal: Code(s): F10.139 - Alcohol abuse with withdrawal, unspecified Status: Acute Assessment and Plan: patient with history of EtOH abuse reports drinking a gal of vodka daily has previous admission to intensive care unit and intubated due to alcohol withdrawals. * IV fluids * Last drink 48hrs * Thiamine, folic acid, and multi-vitamin * PPI daily * Ativan taper * IV diazepam PRN for seizure activity * CIWA daily * Monitor and replenish electrolytes as needed * Seizure precautions if indicated * educated on the need for immediate alcohol cessation * resources provided by care coordination (2) Pancytopenia: Code(s): D61.818 - Other pancytopenia Status: Acute Assessment and Plan: likely secondary to patient's alcohol abuse platelets 87 * continue to trend * monitor for any evidence of bleeding (3) Rhabdomyolysis: Code(s): M62.82 - Rhabdomyolysis Status: Acute Assessment and Plan: patient was recently in [facility] over the weekend presented with mild rhabdomyolysis CPK 593 * IV fluids (4) Tobacco abuse: Code(s): Z72.0 - Tobacco use Status: Acute Assessment and Plan: * nicotine patch * remove at night * educated on smoking cessation Plan Code status: Full code per patient DVT prophylaxis: SCDs Stress ulcer prophylaxis: Protonix 40 daily PT/OT notes: PT evaluation Disposition: patient continues admission for ETOH abuse with withdrawals will continue with Ativan taper and monitor CIWA. Patient reports currently he has no where to go at discharge is unable to return home with due to new restraining order. Care coordination as provided patient with resources. DS: Summary Hospital Course Hospital Course: Admission: Patient is a 64-year-old male who presented to the emergency department with complaints of alcohol withdrawals including tremors, diaphoresis, and nausea. patient reported he had been drinking on Thursday states he drinks close to a gal of vodka a day however had gotten in an argument with called the police and patient was placed in [facility] over the weekend. Patient presented to the ER with complaints of alcohol withdrawal. per the medical chart patient met initial CIWA score of 25. 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 In the ED: per medical chart patient was CIWA 25, transaminitis, and mild rhabdomyolysis CPK at 593, tachycardia and hypertensive, CXR no acute cardiopulmonary disease CT head with normal aging brain. Hospital course: patient is seen following day in no acute distress but still with mild tremors reports overnight diaphoresis but has resolved still with mild nausea but is tolerating oral intake denied any chest pain, shortness a breath, abdominal pain. Patient with some significant diarrhea C diff negative initiated on Imodium. patient is seen On the morning of discharge in no acute distress. CIWA score 0. No further tremors noted, tolerating oral intake, diarrhea improved. Patient ambulated with physical therapy yesterday discharge the patient with recommendation continued use of prosthetic leg and patient's home walker. spoke with care coordination regarding transportation to potential alcohol rehab or homeless shoulder with further arrangements to be made by healthcare administration intern. labs reviewed and are unremarkable vital signs are stable. Patient states that he is unable to access his home meds so new prescriptions were sent to local pharmacy. Status at Discharge Functional status at discharge: uses cane/walker (Right lower extremity prosthetic) Overall status at discharge: patient is back to baseline Time Spent with Patient Time attestation: Total time spent providing and/or coordinating discharge services: Time spent: Greater than 30 minutes Exam Const: General: comfortable and no acute distress Other: Mild tremors, pleasant male HENMT: Ears: TM's normal bilaterally Face/Nose/Sinus: Normal nares present Mouth: Yes moist mucous membranes Eyes: General: appearance normal, both eyes and all related structures Sclera: sclerae normal Pupils: Equal, round and reactive pupils present Neck: Neck: supple and no JVD Resp: Effort & Inspection: normal respiratory effort Auscultation: clear to auscultation bilaterally Cardio: Rate: regular rate Rhythm: regular rhythm GI: Other: hyperactive : General: Yes bladder normal to palpation Skin: General skin exam: normal color and no rashes or lesions noted Wounds: no wounds Neuro: Cranial nerves: Yes Equal, round and reactive pupils present Speech: normal speech Motor exam (neuro): 5/5 motor strength present throughout Sensory Exam: normal sensation Extrem: Other: right BKA Psych: Mental Status: mental status grossly normal Affect: normal affect DS: Data Data Completed and Pending Labs on day of discharge: Labs from last 24 hours 03/10/25 03/09/25 05:23 06:40 WBC 3.0 L RBC 4.87 Hgb 13.9 L Hct 42.6 MCV 87.5 MCH 28.5 MCHC 32.6 RDW 17.3 H Plt Count 88 L MPV 11.3 H Immature Gran % (Auto) Not Reportable Neut % (Auto) Not Reportable Lymph % (Auto) Not Reportable [place] % (Auto) Not Reportable Eos % (Auto) Not Reportable Baso % (Auto) Not Reportable Lymph # (Auto) Not Reportable [place] # (Auto) Not Reportable Eos # (Auto) Not Reportable Baso # (Auto) Not Reportable Abs Immat Gran (auto) Not Reportable Absolute Neuts (auto) Not Reportable Absolute Nucleated RBC Not Reportable Neutrophils % (Manual) 67 Band Neutrophils % 0 Lymphocytes % (Manual) 27 Monocytes % (Manual) 6 Eosinophils % (Manual) 0 L Basophils % (Manual) 0 Nucleated RBC % Not Reportable Abs Neuts (Manual) 2.01 Abs Lymphs (Manual) 0.81 L Abs Monocytes (Manual) 0.18 Absolute Eos (Manual) 0.00 L Abs Basophils (Manual) 0.00 Platelet Estimate Decreased % Immature Plt Fraction 8.7 H Schistocytes Not Reportable Sodium 137 Potassium 4.2 Chloride 103 Carbon Dioxide 25 Anion Gap 9 BUN 11 Creatinine 0.87 Estim Creat Clear Calc 63 Estimated GFR > 60 Glucose 94 POC Capillary Glucose 80 Calculated Osmolality 283 L Calcium 9.9 Magnesium 1.7 Total Bilirubin 0.8 AST 152 H ALT 102 H Alkaline Phosphatase 126 Total Protein 9.6 H Albumin 3.9 Discharge Plan Discharge Attending physician on discharge: Héctor Kamara Consulting providers: Brenda Glass Discharging Clinician: Brenda Glass Anticipated Discharge Date/Time: 03/10/25 10:25 Patient Disposition: Other Activity: as tolerated Diet: regular Discharge Instructions: 1). Alcohol withdrawal * avoid alcohol consumption * alcohol rehab education provided 2). Socioeconomic disparities * group home information provided How can you care for yourself at home? ? Keep track of any new symptoms or changes in your symptoms. ? Rest until you feel better. ? Be safe with medicines. Take your medicines exactly as prescribed. Call your doctor if you think you are having a problem with your medicine. ? Do not drive after taking a prescription pain medicine. ? Ensure to follow-up with primary care physician as indicated and provide updated medication list provided to you at discharge. When should you call for help? Call 911 anytime you think you may need emergency care. For example, call if: ? You passed out (lost consciousness). Call your doctor now or seek immediate medical care if: ? You have new symptoms like fever, difficulty breathing, Chest pain, vomiting, or rash. ? You have new or different pain. ? You are confused and are having trouble thinking clearly. ? Your symptoms are getting worse. Watch closely for changes in your health, and be sure to contact your doctor if: ? You do not get better as expected. Patient Instructions: Antibiotic Form Patient Language: Syrian Stand Alone Forms: General Discharge Information Discharge Medications: New thiamine HCl (vitamin B1) [Vitamin B-1] 100 mg Tablet 100 mg PO QAM Qty: 30 0RF magnesium oxide 400 mg (241.3 mg magnesium) Tablet 400 mg PO BID Qty: 30 0RF folic acid 1 mg Tablet 1 mg PO DAILY Qty: 30 0RF multivitamin with folic acid [Thera] 400 mcg Tablet 1 tablet PO QAM Qty: 30 0RF Continued gabapentin 300 mg capsule 300 mg PO Q8H Qty: 30 0RF ezetimibe 10 mg tablet 10 mg PO DAILY Qty: 30 0RF quetiapine [Seroquel] 50 mg tablet 50 mg PO QHS Qty: 30 1RF Jardiance 25 mg tablet 25 mg PO DAILY Qty: 30 0RF Date of admission: 03/08/25 14:51 Primary Care Provider: Lionel,Audrey Islas Admitting Provider: Héctor Kamara Attending physician on admission: Héctor Kamara Condition: Stable Quality VTE Prophylaxis VTE prophylaxis: mechanical ordered Hospitalist MIPS Heart Failure (Exclusion) Patient has history of Heart Transplant or Left Ventricular Assistive Device?: No IF YES, STOP HERE Heart Failure (Qualifier) Patient has current or prior documentation of LVEF less than or equal to 40%, or mod/servere depressed LVSF?: No IF NO, STOP HERE
--- NOTE | 2025-03-13 08:38 | PC.NURSE ---
Unable to complete discharge call back, restrictions on incoming calls will no accept.
== END 2025-03-10 13:15 | disposition home or self-care (01) ==
LOC: CHSED 14:46 → CHS2ND 15:01
PROVIDERS: Nurse Practitioner Family; Admitting Provider Internal Medicine; Emergency Provider Emergency Medicine; PCP Family Medicine; Visit Provider Internal Medicine
DX: F10.139 Alcohol abuse with withdrawal, unspecified (principal); E86.0 Dehydration; D61.818 Other pancytopenia; M62.82 Rhabdomyolysis; Z89.511 Acquired absence of right leg below knee; J44.9 Chronic obstructive pulmonary disease, unspecified; M54.9 Dorsalgia, unspecified; G89.29 Other chronic pain; F17.210 Nicotine dependence, cigarettes, uncomplicated; F17.290 Nicotine dependence, other tobacco product, uncomplicated
CPT/HCPCS: 36415; 70450; 71045; 80053; 80307; 81001; 82077; 82550; 82948; 83605; 83735; 84484; 85025; 85055; 87493; 93005; 96360; 96361; 96374; 96375; 96376; 97161; 99285; A4565; A9270; G0378; G0379; J2405; J3360; J3411; J7030